=== PATIENT | female | born 1940 | race African-American/Black ===

== ENCOUNTER 2021-01-25 11:52 | Outpatient (REF) | payer MEDICARE, SELFPAY ==
[2021-01-25 13:17] LABS: MANUAL DIFF FLAG NO
[2021-01-25 13:24] LABS: Basophils Absolute Auto 0.1 X10*3/uL (0.0-0.2); Basophils Percent Auto 0.6 % (0-2); Eosinophils Absolute Auto 0.1 X10*3/uL (0.0-0.4); Hematocrit 32.8 % (37-47); Hemoglobin 10.3 g/dl (12.0-16.0); Imm Gran Abs Auto 0.06 X10*3/uL (0.00-0.03); Imm Gran Pct Auto 0.7 % (0.0-0.4); Lymphocytes Absolute Auto 1.1 X10*3/uL (1.2-4.9); Lymphocytes Percent Auto 13.2 % (20-40); Mean Corpuscular HGB Conc 31.4 g/dl (31.0-35.0); Mean Corpuscular Hemoglobin 28.4 pg (27.0-33.0); Mean Corpuscular Volume 90.4 fL (80-98); Mean Platelet Volume 9.7 fL (9.4-12.3); Monocytes Absolute Auto 0.7 X10*3/uL (0.1-1.2); Monocytes Percent Auto 8.2 % (2-11); Neutrophils Absolute Auto 6.1 X10*3/uL (2.0-8.3); Neutrophils Percent Auto 76.3 % (45-73); Platelet Count 825 X10*3/uL (160-400); Red Blood Count 3.63 X10*6/uL (4.20-5.50)
[2021-01-25 13:54] LABS: Alanine Aminotransferase 16 U/L (0-31); Albumin Level 3.8 g/dL (3.5-5.0); Alkaline Phosphatase 189 U/L (39-117); Anion Gap 14 (12-20); Aspartate Amino Transferase 30 U/L (5-31); Bilirubin Total 1.3 mg/dL (0.0-1.0); Blood Urea Nitrogen 16 mg/dL (9-16); Calcium 9.8 mg/dL (8.4-10.2); Carbon Dioxide 29 mmol/L (22-29); Chloride 104 mmol/L (96-108); Cholesterol 186 mg/dL; Estimated Glomerular Filt Rate > 60; Glucose Fasting 117 mg/dL (60-99); HDL Cholesterol 57 mg/dL; LDL Cholesterol Calculated 111 mg/dl; Potassium 4.6 mmol/L (3.3-5.1); Sodium 142 mmol/L (135-145); Total Protein 6.6 g/dL (6.5-8.0); Triglycerides 90 mg/dL
[2021-01-25 14:16] LABS: Thyroid Stimulating Hormone 0.58 uIU/mL (0.32-4.0)
== END 2021-01-25 11:53 | disposition home or self-care (01) ==
LOC: HO.LAB 11:52
PROVIDERS: PCP Internal Medicine; Visit Provider Internal Medicine
DX: Z00.00 Encounter for general adult medical examination without abnormal findings (principal); E11.9 Type 2 diabetes mellitus without complications; E03.9 Hypothyroidism, unspecified
CPT/HCPCS: 36415; 80053; 80061; 84443; 85025

== ENCOUNTER 2021-02-13 10:48 | Inpatient (IN) | payer MEDICARE, SELFPAY ==
[2021-02-13] VITALS (7 sets, daily range): BP systolic 124–162; BP diastolic 58–84; PULSE 75–95; RESP 12–16; TEMP 36.2–36.7; O2SAT 98–100; BMI 20.8
--- NOTE | ~2021-02-13 | US_ITS ---
EXAMINATION: US VENOUS ULTRASOUND WITH DOPPLER LOWER EXTREMITY, LEFT CLINICAL INFORMATION: Left leg swelling COMPARISON: None TECHNIQUE: Ultrasound of the deep veins is performed from the hip to the calf with compression sonography and color and pulse Doppler assessment. Spectral analysis with color-flow imaging is performed. FINDINGS: There is thrombus seen in the left common femoral vein. The left superficial femoral, popliteal and posterior tibial and peroneal veins are patent. The visualized left greater saphenous vein is patent. The visualized left external iliac vein is patent. There is no Collier's cyst. US/US venous duplex LE LT IMPRESSION: Left common femoral vein DVT.
--- NOTE | ~2021-02-13 | CT_ITS ---
EXAMINATION: CT ABDOMEN AND PELVIS WITHOUT CONTRAST CLINICAL INFORMATION: Hydronephrosis. Follow-up COMPARISON: Renal ultrasound 02/15/2021, CT abdomen and pelvis noncontrast 02/13/2021. TECHNIQUE: Multidetector volumetric imaging was performed from the superior aspect of the liver through the pubic symphysis. Sagittal and coronal reformatted images were obtained on the technologist's workstation. This CT examination was performed using dose optimization techniques as appropriate, variously including the following: *Automated exposure control *Adjustment of mA and/or kV according to patient size (this includes techniques or standardized protocols for targeted exams where dose is matched to indication/reason for exam; i.e. extremities or head) *Use of iterative reconstruction technique DLP: 490 mGy-cm FINDINGS: LUNG BASES: Subsegmental atelectasis left posterior base. LIVER, GALLBLADDER, AND BILIARY TREE: Homogeneous and smooth in contour. No intrahepatic ductal dilatation. Prior cholecystectomy. Common duct unremarkable. PANCREAS: Atrophic, otherwise unremarkable. SPLEEN: Unremarkable. ADRENAL GLANDS: Mild symmetric fullness, stable. KIDNEYS AND URETERS: The bilateral hydronephrosis is resolved status post bladder decompression with Arias. There is mild residual fullness of the collecting systems. No perinephric stranding or urinary tract calculi. Again, there is a cyst mid to lower pole right kidney measuring approximately 6.5 cm. BLADDER: Decompressed, indwelling Arias catheter. GASTROINTESTINAL TRACT: No bowel obstruction or focal inflammatory changes. There is large amount of stool in the rectum, 7.4 cm in diameter. No paracolic stranding. No ascites or fluid collection. ABDOMINAL WALL: Borderline fat-containing inguinal hernias. LYMPH NODES: No interval lymphadenopathy. VASCULAR: Atherosclerotic calcifications coronary arteries and abdominal aorta and iliac arteries. PELVIC VISCERA: Unremarkable. OSSEOUS STRUCTURES: No acute bony abnormality. CT/CT abdomen pelvis wo con IMPRESSION: 1. Resolution bilateral hydronephrosis status post bladder decompression with Arias. Mild residual fullness collecting systems. No perinephric stranding or urinary tract calculi. 2. Rectal fecal impaction, 7.4 cm. No proximal obstruction or inflammatory changes.
--- NOTE | ~2021-02-13 | CT_ITS ---
EXAM: CT scan of the chest, abdomen, and pelvis. INDICATION: Altered mental status. Falls. COMPARISON: Abdominal ultrasound December 23, 2018 TECHNIQUE: Multidetector helical imaging of the chest, abdomen, and pelvis was obtained from the thoracic inlet through the pubic symphysis . Coronal and sagittal reformatted images that were obtained were also reviewed. DLP: 903 mGy-cm FINDINGS: CHEST: Central airways are patent. Lungs are well aerated. Mild emphysematous changes are noted. Biapical architectural distortion. No lobar consolidation. No pleural effusion or pneumothorax. No suspicious pulmonary nodules. The heart is normal in size. Coronary artery calcifications are present. No pericardial effusion. No gross mediastinal lymphadenopathy. Nonaneurysmal thoracic aorta. Suspected 1.7 cm left thyroid nodule. ABDOMEN/PELVIS: The liver is normal in size. The gallbladder is surgically absent. The pancreas is unremarkable. The spleen is mildly atrophic. Hypertrophied adrenal glands, left more prominent than right. Moderate bilateral hydroureteronephrosis. No obstructing calculi identified. 7 cm right renal cyst. Normal caliber loops of small and large bowel. Colonic diverticulosis without CT evidence to suggest active diverticulitis. Prominent stool burden within the rectal vault. The bladder is distended. There is diffuse bladder wall thickening. Uterus is either atrophic or surgically absent. No gross free pelvic fluid. No inguinal lymphadenopathy. OSSEOUS STRUCTURES Diffuse osteopenia. Moderate diffuse degenerative changes of the spine. Suspected T7 hemangioma. Several old/subacute rib fractures are noted bilaterally. No definitive acute rib fracture identified. CT/CT abdomen pelvis wo con IMPRESSION: 1. Mild emphysema. 2. Suspected 1.7 cm left thyroid nodule. 3. Moderate bilateral hydroureteronephrosis. No obstructing calculi noted. There is also diffuse bladder wall thickening. Clinical correlation recommended. 4. Colonic diverticulosis. 5. Prominent stool burden within the rectal vault. 6. Diffuse osteopenia with degenerative changes of the spine. Old and subacute rib fractures noted. This CT examination was performed using dose optimization techniques as appropriate, variously including the following: *Automated exposure control *Adjustment of mA and/or kV according to patient size (this includes techniques or standardized protocols for targeted exams where dose is matched to indication/reason for exam; i.e. extremities or head) *Use of iterative reconstruction technique
--- NOTE | ~2021-02-13 | US_ITS ---
EXAMINATION: US RETROPERITONEAL LIMITED (RENAL ONLY) CLINICAL INFORMATION: Hydronephrosis. COMPARISON: CT abdomen and pelvis 02/15/2021, 02/13/2021. Ultrasound abdomen complete 12/23/2018. TECHNIQUE: Real-time imaging of the kidneys. [employer] Machine Tender notes technically challenging exam with patient limitations. Study tailored to patient capabilities. FINDINGS: RIGHT KIDNEY: 11.2 x 3.9 x 4.4 cm (SAG x AP x TRV). The kidney is normal in size, contour, and echogenicity. Renal cortical thickness is normal. No renal calculi or hydronephrosis. There is a chronic simple cyst upper pole measuring 6.3 x 6.2 x 5.7 cm. Prior measurements 6.1 x 5.8 x 5.1 cm on ultrasound 12/23/2018. LEFT KIDNEY: 9.5 x 5.7 x 4.7 cm (SAG x AP x TRV). The kidney is normal in size, contour, and echogenicity. Renal cortical thickness is normal. No focal parenchymal lesions. No hydronephrosis. There is a specular echo medial upper to midpole without shadowing or twinkling artifact to suggest nonobstructing calculus. US/US renal BI IMPRESSION: 1. No hydronephrosis. 2. Chronic simple cyst upper pole right kidney 6.3 x 5.7 cm.
--- NOTE | ~2021-02-13 | CT_ITS ---
EXAM: Noncontrast CT scan of the head and cervical spine. INDICATION: Altered mental status. Fall. COMPARISON: None TECHNIQUE: Axial slices were obtained from skull base to vertex and displayed. This was followed by helical, multislice, multidetector axial images from the occiput to the upper thorax. Coronal and sagittal reformats of the cervical spine in addition to coronal reformats of the head were obtained at the technologist workstation. DLP: 1577 mGy-cm FINDINGS: HEAD: There is no evidence of acute intracranial hemorrhage or territorial infarction. No abnormal mass effect or midline shift is appreciated. Goode-white differentiation is well preserved. No extra-axial fluid collections. The ventricular system and cortical sulci are prominent, consistent with volume loss. Mild cerebellar volume loss is also appreciated. There are areas of low density in the periventricular and subcortical white matter, most consistent with sequelae of microvascular ischemic change. The osseous structures and soft tissues are normal. There is mild to moderate calcifications of the cavernous internal carotid arteries. Mild mucosal thickening of the sphenoid sinus. Other visualized paranasal sinuses are well aerated. SPINE: Cervical spine is visualized in its entirety. Alignment is within normal limits. Vertebral body heights are maintained. Disc spaces demonstrate mild to moderate narrowing at C3/4, C4/5 and C5/6. There is diffuse mild to moderate facet hypertrophy bilaterally. No prevertebral soft tissue swelling. Visualized lung apices demonstrate biapical scarring. Enlarged multinodular thyroid gland. CT/CT cervical spine wo con IMPRESSION: 1. No acute intracranial pathology. 2. No fractures or dislocations of the cervical spine. This CT examination was performed using dose optimization techniques as appropriate, variously including the following: *Automated exposure control *Adjustment of mA and/or kV according to patient size (this includes techniques or standardized protocols for targeted exams where dose is matched to indication/reason for exam; i.e. extremities or head) *Use of iterative reconstruction technique
--- NOTE | 2021-02-13 10:56 | ED.AMS ---
HPI - Altered Mental Status General Chief Complaint: Altered Mental Status Stated Complaint: ams Time Seen by Provider: 02/13/21 10:56 Source: patient Mode of arrival: ambulatory Limitations: altered mental status History of Present Illness HPI narrative: 80 yo female with hx of HTN, dementia dx 2017, anemia, hypothyroidism off medications for over a month has had frequent falls at home, decline since december, lives alone but family spending more time at her place, needs assistance with all ADLs, minimal talking, minimal walking complaint: confusion and decreased responsiveness Onset (ago): month(s) (2) Timing confirmed by: spouse Severity: severe Consistency of symptoms: getting Worse Context: history of similar presentation Associated symptoms: loss of appetite, malaise, weakness and other (frequent falls) Related Data Home Medications Medication Instructions Recorded Confirmed alendronate 70 mg tablet 70 mg PO QWEEK 01/18/21 02/13/21 azathioprine 50 mg tablet 25 mg PO BID 01/18/21 02/13/21 lisinopril 20 mg tablet 20 mg PO DAILY 01/18/21 02/13/21 ferrous sulfate 325 mg PO DAILY 02/13/21 02/13/21 furosemide 40 mg PO DAILY 02/13/21 02/13/21 Allergies Allergy/AdvReac Type Severity Reaction Status Date / Time Penicillins Allergy hives Verified 01/18/21 11:30 Review of Systems Review of Systems: ROS unable to be obtained due to altered mental status PMFSH Past Medical History Attestation statement: The following information was validated with the patient. Medical History (Updated 02/13/21 @ 14:25 by Chong Norman MD) Bilateral hydronephrosis Cognitive decline Dementia HTN (hypertension) Hypothyroidism Surgical History (Updated 02/13/21 @ 14:25 by Chong Norman MD) H/O: hysterectomy S/P cholecystectomy Social History Social History (Updated 02/13/21 @ 14:25 by Chong Norman MD) Alcohol intake: unknown Smoking Status: Former smoker Advance Directives: No Advance Directives Information Provided: No Physical Exam Vital Signs: Vital Signs: Last Vital Signs Temp 97.6 F 02/13/21 11:00 Pulse 83 02/13/21 13:11 Resp 14 02/13/21 13:11 BP 124/67 02/13/21 13:11 Pulse Ox 99 02/13/21 13:11 Body Mass Index 20.8 Appearance: Alert. follows commands at times, flat affect, withdrawn. No acute distress. Eyes: Pupils equal, round and reactive to light. ENT: Pharynx dry MM Neck: Normal inspection. Neck supple. CVS: Normal heart rate and rhythm. Pulses normal. Respiratory: No respiratory distress. Breath sounds normal. Abdomen: Soft and nontender. lower abdominal scar Skin: Skin warm and dry. pale skin color. poor skin turgor. areas of old and new ecchymosis, abrasions to knees Extremities: pos Left lower extremity edema 1+ pitting. No calf ttp Neuro: Oriented to self. No motor deficit. No sensory deficit. withdrawn, diffusely weak flat affect, calm Course Course Course Narrative: possible infection suspected given wbc count and bladder wall thickening empiric ceftriaxone ordered 204pm give DVT and EVA will start on low dose heparin gtt, plts coags and H/H stable, will admit for further care and workup family no longer at bedside attempting to reach listed daughter Nafisa - message left daughter unsure of CODE status at this time, will discuss with family. MDM - Altered Mental Status MDM Narrative Medical decision making narrative: 80 yo female from home dx with dementia worsening symptoms over the past two months not on medications due to new PCP - requiring assistance with all ADLs, lives alone but family has been staying, frequent falls will need labs, cultures, UA, CT imaging of head/cervical spine, chest/abdomen for mass and trauma, as well as DVT study for LLE, dispo per results and findings, may need CM input as well Lab Data Result diagrams: 02/13/21 11:55 02/13/21 11:55 Labs: Lab Results 02/13/21 02/13/21 02/13/21 Range/Units 11:54 11:55 11:55 WBC 15.1 H (4.8-10.8) X10*3/uL RBC 4.14 L (4.20-5.50) X10*6/uL Hgb 10.8 L (12.0-16.0) g/dl Hct 36.1 L (37-47) % MCV 87.2 (80-98) fL MCH 26.1 L (27.0-33.0) pg MCHC 29.9 L (31.0-35.0) g/dl RDW 14.2 (11.0-16.0) % Plt Count 437 H D (160-400) X10*3/uL MPV 9.8 (9.4-12.3) fL Immature Gran % (Auto) 1.3 H (0.0-0.4) % Neut % (Auto) 86.7 H (45-73) % Lymph % (Auto) 6.1 L (20-40) % [place] % (Auto) 5.7 (2-11) % Eos % (Auto) 0.1 (0-4) % Baso % (Auto) 0.1 (0-2) % Lymph # (Auto) 0.9 L (1.2-4.9) X10*3/uL [place] # (Auto) 0.9 (0.1-1.2) X10*3/uL Eos # (Auto) 0.0 (0.0-0.4) X10*3/uL Baso # (Auto) 0.0 (0.0-0.2) X10*3/uL Abs Immat Gran (auto) 0.19 H (0.00-0.03) X10*3/uL Absolute Neuts (auto) 13.1 H (2.0-8.3) X10*3/uL Absolute Nucleated RBC 0.000 (0.0-0.012) X10*3/uL Nucleated RBC % (auto) 0.0 (0.0-0.2) /100WBC PT (10.8-13.0) SEC INR (0.9-1.1) APTT (24.1-38.0) SEC Sodium 147 H (135-145) mmol/L Potassium 4.4 (3.3-5.1) mmol/L Chloride 107 (96-108) mmol/L Carbon Dioxide 28 (22-29) mmol/L Anion Gap 16 (12-20) BUN 46 H D (9-16) mg/dL Creatinine 1.77 H (0.5-1.4) mg/dL Estim Creat Clear Calc 25.6 Estimated GFR 28 Random Glucose 153 H (60-115) mg/dL Lactic Acid (0.5-2.0) mmol/L Calcium 9.6 (8.4-10.2) mg/dL Magnesium 2.9 H (1.6-2.6) mg/dL Total Bilirubin 0.7 (0.0-1.0) mg/dL Direct Bilirubin 0.3 (0.0-0.5) mg/dL AST 38 H (5-31) U/L ALT 24 (0-31) U/L Alkaline Phosphatase 147 H D (39-117) U/L Total Creatine Kinase 37 (26-140) U/L Troponin I High Sens (<3.5-17.0) ng/L Total Protein 7.2 (6.5-8.0) g/dL Albumin 3.7 (3.5-5.0) g/dL Lipase 20 (8-78) U/L TSH 0.44 (0.32-4.0) uIU/mL Urine Color Urine Appearance Urine pH Ur Specific [place] Urine Protein Urine Glucose (UA) Urine Ketones Urine Blood Urine Nitrite Ur Leukocyte Esterase Urine RBC (0) /HPF Urine WBC (0-4) /HPF Ur Squamous Epith Cells /LPF Amorphous Sediment /LPF Urine Bacteria /LPF COVID-19 (BRIEN) Negative (Negative) COVID-19 Clin Com See Note 02/13/21 02/13/21 02/13/21 Range/Units 11:55 11:55 11:56 WBC (4.8-10.8) X10*3/uL RBC (4.20-5.50) X10*6/uL Hgb (12.0-16.0) g/dl Hct (37-47) % MCV (80-98) fL MCH (27.0-33.0) pg MCHC (31.0-35.0) g/dl RDW (11.0-16.0) % Plt Count (160-400) X10*3/uL MPV (9.4-12.3) fL Immature Gran % (Auto) (0.0-0.4) % Neut % (Auto) (45-73) % Lymph % (Auto) (20-40) % [place] % (Auto) (2-11) % Eos % (Auto) (0-4) % Baso % (Auto) (0-2) % Lymph # (Auto) (1.2-4.9) X10*3/uL [place] # (Auto) (0.1-1.2) X10*3/uL Eos # (Auto) (0.0-0.4) X10*3/uL Baso # (Auto) (0.0-0.2) X10*3/uL Abs Immat Gran (auto) (0.00-0.03) X10*3/uL Absolute Neuts (auto) (2.0-8.3) X10*3/uL Absolute Nucleated RBC (0.0-0.012) X10*3/uL Nucleated RBC % (auto) (0.0-0.2) /100WBC PT 12.8 (10.8-13.0) SEC INR 1.1 (0.9-1.1) APTT 31.9 (24.1-38.0) SEC Sodium (135-145) mmol/L Potassium (3.3-5.1) mmol/L Chloride (96-108) mmol/L Carbon Dioxide (22-29) mmol/L Anion Gap (12-20) BUN (9-16) mg/dL Creatinine (0.5-1.4) mg/dL Estim Creat Clear Calc Estimated GFR Random Glucose (60-115) mg/dL Lactic Acid 1.6 (0.5-2.0) mmol/L Calcium (8.4-10.2) mg/dL Magnesium (1.6-2.6) mg/dL Total Bilirubin (0.0-1.0) mg/dL Direct Bilirubin (0.0-0.5) mg/dL AST (5-31) U/L ALT (0-31) U/L Alkaline Phosphatase (39-117) U/L Total Creatine Kinase (26-140) U/L Troponin I High Sens 54.7 H (<3.5-17.0) ng/L Total Protein (6.5-8.0) g/dL Albumin (3.5-5.0) g/dL Lipase (8-78) U/L TSH (0.32-4.0) uIU/mL Urine Color Urine Appearance Urine pH Ur Specific [place] Urine Protein Urine Glucose (UA) Urine Ketones Urine Blood Urine Nitrite Ur Leukocyte Esterase Urine RBC (0) /HPF Urine WBC (0-4) /HPF Ur Squamous Epith Cells /LPF Amorphous Sediment /LPF Urine Bacteria /LPF COVID-19 (BRIEN) (Negative) COVID-19 Clin Com 02/13/21 02/13/21 Range/Units 12:43 12:43 WBC (4.8-10.8) X10*3/uL RBC (4.20-5.50) X10*6/uL Hgb (12.0-16.0) g/dl Hct (37-47) % MCV (80-98) fL MCH (27.0-33.0) pg MCHC (31.0-35.0) g/dl RDW (11.0-16.0) % Plt Count (160-400) X10*3/uL MPV (9.4-12.3) fL Immature Gran % (Auto) (0.0-0.4) % Neut % (Auto) (45-73) % Lymph % (Auto) (20-40) % [place] % (Auto) (2-11) % Eos % (Auto) (0-4) % Baso % (Auto) (0-2) % Lymph # (Auto) (1.2-4.9) X10*3/uL [place] # (Auto) (0.1-1.2) X10*3/uL Eos # (Auto) (0.0-0.4) X10*3/uL Baso # (Auto) (0.0-0.2) X10*3/uL Abs Immat Gran (auto) (0.00-0.03) X10*3/uL Absolute Neuts (auto) (2.0-8.3) X10*3/uL Absolute Nucleated RBC (0.0-0.012) X10*3/uL Nucleated RBC % (auto) (0.0-0.2) /100WBC PT (10.8-13.0) SEC INR (0.9-1.1) APTT (24.1-38.0) SEC Sodium (135-145) mmol/L Potassium (3.3-5.1) mmol/L Chloride (96-108) mmol/L Carbon Dioxide (22-29) mmol/L Anion Gap (12-20) BUN (9-16) mg/dL Creatinine (0.5-1.4) mg/dL Estim Creat Clear Calc Estimated GFR Random Glucose (60-115) mg/dL Lactic Acid (0.5-2.0) mmol/L Calcium (8.4-10.2) mg/dL Magnesium (1.6-2.6) mg/dL Total Bilirubin (0.0-1.0) mg/dL Direct Bilirubin (0.0-0.5) mg/dL AST (5-31) U/L ALT (0-31) U/L Alkaline Phosphatase (39-117) U/L Total Creatine Kinase (26-140) U/L Troponin I High Sens (<3.5-17.0) ng/L Total Protein (6.5-8.0) g/dL Albumin (3.5-5.0) g/dL Lipase (8-78) U/L TSH (0.32-4.0) uIU/mL Urine Color Cancelled YELLOW Urine Appearance Cancelled CLEAR Urine pH Cancelled 5.5 Ur Specific [place] Cancelled 1.020 Urine Protein Cancelled NEG Urine Glucose (UA) Cancelled NEG Urine Ketones Cancelled NEG Urine Blood Cancelled TRACE Urine Nitrite Cancelled NEG Ur Leukocyte Esterase Cancelled NEG Urine RBC 0-2 (0) /HPF Urine WBC 1-4 (0-4) /HPF Ur Squamous Epith Cells TRACE /LPF Amorphous Sediment 1+ /LPF Urine Bacteria NONE /LPF COVID-19 (BRIEN) (Negative) COVID-19 Clin Com ECG Data ECG #1: Attestation: I personally reviewed and interpreted this ECG as follows: ECG interpretation date: 02/13/21 ECG interpretation time: 11:51 Interpretation: Rate: 88 Rhythm: NSR [place]: normal Normal P waves. Normal LEANN. Normal QRS complex. poor R wave progression ST T wave : nonspecific, no ANGELINA, artifact noted qTC: normal prior studies: no acute ischemia The study has been interpreted contemporaneously by me. . Discharge Plan Discharge Clinical Impression: EVA (acute kidney injury), Weakness Dementia Qualifiers: Dementia type: unspecified type Dementia behavioral disturbance: without behavioral disturbance Qualified Code(s): F03.90 - Unspecified dementia without behavioral disturbance Constipation Qualifiers: Constipation type: other constipation type Qualified Code(s): K59.09 - Other constipation DVT (deep venous thrombosis) Qualifiers: DVT location: lower extremity Affected thrombotic vein of extremity: femoral Chronicity: acute Laterality: left Qualified Code(s): I82.412 - Acute embolism and thrombosis of left femoral vein Patient Disposition: Admitted As Inpatient
--- NOTE | 2021-02-13 11:06 | ECG_ITS ---
Test Reason : AMS Blood Pressure : / mmHG Vent. Rate : 088 BPM Atrial Rate : 088 BPM P-R Int : 146 ms QRS Dur : 102 ms QT Int : 358 ms P-R-T Axes : 082 021 064 degrees QTc Int : 433 ms Normal sinus rhythm Anterior infarct (cited on or before 13-FEB-2021) Abnormal ECG When compared with ECG of 28-JAN-2004 13:02, T wave inversion now evident in Lateral leads Referred By: Michelle Whyte Electronically Signed By:DILIP JACKSON MD
[2021-02-13 12:02] LABS: MANUAL DIFF FLAG NO
[2021-02-13 12:04] LABS: Basophils Percent Auto 0.1 % (0-2); Eosinophils Percent Auto 0.1 % (0-4); Hematocrit 36.1 % (37-47); Hemoglobin 10.8 g/dl (12.0-16.0); Imm Gran Abs Auto 0.19 X10*3/uL (0.00-0.03); Imm Gran Pct Auto 1.3 % (0.0-0.4); Lymphocytes Absolute Auto 0.9 X10*3/uL (1.2-4.9); Lymphocytes Percent Auto 6.1 % (20-40); Mean Corpuscular HGB Conc 29.9 g/dl (31.0-35.0); Mean Corpuscular Hemoglobin 26.1 pg (27.0-33.0); Mean Corpuscular Volume 87.2 fL (80-98); Mean Platelet Volume 9.8 fL (9.4-12.3); Monocytes Absolute Auto 0.9 X10*3/uL (0.1-1.2); Monocytes Percent Auto 5.7 % (2-11); Neutrophils Absolute Auto 13.1 X10*3/uL (2.0-8.3); Neutrophils Percent Auto 86.7 % (45-73); Platelet Count 437 X10*3/uL (160-400); Red Blood Count 4.14 X10*6/uL (4.20-5.50); Red Cell Distribution Width 14.2 % (11.0-16.0); White Blood Count 15.1 X10*3/uL (4.8-10.8)
[2021-02-13 12:20] LABS: INTERNATIONAL NORM RATIO 1.1 (0.9-1.1); Partial Thromboplastin Time 31.9 SEC (24.1-38.0); Prothrombin Time 12.8 SEC (10.8-13.0)
[2021-02-13 12:21] LABS: COVID-19 Test Negative (Negative); IDNOW Serial# 9DD0AD1C
[2021-02-13 12:24] LABS: Lactic Acid 1.6 mmol/L (0.5-2.0)
[2021-02-13 12:28] LABS: Alanine Aminotransferase 24 U/L (0-31); Albumin Level 3.7 g/dL (3.5-5.0); Alkaline Phosphatase 147 U/L (39-117); Anion Gap 16 (12-20); Aspartate Amino Transferase 38 U/L (5-31); Bilirubin Direct 0.3 mg/dL (0.0-0.5); Bilirubin Total 0.7 mg/dL (0.0-1.0); Blood Urea Nitrogen 46 mg/dL (9-16); Calcium 9.6 mg/dL (8.4-10.2); Carbon Dioxide 28 mmol/L (22-29); Chloride 107 mmol/L (96-108); Creatinine Clr Calc Pharmacy 25.6; Estimated Glomerular Filt Rate 28; Glucose Random 153 mg/dL (60-115); Lipase 20 U/L (8-78); Magnesium 2.9 mg/dL (1.6-2.6); Potassium 4.4 mmol/L (3.3-5.1); Sodium 147 mmol/L (135-145); Total Protein 7.2 g/dL (6.5-8.0)
[2021-02-13 12:37] LABS: Troponin-I High Sensitivity 54.7 ng/L (<3.5-17.0)
[2021-02-13 12:48] LABS: Thyroid Stimulating Hormone 0.44 uIU/mL (0.32-4.0)
[2021-02-13 12:56] LABS: Glucose Urine UA NEG (NEG); Leukocyte Esterase Urine NEG (NEG); Nitrite Urine NEG (NEG); PH 5.5 (5.0-8.0); Urine Blood TRACE (NEG); Urine Ketones NEG (NEG); Urine Protein NEG (NEG-TRACE)
[2021-02-13 12:59] LABS: Appearance Urine CLEAR; Color Urine YELLOW
[2021-02-13 13:08] LABS: Amorphous Sediment Urine 1+ /LPF; RBC Urine 0-2 /HPF (0); Squamous Epithelial Cell Urine TRACE /LPF
[2021-02-13] MEDS: 0.9 % Sodium Chloride 500 ML IV (13:11)
[2021-02-13] MEDS: cefTRIAXone sodium 1 GM in 0.9 % Sodium Chloride 50 ML IV (14:36)
--- NOTE | 2021-02-13 15:10 | PC.NURSE ---
Hospitalist at bedside Dr Cadet speaking with about admission and plan of care. Photos taken by Dr cadet to be placed in chart
[2021-02-13] MEDS: Heparin Sodium,Porcine 5,000 UNIT/ML VIAL 2600 UNIT IVPUSH (15:21)
[2021-02-13] MEDS: Heparin Sodium,Porcine/1/2NS 25,000 UNIT/250 ML IV.SOLN 7.69 UNIT IVCONT (15:22)
--- NOTE | 2021-02-13 15:25 | PC.NURSE ---
Heparin gtt started per order/protocol. at bedside. No changes since last assessment. VSS
--- NOTE | 2021-02-13 15:30 | P.HPHOSP_ITS ---
History of Present Illness Date of Service: 02/13/21 Chief Complaint: weakness 80F brought in by family for failure to thrive. patient has been declining over several months, but most significantly over the last month. she was previously independent in ADLs, now needs help with walking, toileting, dressing, cannot have meaningful conversations. she has had multiple falls, has been spending more time in bed and in chair. has had decreased appetite and unspecified weight loss. in ED noted to have LLE common femoral vein DVT, EVA, hypernatremia, hydronephrosis with 2L urinary retention. UA was negative but ceftriaxone given empirically for bladder wall thickening, started on IV heparin. Review of Systems Review of Systems: Constitutional: Denies fever, denies Chills Eyes: denies blurry vision ENT: denies sore throat CVS: denies chest pain Respiratory: Denies dyspnea GI: no abdominal pain : denies dysuria MSK: denies neck pain Skin: denies rash Neuro: weakness Psych: denies suicidal ideation Endocrine: denies heat/cold intoleratnce Hematologic: denies easy bleeding Allergy: denies hives [facility] Medical History (Updated 02/13/21 @ 15:41 by Chong Norman MD) Age related osteoporosis Autoimmune hepatitis Bilateral hydronephrosis Cognitive decline COPD (chronic obstructive pulmonary disease) Dementia HTN (hypertension) Hypothyroidism Urinary retention Family History Mother No problems noted. Family history: reviewed and not pertinent Surgical History H/O: hysterectomy S/P cholecystectomy Social History Alcohol intake: unknown Smoking Status: Former smoker Advance Directives: No Advance Directives Information Provided: No Meds Allergies Allergy/AdvReac Type Severity Reaction Status Date / Time Penicillins Allergy hives Verified 01/18/21 11:30 Active Medications: Current Medications Generic Name Dose Route Start Last Admin Trade Name Freq PRN Reason Stop Dose Admin Heparin Sodium (Porcine) 2,600 unit 02/13/21 14:15 Heparin Sodium,Porcine 5,000 Unit/Ml Vial 40 unit/kg (2600 unit) IVPUSH BOLUS PRN 40 unit/kg - Heparin Protocol Heparin Sodium (Porcine) 5,100 unit 02/13/21 14:19 Heparin Sodium,Porcine 5,000 Unit/Ml Vial 80 unit/kg (5100 unit) IVPUSH BOLUS PRN 80 unit/kg - Heparin Protocol Heparin Sodium/Sodium Chloride 25,000 unit in 250 mls @ 0 mls/hr 02/13/21 14:15 02/13/21 15:22 IVCONT 12 units/kg/hr .Q0M MAGY 7.69 mls/hr Administration Protocol Per Protocol Pharmacy Consult 1 each 02/13/21 11:05 Consult Rx Perform Med Rec MISCELLANE ONCE PRN Consult order Home Medications Medication Instructions Recorded Confirmed Last Taken Type alendronate 70 mg tablet 70 mg PO QWEEK 01/18/21 02/13/21 Unknown History azathioprine 50 mg tablet 25 mg PO BID 01/18/21 02/13/21 Unknown History lisinopril 20 mg tablet 20 mg PO DAILY 01/18/21 02/13/21 Unknown History ferrous sulfate 325 mg PO DAILY 02/13/21 02/13/21 Unknown History furosemide 40 mg PO DAILY 02/13/21 02/13/21 Unknown History Physical Exam Vital Signs and Narrative: Vital Signs: Last Vital Signs Temp 97.6 F 02/13/21 11:00 Pulse 86 02/13/21 14:55 Resp 12 02/13/21 14:55 BP 159/68 H 02/13/21 14:55 Pulse Ox 100 02/13/21 14:55 Body Mass Index 20.8 General: minimally verbal, disoriented, no acute distress HEENT: atraumatic Neck: normal to visual inspection CVS: S1, S2, RRR Resp: diminished Chest: non tender GI: soft, non tender, non distended : no CVA tenderness Skin: abrasians, and sacral stage I, see pics Extremities: LLE edema Neuro: motor grossly intact Psych: impaired insight Results Labs CBC and Chem 7: 02/13/21 11:55 02/13/21 11:55 Labs: Laboratory Results - last 24 hr 02/13/21 02/13/21 02/13/21 11:54 11:55 11:55 MCV 87.2 MCH 26.1 L MCHC 29.9 L RDW 14.2 Plt Count 437 H D MPV 9.8 Immature Gran % (Auto) 1.3 H Neut % (Auto) 86.7 H Lymph % (Auto) 6.1 L [place] % (Auto) 5.7 Eos % (Auto) 0.1 Baso % (Auto) 0.1 Lymph # (Auto) 0.9 L [place] # (Auto) 0.9 Eos # (Auto) 0.0 Baso # (Auto) 0.0 Abs Immat Gran (auto) 0.19 H Absolute Neuts (auto) 13.1 H Absolute Nucleated RBC 0.000 Nucleated RBC % (auto) 0.0 PT INR APTT Anion Gap 16 Estim Creat Clear Calc 25.6 Estimated GFR 28 Random Glucose 153 H Lactic Acid Calcium 9.6 Magnesium 2.9 H Total Bilirubin 0.7 Direct Bilirubin 0.3 AST 38 H ALT 24 Alkaline Phosphatase 147 H D Total Creatine Kinase 37 Troponin I High Sens Total Protein 7.2 Albumin 3.7 Lipase 20 TSH 0.44 Urine Color Urine Appearance Urine pH Ur Specific [place] Urine Protein Urine Glucose (UA) Urine Ketones Urine Blood Urine Nitrite Ur Leukocyte Esterase Urine RBC Urine WBC Ur Squamous Epith Cells Amorphous Sediment Urine Bacteria COVID-19 (BRIEN) Negative COVID-19 [employer] Com See Note 02/13/21 02/13/21 02/13/21 11:55 11:55 11:56 MCV MCH MCHC RDW Plt Count MPV Immature Gran % (Auto) Neut % (Auto) Lymph % (Auto) [place] % (Auto) Eos % (Auto) Baso % (Auto) Lymph # (Auto) [place] # (Auto) Eos # (Auto) Baso # (Auto) Abs Immat Gran (auto) Absolute Neuts (auto) Absolute Nucleated RBC Nucleated RBC % (auto) PT 12.8 INR 1.1 APTT 31.9 Anion Gap Estim Creat Clear Calc Estimated GFR Random Glucose Lactic Acid 1.6 Calcium Magnesium Total Bilirubin Direct Bilirubin AST ALT Alkaline Phosphatase Total Creatine Kinase Troponin I High Sens 54.7 H Total Protein Albumin Lipase TSH Urine Color Urine Appearance Urine pH Ur Specific [place] Urine Protein Urine Glucose (UA) Urine Ketones Urine Blood Urine Nitrite Ur Leukocyte Esterase Urine RBC Urine WBC Ur Squamous Epith Cells Amorphous Sediment Urine Bacteria COVID-19 (BRIEN) COVID-[employer] Com 02/13/21 02/13/21 12:43 12:43 MCV MCH MCHC RDW Plt Count MPV Immature Gran % (Auto) Neut % (Auto) Lymph % (Auto) [place] % (Auto) Eos % (Auto) Baso % (Auto) Lymph # (Auto) [place] # (Auto) Eos # (Auto) Baso # (Auto) Abs Immat Gran (auto) Absolute Neuts (auto) Absolute Nucleated RBC Nucleated RBC % (auto) PT INR APTT Anion Gap Estim Creat Clear Calc Estimated GFR Random Glucose Lactic Acid Calcium Magnesium Total Bilirubin Direct Bilirubin AST ALT Alkaline Phosphatase Total Creatine Kinase Troponin I High Sens Total Protein Albumin Lipase TSH Urine Color Cancelled YELLOW Urine Appearance Cancelled CLEAR Urine pH Cancelled 5.5 Ur Specific [place] Cancelled 1.020 Urine Protein Cancelled NEG Urine Glucose (UA) Cancelled NEG Urine Ketones Cancelled NEG Urine Blood Cancelled TRACE Urine Nitrite Cancelled NEG Ur Leukocyte Esterase Cancelled NEG Urine RBC 0-2 Urine WBC 1-4 Ur Squamous Epith Cells TRACE Amorphous Sediment 1+ Urine Bacteria NONE COVID-19 (BRIEN) COVID-19 Clin Com Imaging Radiologist's Impressions: Impressions Venous Duplex 02/13/21 11:05 IMPRESSION: Left common femoral vein DVT. Abdomen/Pelvis CT 02/13/21 11:06 IMPRESSION: 1. Mild emphysema. 2. Suspected 1.7 cm left thyroid nodule. 3. Moderate bilateral hydroureteronephrosis. No obstructing calculi noted. There is also diffuse bladder wall thickening. Clinical correlation recommended. 4. Colonic diverticulosis. 5. Prominent stool burden within the rectal vault. 6. Diffuse osteopenia with degenerative changes of the spine. Old and subacute rib fractures noted. This CT examination was performed using dose optimization techniques as appropriate, variously including the following: *Automated exposure control *Adjustment of mA and/or kV according to patient size (this includes techniques or standardized protocols for targeted exams where dose is matched to indication/reason for exam; i.e. extremities or head) *Use of iterative reconstruction technique Cervical Spine CT 02/13/21 11:06 IMPRESSION: 1. No acute intracranial pathology. 2. No fractures or dislocations of the cervical spine. This CT examination was performed using dose optimization techniques as appropriate, variously including the following: *Automated exposure control *Adjustment of mA and/or kV according to patient size (this includes techniques or standardized protocols for targeted exams where dose is matched to indication/reason for exam; i.e. extremities or head) *Use of iterative reconstruction technique Chest CT 02/13/21 11:06 IMPRESSION: 1. Mild emphysema. 2. Suspected 1.7 cm left thyroid nodule. 3. Moderate bilateral hydroureteronephrosis. No obstructing calculi noted. There is also diffuse bladder wall thickening. Clinical correlation recommended. 4. Colonic diverticulosis. 5. Prominent stool burden within the rectal vault. 6. Diffuse osteopenia with degenerative changes of the spine. Old and subacute rib fractures noted. This CT examination was performed using dose optimization techniques as appropriate, variously including the following: *Automated exposure control *Adjustment of mA and/or kV according to patient size (this includes techniques or standardized protocols for targeted exams where dose is matched to indication/reason for exam; i.e. extremities or head) *Use of iterative reconstruction technique Head CT 02/13/21 11:06 IMPRESSION: 1. No acute intracranial pathology. 2. No fractures or dislocations of the cervical spine. This CT examination was performed using dose optimization techniques as appropriate, variously including the following: *Automated exposure control *Adjustment of mA and/or kV according to patient size (this includes techniques or standardized protocols for targeted exams where dose is matched to indication/reason for exam; i.e. extremities or head) *Use of iterative reconstruction technique Assessment and Plan (1) Metabolic encephalopathy: Status: Acute (2) Hypernatremia: Status: Acute (3) Urinary retention: Status: Acute (4) Bilateral hydronephrosis: Status: Acute (5) Autoimmune hepatitis: Status: Acute (6) COPD (chronic obstructive pulmonary disease): Status: Acute (7) EVA (acute kidney injury): Status: Acute (8) DVT (deep venous thrombosis): Qualifiers: Affected thrombotic vein of extremity: femoral Chronicity: acute DVT location: lower extremity Laterality: left Qualified Code(s): I82.412 - Acute embolism and thrombosis of left femoral vein Status: Acute 80F presented with FTT metabolic encephalopathy hypernatremia and EVA urinary retention james placed, about 2L residual, consult empiric ceftriaxone monitor bmp D5W LLE common femoral vein DVT heparin seems unprovoked, unless due to imobility, question of underlying malignancy, hematology consult COPD stable, not offically diagnosed dementia progressing autoimmune hepatitis azathioprine hypothyroid not on synthroid, tsh 0.44 Osteoporosis hold alendronate Full code - d/w HCP, daughter, Nafisa
[2021-02-13] MEDS: 0.9 % Sodium Chloride Flush 3 ML SYRINGE IVFLUSH (19:52)
[2021-02-13] MEDS: Dextrose 5 % 1,000 ML 100 ML IVCONT (20:13)
--- NOTE | 2021-02-13 23:27 | PC.NURSE ---
P-PTT-HD results not available I phlebotomy contacted stated specimen was obtained,spoke with chemistry also E results are pending
[2021-02-13 23:35] LABS: PTT Heparin Drip 106.6 SEC (53-77.9)
[2021-02-14] MEDS: Dextrose 5 % 1,000 ML 100 ML IVCONT ×2 (06:07→16:08)
--- NOTE | 2021-02-14 06:27 | PC.NURSE ---
PTT-HD RESULTS FROM 2129 DRAW STILL NOT POSTED BY 2300 REPORT, THEREFORE, 3- RN PLACED A CALL TO LAB FOR RESULTS. VACUUM CLEANER REPAIR PERSON STATED WOULD LOOK INTO THE MATTER AND NOTED RESULTS POSTED APPROX 2340. PTT-HD WAS 106.6, AND PER PROTOCOL, DRIP SHUT OFF FOR ONE HOUR AT 0000 AND THEN TO BE REDUCED BY 3/UNITS/KG/HR. RATE PRIOR WAS 12 UNITS/KG/HR WITH A RATE OF 7.69ML/HR. WITH RESTART AFTER ONE HOUR AT 0100, NOW 9 UNITS/KG/HR WHICH IS AT A RATE OF 5.76ML/HR AND COSIGNED BY RN COWORKER WITH WITNESS TO CHANGE. PT WITH NO S/SX ACTIVE BLEEDING AND NEXT PTT-HD SCHEDULED FOR 0700 ON 02-14-21. WILL CONTINUE TO MONITOR
[2021-02-14 06:45] LABS: MANUAL DIFF FLAG NO
[2021-02-14 06:55] LABS: INTERNATIONAL NORM RATIO 1.2 (0.9-1.1); Prothrombin Time 13.7 SEC (10.8-13.0)
[2021-02-14 06:57] LABS: Basophils Percent Auto 0.2 % (0-2); Eosinophils Percent Auto 0.3 % (0-4); Hematocrit 30.2 % (37-47); Hemoglobin 9.3 g/dl (12.0-16.0); Imm Gran Abs Auto 0.12 X10*3/uL (0.00-0.03); Imm Gran Pct Auto 0.9 % (0.0-0.4); Lymphocytes Absolute Auto 1.3 X10*3/uL (1.2-4.9); Lymphocytes Percent Auto 9.9 % (20-40); Mean Corpuscular HGB Conc 30.8 g/dl (31.0-35.0); Mean Corpuscular Hemoglobin 26.5 pg (27.0-33.0); Mean Platelet Volume 9.7 fL (9.4-12.3); Monocytes Absolute Auto 0.9 X10*3/uL (0.1-1.2); Monocytes Percent Auto 7.1 % (2-11); Neutrophils Absolute Auto 10.6 X10*3/uL (2.0-8.3); Neutrophils Percent Auto 81.6 % (45-73); PTT Heparin Drip 74.9 SEC (53-77.9); Platelet Count 396 X10*3/uL (160-400); Red Blood Count 3.51 X10*6/uL (4.20-5.50); Red Cell Distribution Width 14.2 % (11.0-16.0)
[2021-02-14 07:38] VITALS: BP 163/76; PULSE 75; RESP 18; TEMP 36.3; O2SAT 100
[2021-02-14 07:46] LABS: Anion Gap 12 (12-20); Blood Urea Nitrogen 29 mg/dL (9-16); Calcium 8.7 mg/dL (8.4-10.2); Carbon Dioxide 31 mmol/L (22-29); Chloride 106 mmol/L (96-108); Creatinine Clr Calc Pharmacy 45.8; Estimated Glomerular Filt Rate 54; Glucose Random 132 mg/dL (60-115); Potassium 3.7 mmol/L (3.3-5.1); Sodium 145 mmol/L (135-145)
--- NOTE | 2021-02-14 08:50 | PM.UROCN ---
History of Present Illness Consult details Consult date: 02/14/21 Narrative: 80 yr female admit with FTT found to have 2l retention with bilateral hydro and elevated creatinine james catheter placed cr already fallen to 1.0 leave catheter for 4 weeks can be seen as outpatient for voiding trial start low dose alpha sunshine repeat imaging to confirm hydro resolution PMFSH Past Medical History Medical History (Updated 02/13/21 @ 15:41 by Chong Norman MD) Age related osteoporosis Autoimmune hepatitis Bilateral hydronephrosis Cognitive decline COPD (chronic obstructive pulmonary disease) Dementia HTN (hypertension) Hypothyroidism Urinary retention Family History Family History Mother No problems noted. Family history: reviewed and not pertinent Surgical History Surgical History H/O: hysterectomy S/P cholecystectomy Social History Social History Household Members: Other Household Members Other:: daughter Housing: House Do you presently have visiting nurse or other home services: Yes Unable to assess alcohol history related to: Unable to respond and Unknown Alcohol intake: unknown Smoking Status: Former smoker Use of substances other than those prescribed or required for medical reasons: Unknown Advance Directives: No Advance Directives Information Provided: No Do you have thoughts of harming others: None Do you have a plan to hurt others: No Plan Recently lost weight without trying: Unsure Meds Allergies Allergy/AdvReac Type Severity Reaction Status Date / Time Penicillins Allergy hives Verified 01/18/21 11:30 Active Medications: Current Medications Generic Name Dose Route Start Last Admin Trade Name Freq PRN Reason Stop Dose Admin Azathioprine 25 mg 02/13/21 21:00 02/13/21 21:41 Azathioprine 25 Mg Halftab PO 25 mg BID MAGY Administration Heparin Sodium (Porcine) 2,600 unit 02/13/21 14:15 Heparin Sodium,Porcine 5,000 Unit/Ml Vial 40 unit/kg (2600 unit) IVPUSH BOLUS PRN 40 unit/kg - Heparin Protocol Heparin Sodium (Porcine) 5,100 unit 02/13/21 14:19 Heparin Sodium,Porcine 5,000 Unit/Ml Vial 80 unit/kg (5100 unit) IVPUSH BOLUS PRN 80 unit/kg - Heparin Protocol Heparin Sodium/Sodium Chloride 25,000 unit in 250 mls @ 0 mls/hr 02/13/21 14:15 02/14/21 07:25 IVCONT 9 units/kg/hr .Q0M MAGY 5.77 mls/hr Titration Protocol Per Protocol Ceftriaxone Sodium 1 gm/ 50 mls @ 100 mls/hr 02/14/21 14:00 Sodium Chloride IV Q24H MAGY Dextrose 1,000 mls @ 100 mls/hr 02/13/21 19:46 02/14/21 06:07 D5w IVCONT 100 mls/hr .Q10H MAGY Administration Sodium Chloride 3 ml 02/13/21 19:46 02/14/21 00:00 0.9 % Sodium Chloride Flush 3 Ml Syringe IVFLUSH Not Given QSHIFT [facility] Home Medications Medication Instructions Recorded Confirmed Last Taken Type alendronate 70 mg PO QWEEK 02/13/21 02/13/21 Unknown History azathioprine 25 mg PO BID 02/13/21 02/13/21 Unknown History ferrous sulfate 325 mg PO DAILY 02/13/21 02/13/21 Unknown History furosemide 40 mg PO DAILY 02/13/21 02/13/21 Unknown History lisinopril 20 mg PO DAILY 02/13/21 02/13/21 Unknown History Physical Exam Vital Signs: Vital Signs: Last Vital Signs Temp 97.4 F 02/14/21 07:38 Pulse 75 02/14/21 07:38 Resp 18 02/14/21 07:38 BP 163/76 H 02/14/21 07:38 Pulse Ox 100 02/14/21 07:38 Body Mass Index 20.8 Const: General: cooperative, healthy appearing, comfortable and no acute distress Nutritional Appearance: average body habitus Orientation/consciousness: oriented to person, oriented to place and oriented to time Eyes: General: appearance normal, both eyes and all related structures Chest: Chest palpation & inspection: normal inspection of the chest Resp: Effort & Inspection: normal respiratory effort Cardio: Rate: regular rate GI: Inspection: Yes normal to inspection Skin: Hair: normal Neuro: General: oriented to person, oriented to place and oriented to time Extrem: General: Yes normal to inspection Results Labs Result diagrams: 02/14/21 06:35 02/14/21 06:35 Labs: Abnormal lab results 02/13/21 02/13/21 02/13/21 Range/Units 11:55 11:55 11:55 WBC 15.1 H (4.8-10.8) X10*3/uL RBC 4.14 L (4.20-5.50) X10*6/uL Hgb 10.8 L (12.0-16.0) g/dl Hct 36.1 L (37-47) % MCH 26.1 L (27.0-33.0) pg MCHC 29.9 L (31.0-35.0) g/dl Plt Count 437 H D (160-400) X10*3/uL Immature Gran % (Auto) 1.3 H (0.0-0.4) % Neut % (Auto) 86.7 H (45-73) % Lymph % (Auto) 6.1 L (20-40) % Lymph # (Auto) 0.9 L (1.2-4.9) X10*3/uL Abs Immat Gran (auto) 0.19 H (0.00-0.03) X10*3/uL Absolute Neuts (auto) 13.1 H (2.0-8.3) X10*3/uL PT (10.8-13.0) SEC INR (0.9-1.1) PTT (Heparin Protocol) (53-77.9) SEC Sodium 147 H (135-145) mmol/L Carbon Dioxide (22-29) mmol/L BUN 46 H D (9-16) mg/dL Creatinine 1.77 H (0.5-1.4) mg/dL Random Glucose 153 H (60-115) mg/dL Magnesium 2.9 H (1.6-2.6) mg/dL AST 38 H (5-31) U/L Alkaline Phosphatase 147 H D (39-117) U/L Troponin I High Sens 54.7 H (<3.5-17.0) ng/L 02/13/21 02/14/21 02/14/21 Range/Units 21:30 06:35 06:35 WBC 13.0 H (4.8-10.8) X10*3/uL RBC 3.51 L (4.20-5.50) X10*6/uL Hgb 9.3 L (12.0-16.0) g/dl Hct 30.2 L (37-47) % MCH 26.5 L (27.0-33.0) pg MCHC 30.8 L (31.0-35.0) g/dl Plt Count (160-400) X10*3/uL Immature Gran % (Auto) 0.9 H (0.0-0.4) % Neut % (Auto) 81.6 H (45-73) % Lymph % (Auto) 9.9 L (20-40) % Lymph # (Auto) (1.2-4.9) X10*3/uL Abs Immat Gran (auto) 0.12 H (0.00-0.03) X10*3/uL Absolute Neuts (auto) 10.6 H (2.0-8.3) X10*3/uL PT (10.8-13.0) SEC INR (0.9-1.1) PTT (Heparin Protocol) 106.6 H (53-77.9) SEC Sodium (135-145) mmol/L Carbon Dioxide 31 H (22-29) mmol/L BUN 29 H (9-16) mg/dL Creatinine (0.5-1.4) mg/dL Random Glucose 132 H (60-115) mg/dL Magnesium (1.6-2.6) mg/dL AST (5-31) U/L Alkaline Phosphatase (39-117) U/L Troponin I High Sens (<3.5-17.0) ng/L 02/14/21 Range/Units 06:35 WBC (4.8-10.8) X10*3/uL RBC (4.20-5.50) X10*6/uL Hgb (12.0-16.0) g/dl Hct (37-47) % MCH (27.0-33.0) pg MCHC (31.0-35.0) g/dl Plt Count (160-400) X10*3/uL Immature Gran % (Auto) (0.0-0.4) % Neut % (Auto) (45-73) % Lymph % (Auto) (20-40) % Lymph # (Auto) (1.2-4.9) X10*3/uL Abs Immat Gran (auto) (0.00-0.03) X10*3/uL Absolute Neuts (auto) (2.0-8.3) X10*3/uL PT 13.7 H (10.8-13.0) SEC INR 1.2 H (0.9-1.1) PTT (Heparin Protocol) (53-77.9) SEC Sodium (135-145) mmol/L Carbon Dioxide (22-29) mmol/L BUN (9-16) mg/dL Creatinine (0.5-1.4) mg/dL Random Glucose (60-115) mg/dL Magnesium (1.6-2.6) mg/dL AST (5-31) U/L Alkaline Phosphatase (39-117) U/L Troponin I High Sens (<3.5-17.0) ng/L Short CBC 02/13/21 02/14/21 Range/Units 11:55 06:35 WBC 15.1 H 13.0 H (4.8-10.8) X10*3/uL Hgb 10.8 L 9.3 L (12.0-16.0) g/dl Hct 36.1 L 30.2 L (37-47) % Plt Count 437 H D 396 (160-400) X10*3/uL BMP 02/13/21 02/14/21 11:55 06:35 Sodium 147 H 145 Potassium 4.4 3.7 Chloride 107 106 Carbon Dioxide 28 31 H BUN 46 H D 29 H Creatinine 1.77 H 0.99 Calcium 9.6 8.7 D Cardiac Enzymes 02/13/21 Range/Units 11:55 Total Creatine Kinase 37 (26-140) U/L Liver Function 02/13/21 Range/Units 11:55 Total Bilirubin 0.7 (0.0-1.0) mg/dL Direct Bilirubin 0.3 (0.0-0.5) mg/dL AST 38 H (5-31) U/L ALT 24 (0-31) U/L Alkaline Phosphatase 147 H D (39-117) U/L Albumin 3.7 (3.5-5.0) g/dL Urine 02/13/21 02/13/21 Range/Units 12:43 12:43 Urine Color Cancelled YELLOW Urine Appearance Cancelled CLEAR Urine pH Cancelled 5.5 Ur Specific [place] Cancelled 1.020 Urine Protein Cancelled NEG Urine Glucose (UA) Cancelled NEG All other labs normal. Assessment and Plan (1) Urinary retention: Status: Acute (2) Bilateral hydronephrosis: Status: Acute james alpha sunshine repeat imaging voiding triral in office in 4 weeks
--- NOTE | 2021-02-14 09:10 | MHC.CM.PN ---
IMM 02/14/21, EMR REVIEWED, PT ADMITTED W/DVT, EVA, CM ATTEMPTED TO MEET W/PT WHO IS ALERT & ORIENTED TO NAME ONLY, CM CONTACTED HER DAUGHTER MARCO AT 8:47AM ([phone]), PER DAUGHTER PT'S HEALTH AND COGNITION HAVE BEEN DECLINING SINCE January, PT HAS HAD FALLS AND DAUGHTER IS AWARE OF INJURIES, PT HAD ALSO BEEN OFF HER MEDICATION DUE TO CHANGE IN PCP, PT DID HAVE A FIRST VISIT W/PCP ON 01/18/21, PT HAS A WALKER, WHEEL CHAIR, BARS IN BATHROOM, PT CURRENTLY HAS NO HOME SERVICES, () TAKES HER TO [employer], HER DAUGHTER HAS BEEN TAKING CARE OF HER AT HOME SINCE 01/10/21, PRIOR TO THIS DATE PT HAD BEEN INDEPENDENT AT HOME, PER DAUGHTER PT AND FAMILY DO NOT WANT HER IN A SNF AND PREFER HOME SERVICES, DAUGHTER MADE AWARE PT WILL NEED 24HR CARE UPON D/C, DAUGHTER REPORTS SHE AND PT'S GRANDDAUGHTER CAN PROVIDE THIS FOR PT. PCP: [facility] MARCO ESTEFANÍA (DAUGHTER) [phone], , COPY REQUESTED
--- NOTE | 2021-02-14 10:32 | P.CNHO_ITS ---
Subjective - Subjective Chief complaint: want my coffee Patient: new to practice Consult date: 02/14/21 Primary Care Provider: Adam Garcia MD HPI - Consult Narrative Reason for consult: Left lower extremity DVT Narrative: Mariluz Gregory is a 80 year old female with dementia admitted to the hospital for left leg DVT and failure to thrive. Patient is unable to give any history at this time. She is lying comfortably in bed and denies any symptoms whatsoever. She keeps repeating that she has been waiting for her coffee all morning. [facility] Medical History: Medical History (Last Updated 02/13/21 @ 15:41 by Chong Norman MD) Age related osteoporosis Autoimmune hepatitis Bilateral hydronephrosis Cognitive decline COPD (chronic obstructive pulmonary disease) Dementia HTN (hypertension) Hypothyroidism Urinary retention Family History: Family History (Last Reviewed 02/13/21 @ 15:36 by Chong Norman MD) Mother No problems noted. Family history: reviewed and not pertinent Surgical History: Surgical History (Last Reviewed 02/13/21 @ 15:37 by Chong Norman MD) H/O: hysterectomy S/P cholecystectomy Social History: Social History (Last Reviewed 02/13/21 @ 15:37 by Chong Norman MD) Living Situation History: Household Members: Other Household Members Other:: daughter Housing: House Do you presently have visiting nurse or other home services: Yes Alcohol History: Unable to assess alcohol history related to: Unable to respond Unable to assess alcohol history related to: Unknown Alcohol intake: unknown Tobacco History: Smoking Status: Former smoker Substance Use History: Use of substances other than those prescribed or required for medical reasons : Unknown Advance Directives: Advance Directives: No Advance Directives Information Provided: No Homicidal Assessment: Do you have thoughts of harming others: None Do you have a plan to hurt others: No Plan Nutrition Assessment: Recently lost weight without trying: Unsure : No Smoking status: Former smoker Home Medications and Allergies Current Medications: Current Medications Generic Name Dose Route Start Last Admin Trade Name Freq PRN Reason Stop Dose Admin Azathioprine 25 mg 02/13/21 21:00 02/14/21 08:54 Azathioprine 25 Mg Halftab PO 25 mg BID MAGY Administration Doxazosin Mesylate 1 mg 02/14/21 21:00 Doxazosin Mesylate 1 Mg Tablet PO BEDTIME [facility] Protocol Enoxaparin Sodium 60 mg 02/14/21 11:00 Enoxaparin Sodium 60 Mg/0.6 Ml Syringe SUBCUT Q12H [facility] Ceftriaxone Sodium 1 gm/ 50 mls @ 100 mls/hr 02/14/21 14:00 Sodium Chloride IV Q24H MAGY Dextrose 1,000 mls @ 60 mls/hr 02/13/21 19:46 02/14/21 06:07 D5w IVCONT 100 mls/hr .[id number] [facility] Administration Sodium Chloride 3 ml 02/13/21 19:46 02/14/21 08:55 0.9 % Sodium Chloride Flush 3 Ml Syringe IVFLUSH Not Given QSHIFT [facility] Home Medications Medication Instructions Recorded Confirmed Type alendronate 70 mg PO QWEEK 02/13/21 02/13/21 History azathioprine 25 mg PO BID 02/13/21 02/13/21 History ferrous sulfate 325 mg PO DAILY 02/13/21 02/13/21 History furosemide 40 mg PO DAILY 02/13/21 02/13/21 History lisinopril 20 mg PO DAILY 02/13/21 02/13/21 History Allergies Allergy/AdvReac Type Severity Reaction Status Date / Time Penicillins Allergy hives Verified 01/18/21 11:30 Physical Exam Vital signs: Vital Signs Temp 97.4 F 02/14/21 07:38 Pulse 75 02/14/21 07:38 Resp 18 02/14/21 07:38 BP 163/76 H 02/14/21 07:38 Pulse Ox 100 02/14/21 07:38 Intake & Output 02/13/21 02/14/21 02/14/21 18:59 06:59 18:59 Intake Total 550 / 5880.882 0934.878 / 1665.878 35.389 / 35.389 Output Total 700 / 700 Balance 550 / 965.878 415.878 / 965.878 35.389 / 35.389 Urine Output (Average ml/kg/hr) 0.91 0.91 Intake: Intake, Oral Amount 60 / 60 Intake, IV Amount 550 / 3489.954 3756.878 / 1605.878 35.389 / 35.389 0.9 % Sodium Chloride 500 ml @ 500 / 500 500 mls/hr IV .Q1H [facility] Rx#: [id number] cefTRIAXone sodium 1 gm In 0.9 50 / 50 % Sodium Chloride 50 ml @ 100 mls/hr IV ONCE ONE Rx#: [id number] Dextrose 5 % 1,000 ml @ 100 mls 990 / 990 /hr IVCONT .Q10H [facility] Rx#: [id number] Heparin Sodium,Porcine/1/2NS 25 65.878 / 65.878 35.389 / 35.389 ,000 unit In 250 ml @ Per Protocol IVCONT .Q0M [facility] Rx#: [id number] Output: Output, Urine Amount (Catheter) 700 / 700 Straight 700 / 700 Other: Meal Refused No: off unit NPO No Number of Bowel Movements 1 Urine Color Debbie Last Bowel Movement 02/13/21 Stool Incontinent Stool Amount Small Stool Color Brown Stool Consistency Mushy Weight 64.1 kg Weight 64.1 kg - Constitutional Present: no acute distress - Routine HEENT Exam Head: Present: normal inspection Eye: Present: normal appearance - Routine Neck Exam Present: supple. Absent: lymphadenopathy - Routine Respiratory Exam Present: CTAB - Routine Cardiovascular Exam Cardiovascular: Present: S1, S2 - Routine Abdominal Exam Present: soft - Routine Extremities Exam Comments: Left leg swelling, no erythema or tenderness. Hem/Onc Consult Result - Labs CBC & Chem 7: 02/14/21 06:35 02/14/21 06:35 Labs: Short CBC 02/13/21 02/14/21 Range/Units 11:55 06:35 WBC 15.1 H 13.0 H (4.8-10.8) X10*3/uL Hgb 10.8 L 9.3 L (12.0-16.0) g/dl Hct 36.1 L 30.2 L (37-47) % Plt Count 437 H D 396 (160-400) X10*3/uL BMP 02/13/21 02/14/21 11:55 06:35 Sodium 147 H 145 Potassium 4.4 3.7 Chloride 107 106 Carbon Dioxide 28 31 H BUN 46 H D 29 H Creatinine 1.77 H 0.99 Calcium 9.6 8.7 D Cardiac Enzymes 02/13/21 Range/Units 11:55 Total Creatine Kinase 37 (26-140) U/L Liver Function 02/13/21 Range/Units 11:55 Total Bilirubin 0.7 (0.0-1.0) mg/dL Direct Bilirubin 0.3 (0.0-0.5) mg/dL AST 38 H (5-31) U/L ALT 24 (0-31) U/L Alkaline Phosphatase 147 H D (39-117) U/L Albumin 3.7 (3.5-5.0) g/dL Urine 02/13/21 02/13/21 Range/Units 12:43 12:43 Urine Color Cancelled YELLOW Urine Appearance Cancelled CLEAR Urine pH Cancelled 5.5 Ur Specific [place] Cancelled 1.020 Urine Protein Cancelled NEG Urine Glucose (UA) Cancelled NEG Assessment and Plan (1) DVT (deep venous thrombosis) Status: Acute Qualifiers: DVT location: lower extremity Affected thrombotic vein of extremity: femoral Chronicity: acute Laterality: left Qualified Code(s): I82.412 - Acute embolism and thrombosis of left femoral vein 1. This is a 80-year-old woman with advanced dementia, failure to thrive presenting with left lower extremity DVT. She is on Lovenox 1 mg/kg b.i.d.. From her chart review, it appears that she may have been bed-bound, unclear if there was trauma to left leg. This is probably a provoked DVT and 3 months of anticoagulation is recommended. She may be switched to one of the DOAC's as her kidney functions have now normalized. However if she remains bedbound longer duration of anticoagulation may have to be considered. 2. Leukocytosis, normocytic anemia. Leukocytosis is probably reactive or infectious in nature. Submit iron studies, vitamin B12 and folic acid levels. I thank you for this consult.
[2021-02-14 11:14] LABS: Immature Retic Fraction 19.5 % (3.0-15.9); Retic HGB Equivalent 28.5 pg (30.0-35.0); Reticulocyte Percent 1.6 % (0.5-1.8); Reticulocytes Absolute 0.055 X10*6/uL (0.026-0.095)
[2021-02-14 11:22] LABS: Iron 39 mcg/dL (30-160); Percent Iron Saturation 22 % (15-50); Total Iron Binding Capacity 178 mcg/dL (228-428); Unsaturated Iron Binding 139 ug/dL
--- NOTE | 2021-02-14 11:46 | P.CDIC_ITS ---
CDI Concurrent Query Service Date: 02/14/21 Documentation Clarification: Please clarify if you are treating a proba ble/suspected/likely or confirmed: Pressure Injury right buttock Stage 2 Please specify if known Provider Response: Other Other Diagnosis: Pressure Injury right buttock Stage 2 PLEASE DO NOT DELETE/MODIFY EXISTING CONTENT Additional information is needed in order to code to the highest accuracy and appropriate Severity of Illness (SOI). Please clarify the information noted below in your progress notes and discharge summary. Risk Factors/Clinical Indicators/Treatments Nursing assessment - wound assessment notes pt to have a Stage 2 pressure injury rt buttock FTT Air loss bed Foam CDS: Aimee Bartlett CCS, CDIS Contact Number: [phone] Please Review the information above and exercise your independent professional judgment in responding to the query. If you concur, pleas document in the PROGRESS NOTES and DISCHARGE SUMMARY. If you do not agree with the query, please document in the query above. THIS QUERY IS PART OF THE PERMANENT MEDICAL RECORD
--- NOTE | 2021-02-14 12:11 | P.PNIM_ITS ---
Subjective Subjective Date of Service: 02/14/21 Interval History: The patient was seen and evaluated this morning Laying in bed, feels comfortable overall, confused about place and time Denies any fever, chills or shortness of breath No reported other overnight events. Systemic review: No fever, chills or weakness No chest pain, palpitation No shortness of breath or coughing Lower abdominal pain has improved, no nausea or vomiting No urinary symptoms No any rash or wounds Physical Exam Vital Signs: Vital Signs: Last Vital Signs Temp 97.4 F 02/14/21 07:38 Pulse 75 02/14/21 07:38 Resp 18 02/14/21 07:38 BP 163/76 H 02/14/21 07:38 Pulse Ox 100 02/14/21 07:38 Body Mass Index 20.8 Const: Other: Constitutional : Alert, disoriented, not in distress Neck : Normal inspection, Supple Cardiovascular : RRR, S1 S2, no lower extremity edema Respiratory : Fair bilateral air entry, no crackles, wheezes or rhonchi Gastrointestinal: soft, lax, Normal bowel sounds, Non tender Skin : Warm/Dry,Pressure Injury right buttock Stage 2 Neurological : Alert & oriented x3, No focal deficit Objective Data Current Medications Generic Name Dose Route Start Last Admin Trade Name Freq PRN Reason Stop Dose Admin Azathioprine 25 mg 02/13/21 21:00 02/14/21 08:54 Azathioprine 25 Mg Halftab PO 25 mg BID MAGY Administration Doxazosin Mesylate 1 mg 02/14/21 21:00 Doxazosin Mesylate 1 Mg Tablet PO BEDTIME [facility] Protocol Enoxaparin Sodium 60 mg 02/14/21 11:00 Enoxaparin Sodium 60 Mg/0.6 Ml Syringe SUBCUT Q12H MAGY Ceftriaxone Sodium 1 gm/ 50 mls @ 100 mls/hr 02/14/21 14:00 Sodium Chloride IV Q24H MAGY Dextrose 1,000 mls @ 60 mls/hr 02/13/21 19:46 02/14/21 06:07 D5w IVCONT 100 mls/hr .[id number] MAGY Administration Sodium Chloride 3 ml 02/13/21 19:46 02/14/21 08:55 0.9 % Sodium Chloride Flush 3 Ml Syringe IVFLUSH Not Given QSHIFT COUNT [facility]CLUDES [facility] Labs CBC & Chem 7: 02/14/21 06:35 02/14/21 06:35 Assessment and Plan (1) Metabolic encephalopathy: Status: Acute (2) Hypernatremia: Status: Acute (3) Urinary retention: Status: Acute (4) Bilateral hydronephrosis: Status: Acute (5) Autoimmune hepatitis: Status: Acute (6) COPD (chronic obstructive pulmonary disease): Status: Acute (7) EVA (acute kidney injury): Status: Acute (8) DVT (deep venous thrombosis): Status: Acute Assessment and Plan: 80F presented with advanced dementia, COPD, O2 immune hepatitis who presented to the hospital metabolic encephalopathy Secondary to hypernatremia and EVA, urinary retention Creatinine improved back to 1 Sodium improved to 145 james placed Patient on doxazosin Urology consult Continue empiric ceftriaxone monitor bmp Decrease D5W LLE common femoral vein DVT DC heparin Hematology input appreciated, seems to be provoked, 3 months of anticoagulation, will need longer if she remains non ambulatory To start full dose Eliquis Pressure Injury right buttock Stage 2 Local care wound care consult Failure to thrive Seems to be related to advancing dementia and physical deconditioning + to do physical therapy when she is able to participate COPD stable, not offically diagnosed dementia progressing autoimmune hepatitis azathioprine hypothyroid not on synthroid, tsh 0.44 Osteoporosis hold alendronate Full code - d/w HCP, daughter, Nafisa
[2021-02-14] MEDS: cefTRIAXone sodium 1 GM in 0.9 % Sodium Chloride 50 ML IV (13:45)
[2021-02-14] MEDS: Enoxaparin Sodium 60 MG/0.6 ML SYRINGE SUBCUT ×2 (13:45→23:08)
[2021-02-14 13:59] VITALS: BMI 20.8
--- NOTE | 2021-02-14 14:02 | MHC.CLN ---
RE: CONSULT PT WITH INCREASED NUTRITION RISK R/T PRESSURE INJURY RECOMMEND ADDING ENSURE AND KAREEN BID TO INCREASE KCALS SUPPLEMENTS PROVIDE 860KCALS, 45G PROTEIN SEE CLINICAL NUTRITION ASSESSMENT
[2021-02-14 15:06] VITALS: BP 169/69; PULSE 76; RESP 18; TEMP 36.3; O2SAT 100
--- NOTE | 2021-02-14 18:07 | P.CONWO_ITS ---
History of Present Illness Data of Consult Service Date: 02/14/21 Requesting physician: Rosalie Norman Primary Care Provider: Adam Garcia MD HPI Reason for consult: wounds The pt is an 80 jennie old female with multiple medical issues including dementia, had dvt anticoagulated, Has a left heel deep tissue injury, laceration right knee, right elbow sore and right buttock area shear injury stage 2. consult for wound care as she does not move much. Eating better Review of Systems Review of Systems: Yes Unobtainable due to mental status [facility] Medical History Age related osteoporosis Autoimmune hepatitis Bilateral hydronephrosis Cognitive decline COPD (chronic obstructive pulmonary disease) Dementia HTN (hypertension) Hypothyroidism Urinary retention Family History Mother No problems noted. Family history: reviewed and not pertinent Surgical History H/O: hysterectomy S/P cholecystectomy Social History Household Members: Other Household Members Other:: daughter Housing: House Do you presently have visiting nurse or other home services: Yes Unable to assess alcohol history related to: Unable to respond and Unknown Alcohol intake: unknown Smoking Status: Former smoker Use of substances other than those prescribed or required for medical reasons: Unknown Currently Displaying Signs/Symptoms of Drug Intoxication Withdrawal: No Advance Directives: No Advance Directives Information Provided: No Do you have thoughts of harming others: None Do you have a plan to hurt others: No Plan Recently lost weight without trying: Unsure Meds Allergies Allergy/AdvReac Type Severity Reaction Status Date / Time Penicillins Allergy hives Verified 01/18/21 11:30 Active Medications: Current Medications Generic Name Dose Route Start Last Admin Trade Name Freq PRN Reason Stop Dose Admin Apixaban 10 mg 02/15/21 09:00 Apixaban 5 Mg Tablet PO 02/21/21 21:01 BID MAGY Azathioprine 25 mg 02/13/21 21:00 02/14/21 08:54 Azathioprine 25 Mg Halftab PO 25 mg BID MAGY Administration Doxazosin Mesylate 1 mg 02/14/21 21:00 Doxazosin Mesylate 1 Mg Tablet PO BEDTIME [facility] Protocol Enoxaparin Sodium 60 mg 02/14/21 11:00 02/14/21 13:45 Enoxaparin Sodium 60 Mg/0.6 Ml Syringe SUBCUT 02/14/21 23:01 60 mg Q12H [facility] Administration Ceftriaxone Sodium 1 gm/ 50 mls @ 100 mls/hr 02/14/21 14:00 02/14/21 14:27 Sodium Chloride IV Infused Q24H [facility] Infusion Dextrose 1,000 mls @ 60 mls/hr 02/13/21 19:46 02/14/21 16:08 D5w IVCONT 100 mls/hr .[id number] [facility] Administration Sodium Chloride 3 ml 02/13/21 19:46 02/14/21 16:08 0.9 % Sodium Chloride Flush 3 Ml Syringe IVFLUSH Not Given QSHIFT [facility] Home Medications Medication Instructions Recorded Confirmed Last Taken Type alendronate 70 mg PO QWEEK 02/13/21 02/13/21 Unknown History azathioprine 25 mg PO BID 02/13/21 02/13/21 Unknown History ferrous sulfate 325 mg PO DAILY 02/13/21 02/13/21 Unknown History furosemide 40 mg PO DAILY 02/13/21 02/13/21 Unknown History lisinopril 20 mg PO DAILY 02/13/21 02/13/21 Unknown History Physical Exam Vital Signs and Narrative: Vital Signs: Last Vital Signs Temp 97.3 F 02/14/21 15:06 Pulse 76 02/14/21 15:06 Resp 18 02/14/21 15:06 BP 169/69 H 02/14/21 15:06 Pulse Ox 100 02/14/21 15:06 Body Mass Index 20.8 Skin: Other: right buttock cheek with some deep tissue injury and skin and epidermal breakdown a little deeper to maybe barely stage 2 centrally. Applears to be more of a shear injury on right side. right knee with small laceration to skin right heel posterior area with deep tissue injury about a quarter size no skin breakdown at this point. Results Labs CBC and Chem 7: 02/14/21 06:35 02/14/21 06:35 Labs: Laboratory Results - last 24 hr 02/13/21 02/14/21 02/14/21 21:30 06:35 06:35 MCV 86.0 MCH 26.5 L MCHC 30.8 L RDW 14.2 Plt Count 396 MPV 9.7 Immature Gran % (Auto) 0.9 H Neut % (Auto) 81.6 H Lymph % (Auto) 9.9 L [place] % (Auto) 7.1 Eos % (Auto) 0.3 Baso % (Auto) 0.2 Lymph # (Auto) 1.3 [place] # (Auto) 0.9 Eos # (Auto) 0.0 Baso # (Auto) 0.0 Abs Immat Gran (auto) 0.12 H Absolute Neuts (auto) 10.6 H Absolute Nucleated RBC 0.000 Nucleated RBC % (auto) 0.0 Absolute Retic 0.055 Percent Retic 1.6 Immature Retic Fraction 19.5 H Retic Hgb Equivalent 28.5 L PT INR PTT (Heparin Protocol) 106.6 H Anion Gap 12 Estim Creat Clear Calc 45.8 Estimated GFR 54 Random Glucose 132 H Calcium 8.7 D Iron 39 TIBC 178 L % Saturation 22 Unsat Iron Binding 139 02/14/21 06:35 MCV MCH MCHC RDW Plt Count MPV Immature Gran % (Auto) Neut % (Auto) Lymph % (Auto) [place] % (Auto) Eos % (Auto) Baso % (Auto) Lymph # (Auto) [place] # (Auto) Eos # (Auto) Baso # (Auto) Abs Immat Gran (auto) Absolute Neuts (auto) Absolute Nucleated RBC Nucleated RBC % (auto) Absolute Retic Percent Retic Immature Retic Fraction Retic Hgb Equivalent PT 13.7 H INR 1.2 H PTT (Heparin Protocol) 74.9 D Anion Gap Estim Creat Clear Calc Estimated GFR Random Glucose Calcium Iron TIBC % Saturation Unsat Iron Binding Assessment and Plan (1) Pressure injury of buttock, stage 2: Problem details: buttock wound appears to be shear injury and not very deep - barrier cream and foam dressing with encouraging offloading and moving not dragging across bed or chair. PT to help move pt. Status: Acute (2) Pressure injury of deep tissue of right heel: Problem details: foam dressing and offloading to prevent the wound from advancing and incurring any skin breakdown. use offloading boot as tolerated Status: Acute (3) Urinary retention: Status: Acute (4) COPD (chronic obstructive pulmonary disease): Status: Acute (5) Age related osteoporosis: Status: Acute (6) Metabolic encephalopathy: Status: Acute (7) Dementia: Qualifiers: Dementia behavioral disturbance: without behavioral disturbance Dementia type: unspecified type Qualified Code(s): F03.90 - Unspecified dementia without behavioral disturbance Status: Acute (8) EVA (acute kidney injury): Status: Acute (9) DVT (deep venous thrombosis): Qualifiers: Affected thrombotic vein of extremity: femoral Chronicity: acute DVT location: lower extremity Laterality: left Qualified Code(s): I82.412 - Acute embolism and thrombosis of left femoral vein Status: Acute (10) Cognitive decline: Problem details: 40 minutes reviewing chart evaluating patient and documenting Status: Acute
[2021-02-14] MEDS: Bacitracin Oint 14 GM TUBE 1 APPL TOPICAL (21:02)
[2021-02-14] MEDS: Zinc Oxide 20% Ointment 28.35 GM TUBE 1 APPL TOPICAL (21:02)
[2021-02-14 21:03] VITALS: BP 169/69; PULSE 76
[2021-02-14] MEDS: Doxazosin Mesylate 1 MG TABLET PO (21:03)
[2021-02-14 23:18] VITALS: BP 161/73; PULSE 78; RESP 16; TEMP 36.7; O2SAT 100
[2021-02-15] MEDS: Dextrose 5 % 1,000 ML 100 ML IVCONT (02:16)
[2021-02-15 04:05] LABS: Folate 7.3 ng/mL (> or = 4.0); Vitamin B12 851 pg/mL (200-900)
[2021-02-15 06:08] LABS: Hematocrit 29.6 % (37-47); Hemoglobin 9.3 g/dl (12.0-16.0); Mean Corpuscular HGB Conc 31.4 g/dl (31.0-35.0); Mean Corpuscular Hemoglobin 26.6 pg (27.0-33.0); Mean Corpuscular Volume 84.8 fL (80-98); Mean Platelet Volume 9.8 fL (9.4-12.3); Platelet Count 416 X10*3/uL (160-400); Red Blood Count 3.49 X10*6/uL (4.20-5.50); Red Cell Distribution Width 13.8 % (11.0-16.0); White Blood Count 10.4 X10*3/uL (4.8-10.8)
[2021-02-15 06:39] LABS: Alanine Aminotransferase 18 U/L (0-31); Albumin Level 2.9 g/dL (3.5-5.0); Alkaline Phosphatase 116 U/L (39-117); Anion Gap 11 (12-20); Aspartate Amino Transferase 30 U/L (5-31); Bilirubin Direct 0.3 mg/dL (0.0-0.5); Bilirubin Total 0.6 mg/dL (0.0-1.0); Blood Urea Nitrogen 15 mg/dL (9-16); Calcium 8.4 mg/dL (8.4-10.2); Carbon Dioxide 29 mmol/L (22-29); Chloride 100 mmol/L (96-108); Creatinine Clr Calc Pharmacy 61.3; Estimated Glomerular Filt Rate > 60; Glucose Random 127 mg/dL (60-115); Potassium 3.1 mmol/L (3.3-5.1); Sodium 137 mmol/L (135-145); Total Protein 5.4 g/dL (6.5-8.0)
[2021-02-15 07:59] VITALS: BP 146/67; PULSE 102; RESP 18; TEMP 36.6; O2SAT 99
[2021-02-15] MEDS: Apixaban 5 MG TABLET 10 MG PO ×2 (09:50→22:13)
--- NOTE | 2021-02-15 11:38 | W.MHC.F2F ---
Service Date Service Date: 02/15/21 Encounter Date of encounter: 02/15/21 Reasons for Services Reason for care home: wound care and other (Back pressure ulcer: barrier cream and foam dressing with encouraging offloading and moving. For the right heel wound use offloading boot as tolerated) Reason for physical therapy: home safety and mobility and therapeutic exercises Homebound: Leaving the home is medically contraindicated at this time without the asist of a device and/or another person due th the listed conditions above and below. Certification: Based on the above findings, I certify that this patient is confined to the home and needs intermittent care home care, physical therapy and/or speech therapy, or continues to need occupational therapy. The patient is under my care, and I have initiated the establishment of the plan of care. The patient will be followed by a physician who will periodically review the plan of care.
--- NOTE | 2021-02-15 11:39 | P.DS_ITS ---
DS: Providers Provider Date of Service: 02/16/21 Date of admission: 02/13/21 15:26 Primary care physician: Adam Garcia MD Consults: 02/13/21 19:46 Consult to Hematology / Oncology Routine Consulting Provider: Veda Jeff Reason for consultation: ?unprovoked dvt, weight loss, decline Consult to Urology Routine Consulting Provider: Lorenzo Paul Reason for consultation: hydro 02/14/21 12:11 Consult to Wound Care Routine Consulting Provider: Cathleen Weems Reason for consultation: Evaluati theon for Pressure Injury right buttock Stage 2 the DS: Diagnosis Discharge Diagnosis (1) Pressure injury of buttock, stage 2: Status: Acute (2) Pressure injury of deep tissue of right heel: Status: Acute (3) Urinary retention: Status: Acute (4) Metabolic encephalopathy: Status: Acute (5) Dementia: Status: Acute (6) EVA (acute kidney injury): Status: Acute (7) DVT (deep venous thrombosis): Status: Acute (8) Cognitive decline: Status: Acute (9) Hypernatremia: Status: Acute (10) Bilateral hydronephrosis: Status: Acute DS: Medications Discharge Medications Home Medications: Home Medications Medication Instructions Recorded Confirmed alendronate 70 mg PO QWEEK 02/13/21 02/13/21 azathioprine 25 mg PO BID 02/13/21 02/13/21 ferrous sulfate 325 mg PO DAILY 02/13/21 02/13/21 furosemide 40 mg PO DAILY 02/13/21 02/13/21 lisinopril 20 mg PO DAILY 02/13/21 02/13/21 Previous Rx's Medication Instructions Recorded apixaban [Eliquis] 5 mg PO BID 80 Days #160 tab 02/15/21 apixaban [Eliquis] 10 mg PO BID 6 Days #24 tab 02/15/21 doxazosin 1 mg PO BEDTIME 30 Days #30 tab 02/15/21 DS: Summary Hospital Course Hospital Course: Admission note HPI 80F brought in by family for failure to thrive. patient has been declining over several months, but most significantly over the last month. she was previously independent in ADLs, now needs help with walking, toileting, dressing, cannot have meaningful conversations. she has had multiple falls, has been spending more time in bed and in chair. has had decreased appetite and unspecified weight loss. in ED noted to have LLE common femoral vein DVT, EVA, hypernatremia, hydronephrosis with 2L urinary retention. UA was negative but ceftriaxone given empirically for bladder wall thickening, started on IV heparin. Hospital course admitted to the hospital for evaluation of the lethargy and altered mentation. Workup in the emergency was consistent with the acute kidney injury, elevated sodium level and urinary retention. A Arias catheter was placed and the patient was treated with IV fluid of D5 with good response as the sodium level improved back to normal, kidney function returned back to normal baseline as the the retention improved. She was evaluated by Dr. Paul from Urology who recommended to keep the Arias catheter for total of 4 weeks and follow-up with him in the office and Started her on doxazosin to help treating the retention.. A repeated CT scan of the abdomen and pelvis was done showing resolution of the hydronephrosis with reported fecal impaction. She received enema with good response as she moved her bowels. To continue with laxatives at home. Noticed to have left lower extremity swelling which was evaluated by ultrasound showing as DVT in her leg. She was treated with heparin through the IV then changed to oral Eliquis after being evaluated by Dr. Jeff from Hematology who recommended to treat for 3 months as it seems to be a provoked DVT. She recommended if the patient remains inactive after this. To be re-evaluated for possible longer term of treatment. Continue Eliquis 10 mg twice daily for the next 6 days then to start Eliquis 5 mg twice daily to finish total of 3 months. To follow-up with Dr. Jeff from Hematology She was noticed to have a right buttock pressure ulcer which was evaluated by the wound care team. Recommendations: barrier cream and foam dressing with encouraging offloading and moving. She also have right heel wound: foam dressing and offloading to prevent the wound from advancing and incurring any skin breakdown. use offloading boot as tolerated Time Spent with Patient Time attestation: Total time spent providing and/or coordinating discharge services: Discharge coordination time: Greater than 30 minutes Physical Exam Vital Signs: Vital Signs: Last Vital Signs Temp 97.9 F 02/15/21 07:59 Pulse 102 H 02/15/21 07:59 Resp 18 02/15/21 07:59 BP 146/67 H 02/15/21 07:59 Pulse Ox 99 02/15/21 07:59 Body Mass Index 20.8 Const: Other: Constitutional : Alert, disoriented, not in distress Neck : Normal inspection, Supple Cardiovascular : RRR, S1 S2, no lower extremity edema Respiratory : Fair bilateral air entry, no crackles, wheezes or rhonchi Gastrointestinal: soft, lax, Normal bowel sounds, Non tender Skin : Warm/Dry,Pressure Injury right buttock Stage 2 covered with dressing, right heel wound which is covered with dressing, no erythema or drainage noted Neurological : Alert & oriented x3, No focal deficit DS: Data Data Completed and Pending Labs on day of discharge: Laboratory Results - last 24 hr 02/14/21 02/15/21 02/15/21 06:35 05:46 05:46 WBC 10.4 RBC 3.49 L Hgb 9.3 L Hct 29.6 L MCV 84.8 MCH 26.6 L MCHC 31.4 RDW 13.8 Plt Count 416 H MPV 9.8 Absolute Nucleated RBC 0.000 Nucleated RBC % (auto) 0.0 Sodium 137 Potassium 3.1 L Chloride 100 Carbon Dioxide 29 Anion Gap 11 L BUN 15 Creatinine 0.74 Estim Creat Clear Calc 61.3 Estimated GFR > 60 Random Glucose 127 H Calcium 8.4 Total Bilirubin 0.6 Direct Bilirubin 0.3 AST 30 ALT 18 Alkaline Phosphatase 116 D Total Protein 5.4 L D Albumin 2.9 L D Vitamin B12 851 Folate 7.3 Preliminary micro results at discharge 02/13/21 12:11 Blood Culture - Preliminary Blood - Venous No growth after 24 hours. 02/13/21 11:57 Blood Culture - Preliminary Blood - Venous No growth after 24 hours. Abdomen/Pelvis CT 02/13/21 11:06 IMPRESSION: 1. Mild emphysema. 2. Suspected 1.7 cm left thyroid nodule. 3. Moderate bilateral hydroureteronephrosis. No obstructing calculi noted. There is also diffuse bladder wall thickening. Clinical correlation recommended. 4. Colonic diverticulosis. 5. Prominent stool burden within the rectal vault. 6. Diffuse osteopenia with degenerative changes of the spine. Old and subacute rib fractures noted. Discharge Plan Discharge Patient Disposition: Home Health Service Referrals: [facility] [Other] (THEY WILL CALL YOU AND MAKE APPOINTMENT TO MEET WITH YOU AND YOUR MOM TO TELL YOU WHAT SHE MAY BE ELIGEABLE FOR ) [facility] [Outside] (VNA services will start on Friday. They will call you when they are on the way ) Adam Garcia MD [Primary Care Provider] - Discharge Medications: New doxazosin 1 mg Tablet 1 mg PO BEDTIME 30 Days Qty: 30 RF: 0 Eliquis 5 mg Tablet 10 mg PO BID 6 Days Qty: 24 RF: 0 Eliquis 5 mg tablet 5 mg PO BID 80 Days Qty: 160 RF: 0 Continued furosemide 40 mg tablet 40 mg PO DAILY RF: 0 ferrous sulfate 325 mg (65 mg iron) tablet 325 mg PO DAILY RF: 0 lisinopril 20 mg Tablet 20 mg PO DAILY RF: 0 alendronate 70 mg Tablet 70 mg PO QWEEK RF: 0 azathioprine 50 mg Tablet 25 mg PO BID RF: 0 Discharge Orders: Discharge Order (Routine); Ordered 02/16/21 Ordered By: Rosalie Norman Diet: advance to usual diet Activity on Discharge: As tolerated Stand Alone Forms: Patient Portal Discharge page Care Plan Goals: Read below Health Concerns: Read below Plan of Treatment: You were admitted to the hospital of lethargy and altered mentation. Workup in the emergency was consistent with kidney injury, elevated sodium level and urinary retention. A Arias catheter was placed and you were treated with IV fluid with good response as your sodium level improved, kidney function returned back to normal in the retention improved. You were evaluated by Dr. Paul from Urology who recommended to keep the Arias catheter for total of 4 weeks and follow-up with him in the office. Started on doxazosin to help treating the retention. Your left lower extremity was noticed to have a clot confirmed by ultrasound study. Your treated with blood thinners through the IV then changed to oral El iquis. Continue Eliquis 10 mg twice daily for the next 6 days then you start Eliquis 5 mg twice daily to finish total of 3 months. To follow-up with Dr. Jeff from Hematology if the patient remains inactive as you might need a longer course of blood thinners. Assessment: You were noticed to have a right buttock pressure ulcer which was evaluated by the wound care team. Recommendations: barrier cream and foam dressing with encouraging offloading and moving. For the right heel wound use offloading boot as tolerated
--- NOTE | 2021-02-15 12:48 | MHC.CM.PN ---
Addendum entered by Sujatha Tillman 02/15/21 16:26: RENETTA DECLINED M, PENDING [facility] , CLINICALLY ACCEPTED BY [facility] BUT NEEDED TO GO FOR INS URANCE AUTHIORIZATION, 16;00 CALLED TO PATIENTS DAUGHTER AND AND TO [facility] THAT PATIENT WILL BE HELD OVERNIGHT WHILE WAITING FOR INS AUTH , AND PLAN TO DISCHARGE TOMORROW , THIS WAS INFIORMED TO THE HOSPITLASIT AND STAFF NURSE Original Note: NURSE CARE MANAGEMENT NOTE ELECTRONIC MEDICAL RECORD REVIEWED ALONG WITH CASE DISCUSSED WITH STAFF NURSE AND HOSPITALIST, MET WITH PATIENT [facility] CONTACT, ONLY POKE A FEW WORDS PER HOSPITALIST PATIENT WILL NEED 24 HOUR /7 DAY WEEK CARE . I CALLED AND SPOKE WITH HER DAUGHTER AND SHE REPORTED TO ME THAT Patient has started to decline around 01/10/21 and was seen by her pcp around 01/18/21 she is now dependent on care takers for care takers for all adls and mobility/transfers and feeding. 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 SHE REPORTED THAT SHE WILL DO THIS AND IS ACCEPTING OF ALL VNA SERVICES THAT CAN BE OFFERED TO HER MOTHER ,as well as referral to [facility] WE REVIEWED SOME OF THE AGENCIES REFERRAL SENT TO [facility] (DECLINED SEC TO NOT BEING ABLE TO START UNTIL NEXT WEEK) [facility] AND [facility] discharge plan 1 home with daughter janice she and her daughter will provide 24 hrs /7 days week svs. 2,[facility] services requesting they cLL DAUGHTER AND SEE HOW SOON THEY COULD GO OUT FOR ASSESSMENT. 3. VNA- REQUESTING NURSING (WOUND CARE SKINE ASSESSMENT AND CARE , INDWELLING CABALLERO CATH , TEACHING AND CARE OF THIS WELL CHANGING CABALLERO CATHETER Q MONTH MEDICATION RECONCILIATION. HOME PHYSICAL OCCUPATIONAL THERAPY TO SEE WHAT TYPE OF EQUIPMENT PATIENT MAY NEED IN THE HOME AND SPEECH TO ASSESS DIFFERENT FOOD TEXTURES AND TEACH DAUGHTER 4.ACTION BLS FOR TRANSPORT 5. ELIQUIS 30 DAY FREE TRIAL OFFER PLACED IN GREEN DISCHARGE FOLDER,AND TOLD PATIENTS DAUGHTER IT WOULD BE IN THERE AND WHEN SHE PICK IT UP TO [facility] PHARMACIST TO START PRIOR AUTHORIZATION WITH PCP
[2021-02-15] MEDS: cefTRIAXone sodium 1 GM in 0.9 % Sodium Chloride 50 ML IV (14:33)
[2021-02-15] MEDS: 0.9 % Sodium Chloride Flush 3 ML SYRINGE IVFLUSH (14:34)
[2021-02-15 15:28] VITALS: BP 149/64; PULSE 86; RESP 16; TEMP 36.6; O2SAT 100
--- NOTE | 2021-02-15 18:06 | HO.PM.IMPN ---
Subjective Subjective Date of Service: 02/15/21 Interval History: The patient was seen and evaluated this morning Laying in bed, feels comfortable overall Denies any fever, chills or shortness of breath No reported other overnight events. Systemic review: No fever, chills or weakness No chest pain, palpitation No shortness of breath or coughing Lower abdominal pain has improved, no nausea or vomiting No urinary symptoms No any rash or wounds Physical Exam Vital Signs: Vital Signs: Last Vital Signs Temp 98 F 02/15/21 15:28 Pulse 86 02/15/21 15:28 Resp 16 02/15/21 15:28 BP 149/64 H 02/15/21 15:28 Pulse Ox 100 02/15/21 15:28 Body Mass Index 20.8 Const: Other: Constitutional : Alert, disoriented, not in distress Neck : Normal inspection, Supple Cardiovascular : RRR, S1 S2, no lower extremity edema Respiratory : Fair bilateral air entry, no crackles, wheezes or rhonchi Gastrointestinal: soft, lax, Normal bowel sounds, Non tender Skin : Warm/Dry,Pressure Injury right buttock Stage 2 covered with dressing, right heel wound which is covered with dressing, no erythema or drainage noted Neurological : Alert & oriented x3, No focal deficit Objective Data Current Medications Generic Name Dose Route Start Last Admin Trade Name Freq PRN Reason Stop Dose Admin Apixaban 10 mg 02/15/21 09:00 02/15/21 09:50 Apixaban 5 Mg Tablet PO 02/21/21 21:01 10 mg BID MAGY Administration Azathioprine 25 mg 02/13/21 21:00 02/15/21 09:50 Azathioprine 25 Mg Halftab PO 25 mg BID MAGY Administration Doxazosin Mesylate 1 mg 02/14/21 21:00 02/14/21 21:03 Doxazosin Mesylate 1 Mg Tablet PO 1 mg BEDTIME MAGY Administration Protocol Ceftriaxone Sodium 1 gm/ 50 mls @ 100 mls/hr 02/14/21 14:00 02/15/21 15:48 Sodium Chloride IV Infused Q24H MAGY Infusion Sodium Chloride 3 ml 02/13/21 19:46 02/15/21 14:34 0.9 % Sodium Chloride Flush 3 Ml Syringe IVFLUSH 3 ml QSHIFT MAGY Administration Zinc Oxide 1 appl 02/14/21 18:19 04/07/21 21:02 Zinc Oxide 20% Ointment 28.35 Gm Tube TOPICAL 1 appl ONCE PRN Administration skin breakdown buttock daily Protocol Labs CBC & Chem 7: 02/15/21 05:46 02/15/21 05:46 Microbiology Microbiology Results: Microbiology 02/13/21 12:11 Blood - Venous Blood Culture - Preliminary No growth after 48 hours. 02/13/21 11:57 Blood - Venous Blood Culture - Preliminary No growth after 48 hours. Assessment and Plan (1) Pressure injury of buttock, stage 2: Status: Acute (2) Pressure injury of deep tissue of right heel: Status: Acute (3) Urinary retention: Status: Acute (4) Metabolic encephalopathy: Status: Acute (5) Dementia: Status: Acute (6) EVA (acute kidney injury): Status: Acute (7) DVT (deep venous thrombosis): Status: Acute (8) Cognitive decline: Status: Acute (9) Hypernatremia: Status: Acute (10) Bilateral hydronephrosis: Status: Acute Assessment and Plan: 80F presented with advanced dementia, COPD, O2 immune hepatitis who presented to the hospital metabolic encephalopathy Secondary to hypernatremia and EVA, urinary retention Creatinine improved back to 1 Sodium improved to 137 james placed Patient on doxazosin Urology consult to keep james in for 4 weeks Continue empiric ceftriaxone monitor bmp DC D5W LLE common femoral vein DVT DC heparin Hematology input appreciated, seems to be provoked, 3 months of anticoagulation, will need longer if she remains non ambulatory full dose Eliquis Pressure Injury right buttock Stage 2 Local care wound care consult Failure to thrive Seems to be related to advancing dementia and physical deconditioning + to do physical therapy when she is able to participate COPD stable, not offically diagnosed dementia progressing autoimmune hepatitis azathioprine hypothyroid not on synthroid, tsh 0.44 Osteoporosis hold alendronate Full code - d/w HCP, daughter, Nafisa
[2021-02-15] MEDS: Doxazosin Mesylate 1 MG TABLET PO (22:13)
[2021-02-15 23:35] VITALS: BP 154/64; PULSE 80; RESP 19; TEMP 36.4; O2SAT 100
[2021-02-16 07:18] VITALS: BP 128/53; PULSE 76; RESP 16; TEMP 36.4; O2SAT 100
[2021-02-16] MEDS: Apixaban 5 MG TABLET 10 MG PO (09:00)
[2021-02-16] MEDS: 0.9 % Sodium Chloride Flush 3 ML SYRINGE IVFLUSH (09:01)
[2021-02-16] MEDS: Sodium Phosphate,Mono-Dibasic 133 ML ENEMA PR (09:01)
--- NOTE | 2021-02-16 11:13 | MHC.CM.PN ---
Pt cleared to DC home today with 24/7 family care and VNA for SN and PT. No contracted visiting nurse agencies are available to start over the weekend. [facility] is able to start on Friday. ANNIE spoke to pts daughter, Nafisa ([phone]) who will come in today before 1300 hours for teaching around caring for pts james and dressings. Nafisa reports feeling comfortable providing this care over the weekend with a plan for the VNA to start Friday. CM will talk to nurse leave manager to arrange for supplies to be sent home with pt for use until [facility] can order more. Once Nafisa comes in for teachings, BLS transport will be arranged for pt. Pt will DC home today with 24/7 family care, [facility] for SN/PT and a referral to [facility].
--- NOTE | 2021-02-16 12:47 | MHC.CM.PN ---
CM met with pts daughter at bedside. She reports feeling comfortable with managing pts care over the weekend. pts nurse will be doing a teaching prior to DC and provide supplies for pt to take home. Pts daughter is aware the [facility] are starting Friday and a referral has been sent to [facility]. BLS transport has been arranged for 1400 hours
== END 2021-02-16 14:06 | disposition home health service (06) | DRG 300 ==
LOC: HO.ED 14:21 → HO.EDOVER 15:46 → HO.S3 16:38
PROVIDERS: Internal Medicine; Admitting Provider Internal Medicine; Emergency Provider Emergency Medicine; PCP Internal Medicine; Visit Provider Student in an Organized Health Care Education/Training Program
DX: I82.412 Acute embolism and thrombosis of left femoral vein (principal); N13.30 Unspecified hydronephrosis; E87.0 Hyperosmolality and hypernatremia; N17.9 Acute kidney failure, unspecified; F03.90 Unspecified dementia, unspecified severity, without behavioral disturbance, psychotic disturbance, mood disturbance, and anxiety; L89.312 Pressure ulcer of right buttock, stage 2; E03.9 Hypothyroidism, unspecified; R29.6 Repeated falls; J44.9 Chronic obstructive pulmonary disease, unspecified; R62.7 Adult failure to thrive; Z68.20 Body mass index [BMI] 20.0-20.9, adult; L89.616 Pressure-induced deep tissue damage of right heel; K59.09 Other constipation; M81.0 Age-related osteoporosis without current pathological fracture; Z20.822 Contact with and (suspected) exposure to COVID-19; Z79.83 Long term (current) use of bisphosphonates; Z91.81 History of falling; Z79.01 Long term (current) use of anticoagulants; Z79.899 Other long term (current) drug therapy
CPT/HCPCS: 36415; 70450; 71250; 72125; 74176; 76775; 80048; 80076; 81001; 82550; 82607; 82746; 83540; 83605; 83690; 83735; 84443; 84484; 85025; 85027; 85045; 85610; 85730; 87040; 87635; 93005; 93971; 96361; 96365; 96375; 97163; 99284; 99285; J0696; J1650

== ENCOUNTER 2021-03-06 10:01 | Outpatient (REF) | payer MEDICARE, SELFPAY ==
[2021-03-06 10:49] LABS: Basophils Percent Auto 0.3 % (0-2); Eosinophils Percent Auto 0.1 % (0-4); Hematocrit 32.7 % (37-47); Hemoglobin 10.1 g/dl (12.0-16.0); Imm Gran Abs Auto 0.03 X10*3/uL (0.00-0.03); Imm Gran Pct Auto 0.4 % (0.0-0.4); Lymphocytes Absolute Auto 0.6 X10*3/uL (1.2-4.9); Lymphocytes Percent Auto 8.1 % (20-40); MANUAL DIFF FLAG SCAN; Mean Corpuscular HGB Conc 30.9 g/dl (31.0-35.0); Mean Corpuscular Hemoglobin 25.7 pg (27.0-33.0); Mean Corpuscular Volume 83.2 fL (80-98); Mean Platelet Volume 9.6 fL (9.4-12.3); Monocytes Absolute Auto 0.4 X10*3/uL (0.1-1.2); Monocytes Percent Auto 5.8 % (2-11); Neutrophils Absolute Auto 6.4 X10*3/uL (2.0-8.3); Neutrophils Percent Auto 85.3 % (45-73); Platelet Count 563 X10*3/uL (160-400); Red Blood Count 3.93 X10*6/uL (4.20-5.50); SCAN SMEAR FLAG 1; White Blood Count 7.5 X10*3/uL (4.8-10.8)
[2021-03-06 11:09] LABS: Anion Gap 16 (12-20); Blood Urea Nitrogen 12 mg/dL (9-16); Calcium 9.8 mg/dL (8.4-10.2); Carbon Dioxide 28 mmol/L (22-29); Chloride 101 mmol/L (96-108); Estimated Glomerular Filt Rate > 60; Glucose Random 168 mg/dL (60-115); Potassium 3.8 mmol/L (3.3-5.1); Sodium 141 mmol/L (135-145)
[2021-03-06 11:16] LABS: SLIDE REVIEW VERIFIED
== END 2021-03-06 10:02 | disposition home or self-care (01) ==
LOC: HO.LAB 10:01
PROVIDERS: PCP Internal Medicine; Visit Provider Internal Medicine
DX: Z00.00 Encounter for general adult medical examination without abnormal findings (principal); R51.9 Headache, unspecified
CPT/HCPCS: 36415; 80048; 85025

== ENCOUNTER → 2021-03-27 11:15 | Outpatient (BNVA) | payer MEDICARE, SELFPAY | PROVIDERS: PCP Internal Medicine; Visit Provider Urology | DX: R33.9 Retention of urine, unspecified (principal); R62.7 Adult failure to thrive; F03.90 Unspecified dementia, unspecified severity, without behavioral disturbance, psychotic disturbance, mood disturbance, and anxiety | CPT/HCPCS: 99212 ==

== ENCOUNTER 2021-03-27 12:32 | Inpatient (IN) | payer MEDICARE, SELFPAY ==
--- NOTE | ~2021-03-27 | XR_ITS ---
EXAMINATION: XR CHEST CLINICAL INFORMATION: Cough. Weakness. COMPARISON: Previous chest CT February 2021 TECHNIQUE: 2 views of the chest were obtained. FINDINGS: The cardiac and mediastinal contours are normal. The lungs are clear. There is no pleural effusion or pneumothorax. There are degenerative changes of the spine and shoulder joints. There is a small right breast calcification. XR/XR chest 2V IMPRESSION: No evidence for acute disease in the chest.
--- NOTE | ~2021-03-27 | CT_ITS ---
EXAMINATION: CT CHEST WITHOUT CONTRAST CLINICAL INFORMATION: Pneumonia COMPARISON: Chest x-ray 03/27/2021. CT chest 02/13/2021 TECHNIQUE: Multidetector volumetric CT imaging of the chest was done. Axial MIP volume rendering provided. Sagittal and coronal reformatted images were obtained. This CT examination was performed using dose optimization techniques as appropriate, variously including the following: *Automated exposure control *Adjustment of mA and/or kV according to patient size (this includes techniques or standardized protocols for targeted exams where dose is matched to indication/reason for exam; i.e. extremities or head) *Use of iterative reconstruction technique DLP: 97 mGy-cm FINDINGS: LUNGS: Minor dependent atelectasis at both lung bases. Subtle hazy airspace opacities in the left lower lobe. No dense consolidation. No interstitial lung disease. The central bronchial airways are open. MEDIASTINUM: There is no mediastinal mass or significant lymphadenopathy. The heart size is normal. There is no pericardial effusion. There are heavy vascular calcification of coronary arteries. Small volume of calcifications of thoracic aortic arch. There is no aneurysm of aorta. Left lower thyroid larger than the right and heterogeneous. PLEURA: Trace dependent bilateral pleural effusions. AXILLA: No lymphadenopathy. UPPER ABDOMEN: Status post Cholecystectomy.. No focal lesions seen in the visualized portions of liver, spleen, kidneys or the adrenal glands. OSSEOUS STRUCTURES: Multilevel degenerative spondylosis spine. No suspicious osseous lesion. CT/CT chest wo con IMPRESSION: 1. Subtle hazy airspace opacities left lower lobe. No dense consolidation. 2. Trace dependent bilateral pleural effusions.
--- NOTE | ~2021-03-27 | CT_ITS ---
EXAMINATION: CT ABDOMEN AND PELVIS WITHOUT CONTRAST CLINICAL INFORMATION: Vomiting, diarrhea, hypotension. Clinical concern for ischemic colitis COMPARISON: Selected portions of a previous study 02/15/21 TECHNIQUE: Multidetector volumetric imaging was performed from the superior aspect of the liver through the pubic symphysis. Sagittal and coronal reformatted images were obtained on the technologist's workstation. This CT examination was performed using dose optimization techniques as appropriate, variously including the following: *Automated exposure control *Adjustment of mA and/or kV according to patient size (this includes techniques or standardized protocols for targeted exams where dose is matched to indication/reason for exam; i.e. extremities or head) *Use of iterative reconstruction technique DLP: 524 mGy-cm FINDINGS: Digital domestic housekeeper: The upper extremities obscures some of the anatomy. The patient was unable to optimally position the upper extremities. There is gas and fecal residue throughout the colon to level of the rectum. There is no disproportionate small bowel dilation. LUNG BASES: There are some tree-in-bud opacities partially included in the posterior left lower lobe. These are either new or increased when compared to 02/15/21. The attenuation of the aorta and cardiac chambers suggests anemia. There is extensive coronary calcification. There is a trace amount of nonspecific pericardial fluid or thickening. LIVER, GALLBLADDER, AND BILIARY TREE: No suspicious focal liver lesion. There are surgical clips in the expected region of the gallbladder. No significant biliary dilation. PANCREAS: The pancreas is somewhat atrophic. Limited assessment but no large mass. SPLEEN: The spleen is not enlarged. No suspicious abnormality. ADRENAL GLANDS: Mild fullness the left adrenal gland unchanged. KIDNEYS AND URETERS: There is no significant dilation of the urinary collecting system on either side. There is an approximately 6.1 cm exophytic cyst arising from the right kidney. This does not require any further evaluation. BLADDER: There is a balloon catheter decompressing the urinary bladder which likely accounts for intraluminal gas. The bladder wall is thickened but this is of uncertain significance given the fact that the bladder is empty. GASTROINTESTINAL TRACT: There is a fecal bolus distending the rectum with some rectal wall thickening and minor perirectal fat stranding. Gas and fecal residue throughout the colon. There is no definite pneumatosis or pneumoperitoneum. There is no significant small bowel dilation. The stomach is nearly empty. ABDOMINAL WALL: No significant hernia is appreciated. LYMPH NODES: There are no measurably enlarged abdominal or pelvic lymph nodes. There is a trace amount of nonspecific free pelvic fluid. VASCULAR: There is extensive atherosclerotic plaque. There is no abdominal aortic aneurysm. PELVIC VISCERA: The uterus is likely surgically absent. OSSEOUS STRUCTURES: Heterogeneous attenuation of the sacrum. Stress fractures may be present. There are ossifications narrowing the spinal canal at T9/T10. I cannot exclude cord compression. There is ankylosis in the lower thoracic spine. There is an age-indeterminate nondisplaced fracture at the S2/S3 level. CT/CT abdomen pelvis wo con IMPRESSION: No pneumatosis or pneumoperitoneum. No evidence of a high-grade bowel obstruction. Fecal residue distends the rectal vault and there is some rectal wall thickening and minor perirectal fat stranding. Stercoral colitis could be present. Minor amount of nonspecific free pelvic fluid. Partially included mild amount of tree in bud opacity in the left lower lung possibly a small area of pneumonia. Osseous findings as described including S2/S3, T9/T10, and sacrum
[2021-03-27 13:16] VITALS: BP 81/30; PULSE 87; RESP 18; TEMP 35.9; O2SAT 97; BMI 21.4
--- NOTE | 2021-03-27 14:37 | ECG_ITS ---
Test Reason : SEPSIS Blood Pressure : / mmHG Vent. Rate : 078 BPM Atrial Rate : 078 BPM P-R Int : 144 ms QRS Dur : 088 ms QT Int : 404 ms P-R-T Axes : 085 044 077 degrees QTc Int : 460 ms Sinus rhythm with Premature atrial complexes Minimal voltage criteria for LVH, may be normal variant Borderline ECG When compared with ECG of 13-FEB-2021 11:47, Premature atrial complexes are now Present Referred By: Catherine Raman Electronically Signed By:DILIP JACKSON MD
--- NOTE | 2021-03-27 14:39 | ED_ITS ---
HPI - Weakness General Chief complaint: Weakness Stated complaint: DEHYDRATION Time Seen by Provider: 03/27/21 14:30 Source: family Mode of arrival: wheelchair Limitations: altered mental status History of Present Illness HPI Narrative: 80-year-old female with a past medical history dementia, COPD, hypertension, hypothyroidism, urinary retention with chronic Arias, LLE DVT currently on Eliquis here with complaints of poor p.o. intake, vomiting and diarrhea for the last 2-3 days. Per family patient has been generally weak. Afebrile. Seen at Urology for follow-up today referred to the emergency department as she was noted to be hypotensive with blood pressure 80 systolic. No abdominal pain, cough, shortness of breath, chest pain. Related Data Home Medications Medication Instructions Recorded Confirmed azathioprine 25 mg PO BID 02/13/21 03/27/21 Previous Rx's Medication Instructions Recorded apixaban [Eliquis] 5 mg PO BID 80 Days #160 tab 02/15/21 sennosides [senna] 8.6 mg PO BEDTIME #30 cap 02/16/21 ferrous sulfate 325 mg (65 mg 325 mg PO DAILY #90 tab 02/22/21 iron) tablet furosemide 40 mg tablet 40 mg PO DAILY #90 tab 02/22/21 lisinopril 20 mg tablet 20 mg PO DAILY #90 tab 02/22/21 doxazosin 1 mg tablet 1 mg PO BEDTIME 30 Days #30 tab 03/12/21 Allergies Allergy/AdvReac Type Severity Reaction Status Date / Time Penicillins Allergy hives Verified 03/27/21 13:16 Review of Systems Review of Systems: Yes all other systems are reviewed and are negative Constitutional: Constitutional: Reports no additional constitutional complaints, Denies body ache(s), Denies chills, Denies fever(s), Denies headache(s), Reports poor appetite and Reports weakness Eyes: Eyes: Reports no additional eye complaints and Denies change in vision ENT: Reports system reviewed and no additional complaints, except as documented, Denies dizziness, Denies headache(s), Denies nasal congestion, Denies nasal discharge and Denies neck pain Cardiovascular: Cardiovascular: Reports no additional cardiovascular complaints, Denies chest pain, Denies leg edema and Denies dyspnea Respiratory: Respiratory: Reports no additional respiratory complaints, Denies cough and Denies dyspnea Gastrointestinal: Gastrointestinal: Reports no additional gastrointestinal complaints, Denies abdominal pain, Reports diarrhea, Denies nausea and Reports vomiting Genitourinary: Genitourinary: Reports no additional female genitourinary complaints and Denies urinary incontinence Musculoskeletal: Musculoskeletal: Reports no additional musculoskeletal complaints, Denies back pain, Denies arthralgias, Denies joint swelling, Denies neck pain, Denies numbness and Denies tingling Integumentary/Breasts: Skin/Breast: Reports system reviewed and no additional complaints, except as docu and Denies rash Neurologic: Reports system reviewed and no additional complaints, except as documented, Denies Abnormal speech present, Denies dizziness, Denies headache(s), Denies numbness, Denies tingling and Reports weakness PMFSH Past Medical History Attestation statement: The following information was validated with the patient. Source: old records reviewed and nursing notes reviewed Medical History (Updated 03/27/21 @ 21:08 by Catherine Raman NP) Age related osteoporosis Autoimmune hepatitis Bilateral hydronephrosis Cognitive decline COPD (chronic obstructive pulmonary disease) Dementia Dementia HTN (hypertension) Hypothyroidism Urinary retention Weakness Surgical History H/O: hysterectomy S/P cholecystectomy Family History Family History Mother No problems noted. Social History Social History Household Members: Other Household Members Other:: daughter Housing: House Alcohol intake: never Smoking Status: Former smoker Use of substances other than those prescribed or required for medical reasons: No Advance Directives: No Advance Directives Information Provided: No Physical Exam Vital Signs: Vital Signs: Last Vital Signs Temp 97.5 F 03/27/21 16:00 Pulse 88 03/27/21 16:00 Resp 16 03/27/21 16:00 BP 118/49 L 03/27/21 16:00 Pulse Ox 99 03/27/21 16:00 Body Mass Index 21.4 Const: Other: thin appearing General: cooperative Orientation/consciousness: oriented to person Limitations: altered mental status (confused-dementia ) HENMT: Head: Yes normal to inspection Ears: hearing grossly normal bilaterally General nose exam: Normal external nose present Face and sinus: Yes normal facial exam Mouth: Normal oral and palatal mucosa present Throat: Yes posterior oropharynx normal Eyes: General: appearance normal, both eyes and all related structures Pupils: Equal, round and reactive pupils present Neck: Neck: Yes normal visual inspection Chest: Chest palpation & inspection: normal inspection of the chest Resp: Effort & Inspection: normal respiratory effort Auscultation: clear to auscultation bilaterally Cardio: Rate: regular rate Rhythm: regular rhythm Peripheral pulses: Peripheral pulses 2+ throughout GI: Inspection: Yes normal to inspection Palpation (GI): Soft to palpation and nontender Auscultation: normal bowel sounds Rectal Exam - Female: normal sphincter tone and heme positive stool (black ) Back/Spine/Pelvis: Thoracic/Lumbar Spine: thoracic and lumbar spine normal to inspection Skin: General skin exam: no rashes or lesions noted Neuro: General: oriented to person, moves all extremities, normal sensation to monofilament and Unable to assess gait Cranial nerves: Yes Equal, round and reactive pupils present, Yes Normal facial strength present and Yes Midline tongue present Speech: No Abnormal speech present Gait exam (Neuro): Unable to assess gait Extrem: General: Yes normal to inspection, Yes no pedal edema and Yes no calf tenderness Course Course Course Narrative: 80 yo female here with vomiting, diarrhea for 2 days with poor p.o. intake. Noted to be hypotensive at outpatient office and here in the ED with mild hypothermia. No abdominal pain on exam. Patient is alert and oriented to self only which is baseline per family. Will need labs including blood cultures and lactic acid, CXR, EKG, UA, CT A/P, stool studies. NS 30cc/kg bolus ordered. Hypotension from dehydration and not infection. 1699-labs show EVA, hemoglobin slightly down trending, mild leukocytosis. Troponin x 2 delta. Nursing notified me patient had small liquid black bowel movement. Sent for occult stool. CT pending. 1809-UA shows UTI. At this time infection suspected. Antibiotics ordered. Cdiff +. At this time infection is suspected. Antibiotics ordered. 1814-CT c/w with rectal wall thickening and fat stranding consistent with colit is. ?LLL PNA. Add azithromycin for CAP. 1899-Spoke to Dr Gaming who accepted admission. MDM - Weakness MDM Narrative Medical decision making narrative: UTI, pneumonia, ischemic colitis, dehydration ,gastroenteritis Medical Records Attestation: I reviewed the patient's medical records. Lab Data Attestation: I reviewed the patient's lab results. Result diagrams: 03/27/21 15:39 03/27/21 15:39 Labs: Lab Results 03/27/21 03/27/21 03/27/21 Range/Units 15:39 15:39 15:39 WBC 13.1 H (4.8-10.8) X10*3/uL RBC 3.26 L (4.20-5.50) X10*6/uL Hgb 8.4 L (12.0-16.0) g/dl Hct 26.6 L (37-47) % MCV 81.6 (80-98) fL MCH 25.8 L (27.0-33.0) pg MCHC 31.6 (31.0-35.0) g/dl RDW 17.0 H (11.0-16.0) % Plt Count 611 H (160-400) X10*3/uL MPV 9.0 L (9.4-12.3) fL Immature Gran % (Auto) 0.7 H (0.0-0.4) % Neut % (Auto) 84.3 H (45-73) % Lymph % (Auto) 9.9 L (20-40) % [place] % (Auto) 4.4 (2-11) % Eos % (Auto) 0.5 (0-4) % Baso % (Auto) 0.2 (0-2) % Lymph # (Auto) 1.3 (1.2-4.9) X10*3/uL [place] # (Auto) 0.6 (0.1-1.2) X10*3/uL Eos # (Auto) 0.1 (0.0-0.4) X10*3/uL Baso # (Auto) 0.0 (0.0-0.2) X10*3/uL Abs Immat Gran (auto) 0.09 H (0.00-0.03) X10*3/uL Absolute Neuts (auto) 11.1 H (2.0-8.3) X10*3/uL Absolute Nucleated RBC 0.000 (0.0-0.012) X10*3/uL Nucleated RBC % (auto) 0.0 (0.0-0.2) /100WBC PT 19.8 H D (10.8-13.0) SEC INR 1.7 H (0.9-1.1) Sodium 138 (135-145) mmol/L Potassium 3.7 (3.3-5.1) mmol/L Chloride 96 (96-108) mmol/L Carbon Dioxide 28 (22-29) mmol/L Anion Gap 18 (12-20) BUN 41 H D (9-16) mg/dL Creatinine 1.71 H (0.5-1.4) mg/dL Estim Creat Clear Calc 27.2 Estimated GFR 29 Random Glucose 109 D (60-115) mg/dL Lactic Acid (0.5-2.0) mmol/L Calcium 9.6 (8.4-10.2) mg/dL Magnesium 2.0 (1.6-2.6) mg/dL Total Bilirubin 0.8 (0.0-1.0) mg/dL Direct Bilirubin 0.3 (0.0-0.5) mg/dL AST 30 (5-31) U/L ALT 18 (0-31) U/L Alkaline Phosphatase 95 (39-117) U/L Troponin I High Sens (<3.5-17.0) ng/L Total Protein 6.4 L (6.5-8.0) g/dL Albumin 3.6 D (3.5-5.0) g/dL Urine Color Urine Appearance Urine pH (5.0-8.0) Ur Specific [place] (1.005-1.025) Urine Protein (NEG-TRACE) MG/DL Urine Glucose (UA) (NEG) MG/DL Urine Ketones (NEG) MG/DL Urine Blood (NEG) Urine Nitrite (NEG) Ur Leukocyte Esterase (NEG) Urine RBC (0) /HPF Urine WBC (0-4) /HPF Ur Squamous Epith Cells /LPF Urine Bacteria /LPF Stool Occult Blood (NEGATIVE) Stool Leukocytes, Qual (NEGATIVE) C. difficile Toxin A&B (Negative) C. difficile Antigen (Negative) C. difficile Interpret 03/27/21 03/27/21 03/27/21 Range/Units 15:39 15:39 16:37 WBC (4.8-10.8) X10*3/uL RBC (4.20-5.50) X10*6/uL Hgb (12.0-16.0) g/dl Hct (37-47) % MCV (80-98) fL MCH (27.0-33.0) pg MCHC (31.0-35.0) g/dl RDW (11.0-16.0) % Plt Count (160-400) X10*3/uL MPV (9.4-12.3) fL Immature Gran % (Auto) (0.0-0.4) % Neut % (Auto) (45-73) % Lymph % (Auto) (20-40) % [place] % (Auto) (2-11) % Eos % (Auto) (0-4) % Baso % (Auto) (0-2) % Lymph # (Auto) (1.2-4.9) X10*3/uL [place] # (Auto) (0.1-1.2) X10*3/uL Eos # (Auto) (0.0-0.4) X10*3/uL Baso # (Auto) (0.0-0.2) X10*3/uL Abs Immat Gran (auto) (0.00-0.03) X10*3/uL Absolute Neuts (auto) (2.0-8.3) X10*3/uL Absolute Nucleated RBC (0.0-0.012) X10*3/uL Nucleated RBC % (auto) (0.0-0.2) /100WBC PT (10.8-13.0) SEC INR (0.9-1.1) Sodium (135-145) mmol/L Potassium (3.3-5.1) mmol/L Chloride (96-108) mmol/L Carbon Dioxide (22-29) mmol/L Anion Gap (12-20) BUN (9-16) mg/dL Creatinine (0.5-1.4) mg/dL Estim Creat Clear Calc Estimated GFR Random Glucose (60-115) mg/dL Lactic Acid 1.4 (0.5-2.0) mmol/L Calcium (8.4-10.2) mg/dL Magnesium (1.6-2.6) mg/dL Total Bilirubin (0.0-1.0) mg/dL Direct Bilirubin (0.0-0.5) mg/dL AST (5-31) U/L ALT (0-31) U/L Alkaline Phosphatase (39-117) U/L Troponin I High Sens 31.2 H* (<3.5-17.0) ng/L Total Protein (6.5-8.0) g/dL Albumin (3.5-5.0) g/dL Urine Color SCOTT Urine Appearance HAZY Urine pH 5.5 (5.0-8.0) Ur Specific [place] 1.020 (1.005-1.025) Urine Protein TRACE (NEG-TRACE) MG/DL Urine Glucose (UA) NEG (NEG) MG/DL Urine Ketones NEG (NEG) MG/DL Urine Blood TRACE (NEG) Urine Nitrite NEG (NEG) Ur Leukocyte Esterase 3+ H (NEG) Urine RBC 1-4 (0) /HPF Urine WBC 50-75 H (0-4) /HPF Ur Squamous Epith Cells NONE /LPF Urine Bacteria 4+ /LPF Stool Occult Blood (NEGATIVE) Stool Leukocytes, Qual (NEGATIVE) C. difficile Toxin A&B (Negative) C. difficile Antigen (Negative) C. difficile Interpret 03/27/21 03/27/21 03/27/21 Range/Units 16:37 16:37 16:56 WBC (4.8-10.8) X10*3/uL RBC (4.20-5.50) X10*6/uL Hgb (12.0-16.0) g/dl Hct (37-47) % MCV (80-98) fL MCH (27.0-33.0) pg MCHC (31.0-35.0) g/dl RDW (11.0-16.0) % Plt Count (160-400) X10*3/uL MPV (9.4-12.3) fL Immature Gran % (Auto) (0.0-0.4) % Neut % (Auto) (45-73) % Lymph % (Auto) (20-40) % [place] % (Auto) (2-11) % Eos % (Auto) (0-4) % Baso % (Auto) (0-2) % Lymph # (Auto) (1.2-4.9) X10*3/uL [place] # (Auto) (0.1-1.2) X10*3/uL Eos # (Auto) (0.0-0.4) X10*3/uL Baso # (Auto) (0.0-0.2) X10*3/uL Abs Immat Gran (auto) (0.00-0.03) X10*3/uL Absolute Neuts (auto) (2.0-8.3) X10*3/uL Absolute Nucleated RBC (0.0-0.012) X10*3/uL Nucleated RBC % (auto) (0.0-0.2) /100WBC PT (10.8-13.0) SEC INR (0.9-1.1) Sodium (135-145) mmol/L Potassium (3.3-5.1) mmol/L Chloride (96-108) mmol/L Carbon Dioxide (22-29) mmol/L Anion Gap (12-20) BUN (9-16) mg/dL Creatinine (0.5-1.4) mg/dL Estim Creat Clear Calc Estimated GFR Random Glucose (60-115) mg/dL Lactic Acid (0.5-2.0) mmol/L Calcium (8.4-10.2) mg/dL Magnesium (1.6-2.6) mg/dL Total Bilirubin (0.0-1.0) mg/dL Direct Bilirubin (0.0-0.5) mg/dL AST (5-31) U/L ALT (0-31) U/L Alkaline Phosphatase (39-117) U/L Troponin I High Sens (<3.5-17.0) ng/L Total Protein (6.5-8.0) g/dL Albumin (3.5-5.0) g/dL Urine Color Urine Appearance Urine pH (5.0-8.0) Ur Specific [place] (1.005-1.025) Urine Protein (NEG-TRACE) MG/DL Urine Glucose (UA) (NEG) MG/DL Urine Ketones (NEG) MG/DL Urine Blood (NEG) Urine Nitrite (NEG) Ur Leukocyte Esterase (NEG) Urine RBC (0) /HPF Urine WBC (0-4) /HPF Ur Squamous Epith Cells /LPF Urine Bacteria /LPF Stool Occult Blood POSITIVE (NEGATIVE) Stool Leukocytes, Qual NEGATIVE (NEGATIVE) C. difficile Toxin A&B Negative (Negative) C. difficile Antigen Positive A (Negative) C. difficile Interpret PCR to be performed 03/27/21 Range/Units 19:41 WBC (4.8-10.8) X10*3/uL RBC (4.20-5.50) X10*6/uL Hgb (12.0-16.0) g/dl Hct (37-47) % MCV (80-98) fL MCH (27.0-33.0) pg MCHC (31.0-35.0) g/dl RDW (11.0-16.0) % Plt Count (160-400) X10*3/uL MPV (9.4-12.3) fL Immature Gran % (Auto) (0.0-0.4) % Neut % (Auto) (45-73) % Lymph % (Auto) (20-40) % [place] % (Auto) (2-11) % Eos % (Auto) (0-4) % Baso % (Auto) (0-2) % Lymph # (Auto) (1.2-4.9) X10*3/uL [place] # (Auto) (0.1-1.2) X10*3/uL Eos # (Auto) (0.0-0.4) X10*3/uL Baso # (Auto) (0.0-0.2) X10*3/uL Abs Immat Gran (auto) (0.00-0.03) X10*3/uL Absolute Neuts (auto) (2.0-8.3) X10*3/uL Absolute Nucleated RBC (0.0-0.012) X10*3/uL Nucleated RBC % (auto) (0.0-0.2) /100WBC PT (10.8-13.0) SEC INR (0.9-1.1) Sodium (135-145) mmol/L Potassium (3.3-5.1) mmol/L Chloride (96-108) mmol/L Carbon Dioxide (22-29) mmol/L Anion Gap (12-20) BUN (9-16) mg/dL Creatinine (0.5-1.4) mg/dL Estim Creat Clear Calc Estimated GFR Random Glucose (60-115) mg/dL Lactic Acid (0.5-2.0) mmol/L Calcium (8.4-10.2) mg/dL Magnesium (1.6-2.6) mg/dL Total Bilirubin (0.0-1.0) mg/dL Direct Bilirubin (0.0-0.5) mg/dL AST (5-31) U/L ALT (0-31) U/L Alkaline Phosphatase (39-117) U/L Troponin I High Sens 20.8 H* (<3.5-17.0) ng/L Total Protein (6.5-8.0) g/dL Albumin (3.5-5.0) g/dL Urine Color Urine Appearance Urine pH (5.0-8.0) Ur Specific [place] (1.005-1.025) Urine Protein (NEG-TRACE) MG/DL Urine Glucose (UA) (NEG) MG/DL Urine Ketones (NEG) MG/DL Urine Blood (NEG) Urine Nitrite (NEG) Ur Leukocyte Esterase (NEG) Urine RBC (0) /HPF Urine WBC (0-4) /HPF Ur Squamous Epith Cells /LPF Urine Bacteria /LPF Stool Occult Blood (NEGATIVE) Stool Leukocytes, Qual (NEGATIVE) C. difficile Toxin A&B (Negative) C. difficile Antigen (Negative) C. difficile Interpret Imaging Data Chest x-ray: Attestation: I personally reviewed and interpreted this imaging study as follows: Radiologist's impression: EXAMINATION: XR CHEST CLINICAL INFORMATION: Cough. Weakness. COMPARISON: Previous chest CT February 2021 TECHNIQUE: 2 views of the chest were obtained. FINDINGS: The cardiac and mediastinal contours are normal. The lungs are clear. There is no pleural effusion or pneumothorax. There are degenerative changes of the spine and shoulder joints. There is a small right breast calcification. XR/XR chest 2V IMPRESSION: No evidence for acute disease in the chest. CT scan - abdomen: Attestation: I personally reviewed and interpreted this imaging study as follows: Radiologist's impression: IMPRESSION: No pneumatosis or pneumoperitoneum. No evidence of a high-grade bowel obstruction. Fecal residue distends the rectal vault and there is some rectal wall thickening and minor perirectal fat stranding. Stercoral colitis could be present. Minor amount of nonspecific free pelvic fluid. Partially included mild amount of tree in bud opacity in the left lower lung possibly a small area of pneumonia. Osseous findings as described including S2/S3, T9/T10, and sacrum ECG Data Attestation: I personally reviewed and interpreted this ECG as follows: ECG interpretation date: 03/27/21 ECG interpretation time: 14:53 Interpretation: SR with PACS with rate 78, normal pr, normal qrs, WTC 460 Critical Care Time Critical Care Time Critical Care Time: Yes Total Critical Care Time: 30 Attestation: Fluid management for hypotension, discussion with family, discussion with hospitalist for admission Discharge Plan Discharge Clinical Impression: Leukocytosis, Anemia, Heme positive stool, EVA (acute kidney injury), UTI (urinary tract infection), C. difficile colitis, Pneumonia Patient Disposition: Admitted As Inpatient
[2021-03-27] MEDS: 0.9 % Sodium Chloride 1,973.13 ML 1973.13 ML IV (15:07)
[2021-03-27 15:45] VITALS: BP 110/49; PULSE 90
--- NOTE | 2021-03-27 15:46 | PC.NURSE ---
Pt's BP trending up. IVF infusing at this time. Pt denies dizziness/lightheadedness at this time. HR 80s-90
[2021-03-27 15:49] LABS: MANUAL DIFF FLAG NO
[2021-03-27 15:53] LABS: Basophils Percent Auto 0.2 % (0-2); Eosinophils Absolute Auto 0.1 X10*3/uL (0.0-0.4); Eosinophils Percent Auto 0.5 % (0-4); Hematocrit 26.6 % (37-47); Hemoglobin 8.4 g/dl (12.0-16.0); Imm Gran Abs Auto 0.09 X10*3/uL (0.00-0.03); Imm Gran Pct Auto 0.7 % (0.0-0.4); Lymphocytes Absolute Auto 1.3 X10*3/uL (1.2-4.9); Lymphocytes Percent Auto 9.9 % (20-40); Mean Corpuscular HGB Conc 31.6 g/dl (31.0-35.0); Mean Corpuscular Hemoglobin 25.8 pg (27.0-33.0); Mean Corpuscular Volume 81.6 fL (80-98); Monocytes Absolute Auto 0.6 X10*3/uL (0.1-1.2); Monocytes Percent Auto 4.4 % (2-11); Neutrophils Absolute Auto 11.1 X10*3/uL (2.0-8.3); Neutrophils Percent Auto 84.3 % (45-73); Platelet Count 611 X10*3/uL (160-400); Red Blood Count 3.26 X10*6/uL (4.20-5.50); White Blood Count 13.1 X10*3/uL (4.8-10.8)
[2021-03-27 15:57] LABS: INTERNATIONAL NORM RATIO 1.7 (0.9-1.1); Prothrombin Time 19.8 SEC (10.8-13.0)
[2021-03-27 16:00] VITALS: BP 118/49; PULSE 88; RESP 16; TEMP 36.4; O2SAT 99
[2021-03-27 16:14] LABS: Lactic Acid 1.4 mmol/L (0.5-2.0)
[2021-03-27 16:19] LABS: Alanine Aminotransferase 18 U/L (0-31); Albumin Level 3.6 g/dL (3.5-5.0); Alkaline Phosphatase 95 U/L (39-117); Anion Gap 18 (12-20); Aspartate Amino Transferase 30 U/L (5-31); Bilirubin Direct 0.3 mg/dL (0.0-0.5); Bilirubin Total 0.8 mg/dL (0.0-1.0); Blood Urea Nitrogen 41 mg/dL (9-16); Calcium 9.6 mg/dL (8.4-10.2); Carbon Dioxide 28 mmol/L (22-29); Chloride 96 mmol/L (96-108); Creatinine Clr Calc Pharmacy 27.2; Estimated Glomerular Filt Rate 29; Glucose Random 109 mg/dL (60-115); Potassium 3.7 mmol/L (3.3-5.1); Sodium 138 mmol/L (135-145); Total Protein 6.4 g/dL (6.5-8.0)
[2021-03-27 16:41] LABS: Troponin-I High Sensitivity 31.2 ng/L (<3.5-17.0)
[2021-03-27 17:07] LABS: Glucose Urine UA NEG (NEG); Leukocyte Esterase Urine 3+ (NEG); Nitrite Urine NEG (NEG); PH 5.5 (5.0-8.0); UACC Culture Trigger YES; Urine Blood TRACE (NEG); Urine Ketones NEG (NEG); Urine Protein TRACE MG/DL (NEG-TRACE)
[2021-03-27 17:10] LABS: OBS Int Ctl Valid YES; OBS1 POSITIVE (NEGATIVE)
[2021-03-27 17:43] LABS: Appearance Urine HAZY; Color Urine AMBER
[2021-03-27 17:57] LABS: CDIFF Ag Positive (Negative); CDIFF Internal ctrl Dots and bkg OK (V); CDiff Toxin Negative (Negative)
[2021-03-27 18:38] LABS: Bacteria Urine 4+ /LPF; WBC Urine 50-75 /HPF (0-4)
[2021-03-27 18:40] LABS: Leukocytes Stool Qualitative NEGATIVE (NEGATIVE)
[2021-03-27] MEDS: vancomycin HCL 125 MG CAPSULE PO (18:41)
[2021-03-27] MEDS: cefTRIAXone sodium 1 GM in 0.9 % Sodium Chloride 50 ML IV (18:41)
[2021-03-27] MEDS: Azithromycin 500 MG in 0.9 % Sodium Chloride 250 ML 125 MG IV (18:42)
[2021-03-27 20:47] LABS: Troponin-I High Sensitivity 20.8 ng/L (<3.5-17.0)
[2021-03-27 21:18] VITALS: BP 108/53; PULSE 78; RESP 18; O2SAT 98
--- NOTE | 2021-03-27 22:46 | P.HPHOSP_ITS ---
History of Present Illness Date of Service: 03/27/21 Chief Complaint: vomiting, diarrhea, hypotension This is an 80-year-old female with past medical history of dementia, COPD, hypertension, hypothyroidism, urinary retention with chronic Arias, left lower extremity DVT currently on Eliquis, brought in by family due to little oral intake, vomiting, diarrhea for the past 2-3 days. Patient has significant dementia although awake and alert but oriented to self not place time or date. Therefore history is mostly obtained from ED NANCY and chart. It appears the patient was seen at Urology is office for a routine follow-up today and was found to have a systolic blood pressure of 80 therefore sent to the hospital. Patient herself denies any abdominal pain, nausea or vomiting, she appears completely oblivious and unable to really get much history from her. Patient hemodynamically stable with a temperature of 96.6?, heart rate of 87, respiratory rate of 18, blood pressure of 81/30, satting 97% on room air. Received septic fluid of 30 cc/kg with blood pressure improving to 110/49. Lab significant for WBC count of 13.1, hemoglobin of 8.4 which dropped from 10.1 from 03/06 PT of 19.8, INR of 1.7 BUN of 41, creatinine of 1.71 with a baseline of 0.8 in February, troponin of 31.2 that dropped to 20.8, urine that is positive for leukocyte Estrace and WBC, C diff positive, stool occult blood positive. CT of the abdomen shows fecal residue distance the rectal vault and there is some rectal wall thickening and minor perirectal fat stranding concerning for stercoral colitis. Also seen a tree-in-bud opacity in the left lower lobe concerning for pneumonia Patient will be admitted for further management. Past medical history per EMR Review of Systems Review of Systems: Yes all other systems are reviewed and are negative [facility] Medical History Age related osteoporosis Autoimmune hepatitis Bilateral hydronephrosis Cognitive decline COPD (chronic obstructive pulmonary disease) Dementia Dementia HTN (hypertension) Hypothyroidism Urinary retention Weakness Family History Mother No problems noted. Surgical History H/O: hysterectomy S/P cholecystectomy Social History Household Members: Family Household Members Other:: daughter Housing: Unknown / Unable to assess Unable to assess alcohol history related to: Unknown Alcohol intake: never Smoking Status: Smoker, status unknown Use of substances other than those prescribed or required for medical reasons: Unknown Advance Directives: No Advance Directives Information Provided: No Recently lost weight without trying: Unsure Meds Allergies Allergy/AdvReac Type Severity Reaction Status Date / Time Penicillins Allergy hives Verified 03/27/21 13:16 Active Medications: Current Medications Generic Name Dose Route Start Last Admin Trade Name Freq PRN Reason Stop Dose Admin Pharmacy Consult 1 each 03/27/21 17:36 Consult Rx Perform Med Rec MISCELLANE ONCE PRN Consult order Home Medications Medication Instructions Recorded Confirmed Last Taken Type azathioprine 25 mg PO BID 02/13/21 03/27/21 Unknown History Physical Exam Vital Signs and Narrative: Vital Signs: Last Vital Signs Temp 97.5 F 03/27/21 16:00 Pulse 78 03/27/21 21:18 Resp 18 03/27/21 21:18 BP 108/53 L 03/27/21 21:18 Pulse Ox 98 03/27/21 21:18 Body Mass Index 21.4 Const: General: cooperative and no acute distress Orientation/consciousness: patient oriented x3 Eyes: General: appearance normal, both eyes and all related structures Resp: Effort & Inspection: normal respiratory effort and able to speak in complete sentences Cardio: Rate: regular rate Rhythm: regular rhythm GI: Palpation (GI): Soft to palpation Auscultation: normal bowel sounds Skin: General skin exam: no rashes or lesions noted Neuro: General: patient oriented x3 Cognition (Neuro): normal cognition Extrem: General: Yes normal to inspection and Yes no pedal edema Results Labs CBC and Chem 7: 03/27/21 15:39 03/27/21 15:39 Labs: Laboratory Results - last 24 hr 03/27/21 03/27/21 03/27/21 15:39 15:39 15:39 MCV 81.6 MCH 25.8 L MCHC 31.6 RDW 17.0 H Plt Count 611 H MPV 9.0 L Immature Gran % (Auto) 0.7 H Neut % (Auto) 84.3 H Lymph % (Auto) 9.9 L [place] % (Auto) 4.4 Eos % (Auto) 0.5 Baso % (Auto) 0.2 Lymph # (Auto) 1.3 Maverick # (Auto) 0.6 Eos # (Auto) 0.1 Baso # (Auto) 0.0 Abs Immat Gran (auto) 0.09 H Absolute Neuts (auto) 11.1 H Absolute Nucleated RBC 0.000 Nucleated RBC % (auto) 0.0 PT 19.8 H D INR 1.7 H Anion Gap 18 Estim Creat Clear Calc 27.2 Estimated GFR 29 Random Glucose 109 D Lactic Acid Calcium 9.6 Magnesium 2.0 Total Bilirubin 0.8 Direct Bilirubin 0.3 AST 30 ALT 18 Alkaline Phosphatase 95 Troponin I High Sens Total Protein 6.4 L Albumin 3.6 D Urine Color Urine Appearance Urine pH Ur Specific [place] Urine Protein Urine Glucose (UA) Urine Ketones Urine Blood Urine Nitrite Ur Leukocyte Esterase Urine RBC Urine WBC Ur Squamous Epith Cells Urine Bacteria Stool Occult Blood Stool Leukocytes, Qual C. difficile Toxin A&B C. difficile Antigen C. difficile Interpret 03/27/21 03/27/21 03/27/21 15:39 15:39 16:37 MCV MCH MCHC RDW Plt Count MPV Immature Gran % (Auto) Neut % (Auto) Lymph % (Auto) [place] % (Auto) Eos % (Auto) Baso % (Auto) Lymph # (Auto) [place] # (Auto) Eos # (Auto) Baso # (Auto) Abs Immat Gran (auto) Absolute Neuts (auto) Absolute Nucleated RBC Nucleated RBC % (auto) PT INR Anion Gap Estim Creat Clear Calc Estimated GFR Random Glucose Lactic Acid 1.4 Calcium Magnesium Total Bilirubin Direct Bilirubin AST ALT Alkaline Phosphatase Troponin I High Sens 31.2 H* Total Protein Albumin Urine Color SCOTT Urine Appearance HAZY Urine pH 5.5 Ur Specific [place] 1.020 Urine Protein TRACE Urine Glucose (UA) NEG Urine Ketones NEG Urine Blood TRACE Urine Nitrite NEG Ur Leukocyte Esterase 3+ H Urine RBC 1-4 Urine WBC 50-75 H Ur Squamous Epith Cells NONE Urine Bacteria 4+ Stool Occult Blood Stool Leukocytes, Qual C. difficile Toxin A&B C. difficile Antigen C. difficile Interpret 03/27/21 03/27/21 03/27/21 16:37 16:37 16:56 MCV MCH MCHC RDW Plt Count MPV Immature Gran % (Auto) Neut % (Auto) Lymph % (Auto) [place] % (Auto) Eos % (Auto) Baso % (Auto) Lymph # (Auto) [place] # (Auto) Eos # (Auto) Baso # (Auto) Abs Immat Gran (auto) Absolute Neuts (auto) Absolute Nucleated RBC Nucleated RBC % (auto) PT INR Anion Gap Estim Creat Clear Calc Estimated GFR Random Glucose Lactic Acid Calcium Magnesium Total Bilirubin Direct Bilirubin AST ALT Alkaline Phosphatase Troponin I High Sens Total Protein Albumin Urine Color Urine Appearance Urine pH Ur Specific [place] Urine Protein Urine Glucose (UA) Urine Ketones Urine Blood Urine Nitrite Ur Leukocyte Esterase Urine RBC Urine WBC Ur Squamous Epith Cells Urine Bacteria Stool Occult Blood POSITIVE Stool Leukocytes, Qual NEGATIVE C. difficile Toxin A&B Negative C. difficile Antigen Positive A C. difficile Interpret PCR to be performed 03/27/21 19:41 MCV MCH MCHC RDW Plt Count MPV Immature Gran % (Auto) Neut % (Auto) Lymph % (Auto) [place] % (Auto) Eos % (Auto) Baso % (Auto) Lymph # (Auto) [place] # (Auto) Eos # (Auto) Baso # (Auto) Abs Immat Gran (auto) Absolute Neuts (auto) Absolute Nucleated RBC Nucleated RBC % (auto) PT INR Anion Gap Estim Creat Clear Calc Estimated GFR Random Glucose Lactic Acid Calcium Magnesium Total Bilirubin Direct Bilirubin AST ALT Alkaline Phosphatase Troponin I High Sens 20.8 H* Total Protein Albumin Urine Color Urine Appearance Urine pH Ur Specific [place] Urine Protein Urine Glucose (UA) Urine Ketones Urine Blood Urine Nitrite Ur Leukocyte Esterase Urine RBC Urine WBC Ur Squamous Epith Cells Urine Bacteria Stool Occult Blood Stool Leukocytes, Qual C. difficile Toxin A&B C. difficile Antigen C. difficile Interpret Imaging Radiologist's Impressions: Impressions Chest X-Ray 03/27/21 14:37 IMPRESSION: No evidence for acute disease in the chest. Abdomen/Pelvis CT 03/27/21 15:03 IMPRESSION: No pneumatosis or pneumoperitoneum. No evidence of a high-grade bowel obstruction. Fecal residue distends the rectal vault and there is some rectal wall thickening and minor perirectal fat stranding. Stercoral colitis could be present. Minor amount of nonspecific free pelvic fluid. Partially included mild amount of tree in bud opacity in the left lower lung possibly a small area of pneumonia. Osseous findings as described including S2/S3, T9/T10, and sacrum Assessment and Plan (1) Sepsis: Status: Acute (2) Anemia: Status: Acute (3) Heme positive stool: Status: Acute (4) EVA (acute kidney injury): Status: Acute (5) UTI (urinary tract infection): Status: Acute (6) C. difficile colitis: Status: Acute (7) Pneumonia: Status: Acute # severe sepsis - secondary to multiple infections including UTI, C diff, pneumonia - had hypotension which responded to the 30 cc/kg fluid boluses - blood pressure normalized - lactic acid normal - patient started on broad-spectrum antibiotics including ceftriaxone and azithromycin for pneumonia and management of UTI as well as vancomycin p.o. for C diff a Flagyl for colitis - follow cultures # EVA - most likely secondary to dehydration as well as sepsis - started on IV fluids - follow BMP - hold nephrotoxic medications including furosemide and lisinopril # UTI - has chronic Arias - UA positive - IV antibiotics - follow cultures # C diff colitis - positive C diff antigen - given hypotension and leukocytosis will start her on p.o. vancomycin 250 q.6 as well as Flagyl # community-acquired pneumonia - seen on CT of the abdomen - will start IV ceftriaxone and azithromycin - follow cultures # GI bleed and normocytic anemia - has significant drop in hemoglobin from 1 month ago from 10.1-8.4 today - positive stool occult - will consult GI - transfusion threshold hemoglobin less than 7 - hold Eliquis # history of DVT - given GI bleed will hold Eliquis DVT prophylaxis SCD Code status: Spoke to daughter, pt full code
[2021-03-27 23:40] VITALS: BP 104/63; PULSE 84; RESP 16; O2SAT 98
[2021-03-28] VITALS (7 sets, daily range): BP systolic 105–156; BP diastolic 51–72; PULSE 79–137; RESP 16–20; TEMP 36.1–36.5; O2SAT 95–99; BMI 17.4
[2021-03-28 00:09] LABS: COVID-19 Test Negative (Negative)
[2021-03-28] MEDS: 0.9 % Sodium Chloride Flush 3 ML SYRINGE IVFLUSH ×2 (03:29→16:18)
[2021-03-28] MEDS: Lactated Ringers 1,000 ML 100 ML IVCONT (03:29)
[2021-03-28] MEDS: vancomycin HCL 125 MG CAPSULE 250 MG PO ×4 (03:40→20:38)
[2021-03-28] MEDS: Doxazosin Mesylate 1 MG TABLET PO ×2 (03:42→20:38)
--- NOTE | 2021-03-28 06:37 | PC.NURSE ---
Pt noted to have multiple wounds including pressure injuries. Pictures taken and placed in chart. Dr Gaming notified. Wound consult to be placed by MD. Pt placed on airloss bed, triad and foams applied to open areas. Repositioning q2h.
[2021-03-28 08:38] LABS: CDiff Gene PCR NEGATIVE (Negative)
[2021-03-28 10:04] LABS: Hematocrit 25.7 % (37-47); Hemoglobin 8.2 g/dl (12.0-16.0); Mean Corpuscular HGB Conc 31.9 g/dl (31.0-35.0); Mean Corpuscular Volume 81.6 fL (80-98); Mean Platelet Volume 9.3 fL (9.4-12.3); Platelet Count 558 X10*3/uL (160-400); Red Blood Count 3.15 X10*6/uL (4.20-5.50); Red Cell Distribution Width 16.9 % (11.0-16.0); White Blood Count 9.6 X10*3/uL (4.8-10.8)
[2021-03-28 10:39] LABS: Anion Gap 15 (12-20); Blood Urea Nitrogen 26 mg/dL (9-16); Calcium 8.9 mg/dL (8.4-10.2); Carbon Dioxide 26 mmol/L (22-29); Chloride 104 mmol/L (96-108); Creatinine Clr Calc Pharmacy 41.7; Estimated Glomerular Filt Rate 59; Glucose Random 70 mg/dL (60-115); Potassium 3.4 mmol/L (3.3-5.1); Sodium 142 mmol/L (135-145)
[2021-03-28 11:25] LABS: Procalcitonin 1.51 ng/mL
--- NOTE | 2021-03-28 11:37 | P.CDIC_ITS ---
CDI Concurrent Query Service Date: 03/28/21 Documentation Clarification: Please clarify if you are treating a proba ble/suspected/likely or confirmed: Urinary tract infection due to chronic indwelling james catheter (POA) UTI due to other source or undetermined Provider Response: Other Other Diagnosis: Urinary tract infection due to chronic indwelling james catheter (POA) PLEASE DO NOT DELETE/MODIFY EXISTING CONTENT Additional information is needed in order to code to the highest accuracy and appropriate Severity of Illness (SOI). Please clarify the information noted below in your progress notes and discharge summary. Risk Factors/Clinical Indicators/Treatments H&P: Assessment/plan - UTI patient has chronic james catheter IV antibiotics UA positive follow up culture CDS: Aimee Bartlett CCS, CDIS Contact Number: [phone] Please Review the information above and exercise your independent professional judgment in responding to the query. If you concur, pleas document in the PROGRESS NOTES and DISCHARGE SUMMARY. If you do not agree with the query, please document in the query above. THIS QUERY IS PART OF THE PERMANENT MEDICAL RECORD
--- NOTE | 2021-03-28 12:18 | MHC.CLN ---
RE: CONSULT PT IS SEVERELY MALNOURISHED PT WITH MODERATELY DEPLETED SUBCUTANEOUS FAT AND MUSCLE MASS, BMI 17.4 AND POOR PO INTAKE X 3 DAYS DIET RX: NPO RECOMMEND STARTING ENSURE BID AND KAREEN TO PROMOTE WOUND HEALING WHEN DIET TO ADVANCE SUPPLEMENT TO PROVIDE [id number], 45G PROTEIN SEE ALSO CLINICAL NUTRITION ASSESSMENT
--- NOTE | 2021-03-28 14:00 | MHC.CM.PN ---
IMM 03/28/21 Female 88 DX PNA UTI CDIFF Pt has dementia. She lives w her Dtr Nafisa. She is dependent all ADLs. She is able to ambulate short distances on good days with [address] PCP searching old records. The Pts Dtr is looking for the HCP in the Pts home. DP home with services. She may need assist with transportation. Pt has wounds. Dr Iniguez is to assess Pt today. CM will follow.
[2021-03-28] MEDS: metroNIDAZOLE 500 MG TABLET PO (14:03)
--- NOTE | 2021-03-28 15:41 | HO.PM.IMPN ---
Subjective Subjective Date of Service: 03/28/21 Interval History: no fever unable to obtain ROS due to pt's dementia/delirium Physical Exam Vital Signs: Vital Signs: Last Vital Signs Temp 97 F 03/28/21 15:24 Pulse 94 03/28/21 15:24 Resp 18 03/28/21 15:24 BP 117/61 03/28/21 15:24 Pulse Ox 98 03/28/21 15:24 Body Mass Index 17.4 Gen: in no acute distress, malnourished HEENT: sclera anicteric, moist mucus membranes Neck: supple Lungs: clear to auscultation bilaterally Heart: regular rate and rhythm, no murmurs Abd: soft, non-tender, non-distended Ext: no edema Skin: warm/well-perfused Neuro: alert but oriented only to self Psych: impaired insight Objective Data Current Medications Generic Name Dose Route Start Last Admin Trade Name Freq PRN Reason Stop Dose Admin Acetaminophen 650 mg 03/28/21 02:18 Acetaminophen Supp 650 Mg Supp.Rect ND Q6H PRN Pain, Mild (Pain Scale 1-3) Azathioprine 25 mg 03/28/21 02:18 03/28/21 09:14 Azathioprine 25 Mg Halftab PO 25 mg BID MAGY Administration Docusate Sodium 100 mg 03/28/21 02:18 Docusate Sodium 100 Mg Capsule PO DAILY PRN Constipation Doxazosin Mesylate 1 mg 03/28/21 02:18 03/28/21 03:42 Doxazosin Mesylate 1 Mg Tablet PO 1 mg BEDTIME MAGY Administration Protocol Lactated Ringer's 1,000 mls @ 100 mls/hr 03/28/21 02:18 03/28/21 14:29 Lr IVCONT Infused .Q10H MAGY Infusion Ceftriaxone Sodium 1 gm/ 50 mls @ 100 mls/hr 03/28/21 18:00 Sodium Chloride IV Q24H MAGY Azithromycin 500 mg/ Sodium 250 mls @ 125 mls/hr 03/28/21 19:00 Chloride IV Q24H MAGY Metronidazole 500 mg 03/28/21 14:00 03/28/21 14:03 Metronidazole 500 Mg Tablet PO 500 mg Q8H MAGY Administration Ondansetron HCl 4 mg 03/28/21 02:18 Ondansetron Hcl 4 Mg/2 Ml Vial IVPUSH Q8H PRN Nausea and Vomiting Pharmacy Consult 1 each 03/27/21 17:36 Consult Rx Perform Med Rec MISCELLANE ONCE PRN Consult order Sodium Chloride 3 ml 03/28/21 02:18 03/28/21 09:14 0.9 % Sodium Chloride Flush 3 Ml Syringe IVFLUSH Not Given QSHIFT [facility] Vancomycin HCl 250 mg 03/28/21 02:18 03/28/21 14:27 Vancomycin Hcl 125 Mg Capsule PO 250 mg Q6H MAGY Administration Labs CBC & Chem 7: 03/28/21 09:37 03/28/21 09:37 Labs: Laboratory Results - last 24 hr 03/27/21 03/27/21 03/27/21 15:39 15:39 15:39 WBC 13.1 H RBC 3.26 L Hgb 8.4 L Hct 26.6 L MCV 81.6 MCH 25.8 L MCHC 31.6 RDW 17.0 H Plt Count 611 H MPV 9.0 L Immature Gran % (Auto) 0.7 H Neut % (Auto) 84.3 H Lymph % (Auto) 9.9 L [place] % (Auto) 4.4 Eos % (Auto) 0.5 Baso % (Auto) 0.2 Lymph # (Auto) 1.3 [place] # (Auto) 0.6 Eos # (Auto) 0.1 Baso # (Auto) 0.0 Abs Immat Gran (auto) 0.09 H Absolute Neuts (auto) 11.1 H Absolute Nucleated RBC 0.000 Nucleated RBC % (auto) 0.0 PT 19.8 H D INR 1.7 H Sodium 138 Potassium 3.7 Chloride 96 Carbon Dioxide 28 Anion Gap 18 BUN 41 H D Creatinine 1.71 H Estim Creat Clear Calc 27.2 Estimated GFR 29 Random Glucose 109 D Lactic Acid Calcium 9.6 Magnesium 2.0 Total Bilirubin 0.8 Direct Bilirubin 0.3 AST 30 ALT 18 Alkaline Phosphatase 95 Troponin I High Sens Total Protein 6.4 L Albumin 3.6 D Procalcitonin Urine Color Urine Appearance Urine pH Ur Specific Meally Urine Protein Urine Glucose (UA) Urine Ketones Urine Blood Urine Nitrite Ur Leukocyte Esterase Urine RBC Urine WBC Ur Squamous Epith Cells Urine Bacteria Stool Occult Blood Stool Leukocytes, Qual C. difficile Tox B Gene C. difficile Toxin A&B C. difficile Antigen C. difficile Interpret COVID-19 (BRIEN) COVID-19 Clin Com 05/03/27/21 03/27/21 15:39 15:39 16:37 WBC RBC Hgb Hct MCV MCH MCHC RDW Plt Count MPV Immature Gran % (Auto) Neut % (Auto) Lymph % (Auto) [place] % (Auto) Eos % (Auto) Baso % (Auto) Lymph # (Auto) [place] # (Auto) Eos # (Auto) Baso # (Auto) Abs Immat Gran (auto) Absolute Neuts (auto) Absolute Nucleated RBC Nucleated RBC % (auto) PT INR Sodium Potassium Chloride Carbon Dioxide Anion Gap BUN Creatinine Estim Creat Clear Calc Estimated GFR Random Glucose Lactic Acid 1.4 Calcium Magnesium Total Bilirubin Direct Bilirubin AST ALT Alkaline Phosphatase Troponin I High Sens 31.2 H* Total Protein Albumin Procalcitonin Urine Color SCOTT Urine Appearance HAZY Urine pH 5.5 Ur Specific Meally 1.020 Urine Protein TRACE Urine Glucose (UA) NEG Urine Ketones NEG Urine Blood TRACE Urine Nitrite NEG Ur Leukocyte Esterase 3+ H Urine RBC 1-4 Urine WBC 50-75 H Ur Squamous Epith Cells NONE Urine Bacteria 4+ Stool Occult Blood Stool Leukocytes, Qual C. difficile Tox B Gene C. difficile Toxin A&B C. difficile Antigen C. difficile Interpret COVID-19 (BRIEN) COVID-19 [employer] 03/27/21 03/27/21 03/27/21 16:37 16:37 16:56 WBC RBC Hgb Hct MCV MCH MCHC RDW Plt Count MPV Immature Gran % (Auto) Neut % (Auto) Lymph % (Auto) [place] % (Auto) Eos % (Auto) Baso % (Auto) Lymph # (Auto) [place] # (Auto) Eos # (Auto) Baso # (Auto) Abs Immat Gran (auto) Absolute Neuts (auto) Absolute Nucleated RBC Nucleated RBC % (auto) PT INR Sodium Potassium Chloride Carbon Dioxide Anion Gap BUN Creatinine Estim Creat Clear Calc Estimated GFR Random Glucose Lactic Acid Calcium Magnesium Total Bilirubin Direct Bilirubin AST ALT Alkaline Phosphatase Troponin I High Sens Total Protein Albumin Procalcitonin Urine Color Urine Appearance Urine pH Ur Specific Meally Urine Protein Urine Glucose (UA) Urine Ketones Urine Blood Urine Nitrite Ur Leukocyte Esterase Urine RBC Urine WBC Ur Squamous Epith Cells Urine Bacteria Stool Occult Blood POSITIVE Stool Leukocytes, Qual NEGATIVE C. difficile Tox B Gene NEGATIVE C. difficile Toxin A&B Negative C. difficile Antigen Positive A C. difficile Interpret PCR to be performed COVID-19 (BRIEN) COVID-19 [employer] Com 03/27/21 03/27/21 03/28/21 19:41 23:43 09:37 WBC 9.6 RBC 3.15 L Hgb 8.2 L Hct 25.7 L MCV 81.6 MCH 26.0 L MCHC 31.9 RDW 16.9 H Plt Count 558 H MPV 9.3 L Immature Gran % (Auto) Neut % (Auto) Lymph % (Auto) [place] % (Auto) Eos % (Auto) Baso % (Auto) Lymph # (Auto) [place] # (Auto) Eos # (Auto) Baso # (Auto) Abs Immat Gran (auto) Absolute Neuts (auto) Absolute Nucleated RBC 0.000 Nucleated RBC % (auto) 0.0 PT INR Sodium Potassium Chloride Carbon Dioxide Anion Gap BUN Creatinine Estim Creat Clear Calc Estimated GFR Random Glucose Lactic Acid Calcium Magnesium Total Bilirubin Direct Bilirubin AST ALT Alkaline Phosphatase Troponin I High Sens 20.8 H* Total Protein Albumin Procalcitonin Urine Color Urine Appearance Urine pH Ur Specific Meally Urine Protein Urine Glucose (UA) Urine Ketones Urine Blood Urine Nitrite Ur Leukocyte Esterase Urine RBC Urine WBC Ur Squamous Epith Cells Urine Bacteria Stool Occult Blood Stool Leukocytes, Qual C. difficile Tox B Gene C. difficile Toxin A&B C. difficile Antigen C. difficile Interpret COVID-19 (BRIEN) Negative COVID-19 [employer] See Note 03/28/21 03/28/21 09:37 09:37 WBC RBC Hgb Hct MCV MCH MCHC RDW Plt Count MPV Immature Gran % (Auto) Neut % (Auto) Lymph % (Auto) [place] % (Auto) Eos % (Auto) Baso % (Auto) Lymph # (Auto) [place] # (Auto) Eos # (Auto) Baso # (Auto) Abs Immat Gran (auto) Absolute Neuts (auto) Absolute Nucleated RBC Nucleated RBC % (auto) PT INR Sodium 142 Potassium 3.4 Chloride 104 Carbon Dioxide 26 Anion Gap 15 BUN 26 H Creatinine 0.91 Estim Creat Clear Calc 41.7 Estimated GFR 59 Random Glucose 70 D Lactic Acid Calcium 8.9 D Magnesium Total Bilirubin Direct Bilirubin AST ALT Alkaline Phosphatase Troponin I High Sens Total Protein Albumin Procalcitonin 1.51 Urine Color Urine Appearance Urine pH Ur Specific Meally Urine Protein Urine Glucose (UA) Urine Ketones Urine Blood Urine Nitrite Ur Leukocyte Esterase Urine RBC Urine WBC Ur Squamous Epith Cells Urine Bacteria Stool Occult Blood Stool Leukocytes, Qual C. difficile Tox B Gene C. difficile Toxin A&B C. difficile Antigen C. difficile Interpret COVID-19 (BRIEN) COVID-19 Clin Com Microbiology Microbiology Results: Microbiology 03/27/21 Unknown Urine [place] Urine Culture - Preliminary Culture in progress. 03/27/21 16:37 Stool Stool Culture - Preliminary Normal so far. Assessment and Plan (1) Sepsis: Status: Acute Assessment and Plan: hospital d#2 80yo F with dementia, COPD, hypertension, hypothyroidism, urinary retention with chronic Arias, left lower extremity DVT anticoagulated on apixaban sent in from urology clinic due to hypotension, fluid-responsive admitted for sepsis with EVA; possible sources include pneumonia, UTI, or possibly C difficile # sepsis with associated hypotension - fluid-responsive, lactate normalized, treat likely sources of pneumonia (tree-in-bud opacities, elevated PCT) with ceftriaxone/azithromycin, UTI associated with chronic Arias with ceftriaxone, equivocal C difficile colitis (toxin negative, antigen positive, PCR pending) with PO vancomycin. follow BCx + UCx + stool Cx. will check CT chest, pneumococcal + Legionella urinary antigens. # EVA - likely prerenal/septic ATN. resolved with IV hydration and holding furosemide + lisinopril # troponin elevation - likely demand from sepsis # anemia from GI blood loss, FOBT+ - GI consult, hold apixaban # hx DVT - hold apixaban due to GI bleed # moderate protein-calorie malnutrition - will start supplements when taking POs # autoimmune hepatitis - continue azathioprine # multiple wounds (L hip unstageable ulcer, R hip healing ulcer, R knee abrasion, R heel unstageable ulcer, R great toe scab, R buttocks stage II, R coccyx stage II) - wound care consultation # VTE ppx - SCDs, hold apixaban due to GI bleed
[2021-03-28] MEDS: Lactated Ringers 1,000 ML 50 ML IVCONT (16:25)
[2021-03-28] MEDS: cefTRIAXone sodium 1 GM in 0.9 % Sodium Chloride 50 ML IV (18:00)
[2021-03-28] MEDS: Azithromycin 500 MG in 0.9 % Sodium Chloride 250 ML 125 MG IV (18:35)
--- NOTE | 2021-03-28 19:38 | P.CONWO_ITS ---
History of Present Illness Data of Consult Service Date: 03/28/21 Requesting physician: Sunita Gaming Primary Care Provider: Adam Garcia MD [facility] Reason for consult: multiple wounds this is an 80-year-old female that at the Wound Care Service has been asked to evaluate because of the presence of multiple wounds. She is awake but is unable to provide any significant information. Per the record, she has a history of dementia. Information is taken primarily from the record. She was seen by her urologist yesterday for routine follow-up and was noted to be hypotensive. She was brought to the emergency room for further evaluation. She has a recent history of vomiting and diarrhea and was diagnosed with C difficile enterocolitis. She has been admitted for treatment. She has a history of multiple wounds and was evaluated by Dr. Beck on her prior admission in February 2021. at that time, she was noted to have wounds involving the right knee that appeared superficial, probable shear injury to the right buttock and a deep tissue injury to the right heel. Review of Systems Review of Systems: Yes Unobtainable due to mental status PMFSH Medical History Age related osteoporosis Autoimmune hepatitis Bilateral hydronephrosis Cognitive decline COPD (chronic obstructive pulmonary disease) Dementia Dementia HTN (hypertension) Hypothyroidism Urinary retention Weakness Family History Mother No problems noted. Surgical History H/O: hysterectomy S/P cholecystectomy Social History Household Members: Family Household Members Other:: daughter Housing: Unknown / Unable to assess Unable to assess alcohol history related to: Unknown Alcohol intake: never Smoking Status: Smoker, status unknown Use of substances other than those prescribed or required for medical reasons: Unknown Currently Displaying Signs/Symptoms of Drug Intoxication Withdrawal: No Advance Directives: No Advance Directives Information Provided: No Recently lost weight without trying: Unsure service: No Current occupational status: retired Meds Allergies Allergy/AdvReac Type Severity Reaction Status Date / Time Penicillins Allergy hives Verified 03/27/21 13:16 Active Medications: Current Medications Generic Name Dose Route Start Last Admin Trade Name Freq PRN Reason Stop Dose Admin Acetaminophen 650 mg 03/28/21 02:18 Acetaminophen Supp 650 Mg Supp.Rect OR Q6H PRN Pain, Mild (Pain Scale 1-3) Docusate Sodium 100 mg 03/28/21 02:18 Docusate Sodium 100 Mg Capsule PO DAILY PRN Constipation Doxazosin Mesylate 1 mg 03/28/21 02:18 03/28/21 03:42 Doxazosin Mesylate 1 Mg Tablet PO 1 mg BEDTIME MAGY Administration Protocol Lactated Ringer's 1,000 mls @ 50 mls/hr 03/28/21 02:18 03/28/21 16:25 Lr IVCONT 50 mls/hr .Q20H MAGY Administration Ceftriaxone Sodium 1 gm/ 50 mls @ 100 mls/hr 03/28/21 18:00 03/28/21 18:35 Sodium Chloride IV Infused Q24H MAGY Infusion Azithromycin 500 mg/ Sodium 250 mls @ 125 mls/hr 03/28/21 19:00 03/28/21 18:35 Chloride IV 125 mls/hr Q24H MAGY Administration Ondansetron HCl 4 mg 03/28/21 02:18 Ondansetron Hcl 4 Mg/2 Ml Vial IVPUSH Q8H PRN Nausea and Vomiting Pharmacy Consult 1 each 03/27/21 17:36 Consult Rx Perform Med Rec MISCELLANE ONCE PRN Consult order Sodium Chloride 3 ml 03/28/21 02:18 03/28/21 16:18 0.9 % Sodium Chloride Flush 3 Ml Syringe IVFLUSH 3 ml QSHIFT MAGY Administration Vancomycin HCl 250 mg 03/28/21 02:18 03/28/21 14:27 Vancomycin Hcl 125 Mg Capsule PO 250 mg Q6H MAGY Administration Home Medications Medication Instructions Recorded Confirmed Last Taken Type azathioprine 25 mg PO BID 02/13/21 03/27/21 Unknown History Physical Exam Vital Signs and Narrative: Vital Signs: Last Vital Signs Temp 97 F 03/28/21 15:24 Pulse 94 03/28/21 15:24 Resp 18 03/28/21 15:24 BP 117/61 03/28/21 15:24 Pulse Ox 98 03/28/21 15:24 Body Mass Index 17.4 Const: Other: Awake, no apparent distress, uncooperative with examination Skin: Other: right heel -ovoid dry eschar measuring 1.3 cm in greatest dimension without surrounding erythema the left hip - 1.2 x 0.7 cm moist eschar from intact skin at anterior edge, no surrounding erythema buttocks excoriated centrally coccyx -irregular approximately 2.5 cm excoriated area with central slough scabbing present right knee and toes Results Labs CBC and Chem 7: 03/28/21 09:37 03/28/21 09:37 Labs: Laboratory Results - last 24 hr 03/27/21 03/27/21 03/27/21 16:37 19:41 23:43 MCV MCH MCHC RDW Plt Count MPV Absolute Nucleated RBC Nucleated RBC % (auto) Anion Gap Estim Creat Clear Calc Estimated GFR Random Glucose Calcium Troponin I High Sens 20.8 H* Procalcitonin C. difficile Tox B Gene NEGATIVE C. difficile Toxin A&B Negative C. difficile Antigen Positive A C. difficile Interpret PCR to be performed COVID-19 (BRIEN) Negative COVID-19 Clin Com See Note 03/28/21 03/28/21 03/28/21 09:37 09:37 09:37 MCV 81.6 MCH 26.0 L MCHC 31.9 RDW 16.9 H Plt Count 558 H MPV 9.3 L Absolute Nucleated RBC 0.000 Nucleated RBC % (auto) 0.0 Anion Gap 15 Estim Creat Clear Calc 41.7 Estimated GFR 59 Random Glucose 70 D Calcium 8.9 D Troponin I High Sens Procalcitonin 1.51 C. difficile Tox B Gene C. difficile Toxin A&B C. difficile Antigen C. difficile Interpret COVID-19 (BRIEN) COVID-19 Clin Com Imaging Radiologist's Impressions: Impressions Chest CT 03/28/21 17:00 IMPRESSION: 1. Subtle hazy airspace opacities left lower lobe. No dense consolidation. 2. Trace dependent bilateral pleural effusions. Assessment and Plan (1) Pressure injury of left hip, unstageable: Status: Acute moist eschar left hip, . Add collagen Hydrogel, continue Alevyn foam dressings. Reposition q.2 hours.continued separation appears likely, but debridement may be needed. (2) Pressure injury of buttock, stage 2: Status: Acute begin collagen Hydrogel and foam dressings to coccyx area, extra thick protective cream to excoriated areas of buttocks. Frequent repositioning. (3) Pressure injury of deep tissue of right heel: Status: Acute deep tissue injury right heel, area now appears smaller than it did last month, but is consistent with stage IV pressure injury. Betadine paint, foam dressings daily. improved nutrition is noted from time of last hospitalization. Albumin is now in the normal range.
--- NOTE | 2021-03-28 22:54 | CONS_ITS ---
DATE OF SERVICE: 03/28/2021 REASON FOR CONSULTATION: Anemia and Hemoccult-positive stools. HISTORY OF PRESENT ILLNESS: The patient is an 80-year-old woman, well known to me from prior evaluation. She provides no history due to dementia. The history is obtained from the medical record. She was admitted to the hospital yesterday for poor oral intake, vomiting, and diarrhea. She had been seen at her urologist's office for followup and was noted to be hypotensive with a blood pressure of 80 and was sent to the emergency room. She currently denies abdominal pain. She underwent evaluation with laboratory studies, which showed anemia with a hematocrit of 26.6, which was low compared to 32.7 in February. Repeat hematocrit this morning was 25.7. She was noted to have Hemoccult-positive stool, but there was no reported GI bleeding. CT scanning was obtained showing some rectal wall thickening and minor perirectal fat stranding suggestive of stercoral colitis. She had stool specimens obtained, which show a positive Clostridium difficile antigen. PCR is pending. She is currently being treated for possible Clostridium difficile. She last underwent colonoscopy in October of 2016, for screening and a prior history of adenomatous colon polyps. She did have diverticular disease, but no colitis. A small hyperplastic sigmoid colon polyp was removed. PAST MEDICAL HISTORY: 1. Dementia. 2. Hypertension. 3. Hypothyroidism. 4. Autoimmune hepatitis. 5. COPD. 6. Hydronephrosis. 7. Osteoporosis. 8. Urinary retention. CURRENT MEDICATIONS: Her current medication list is reviewed in the chart. ALLERGIES: PENICILLIN. FAMILY HISTORY: This is reviewed in the electronic medical record and is noncontributory. SOCIAL HISTORY: There is no reported substance abuse. REVIEW OF SYSTEMS: Not obtainable. PHYSICAL EXAMINATION: GENERAL: A pleasant female, who is very somnolent, but responds to name and denies abdominal pain. SKIN: Anicteric. HEENT: No scleral icterus. NECK: Without lymphadenopathy or thyromegaly. LUNGS: Clear. HEART: Regular rate and rhythm. S1, S2. No murmur. ABDOMEN: Soft without focal masses or tenderness. Bowel sounds are present. No organomegaly is noted. EXTREMITIES: Without edema. IMPRESSION: Anemia and Hemoccult-positive stools. She does not appear to be actively gastrointestinal bleeding at this time. I agree with treating her for her Clostridium difficile results and monitoring her clinically. Colonoscopy is unlikely to add much to her care at this point, and it seems very unlikely that she would have a colonic malignancy given her prior history of compliance with routine colonoscopy screening. Thanks for asking me to see her. I will follow her in the hospital with you. MD SURINDER Carreon/CELESTE / [phone] MTDElida
[2021-03-29] VITALS (7 sets, daily range): BP systolic 123–142; BP diastolic 54–72; PULSE 75–114; RESP 18–20; TEMP 36.2–36.6; O2SAT 95–100
[2021-03-29] MEDS: vancomycin HCL 125 MG CAPSULE 250 MG PO ×3 (02:13→14:31)
[2021-03-29 06:44] LABS: Hematocrit 24.8 % (37-47); Hemoglobin 7.7 g/dl (12.0-16.0); Mean Corpuscular Hemoglobin 25.9 pg (27.0-33.0); Mean Corpuscular Volume 83.5 fL (80-98); Mean Platelet Volume 9.7 fL (9.4-12.3); Platelet Count 547 X10*3/uL (160-400); Red Blood Count 2.97 X10*6/uL (4.20-5.50); Red Cell Distribution Width 16.9 % (11.0-16.0); White Blood Count 6.9 X10*3/uL (4.8-10.8)
[2021-03-29 06:56] LABS: D Dimer 352 NG/ML
[2021-03-29 07:04] LABS: Anion Gap 14 (12-20); Blood Urea Nitrogen 18 mg/dL (9-16); Calcium 9.2 mg/dL (8.4-10.2); Carbon Dioxide 27 mmol/L (22-29); Chloride 107 mmol/L (96-108); Creatinine Clr Calc Pharmacy 52.1; Estimated Glomerular Filt Rate > 60; Glucose Random 66 mg/dL (60-115); Potassium 3.9 mmol/L (3.3-5.1); Sodium 144 mmol/L (135-145)
--- NOTE | 2021-03-29 12:04 | MHC.SL.SWA ---
Speech Pathologist Impression: Risk of Aspiration Oralpharyngeal Dysphagia Risk of Aspiration Due to: Poor PO Intake Reduced Cognition Dysphasia Diet Status: Upgrade Liquid Consistency and Strategies for Safe Swallow: Liquid Intake Recommendation: Thin Liquid Intake Strategies: Small Sips No Straws Solid Food Consistency: Dietary Recommendations: Pureed (NDD1) Oral Medication Intake: Crushed with Puree Compensatory Strategies and Precautions to be Taken for Safe Swallow: Sitting Upright (90 deg) Small Bites and Sips Rate of Ingestion Change Oral Check Supervision While Eating and Drinking for Safe Swallow: Total Assistance Swallowing Recommended Treatments: Compens. Strategy Educat. Recommendation for Speech: Inpatient Speech Therapy Comment: [employer]CH[employer]IC will continue to follow to monitor tolerance and re-assess potential for upgrade. Rn Security Clinican/Clinical Fellow: No Supervisory Statement: I have reviewed and agree with the student/clinical fellow's documentation: No Speech Language Pathologist: Kayla Emmanuel M.A., CCC-[employer]CH[employer]IC
[2021-03-29] MEDS: Lactated Ringers 1,000 ML 50 ML IVCONT (12:44)
--- NOTE | 2021-03-29 14:40 | P.PNIM_ITS ---
Subjective Subjective Date of Service: 03/29/21 Interval History: much more awake today denies complaints though ROS limited by dementia Physical Exam Vital Signs: Vital Signs: Last Vital Signs Temp 97.5 F 03/29/21 12:00 Pulse 114 H 03/29/21 12:00 Resp 20 03/29/21 12:00 BP 138/63 03/29/21 12:00 Pulse Ox 100 03/29/21 12:00 Body Mass Index 17.4 Gen: in no acute distress, malnourished HEENT: sclera anicteric, moist mucus membranes Neck: supple Lungs: clear to auscultation bilaterally Heart: regular rate and rhythm, no murmurs Abd: soft, non-tender, non-distended Ext: no edema Skin: warm/well-perfused Neuro: alert, oriented x2 Psych: impaired insight Objective Data Current Medications Generic Name Dose Route Start Last Admin Trade Name Freq PRN Reason Stop Dose Admin Acetaminophen 650 mg 03/28/21 02:18 Acetaminophen Supp 650 Mg Supp.Rect RI Q6H PRN Pain, Mild (Pain Scale 1-3) Docusate Sodium 100 mg 03/28/21 02:18 Docusate Sodium 100 Mg Capsule PO DAILY PRN Constipation Doxazosin Mesylate 1 mg 03/28/21 02:18 03/28/21 20:38 Doxazosin Mesylate 1 Mg Tablet PO 1 mg BEDTIME MAGY Administration Protocol Lactated Ringer's 1,000 mls @ 50 mls/hr 03/28/21 02:18 03/29/21 12:44 Lr IVCONT 50 mls/hr .Q20H MAGY Administration Ceftriaxone Sodium 1 gm/ 50 mls @ 100 mls/hr 03/28/21 18:00 03/28/21 18:35 Sodium Chloride IV Infused Q24H MAGY Infusion Azithromycin 500 mg/ Sodium 250 mls @ 125 mls/hr 03/28/21 19:00 03/28/21 20:52 Chloride IV Infused Q24H MAGY Infusion Ondansetron HCl 4 mg 03/28/21 02:18 Ondansetron Hcl 4 Mg/2 Ml Vial IVPUSH Q8H PRN Nausea and Vomiting Pharmacy Consult 1 each 03/27/21 17:36 Consult Rx Perform Med Rec MISCELLANE ONCE PRN Consult order Sodium Chloride 3 ml 03/28/21 02:18 05/20/21 08:17 0.9 % Sodium Chloride Flush 3 Ml Syringe IVFLUSH Not Given QSHIFT MAGY Vancomycin HCl 250 mg 03/28/21 02:18 03/29/21 14:31 Vancomycin Hcl 125 Mg Capsule PO 250 mg Q6H MAGY Administration Labs CBC & Chem 7: 03/29/21 06:00 03/29/21 06:00 Labs: Laboratory Results - last 24 hr 03/29/21 03/29/21 03/29/21 06:00 06:00 06:00 WBC 6.9 RBC 2.97 L Hgb 7.7 L Hct 24.8 L MCV 83.5 MCH 25.9 L MCHC 31.0 RDW 16.9 H Plt Count 547 H MPV 9.7 Absolute Nucleated RBC 0.000 Nucleated RBC % (auto) 0.0 D-Dimer 352 Sodium 144 Potassium 3.9 Chloride 107 Carbon Dioxide 27 Anion Gap 14 BUN 18 H Creatinine 0.73 Estim Creat Clear Calc 52.1 Estimated GFR > 60 Random Glucose 66 Calcium 9.[address] 03/28/21 17:00 IMPRESSION: 1. Subtle hazy airspace opacities left lower lobe. No dense consolidation. 2. Trace dependent bilateral pleural effusions. Microbiology Microbiology Results: Microbiology 03/27/21 Unknown Urine [place] Urine Culture - Preliminary Gram negative jairo 03/27/21 16:37 Stool Stool Culture - Preliminary Normal so far. 03/27/21 15:39 Blood - Venous Blood Culture - Preliminary No growth after 24 hours. 03/27/21 15:39 Blood - Venous Blood Culture - Preliminary No growth after 24 hours. Assessment and Plan (1) Sepsis: Status: Acute Assessment and Plan: hospital d#3 80yo F with dementia, COPD, hypertension, hypothyroidism, urinary retention with chronic Arias, left lower extremity DVT anticoagulated on apixaban sent in from urology clinic due to hypotension, fluid-responsive admitted for sepsis with EVA; possible sources include pneumonia and UTI # sepsis with associated hypotension - fluid-responsive, lactate normalized, treat likely sources of pneumonia (LLL hazy opacity) with ceftriaxone/azithromycin, UTI associated with chronic Arias with ceftriaxone. C diff unlikely (toxin negative, antigen positive, PCR negative). follow BCx, UCx, stool Cx, pneumococcal + Legionella UAgs # EVA - likely prerenal/septic ATN. resolved with IV hydration and holding furosemide + lisinopril # troponin elevation - likely demand from sepsis # anemia from GI blood loss, FOBT+ - GI consulted- no scope for now. will monitor H+H, transfuse if Hb<7. Hold apixaban. # hx DVT - hold apixaban due to GI bleed- consult Hematology as this was a recent DVT (dx 02/13/21) # moderate protein-calorie malnutrition - start Ensure supplements # dementia - seen by ASSOCIATE ACCOUNT DIRECTOR, diet recommended is NDD1 + thin liquids # autoimmune hepatitis - continue azathioprine # multiple wounds (L hip unstageable ulcer, R hip healing ulcer, R knee abrasion, R heel unstageable ulcer, R great toe scab, R buttocks stage II, R coccyx stage II) - wound care consultation done, recommendations are: Right heel- paint eschar with Betadine cover with Alevyn foam dressing daily coccyx area- cleanse wound with saline solution, apply extra thick protective cream to intact skin edges, collagen Hydrogel to ulcer, cover with Alevyn foam dressing left hip ulcer -cleanse with saline solution, apply extra thick protective cream to intact skin edges, collagen Hydrogel to ulcer, cover with Alevyn foam dressing # VTE ppx - SCDs, hold apixaban due to GI bleed
[2021-03-29] MEDS: cefTRIAXone sodium 1 GM in 0.9 % Sodium Chloride 50 ML IV (18:06)
[2021-03-29] MEDS: Azithromycin 500 MG in 0.9 % Sodium Chloride 250 ML 125 MG IV (18:45)
[2021-03-29] MEDS: Doxazosin Mesylate 1 MG TABLET PO (20:19)
[2021-03-29] MEDS: 0.9 % Sodium Chloride Flush 3 ML SYRINGE IVFLUSH (20:20)
--- NOTE | 2021-03-29 22:20 | P.CNID_ITS ---
History of Present Illness Data of Consult Service Date: 03/29/21 Requesting physician: Mane Ball Primary Care Provider: Adam Garcia MD HPI Reason for consult: possible UTIs She presents to hospital with 3 days nausea,vomiting and diarrhea. She has groundglass opacities She has diarrhea,antigen positive Review of Systems Review of Systems: Yes all other systems are reviewed and are negative PMFSH Past Medical History Medical History (Updated 04/13/21 @ 09:26 by Adam Garcia MD) Age related osteoporosis Autoimmune hepatitis Bilateral hydronephrosis Cognitive decline COPD (chronic obstructive pulmonary disease) Dementia Dementia HTN (hypertension) Hypothyroidism Urinary retention Weakness Family History Family History Mother No problems noted. Family history: reviewed and not pertinent Surgical History Surgical History H/O: hysterectomy S/P cholecystectomy Social History Social History (Updated 04/13/21 @ 08:56 by LILIANA Cortez) Household Members: Family Household Members Other:: daughter Housing: Unknown / Unable to assess Unable to assess alcohol history related to: Unknown Alcohol intake: never Patient Tobacco Use Status: Former Tobacco user Tobacco use type: Cigarette Second Hand Smoke Exposure: No service: No Current occupational status: retired Meds Allergies Allergy/AdvReac Type Severity Reaction Status Date / Time Penicillins Allergy hives Verified 04/13/21 08:54 Active Medications: Current Medications Generic Name Dose Route Start Last Admin Trade Name Freq PRN Reason Stop Dose Admin Acetaminophen 650 mg 03/28/21 02:18 Acetaminophen Supp 650 Mg Supp.Rect VT Q6H PRN Pain, Mild (Pain Scale 1-3) Docusate Sodium 100 mg 03/28/21 02:18 Docusate Sodium 100 Mg Capsule PO DAILY PRN Constipation Doxazosin Mesylate 1 mg 03/28/21 02:18 03/29/21 20:19 Doxazosin Mesylate 1 Mg Tablet PO 1 mg BEDTIME MAGY Administration Protocol Lactated Ringer's 1,000 mls @ 50 mls/hr 03/28/21 02:18 03/29/21 12:44 Lr IVCONT 50 mls/hr .Q20H MAGY Administration Ceftriaxone Sodium 1 gm/ 50 mls @ 100 mls/hr 03/28/21 18:00 03/29/21 18:38 Sodium Chloride IV Infused Q24H MAGY Infusion Azithromycin 500 mg/ Sodium 250 mls @ 125 mls/hr 03/28/21 19:00 03/29/21 21:01 Chloride IV Infused Q24H MAGY Infusion Ondansetron HCl 4 mg 03/28/21 02:18 Ondansetron Hcl 4 Mg/2 Ml Vial IVPUSH Q8H PRN Nausea and Vomiting Pharmacy Consult 1 each 03/27/21 17:36 Consult Rx Perform Med Rec MISCELLANE ONCE PRN Consult order Sodium Chloride 3 ml 03/28/21 02:18 03/29/21 20:20 0.9 % Sodium Chloride Flush 3 Ml Syringe IVFLUSH 3 ml QSHIFT [facility] Administration Home Medications Medication Instructions Recorded Confirmed Last Taken Type azathioprine 25 mg PO BID 02/13/21 04/13/21 Unknown History Physical Exam Vital Signs: Vital Signs: Last Vital Signs Temp 97.2 F 03/29/21 19:39 Pulse 80 03/29/21 20:19 Resp 18 03/29/21 19:39 BP 137/54 L 03/29/21 20:19 Pulse Ox 100 03/29/21 19:39 Body Mass Index 17.4 Const: General: cooperative HENMT: Head: Yes normal to inspection Mouth: Normal oral and palatal mucosa present Resp: Effort & Inspection: normal respiratory effort Cardio: Rate: regular rate Rhythm: regular rhythm GI: Palpation (GI): not soft and nontender Skin: General skin exam: no rashes or lesions noted Extrem: General: Yes normal to inspection Results Labs CBC & Chem 7: 04/03/21 05:54 04/03/21 05:54 Labs: Short CBC 03/29/21 Range/Units 06:00 WBC 6.9 (4.8-10.8) X10*3/uL Hgb 7.7 L (12.0-16.0) g/dl Hct 24.8 L (37-47) % Plt Count 547 H (160-400) X10*3/uL BMP 03/29/21 06:00 Sodium 144 Potassium 3.9 Chloride 107 Carbon Dioxide 27 BUN 18 H Creatinine 0.73 Calcium 9.2 Microbiology Microbiology Results: Microbiology 03/27/21 15:39 Blood - Venous Blood Culture - Preliminary No growth after 48 hours. 03/27/21 15:39 Blood - Venous Blood Culture - Preliminary No growth after 48 hours. 03/27/21 Unknown Urine [place] Urine Culture - Preliminary Gram negative jairo 03/27/21 16:37 Stool Stool Culture - Preliminary Normal so far. Assessment and Plan (1) Sepsis: Status: Acute She has Cdiff antigen positive PCR is pending There are no signs of bacterial lobar pneumonia Would stop antibiotics Treat Cdiff if PCR positive (2) Leukocytosis: Status: Acute
[2021-03-30] VITALS (13 sets, daily range): BP systolic 144–174; BP diastolic 61–84; PULSE 68–92; RESP 15–20; TEMP 36.1–37.2; O2SAT 100
[2021-03-30 06:41] LABS: Hematocrit 24.4 % (37-47); Hemoglobin 7.6 g/dl (12.0-16.0); Mean Corpuscular HGB Conc 31.1 g/dl (31.0-35.0); Mean Corpuscular Hemoglobin 25.7 pg (27.0-33.0); Mean Corpuscular Volume 82.4 fL (80-98); Mean Platelet Volume 9.6 fL (9.4-12.3); Platelet Count 530 X10*3/uL (160-400); Red Blood Count 2.96 X10*6/uL (4.20-5.50); Red Cell Distribution Width 17.1 % (11.0-16.0); White Blood Count 5.1 X10*3/uL (4.8-10.8)
[2021-03-30 06:58] LABS: Anion Gap 14 (12-20); Blood Urea Nitrogen 14 mg/dL (9-16); Calcium 9.3 mg/dL (8.4-10.2); Carbon Dioxide 28 mmol/L (22-29); Chloride 107 mmol/L (96-108); Creatinine Clr Calc Pharmacy 56.7; Estimated Glomerular Filt Rate > 60; Glucose Random 65 mg/dL (60-115); Potassium 3.6 mmol/L (3.3-5.1); Sodium 145 mmol/L (135-145)
[2021-03-30 07:12] LABS: Procalcitonin 0.29 ng/mL
[2021-03-30 09:04] LABS: Immature Retic Fraction 16.5 % (3.0-15.9); Retic HGB Equivalent 30.3 pg (30.0-35.0); Reticulocyte Percent 1.3 % (0.5-1.8); Reticulocytes Absolute 0.037 X10*6/uL (0.026-0.095)
[2021-03-30 09:20] LABS: Iron 45 mcg/dL (30-160); Lactate Dehydrogenase 214 U/L (122-220); Percent Iron Saturation 26 % (15-50); Total Iron Binding Capacity 171 mcg/dL (228-428); Unsaturated Iron Binding 126 ug/dL
--- NOTE | 2021-03-30 09:42 | MHC.SL.SWA ---
Speech Pathologist Impression: Risk of Aspiration Oralpharyngeal Dysphagia Risk of Aspiration Due to: Poor PO Intake Reduced Cognition Dysphasia Diet Status: Upgrade Liquid Consistency and Strategies for Safe Swallow: Liquid Intake Recommendation: Thin Liquid Intake Strategies: Small Sips Solid Food Consistency: Dietary Recommendations: Grnd/Mech Altered (NDD2) Oral Medication Intake: Crushed with Puree Compensatory Strategies and Precautions to be Taken for Safe Swallow: Sitting Upright (90 deg) Small Bites and Sips Alternate Liquids/Solids Rate of Ingestion Change Oral Check Supervision While Eating and Drinking for Safe Swallow: Total Assistance Foods to Avoid: tough/dry/sticky foods Swallowing Recommended Treatments: Compens. Strategy Educat. Recommendation for Speech: Inpatient Speech Therapy Comment: Patient has underlying dementia. Encourage self-feeding when possible. However, patient does require assistance with her tray, as she is confused. Recommend 1:1 feed with strategies to promote oral clearance: check oral cavity for residue, small bites, moisten food with sauce/gravy, alternate bite of food with sip of liquid, avoid dry/tough/sticky foods. RETAIL COMMISSION SALES ASSOCIATE will continue to follow to monitor tolerance and re-assess potential for upgrade. Parent Partner Clinican/Clinical Fellow: No Supervisory Statement: I have reviewed and agree with the student/clinical fellow's documentation: No Speech Language Pathologist: Kayla Emmanuel M.A., [facility]-[employer] SALES ASSOCIATE
[2021-03-30 09:58] LABS: Ferritin 398 ng/mL (10-250)
--- NOTE | 2021-03-30 10:11 | P.CNHO_ITS ---
Subjective - Subjective Chief complaint: None Patient: known to practice within the last 3 years Consult date: 03/30/21 Primary Care Provider: Adam Garcia MD HPI - Consult Narrative Reason for consult: Left lower extremity DVT, anemia Narrative: Mariluz Gregory is a 80 year old female with history of dementia and multiple medical problems admitted to [facility] [place] on 03/27/2021 with complaints of vomiting and diarrhea, found to be hypotensive. Workup revealed positivity for C diff and imaging showed rectal wall thickening concerning for colitis. She has been on Eliquis since February 2021 for left lower extremity DVT. Her hemoglobin is down to she was noted to be positive for blood on Hemoccult testing. No complaints of grows hematochezia or melena. Patient is a poor historian because of dementia and is unable to provide any further history. Review of Systems - Constitutional Reports as per HPI - Neurologic Reports no additional neurologic complaints, Denies abnormal speech, Denies dizziness, Denies headache(s), Denies numbness, Denies tingling, Reports we akness PENDING SALE TO [facility] Medical History: Medical History (Last Reviewed 03/29/21 @ 22:22 by Ronel Olivares MD) Age related osteoporosis Autoimmune hepatitis Bilateral hydronephrosis Cognitive decline COPD (chronic obstructive pulmonary disease) Dementia Dementia HTN (hypertension) Hypothyroidism Urinary retention Weakness Family History: Family History (Last Reviewed 03/29/21 @ 22:22 by Ronel Olivares MD) Mother No problems noted. Family history: reviewed and not pertinent Surgical History: Surgical History (Last Reviewed 03/29/21 @ 22:22 by Ronel Olivares MD) H/O: hysterectomy S/P cholecystectomy Social History: Social History (Last Reviewed 03/29/21 @ 22:22 by Ronel Olivares MD) Living Situation History: Household Members: Family Household Members Other:: daughter Housing: Unknown / Unable to asses Do you presently have visiting nurse or other home services: Do you presently have visiting nurse or other home services comment: Unknown Alcohol History: Unable to assess alcohol history related to: Unknown Alcohol intake: never Tobacco History: Smoking Status: Smoker, status unknown Substance Use History: Use of substances other than those prescribed or required for medical reasons : Unknown Currently Displaying Signs/Symptoms of Drug Intoxication Withdrawal: No Advance Directives: Advance Directives: No Advance Directives Information Provided: No Homicidal Assessment: Do you have thoughts of harming others: None Do you have a plan to hurt others: No Plan Nutrition Assessment: Recently lost weight without trying: Unsure Occupation Assessmet: service: No Current occupational status: retired Smoking status: Smoker, status unknown Home Medications and Allergies Current Medications: Current Medications Generic Name Dose Route Start Last Admin Trade Name Freq PRN Reason Stop Dose Admin Acetaminophen 650 mg 03/28/21 02:18 Acetaminophen Supp 650 Mg Supp.Rect IA Q6H PRN Pain, Mild (Pain Scale 1-3) Docusate Sodium 100 mg 03/28/21 02:18 Docusate Sodium 100 Mg Capsule PO DAILY PRN Constipation Doxazosin Mesylate 1 mg 03/28/21 02:18 03/29/21 20:19 Doxazosin Mesylate 1 Mg Tablet PO 1 mg BEDTIME MAGY Administration Protocol Lactated Ringer's 1,000 mls @ 50 mls/hr 03/28/21 02:18 03/30/21 03:53 Lr IVCONT 50 mls/hr .Q20H MAGY Infusion Ondansetron HCl 4 mg 03/28/21 02:18 Ondansetron Hcl 4 Mg/2 Ml Vial IVPUSH Q8H PRN Nausea and Vomiting Pharmacy Consult 1 each 03/27/21 17:36 Consult Rx Perform Med Rec MISCELLANE ONCE PRN Consult order Sodium Chloride 3 ml 03/28/21 02:18 03/30/21 07:59 0.9 % Sodium Chloride Flush 3 Ml Syringe IVFLUSH Not Given QSHIFT COUNTS INCLUDE 234 BEDS AT THE [facility] Home Medications Medication Instructions Recorded Confirmed Type azathioprine 25 mg PO BID 02/13/21 03/27/21 History Allergies Allergy/AdvReac Type Severity Reaction Status Date / Time Penicillins Allergy hives Verified 03/27/21 13:16 Physical Exam Vital signs: Vital Signs Temp 97.0 F 03/30/21 07:53 Pulse 88 03/30/21 07:53 Resp 20 03/30/21 07:53 BP 147/61 H 03/30/21 07:53 Pulse Ox 100 03/30/21 07:53 Intake & Output 03/29/21 03/30/21 03/30/21 18:59 06:59 18:59 Intake Total 1170 / 2393.333 1223.333 / 2393.333 Output Total 200 / 550 350 / 550 100 / 100 Balance 970 / 1843.333 873.333 / 1843.333 -100 / -100 Urine Output (Average ml/kg/hr) 0.54 0.16 Intake: Intake, Oral Amount 120 / 360 240 / 360 Intake, IV Amount 1050 / 2033.333 983.333 / 2033.333 Azithromycin 500 mg In 0.9 % 250 / 250 Sodium Chloride 250 ml @ 125 mls/hr IV Q24H MAGY Rx#: [id number] cefTRIAXone sodium 1 gm In 0.9 50 / 50 % Sodium Chloride 50 ml @ 100 mls/hr IV Q24H MAGY Rx#: [id number] Lactated Ringers 1,000 ml @ 50 1000 / 1733.333 733.333 / 1733.333 mls/hr IVCONT .Q20H MAGY Rx#: [id number] Output: Output, Post Void Residual 200 / 200 Amount Output, Urine Amount (Catheter) 350 / 350 100 / 100 Urethral 350 / 350 100 / 100 Other: Breakfast % Eaten 25% Dinner % Eaten 0% Urine CABALL[place] Urine Color Yellow Yellow Weight 53.7 kg - Constitutional Present: no acute distress, thin, cooperative - Routine HEENT Exam Head: Present: atraumatic, normal inspection Eye: Present: normal appearance, conjunctivae pale - Routine Neck Exam Present: supple. Absent: lymphadenopathy - Routine Respiratory Exam Present: CTAB - Routine Cardiovascular Exam Cardiovascular: Present: S1, S2 - Routine Abdominal Exam Present: soft - Routine Extremities Exam Absent: pedal edema, tenderness Hem/Onc Consult Result - Labs CBC & Chem 7: 03/30/21 05:35 03/30/21 05:35 Labs: Short CBC 03/30/21 Range/Units 05:35 WBC 5.1 (4.8-10.8) X10*3/uL Hgb 7.6 L (12.0-16.0) g/dl Hct 24.4 L (37-47) % Plt Count 530 H (160-400) X10*3/uL BMP 03/30/21 05:35 Sodium 145 Potassium 3.6 Chloride 107 Carbon Dioxide 28 BUN 14 Creatinine 0.67 Calcium 9.3 Assessment and Plan (1) Anemia Status: Chronic 1. This is a 80-year-old woman with dementia who was diagnosed with spontaneous left lower extremity DVT in February 2021 in the setting of failure to thrive and immobility. She has been on Eliquis for the past 6 weeks. She is now presenting with diarrhea/hypotension. She is being treated for C diff colitis. She was found to have heme-positive stool although no gross gastrointestinal bleeding, workup for anemia does not show significant iron deficiency or any hematinic deficiencies. She does not have liver or renal dysfunction. She has had anemia that has been worsening over the years. This is probably acute on chronic anemia related to her recent illnesses and failure to thrive. Underlying bone marrow disorder such as myelodysplastic syndrome is also possibility. She has chronic thrombocytosis which could be reactive or related to myeloproliferative neoplasm. At this time I recommend blood transfusion, 2 units PRBC. Resume Eliquis and monitor carefully for any signs /symptoms of overt bleeding. I do not recommend an IVC filter at this time since it does not obviate need for anticoagulation. I will be happy to see her in the clinic upon discharge. I thank you very much for this consultation.
[2021-03-30] MEDS: Lactated Ringers 1,000 ML 50 ML IVCONT (10:28)
[2021-03-30 10:48] LABS: Vitamin B12 1412 pg/mL (200-900)
--- NOTE | 2021-03-30 12:57 | MHC.CLN ---
F/U PO INTAKE REMAINS POOR DIET RX: M/S GRD-APPROPRIATE SAFETY TRAINER FOLLOWING FOR APPROPRIATE DIET CONSISTENCY RECOMMEND RE-STARTING ENSURE BID AND KAREEN TO PROMOTE WOUND HEALING SUPPLEMENT TO PROVIDE 860KCALS, 45G PROTEIN MONITOR PO INTAKE CLOSELY
--- NOTE | 2021-03-30 15:20 | HO.PM.IMPN ---
Subjective Subjective Date of Service: 03/30/21 Interval History: much more awake no fever no cough no abd pain no diarrhea Physical Exam Vital Signs: Vital Signs: Last Vital Signs Temp 98.8 F 03/30/21 15:11 Pulse 84 03/30/21 15:11 Resp 16 03/30/21 15:11 BP 148/78 H 03/30/21 15:11 Pulse Ox 100 03/30/21 11:42 Body Mass Index 17.4 Gen: in no acute distress, malnourished HEENT: pale conjunctivae, sclera anicteric, moist mucus membranes Neck: supple Lungs: clear to auscultation bilaterally Heart: regular rate and rhythm, no murmurs Abd: soft, non-tender, non-distended Ext: no edema Skin: warm/well-perfused Neuro: alert, oriented x2 Psych: impaired insight Objective Data Current Medications Generic Name Dose Route Start Last Admin Trade Name Freq PRN Reason Stop Dose Admin Acetaminophen 650 mg 03/28/21 02:18 Acetaminophen Supp 650 Mg Supp.Rect MN Q6H PRN Pain, Mild (Pain Scale 1-3) Apixaban 5 mg 03/30/21 21:00 Apixaban 5 Mg Tablet PO BID [facility] Docusate Sodium 100 mg 03/28/21 02:18 Docusate Sodium 100 Mg Capsule PO DAILY PRN Constipation Doxazosin Mesylate 1 mg 03/28/21 02:18 03/29/21 20:19 Doxazosin Mesylate 1 Mg Tablet PO 1 mg BEDTIME [facility] Administration Protocol Ondansetron HCl 4 mg 03/28/21 02:18 Ondansetron Hcl 4 Mg/2 Ml Vial IVPUSH Q8H PRN Nausea and Vomiting Pharmacy Consult 1 each 03/27/21 17:36 Consult Rx Perform Med Rec MISCELLANE ONCE PRN Consult order Sodium Chloride 3 ml 03/28/21 02:18 03/30/21 07:59 0.9 % Sodium Chloride Flush 3 Ml Syringe IVFLUSH Not Given QSHIFT [facility] Labs CBC & Chem 7: 03/30/21 05:35 03/30/21 05:35 Labs: Laboratory Results - last 24 hr 03/30/21 03/30/21 03/30/21 05:35 05:35 05:35 WBC 5.1 RBC 2.96 L Hgb 7.6 L Hct 24.4 L MCV 82.4 MCH 25.7 L MCHC 31.1 RDW 17.1 H Plt Count 530 H MPV 9.6 Absolute Nucleated RBC 0.000 Nucleated RBC % (auto) 0.0 Absolute Retic 0.037 Percent Retic 1.3 Immature Retic Fraction 16.5 H Retic Hgb Equivalent 30.3 Sodium 145 Potassium 3.6 Chloride 107 Carbon Dioxide 28 Anion Gap 14 BUN 14 Creatinine 0.67 Estim Creat Clear Calc 56.7 Estimated GFR > 60 Random Glucose 65 Calcium 9.3 Iron 45 TIBC 171 L % Saturation 26 Unsat Iron Binding 126 Ferritin 398 H Lactate Dehydrogenase 214 Vitamin B12 Folate Procalcitonin 0.29 Blood Type Antibody Screen Crossmatch 03/30/21 03/30/21 05:35 05:35 WBC RBC Hgb Hct MCV MCH MCHC RDW Plt Count MPV Absolute Nucleated RBC Nucleated RBC % (auto) Absolute Retic Percent Retic Immature Retic Fraction Retic Hgb Equivalent Sodium Potassium Chloride Carbon Dioxide Anion Gap BUN Creatinine Estim Creat Clear Calc Estimated GFR Random Glucose Calcium Iron TIBC % Saturation Unsat Iron Binding Ferritin Lactate Dehydrogenase Vitamin B12 1412 H Folate 8.0 Procalcitonin Blood Type A Positive Antibody Screen NEGATIVE Crossmatch See Detail Microbiology Microbiology Results: Microbiology 03/27/21 16:37 Stool Stool Culture - Final 03/27/21 Unknown Urine [place] Urine Culture - Final Escherichia coli Pseudomonas aeruginosa 03/27/21 15:39 Blood - Venous Blood Culture - Preliminary No growth after 48 hours. 03/27/21 15:39 Blood - Venous Blood Culture - Preliminary No growth after 48 hours. Assessment and Plan (1) Sepsis: Status: Acute Assessment and Plan: hospital d#4 80yo F with dementia, COPD, hypertension, hypothyroidism, urinary retention with chronic Arias, left lower extremity DVT anticoagulated on apixaban sent in from urology clinic due to hypotension, fluid-responsive admitted for concern of sepsis, EVA # hypotension - fluid-responsive, lactate normalized, per ID unlikely to have infection- C diff negative (toxin neg, antigen pos, PCR neg), minimal infiltrate on CT chest, UCx 2 different bactereia likely colonizer. seems to be ultimately due to dehydration # EVA - likely prerenal; resolved with IV hydration and holding furosemide + lisinopril # troponin elevation - likely demand from sepsis # anemia from GI blood loss, FOBT+ # recent DVT (dx 02/13/21) - GI consulted- no scope for now. consulted Heme. will transfuse 2u pRBCs [daughter consented]. will resume apixaban cautiously and monitor Hb daily, continue to send FOBT # moderate protein-calorie malnutrition - startedEnsure supplements # dementia - DBAS following, upgrade to NDD2 solids + thin liquids # autoimmune hepatitis - continue azathioprine # multiple wounds (L hip unstageable ulcer, R hip healing ulcer, R knee abrasion, R heel unstageable ulcer, R great toe scab, R buttocks stage II, R coccyx stage II) - wound care consultation done, recommendations are: Right heel- paint eschar with Betadine cover with Alevyn foam dressing daily coccyx area- cleanse wound with saline solution, apply extra thick protective cream to intact skin edges, collagen Hydrogel to ulcer, cover with Alevyn foam dressing left hip ulcer -cleanse with saline solution, apply extra thick protective cream to intact skin edges, collagen Hydrogel to ulcer, cover with Alevyn foam dressing # VTE ppx - apixaban + SCDs # dispo - anticipate home with VNA in next 3-4d
[2021-03-30] MEDS: 0.9 % Sodium Chloride Flush 3 ML SYRINGE IVFLUSH (17:06)
[2021-03-30] MEDS: Doxazosin Mesylate 1 MG TABLET PO (21:08)
[2021-03-30] MEDS: Apixaban 5 MG TABLET PO (21:08)
[2021-03-31] VITALS (8 sets, daily range): BP systolic 123–165; BP diastolic 48–80; PULSE 65–88; RESP 15–18; TEMP 36.1–37.2; O2SAT 96–99
[2021-03-31 07:43] LABS: MANUAL DIFF FLAG NO
[2021-03-31 07:50] LABS: Basophils Percent Auto 0.5 % (0-2); Eosinophils Percent Auto 0.3 % (0-4); Hematocrit 33.5 % (37-47); Imm Gran Abs Auto 0.12 X10*3/uL (0.00-0.03); Imm Gran Pct Auto 1.9 % (0.0-0.4); Lymphocytes Absolute Auto 1.2 X10*3/uL (1.2-4.9); Lymphocytes Percent Auto 19.6 % (20-40); Mean Corpuscular HGB Conc 32.8 g/dl (31.0-35.0); Mean Corpuscular Hemoglobin 28.1 pg (27.0-33.0); Mean Corpuscular Volume 85.7 fL (80-98); Mean Platelet Volume 9.4 fL (9.4-12.3); Monocytes Absolute Auto 0.3 X10*3/uL (0.1-1.2); Monocytes Percent Auto 4.9 % (2-11); Neutrophils Absolute Auto 4.6 X10*3/uL (2.0-8.3); Neutrophils Percent Auto 72.8 % (45-73); Platelet Count 466 X10*3/uL (160-400); Red Blood Count 3.91 X10*6/uL (4.20-5.50); White Blood Count 6.3 X10*3/uL (4.8-10.8)
[2021-03-31] MEDS: 0.9 % Sodium Chloride Flush 3 ML SYRINGE IVFLUSH ×2 (10:37→17:12)
[2021-03-31] MEDS: lisinopriL 20 MG TABLET PO (10:37)
[2021-03-31] MEDS: Furosemide 40 MG TABLET PO (10:40)
[2021-03-31] MEDS: Apixaban 5 MG TABLET PO ×2 (10:40→20:22)
[2021-03-31] MEDS: Ferrous Sulfate 324 MG TABLET.DR PO (10:40)
--- NOTE | 2021-03-31 14:28 | P.PNIM_ITS ---
Subjective Subjective Date of Service: 03/31/21 Interval History: Tolerated transfusion without incident Patient has no complaints although due to dementia, unable to obtain a reliable ROS Physical Exam Vital Signs: Vital Signs: Last Vital Signs Temp 97.6 F 03/31/21 11:45 Pulse 72 03/31/21 11:45 Resp 17 03/31/21 11:45 BP 148/72 H 03/31/21 11:45 Pulse Ox 98 03/31/21 11:45 Body Mass Index 20.0 Gen: in no acute distress, malnourished HEENT: pale conjunctivae, sclera anicteric, moist mucus membranes Neck: supple Lungs: clear to auscultation bilaterally Heart: regular rate and rhythm, no murmurs Abd: soft, non-tender, non-distended Ext: no edema Skin: warm/well-perfused Neuro: alert, oriented x2 Psych: impaired insight Objective Data Current Medications Generic Name Dose Route Start Last Admin Trade Name Freq PRN Reason Stop Dose Admin Acetaminophen 650 mg 03/28/21 02:18 Acetaminophen Supp 650 Mg Supp.Rect PA Q6H PRN Pain, Mild (Pain Scale 1-3) Apixaban 5 mg 03/30/21 21:00 03/31/21 10:40 Apixaban 5 Mg Tablet PO 5 mg BID MAGY Administration Docusate Sodium 100 mg 03/28/21 02:18 Docusate Sodium 100 Mg Capsule PO DAILY PRN Constipation Doxazosin Mesylate 1 mg 03/28/21 02:18 03/30/21 21:08 Doxazosin Mesylate 1 Mg Tablet PO 1 mg BEDTIME MAGY Administration Protocol Ferrous Sulfate 324 mg 03/31/21 09:00 03/31/21 10:40 Ferrous Sulfate 324 Mg Tablet.Dr PO 324 mg DAILY MAGY Administration Furosemide 40 mg 03/31/21 09:00 03/31/21 10:40 Furosemide 40 Mg Tablet PO 40 mg DAILY MAGY Administration Protocol Lisinopril 20 mg 03/31/21 09:00 03/31/21 10:37 Lisinopril 20 Mg Tablet PO 20 mg DAILY MAGY Administration Protocol Ondansetron HCl 4 mg 03/28/21 02:18 Ondansetron Hcl 4 Mg/2 Ml Vial IVPUSH Q8H PRN Nausea and Vomiting Pharmacy Consult 1 each 03/27/21 17:36 Consult Rx Perform Med Rec MISCELLANE ONCE PRN Consult order Sodium Chloride 3 ml 03/28/21 02:18 03/31/21 10:37 0.9 % Sodium Chloride Flush 3 Ml Syringe IVFLUSH 3 ml QSHIFT [facility] Administration Labs CBC & Chem 7: 03/31/21 06:32 03/30/21 05:35 Labs: Laboratory Results - last 24 hr 03/30/21 03/31/21 05:35 06:32 WBC 6.3 RBC 3.91 L D Hgb 11.0 L D Hct 33.5 L D MCV 85.7 MCH 28.1 MCHC 32.8 RDW 17.0 H Plt Count 466 H MPV 9.4 Immature Gran % (Auto) 1.9 H Neut % (Auto) 72.8 Lymph % (Auto) 19.6 L [place] % (Auto) 4.9 Eos % (Auto) 0.3 Baso % (Auto) 0.5 Lymph # (Auto) 1.2 [place] # (Auto) 0.3 Eos # (Auto) 0.0 Baso # (Auto) 0.0 Abs Immat Gran (auto) 0.12 H Absolute Neuts (auto) 4.6 Absolute Nucleated RBC 0.000 Nucleated RBC % (auto) 0.0 Blood Type A Positive Antibody Screen NEGATIVE Crossmatch See Detail Microbiology Microbiology Results: Microbiology 03/27/21 16:37 Stool Stool Culture - Final 03/27/21 Unknown Urine [place] Urine Culture - Final Escherichia coli Pseudomonas aeruginosa 03/27/21 15:39 Blood - Venous Blood Culture - Preliminary No growth after 48 hours. 03/27/21 15:39 Blood - Venous Blood Culture - Preliminary No growth after 48 hours. Assessment and Plan (1) Sepsis: Status: Acute Assessment and Plan: hospital d#5 80yo F with dementia, COPD, hypertension, hypothyroidism, urinary retention with chronic Arias, left lower extremity DVT anticoagulated on apixaban sent in from urology clinic due to hypotension, which was fluid-responsive admitted for concern of sepsis, EVA # hypotension - fluid-responsive, lactate normalized, per ID unlikely to have infection- C diff negative (toxin neg, antigen pos, PCR neg), minimal infiltrate on CT chest, UCx 2 different bacteria species likely colonizers. seems to be ultimately due to dehydration # EVA - likely prerenal and has resolved with IV hydration and holding furosemide + lisinopril; restart these meds and recheck BMP in am # troponin elevation - likely demand from sepsis, no further workup indicated # anemia from GI blood loss, FOBT+ # recent DVT (dx 02/13/21) - GI consulted- no scope for now. consulted Heme. Hb responded appropriately to 2u pRBCs. resumed apixaban 03/30/21 and will monitor Hb and FOBT closely - continue Fe - JUAN pending # HTN - resume lisinopril + furosemide # moderate protein-calorie malnutrition - Ensure supplements # dementia - SUPERVISOR REWORK following, upgraded to NDD2 solids + thin liquids # autoimmune hepatitis - continue azathioprine # multiple wounds (L hip unstageable ulcer, R hip healing ulcer, R knee abrasion, R heel unstageable ulcer, R great toe scab, R buttocks stage II, R coccyx stage II) - wound care consultation done, recommendations are: Right heel- paint eschar with Betadine cover with Alevyn foam dressing daily coccyx area- cleanse wound with saline solution, apply extra thick protective cream to intact skin edges, collagen Hydrogel to ulcer, cover with Alevyn foam dressing left hip ulcer -cleanse with saline solution, apply extra thick protective cream to intact skin edges, collagen Hydrogel to ulcer, cover with Alevyn foam dressing # VTE ppx - apixaban + SCDs # dispo - anticipate home with VNA in next 2-3d
[2021-03-31] MEDS: Doxazosin Mesylate 1 MG TABLET PO (20:22)
[2021-04-01] VITALS (7 sets, daily range): BP systolic 119–158; BP diastolic 65–78; PULSE 72–94; RESP 18; TEMP 36.1–36.5; O2SAT 98–100
[2021-04-01 07:01] LABS: Hematocrit 34.2 % (37-47); Hemoglobin 11.2 g/dl (12.0-16.0); Mean Corpuscular HGB Conc 32.7 g/dl (31.0-35.0); Mean Corpuscular Hemoglobin 27.9 pg (27.0-33.0); Mean Corpuscular Volume 85.3 fL (80-98); Platelet Count 438 X10*3/uL (160-400); Red Blood Count 4.01 X10*6/uL (4.20-5.50); Red Cell Distribution Width 17.3 % (11.0-16.0); White Blood Count 5.6 X10*3/uL (4.8-10.8)
[2021-04-01 07:25] LABS: Anion Gap 15 (12-20); Blood Urea Nitrogen 11 mg/dL (9-16); Carbon Dioxide 29 mmol/L (22-29); Chloride 99 mmol/L (96-108); Estimated Glomerular Filt Rate > 60; Glucose Random 56 mg/dL (60-115); Potassium 3.1 mmol/L (3.3-5.1); Sodium 140 mmol/L (135-145)
[2021-04-01] MEDS: 0.9 % Sodium Chloride Flush 3 ML SYRINGE IVFLUSH (07:41)
[2021-04-01] MEDS: lisinopriL 20 MG TABLET PO (07:44)
[2021-04-01] MEDS: Apixaban 5 MG TABLET PO ×2 (07:44→20:23)
[2021-04-01] MEDS: Ferrous Sulfate 324 MG TABLET.DR PO (07:44)
[2021-04-01 07:57] LABS: Glucose, Whole Blood 62 mg/dL (60-115)
[2021-04-01 07:57] LABS: Glucose, Whole Blood 72 mg/dL (60-115)
[2021-04-01] MEDS: Furosemide 40 MG TABLET PO (07:58)
[2021-04-01 09:01] LABS: Procalcitonin 0.11 ng/mL
[2021-04-01] MEDS: Potassium Chloride/H20 10 MEQ/100 ML PIGGYBACK 100 MEQ IV ×4 (09:01→14:31)
[2021-04-01] MEDS: Dextrose 5 % and 0.45 % NaCl 1,000 ML 100 ML IVCONT ×2 (09:06→18:31)
[2021-04-01 11:47] LABS: Glucose, Whole Blood 146 mg/dL (60-115)
--- NOTE | 2021-04-01 14:17 | P.PNIM_ITS ---
Subjective Subjective Date of Service: 04/01/21 Interval History: hypoglycemic and hypokalemic this am pt denies any complaints, though ROS is unreliable due to dementia Physical Exam Vital Signs: Vital Signs: Last Vital Signs Temp 97.2 F 04/01/21 11:28 Pulse 85 04/01/21 11:28 Resp 18 04/01/21 11:28 BP 149/72 H 04/01/21 11:28 Pulse Ox 99 04/01/21 11:28 Body Mass Index 20.0 Gen: in no acute distress, malnourished HEENT: pale conjunctivae, sclera anicteric, moist mucus membranes Neck: supple Lungs: clear to auscultation bilaterally Heart: regular rate and rhythm, no murmurs Abd: soft, non-tender, non-distended Ext: no edema Skin: warm/well-perfused Neuro: alert, oriented x2 Psych: impaired insight Objective Data Current Medications Generic Name Dose Route Start Last Admin Trade Name Freq PRN Reason Stop Dose Admin Acetaminophen 650 mg 03/28/21 02:18 Acetaminophen Supp 650 Mg Supp.Rect PA Q6H PRN Pain, Mild (Pain Scale 1-3) Apixaban 5 mg 03/30/21 21:00 04/01/21 07:44 Apixaban 5 Mg Tablet PO 5 mg BID MAGY Administration Docusate Sodium 100 mg 03/28/21 02:18 Docusate Sodium 100 Mg Capsule PO DAILY PRN Constipation Doxazosin Mesylate 1 mg 03/28/21 02:18 03/31/21 20:22 Doxazosin Mesylate 1 Mg Tablet PO 1 mg BEDTIME MAGY Administration Protocol Ferrous Sulfate 324 mg 03/31/21 09:00 04/01/21 07:44 Ferrous Sulfate 324 Mg Tablet.Dr PO 324 mg DAILY MAGY Administration Furosemide 40 mg 03/31/21 09:00 04/01/21 07:58 Furosemide 40 Mg Tablet PO 40 mg DAILY MAGY Administration Protocol Dextrose/Sodium Chloride 1,000 mls @ 100 mls/hr 04/01/21 09:00 04/01/21 09:06 D51/2ns IVCONT 100 mls/hr .Q10H MAGY Administration Lisinopril 20 mg 03/31/21 09:00 04/01/21 07:44 Lisinopril 20 Mg Tablet PO 20 mg DAILY MAGY Administration Protocol Ondansetron HCl 4 mg 03/28/21 02:18 Ondansetron Hcl 4 Mg/2 Ml Vial IVPUSH Q8H PRN Nausea and Vomiting Pharmacy Consult 1 each 03/27/21 17:36 Consult Rx Perform Med Rec MISCELLANE ONCE PRN Consult order Sodium Chloride 3 ml 03/28/21 02:18 04/01/21 07:41 0.9 % Sodium Chloride Flush 3 Ml Syringe IVFLUSH 3 ml QSHIFT MAGY Administration Labs CBC & Chem 7: 04/01/21 05:55 04/01/21 05:55 Labs: Laboratory Results - last 24 hr 03/27/21 04/01/21 04/01/21 16:37 05:55 05:55 WBC 5.6 RBC 4.01 L Hgb 11.2 L Hct 34.2 L MCV 85.3 MCH 27.9 MCHC 32.7 RDW 17.3 H Plt Count 438 H MPV 9.0 L Absolute Nucleated RBC 0.000 Nucleated RBC % (auto) 0.0 Sodium Potassium Chloride Carbon Dioxide Anion Gap BUN Creatinine Estim Creat Clear Calc Estimated GFR POC Glucose Random Glucose Calcium Procalcitonin 0.11 O & P Trichrome Stain SEE NOTE 04/01/21 04/01/21 04/01/21 05:55 07:27 07:53 WBC RBC Hgb Hct MCV MCH MCHC RDW Plt Count MPV Absolute Nucleated RBC Nucleated RBC % (auto) Sodium 140 Potassium 3.1 L Chloride 99 Carbon Dioxide 29 Anion Gap 15 BUN 11 Creatinine 0.74 Estim Creat Clear Calc 59.0 Estimated GFR > 60 POC Glucose 62 72 Random Glucose 56 L* Calcium 9.0 Procalcitonin O & P Trichrome Stain 04/01/21 11:43 WBC RBC Hgb Hct MCV MCH MCHC RDW Plt Count MPV Absolute Nucleated RBC Nucleated RBC % (auto) Sodium Potassium Chloride Carbon Dioxide Anion Gap BUN Creatinine Estim Creat Clear Calc Estimated GFR POC Glucose 146 H Random Glucose Calcium Procalcitonin O & P Trichrome Stain Microbiology Microbiology Results: Microbiology 03/27/21 16:37 Stool Stool Culture - Final 03/27/21 Unknown Urine [place] Urine Culture - Final Escherichia coli Pseudomonas aeruginosa 03/27/21 15:39 Blood - Venous Blood Culture - Preliminary No growth after 48 hours. 03/27/21 15:39 Blood - Venous Blood Culture - Preliminary No growth after 48 hours. Assessment and Plan (1) Sepsis: Status: Acute Assessment and Plan: hospital d#6 80yo F with dementia, COPD, hypertension, hypothyroidism, urinary retention with chronic Arias, left lower extremity DVT anticoagulated on apixaban sent in from urology clinic due to hypotension, which was fluid-responsive admitted for concern of sepsis but doubt true infection; EVA # hypoglycemia - will place on maintenance D5 1/2NS and encouarge PO intake # hypokalemia - replete + recheck in AM # hypotension, resolved - fluid-responsive, lactate normalized, per ID unlikely to have infection- C diff negative (toxin neg, antigen pos, PCR neg), minimal infiltrate on CT chest, UCx 2 different bacteria species likely colonizers. seems to be ultimately due to dehydration rather than sepsis # EVA - likely prerenal and has resolved with IV hydration and holding furosemide + lisinopril; restarted these meds and SCr remains normal # troponin elevation - likely demand from sepsis, no further workup indicated # anemia from GI blood loss, FOBT+ # recent DVT (dx 02/13/21) - GI consulted- no scope for now. consulted Heme- recommended transfusion and cautiously restarting apixaban without IVC filter and with close monitoring - Hb responded appropriately to 2u pRBCs. resumed apixaban 03/30/21 and will monitor Hb and FOBT closely - continue Fe replacement - JUAN pending # HTN - resumed lisinopril + furosemide # moderate protein-calorie malnutrition - continue Ensure supplements # dementia - SLAG PRODUCTION WORKER following, upgraded to NDD2 solids + thin liquids # autoimmune hepatitis - continue azathioprine # multiple wounds (L hip unstageable ulcer, R hip healing ulcer, R knee abrasion, R heel unstageable ulcer, R great toe scab, R buttocks stage II, R coccyx stage II) - wound care consultation done and recommends: Right heel- paint eschar with Betadine cover with Alevyn foam dressing daily coccyx area- cleanse wound with saline solution, apply extra thick protective cream to intact skin edges, collagen Hydrogel to ulcer, cover with Alevyn foam dressing left hip ulcer -cleanse with saline solution, apply extra thick protective cream to intact skin edges, collagen Hydrogel to ulcer, cover with Alevyn foam dressi ng # VTE ppx - apixaban + SCDs # dispo - anticipate home with VNA in next 1-2d
[2021-04-01 16:17] LABS: Glucose, Whole Blood 140 mg/dL (60-115)
[2021-04-01] MEDS: Doxazosin Mesylate 1 MG TABLET PO (20:22)
[2021-04-02] VITALS (7 sets, daily range): BP systolic 112–156; BP diastolic 58–81; PULSE 68–76; RESP 16–20; TEMP 36.2–36.8; O2SAT 92–100
[2021-04-02] MEDS: Dextrose 5 % and 0.45 % NaCl 1,000 ML 100 ML IVCONT (04:49)
[2021-04-02 07:28] LABS: Hematocrit 32.9 % (37-47); Hemoglobin 10.9 g/dl (12.0-16.0)
[2021-04-02 08:12] LABS: Anion Gap 11 (12-20); Blood Urea Nitrogen 7 mg/dL (9-16); Calcium 8.7 mg/dL (8.4-10.2); Carbon Dioxide 30 mmol/L (22-29); Chloride 100 mmol/L (96-108); Creatinine Clr Calc Pharmacy 64.3; Estimated Glomerular Filt Rate > 60; Glucose Random 119 mg/dL (60-115); Potassium 3.2 mmol/L (3.3-5.1); Sodium 138 mmol/L (135-145)
[2021-04-02] MEDS: lisinopriL 20 MG TABLET PO (10:05)
[2021-04-02] MEDS: Apixaban 5 MG TABLET PO ×2 (10:05→21:40)
[2021-04-02] MEDS: Potassium Chloride ER 20 MEQ TAB.ER.PRT 40 MEQ PO (10:05)
[2021-04-02] MEDS: Ferrous Sulfate 324 MG TABLET.DR PO (10:05)
[2021-04-02] MEDS: Furosemide 40 MG TABLET PO (10:05)
[2021-04-02] MEDS: 0.9 % Sodium Chloride Flush 3 ML SYRINGE IVFLUSH ×2 (10:06→17:08)
--- NOTE | 2021-04-02 10:31 | MHC.SL.SWA ---
Speech Pathologist Impression: Risk of Aspiration Oralpharyngeal Dysphagia Risk of Aspiration Due to: Poor PO Intake Reduced Cognition Dysphasia Diet Status: No Change Liquid Consistency and Strategies for Safe Swallow: Liquid Intake Recommendation: Thin Liquid Intake Strategies: Small Sips Solid Food Consistency: Dietary Recommendations: Grnd/Mech Altered (NDD2) Oral Medication Intake: Crushed with Puree Compensatory Strategies and Precautions to be Taken for Safe Swallow: Sitting Upright (90 deg) Small Bites and Sips Alternate Liquids/Solids Rate of Ingestion Change Oral Check Supervision While Eating and Drinking for Safe Swallow: Total Assistance Foods to Avoid: tough/dry/sticky foods Swallowing Recommended Treatments: Compens. Strategy Educat. Recommendation for Speech: Inpatient Speech Therapy Comment: Patient has underlying dementia. Encourage self-feeding when possible. However, patient does require assistance with her tray, as she is confused. Recommend 1:1 assistance with strategies to promote oral clearance: check oral cavity for residue, small bites, moisten food with sauce/gravy, alternate bite of food with sip of liquid, avoid dry/tough/sticky foods. Highway Patrol Commander Clinican/Clinical Fellow: No Supervisory Statement: I have reviewed and agree with the student/clinical fellow's documentation: No Speech Language Pathologist: Kayla Emmanuel M.A., CCC-SUPERVISOR INDUSTRIAL [employer]ARMENT
--- NOTE | 2021-04-02 11:42 | MHC.CM.PN ---
Per ROUNDS discussion, Patient is not yet medically cleared for dc today (must tolerate PO). Home with new VNA is the goal and CM will follow for possible need to adjust the dc plan.
--- NOTE | 2021-04-02 11:51 | MHC.CM.PN ---
CORRECTION- MISAEL IS NOT a new referral to [facility]; she is ACTIVE with [facility].
--- NOTE | 2021-04-02 13:05 | MHC.CLN ---
F/U PO INTAKE VARIABLE DIET RX: M/S GRD-APPROPRIATE MACHINIST BENCH FOLLOWING FOR APPROPRIATE DIET CONSISTENCY PT RECEIVING ENSURE BID AND KAREEN TO PROMOTE WOUND HEALING SUPPLEMENT TO PROVIDE 860KCALS, 45G PROTEIN MONITOR PO INTAKE CLOSELY
--- NOTE | 2021-04-02 13:13 | HO.PM.IMPN ---
Subjective Subjective Date of Service: 04/02/21 Interval History: no complaints Cardiovascular Cardiovascular: Reports no additional cardiovascular complaints Gastrointestinal Gastrointestinal: Reports no additional gastrointestinal complaints Physical Exam Vital Signs: Vital Signs: Last Vital Signs Temp 97.2 F 04/02/21 07:44 Pulse 68 04/02/21 12:00 Resp 18 04/02/21 12:00 BP 112/58 L 04/02/21 12:00 Pulse Ox 99 04/02/21 12:00 Body Mass Index 20.0 Gen: in no acute distress, malnourished HEENT: pale conjunctivae, sclera anicteric, moist mucus membranes Neck: supple Lungs: clear to auscultation bilaterally Heart: regular rate and rhythm, no murmurs Abd: soft, non-tender, non-distended Ext: no edema Skin: warm/well-perfused Neuro: alert, oriented x2 Psych: impaired insight Objective Data Current Medications Generic Name Dose Route Start Last Admin Trade Name Freq PRN Reason Stop Dose Admin Acetaminophen 650 mg 03/28/21 02:18 Acetaminophen Supp 650 Mg Supp.Rect [place] Q6H PRN Pain, Mild (Pain Scale 1-3) Apixaban 5 mg 03/30/21 21:00 04/02/21 10:05 Apixaban 5 Mg Tablet PO 5 mg BID MAGY Administration Docusate Sodium 100 mg 03/28/21 02:18 Docusate Sodium 100 Mg Capsule PO DAILY PRN Constipation Doxazosin Mesylate 1 mg 03/28/21 02:18 04/01/21 20:22 Doxazosin Mesylate 1 Mg Tablet PO 1 mg BEDTIME MAGY Administration Protocol Ferrous Sulfate 324 mg 03/31/21 09:00 04/02/21 10:05 Ferrous Sulfate 324 Mg Tablet.Dr PO 324 mg DAILY MAGY Administration Furosemide 40 mg 03/31/21 09:00 04/02/21 10:05 Furosemide 40 Mg Tablet PO 40 mg DAILY MAGY Administration Protocol Lisinopril 20 mg 03/31/21 09:00 04/02/21 10:05 Lisinopril 20 Mg Tablet PO 20 mg DAILY MAGY Administration Protocol Ondansetron HCl 4 mg 03/28/21 02:18 Ondansetron Hcl 4 Mg/2 Ml Vial IVPUSH Q8H PRN Nausea and Vomiting Pharmacy Consult 1 each 03/27/21 17:36 Consult Rx Perform Med Rec MISCELLANE ONCE PRN Consult order Sodium Chloride 3 ml 03/28/21 02:18 04/02/21 10:06 0.9 % Sodium Chloride Flush 3 Ml Syringe IVFLUSH 3 ml QSHIFT MAGY Administration Labs CBC & Chem 7: 04/02/21 06:12 04/02/21 06:12 Microbiology Microbiology Results: Microbiology 03/27/21 15:39 Blood - Venous Blood Culture - Final No growth after 5 days. 03/27/21 15:39 Blood - Venous Blood Culture - Final No growth after 5 days. 03/27/21 16:37 Stool Stool Culture - Final 03/27/21 Unknown Urine [place] Urine Culture - Final Escherichia coli Pseudomonas aeruginosa Assessment and Plan (1) Sepsis: Status: Acute Assessment and Plan: hospital d#7 80yo F with dementia, COPD, hypertension, hypothyroidism, urinary retention with chronic Arias, left lower extremity DVT anticoagulated on apixaban sent in from urology clinic due to hypotension, which was fluid-responsive admitted for concern of sepsis but doubt true infection; EVA hypoglycemia encouarge PO intake will take off D5 and make sure she can maintain without iv hypokalemia - replete + recheck in AM hypotension, resolved - fluid-responsive, lactate normalized, per ID unlikely to have infection- C diff negative (toxin neg, antigen pos, PCR neg), minimal infiltrate on CT chest, UCx 2 different bacteria species likely colonizers. seems to be ultimately due to dehydration rather than sepsis EVA - likely prerenal and has resolved with IV hydration and holding furosemide + lisinopril; restarted these meds and SCr remains normal troponin elevation - likely demand from sepsis, no further workup indicated anemia from GI blood loss, FOBT+ recent DVT (dx 02/13/21) - GI consulted- no scope for now. consulted Heme- recommended transfusion and cautiously restarting apixaban without IVC filter and with close monitoring - Hb responded appropriately to 2u pRBCs. resumed apixaban 03/30/21 and will monitor Hb and FOBT closely - continue Fe replacement - JUAN pending HTN - resumed lisinopril + furosemide moderate protein-calorie malnutrition - continue Ensure supplements dementia - RETAIL PRODUCT ADVISOR following, upgraded to NDD2 solids + thin liquids autoimmune hepatitis - continue azathioprine multiple wounds (L hip unstageable ulcer, R hip healing ulcer, R knee abrasion, R heel unstageable ulcer, R great toe scab, R buttocks stage II, R coccyx stage II) - wound care consultation done and recommends: Right heel- paint eschar with Betadine cover with Alevyn foam dressing daily coccyx area- cleanse wound with saline solution, apply extra thick protective cream to intact skin edges, collagen Hydrogel to ulcer, cover with Alevyn foam dressing left hip ulcer -cleanse with saline solution, apply extra thick protective cream to intact skin edges, collagen Hydrogel to ulcer, cover with Alevyn foam dressing VTE ppx - apixaban + SCDs dispo - anticipate home with VNA if glucose maintains without iv
[2021-04-02 17:16] LABS: Strep Pneumo Ag urine Not Detected (Not Detected)
[2021-04-02] MEDS: Doxazosin Mesylate 1 MG TABLET PO (21:40)
[2021-04-03] VITALS (7 sets, daily range): BP systolic 124–150; BP diastolic 49–80; PULSE 59–77; RESP 18–19; TEMP 36.2–36.6; O2SAT 97–100; BMI 19.2
--- NOTE | 2021-04-03 06:37 | PC.NURSE ---
Pt slept in short naps overnight. She is pleasantly confused. Cooperative. Denies discomfort. Turned and repos q2h. foam dressings on buttocks and hips all intact. Arias drained 500 ml. Taking meds crushed in custard. No difficulty drinking. Vital signs stable. Monitor showed NSR, 70's-80's, occ pac/pvc.
[2021-04-03 06:48] LABS: Hematocrit 34.4 % (37-47); Hemoglobin 11.2 g/dl (12.0-16.0); Mean Corpuscular HGB Conc 32.6 g/dl (31.0-35.0); Mean Corpuscular Hemoglobin 27.7 pg (27.0-33.0); Mean Corpuscular Volume 85.1 fL (80-98); Mean Platelet Volume 9.6 fL (9.4-12.3); Platelet Count 422 X10*3/uL (160-400); Red Blood Count 4.04 X10*6/uL (4.20-5.50); Red Cell Distribution Width 18.1 % (11.0-16.0); White Blood Count 5.8 X10*3/uL (4.8-10.8)
[2021-04-03 07:16] LABS: Anion Gap 12 (12-20); Blood Urea Nitrogen 6 mg/dL (9-16); Calcium 9.3 mg/dL (8.4-10.2); Carbon Dioxide 31 mmol/L (22-29); Chloride 102 mmol/L (96-108); Creatinine Clr Calc Pharmacy 65.3; Estimated Glomerular Filt Rate > 60; Glucose Fasting 84 mg/dL (60-99); Potassium 3.5 mmol/L (3.3-5.1); Sodium 141 mmol/L (135-145)
[2021-04-03] MEDS: lisinopriL 20 MG TABLET PO (10:20)
[2021-04-03] MEDS: Ferrous Sulfate 324 MG TABLET.DR PO (10:20)
[2021-04-03] MEDS: Apixaban 5 MG TABLET PO ×2 (10:20→21:19)
[2021-04-03] MEDS: Furosemide 40 MG TABLET PO (10:21)
[2021-04-03] MEDS: 0.9 % Sodium Chloride Flush 3 ML SYRINGE IVFLUSH ×4 (10:21→21:19)
--- NOTE | 2021-04-03 11:59 | HO.PM.IMPN ---
Subjective Subjective Date of Service: 04/03/21 Interval History: seems tahycardic overnight , seems weak Review of Systems Denies any chest pain or shortness of breath seems to answer few questions Denies any chest pain or shortness of breath Physical Exam Vital Signs: Vital Signs: Last Vital Signs Temp 97.4 F 04/03/21 08:00 Pulse 65 04/03/21 08:00 Resp 19 04/03/21 08:00 BP 150/74 H 04/03/21 08:00 Pulse Ox 99 04/03/21 08:00 Body Mass Index 19.2 physical exam: general:not in acute distress. Cvs: rrr, [id number] , no murmur res: clear to auscultation ,no rhonchii or wheezing abd: no rebound or guarding ,nt, bs present. ext pulses present , no cyanosis neuro: nonfocal. Objective Data Current Medications Generic Name Dose Route Start Last Admin Trade Name Freq PRN Reason Stop Dose Admin Acetaminophen 650 mg 03/28/21 02:18 Acetaminophen Supp 650 Mg Supp.Rect [place] Q6H PRN Pain, Mild (Pain Scale 1-3) Apixaban 5 mg 03/30/21 21:00 04/03/21 10:20 Apixaban 5 Mg Tablet PO 5 mg BID MAGY Administration Docusate Sodium 100 mg 03/28/21 02:18 Docusate Sodium 100 Mg Capsule PO DAILY PRN Constipation Doxazosin Mesylate 1 mg 03/28/21 02:18 04/02/21 21:40 Doxazosin Mesylate 1 Mg Tablet PO 1 mg BEDTIME MAGY Administration Protocol Ferrous Sulfate 324 mg 03/31/21 09:00 04/03/21 10:20 Ferrous Sulfate 324 Mg Tablet.Dr PO 324 mg DAILY MAGY Administration Furosemide 40 mg 03/31/21 09:00 04/03/21 10:21 Furosemide 40 Mg Tablet PO 40 mg DAILY MAGY Administration Protocol Lisinopril 20 mg 03/31/21 09:00 04/03/21 10:20 Lisinopril 20 Mg Tablet PO 20 mg DAILY MAGY Administration Protocol Ondansetron HCl 4 mg 03/28/21 02:18 Ondansetron Hcl 4 Mg/2 Ml Vial IVPUSH Q8H PRN Nausea and Vomiting Pharmacy Consult 1 each 03/27/21 17:36 Consult Rx Perform Med Rec MISCELLANE ONCE PRN Consult order Sodium Chloride 3 ml 03/28/21 02:18 04/03/21 10:21 0.9 % Sodium Chloride Flush 3 Ml Syringe IVFLUSH 3 ml QSHIFT [facility] Administration Labs CBC & Chem 7: 04/03/21 05:54 04/03/21 05:54 Microbiology Microbiology Results: Microbiology 03/27/21 15:39 Blood - Venous Blood Culture - Final No growth after 5 days. 03/27/21 15:39 Blood - Venous Blood Culture - Final No growth after 5 days. 03/27/21 16:37 Stool Stool Culture - Final 03/27/21 Unknown Urine [place] Urine Culture - Final Escherichia coli Pseudomonas aeruginosa Assessment and Plan (1) Anemia: Status: Chronic Assessment and Plan: 80yo F with dementia, COPD, hypertension, hypothyroidism, urinary retention with chronic Arias, left lower extremity DVT anticoagulated on apixaban sent in from urology clinic due to hypotension, which was fluid-responsive admitted for concern of sepsis but doubt true infection; EVA 1.hypoglycemia: fs still flactuating , but asympatoms encouarge PO intake will take off D5 and make sure she can maintain without iv 2. hypokalemia- replete + recheck in AM 3.hypotension, resolved:- fluid-responsive, lactate normalized, per ID unlikely to have infection- C diff negative (toxin neg, antigen pos, PCR neg), minimal infiltrate on CT chest, UCx 2 different bacteria species likely colonizers. seems to be ultimately due to dehydration rather than sepsis 4.EVA- likely prerenal and has resolved with IV hydration and holding furosemide + lisinopril; restarted these meds and SCr remains normal 5. troponin elevation- likely demand from sepsis, no further workup indicated 6.anemia from GI blood loss, FOBT+ recent DVT (dx 02/13/21) - GI consulted- no scope for now. consulted Heme- recommended transfusion and cautiously restarting apixaban without IVC filter and with close monitoring - Hb responded appropriately to 2u pRBCs. resumed apixaban 03/30/21 and will monitor Hb and FOBT closely - continue Fe replacement - JUAN pending 7. HTN- resumed lisinopril + furosemide 8.moderate protein-calorie malnutrition- continue Ensure supplements 9. dementia- [employer] MISSILE DEFENSE CREWMEMBER following, upgraded to NDD2 solids + thin liquids 10.autoimmune hepatitis- continue azathioprine 11. multiple wounds (L hip unstageable ulcer, R hip healing ulcer, R knee abrasion, R heel unstageable ulcer, R great toe scab, R buttocks stage II, R coccyx stage II) - wound care consultation done and recommends: Right heel- paint eschar with Betadine cover with Alevyn foam dressing daily coccyx area- cleanse wound with saline solution, apply extra thick protective cream to intact skin edges, collagen Hydrogel to ulcer, cover with Alevyn foam dressing left hip ulcer -cleanse with saline solution, apply extra thick protective cream to intact skin edges, collagen Hydrogel to ulcer, cover with Alevyn foam dressing VTE ppx - apixaban + SCDs dispo - anticipate home with VNA if glucose maintains without iv
[2021-04-03 12:32] LABS: IgA 204 mg/dL (70-320); IgG 965 mg/dL (600-1540); IgM 69 mg/dL (50-300)
[2021-04-03] MEDS: Doxazosin Mesylate 1 MG TABLET PO (21:19)
[2021-04-04 03:26] VITALS: BP 119/64; PULSE 79; RESP 18; TEMP 36.4; O2SAT 99
[2021-04-04 07:36] VITALS: BP 154/75; PULSE 88; RESP 19; TEMP 36.3; O2SAT 100
[2021-04-04 09:27] VITALS: BP 154/75; PULSE 88
[2021-04-04] MEDS: lisinopriL 20 MG TABLET PO (09:27)
[2021-04-04] MEDS: 0.9 % Sodium Chloride Flush 3 ML SYRINGE IVFLUSH (09:27)
[2021-04-04] MEDS: Ferrous Sulfate 324 MG TABLET.DR PO (09:28)
[2021-04-04] MEDS: Furosemide 40 MG TABLET PO (09:28)
[2021-04-04] MEDS: Apixaban 5 MG TABLET PO (09:28)
[2021-04-04 11:04] VITALS: BP 150/69; PULSE 85; RESP 20; TEMP 36.3; O2SAT 100
[2021-04-04 11:14] LABS: Glucose, Whole Blood 75 mg/dL (60-115)
--- NOTE | 2021-04-04 12:32 | MHC.CLN ---
F/U PO INTAKE REMAINS VARIABLE DIET RX: M/S GRD-APPROPRIATE PT RECEIVING ENSURE BID AND KAREEN TO PROMOTE WOUND HEALING SUPPLEMENT TO PROVIDE 860KCALS (53% EST KCALS NEEDS), 45G PROTEIN (69% EST PROTEIN NEEDS) MONITOR PO INTAKE CLOSELY
--- NOTE | 2021-04-04 12:35 | P.DS_ITS ---
DS: Providers Provider Date of Service: 04/04/21 Date of admission: 03/27/21 21:10 Primary care physician: Adam Garcia MD Consults: 03/28/21 06:12 Consult to Gastroenterology Routine Consulting Provider: Librado Garcia Reason for consultation: GI bleed Has provider been notified: No 03/28/21 06:40 Consult to Wound Care Routine Consulting Provider: [facility] Wound Care Management Reason for consultation: unstageable wounds Has provider been notified: No 03/28/21 08:44 Consult to Infectious Diseases Routine Consulting Provider: Ronel Olivares Reason for consultation: sepsis ?colitis ?UTI? pNA? ?cdiff 03/28/21 10:45 Consult to Wound Care Routine Consulting Provider: [facility] Wound Care Management Reason for consultation: multiple wounds 03/28/21 16:07 Consult to Hematology / Oncology Routine Consulting Provider: [facility] Oncology/Hematology Reason for consultation: provoked DVT diagnosed 02/13/21. Have to hold AC due to anemia +FOBT. ?IVC Has provider been notified: No DS: Diagnosis Discharge Diagnosis (1) Anemia: Status: Chronic (2) EVA (acute kidney injury): Status: Acute (3) Failure to thrive in adult: Status: Acute (4) Hypoglycemia: Status: Acute (5) Dementia: Status: Acute DS: Medications Discharge Medications Home Medications: Home Medications Medication Instructions Recorded Confirmed azathioprine 25 mg PO BID 02/13/21 03/27/21 Previous Rx's Medication Instructions Recorded Eliquis 5 mg PO BID 80 Days #160 tab 02/15/21 senna 8.6 mg PO BEDTIME #30 cap 02/16/21 ferrous sulfate 325 mg (65 mg 325 mg PO DAILY #90 tab 02/22/21 iron) tablet furosemide 40 mg tablet 40 mg PO DAILY #90 tab 02/22/21 lisinopril 20 mg tablet 20 mg PO DAILY #90 tab 02/22/21 doxazosin 1 mg tablet 1 mg PO BEDTIME 30 Days #30 tab 03/12/21 DS: Summary Hospital Course Hospital Course: patient was admitted for hypotension and Eva, she was given fluids and renal function improved to normal. her blood pressure retyrned to normal as well. there was concern for cdif, due to positive antigen, however, toxin and pcr negative, therefore not considered infectious and no recommendation for antibiotics. she also was noted to have bacturia which was felt to be colonizers. course was complicated by hypoglycemia. she required some IV dextrose, but her appetite did improved some, and she was able to maintain her glucose off the drip. she is now back to baseline and will be discharged home. Time Spent with Patient Time attestation: Total time spent providing and/or coordinating discharge services: Discharge coordination time: Greater than 30 minutes Quality: Stroke Does the patient have a stroke diagnosis?: No Physical Exam Vital Signs: Vital Signs: Last Vital Signs Temp 97.3 F 04/04/21 11:04 Pulse 85 04/04/21 11:04 Resp 20 04/04/21 11:04 BP 150/69 H 04/04/21 11:04 Pulse Ox 100 04/04/21 11:04 Body Mass Index 19.2 General: pleasantly confused, minimally verbal, no acute distress Resp: CTA bilateral CVS: S1,S2,RRR GI: soft, non tender, non distended Neuro: motor grossly intact Psych: appropriate affect skin:L multiple wounds DS: Data Data Completed and Pending Labs on day of discharge: Laboratory Results - last 24 hr 04/04/21 11:10 POC Glucose 75 Discharge Plan Discharge Patient Disposition: Home Health Service Discharge Diagnosis: hyupotension, eva Referrals: Adam Garcia MD [Primary Care Provider] - 1 Week Discharge Medications: Continued ferrous sulfate 325 mg (65 mg iron) tablet 325 mg PO DAILY Qty: 90 RF: 1 furosemide 40 mg tablet 40 mg PO DAILY Qty: 90 RF: 1 lisinopril 20 mg tablet 20 mg PO DAILY Qty: 90 RF: 1 doxazosin 1 mg tablet 1 mg PO BEDTIME 30 Days Qty: 30 RF: 0 azathioprine 50 mg Tablet 25 mg PO BID RF: 0 Eliquis 5 mg tablet 5 mg PO BID 80 Days Qty: 160 RF: 0 senna 8.6 mg capsule 8.6 mg PO BEDTIME Qty: 30 RF: 0 Discharge Orders: Discharge Order (Routine); Ordered 04/04/21 Ordered By: Chong Norman Diet: advance to usual diet Activity on Discharge: As tolerated Stand Alone Forms: Patient Portal Discharge page Care Plan Goals: avoid hospitalizations Health Concerns: dementia Plan of Treatment: encouirage po intake Assessment: see above
--- NOTE | 2021-04-04 13:00 | MHC.CM.PN ---
Patient has been medically cleared for dc to home today with [facility]. Patient is active with [facility] and they have been notified of today's dc. CM addressed IMM with Patient at bedside and provided her with the original and placed a copy on the chart.ANNIE spoke with Daughter/Nafisa at [phone], who will be at Patient's home at 4 PM.Patient will dc to home today via [facility] at 4 PM.
[2021-04-04 13:32] LABS: Legionella Ag Urine Not Detected (Not Detected)
[2021-04-04 13:52] LABS: Glucose, Whole Blood 87 mg/dL (60-115)
[2021-04-04 15:23] VITALS: BP 130/63; PULSE 70; RESP 15; TEMP 36.7; O2SAT 100
[2021-04-04 15:56] LABS: Glucose, Whole Blood 77 mg/dL (60-115)
== END 2021-04-04 16:00 | disposition home health service (06) | DRG 698 ==
LOC: HO.ED 21:08 → HO.EDOVER 03-28 00:46 → HO.IMC 03-28 01:19
PROVIDERS: Family Medicine; Nurse Practitioner Family; Admitting Provider Internal Medicine; Emergency Provider Emergency Medicine; PCP Internal Medicine; Visit Provider Internal Medicine
DX: T83.511A Infection and inflammatory reaction due to indwelling urethral catheter, initial encounter (principal); L89.614 Pressure ulcer of right heel, stage 4; A41.9 Sepsis, unspecified organism; J18.9 Pneumonia, unspecified organism; R65.20 Severe sepsis without septic shock; K92.2 Gastrointestinal hemorrhage, unspecified; N17.9 Acute kidney failure, unspecified; E44.0 Moderate protein-calorie malnutrition; Z68.1 Body mass index [BMI] 19.9 or less, adult; N39.0 Urinary tract infection, site not specified; Z96.0 Presence of urogenital implants; K75.4 Autoimmune hepatitis; R33.9 Retention of urine, unspecified; E86.0 Dehydration; E03.9 Hypothyroidism, unspecified; I10 Essential (primary) hypertension; F03.90 Unspecified dementia, unspecified severity, without behavioral disturbance, psychotic disturbance, mood disturbance, and anxiety; L89.220 Pressure ulcer of left hip, unstageable; E87.6 Hypokalemia; I95.9 Hypotension, unspecified; D50.0 Iron deficiency anemia secondary to blood loss (chronic); E16.2 Hypoglycemia, unspecified; L89.312 Pressure ulcer of right buttock, stage 2; L89.152 Pressure ulcer of sacral region, stage 2; Z86.718 Personal history of other venous thrombosis and embolism; Z87.891 Personal history of nicotine dependence; Z88.0 Allergy status to penicillin; Z79.899 Other long term (current) drug therapy
CPT/HCPCS: 36415; 71046; 71250; 74176; 80048; 80076; 81001; 81003; 82272; 82607; 82728; 82746; 82784; 82947; 83540; 83605; 83615; 83735; 84145; 84484; 85014; 85018; 85025; 85027; 85045; 85379; 85610; 86334; 86850; 86900; 86901; 86923; 87040; 87045; 87046; 87086; 87088; 87177; 87186; 87209; 87324; 87449; 87493; 87635; 87899; 89055; 92610; 93005; 96365; 96366; 96368; 99212; 99285; 99291; C1758; J0456; J0696; P9016

== ENCOUNTER 2021-05-09 13:53 | Inpatient (IN) | payer MEDICARE, SELFPAY ==
[2021-05-09] VITALS (9 sets, daily range): BP systolic 99–137; BP diastolic 36–92; PULSE 67–99; RESP 12–20; TEMP 36–36.9; O2SAT 93–100; BMI 23.2
--- NOTE | ~2021-05-09 | XR_ITS ---
EXAMINATION: XR CHEST CLINICAL INFORMATION: Mental status change. History of pneumonia. COMPARISON: Previous chest x-ray March 2021 TECHNIQUE: Frontal view of the chest was obtained. FINDINGS: The cardiac and mediastinal contours are stable. There is left perihilar and lower lobe airspace and bronchial wall thickening in the left lower lobe suggestive of pneumonia. This is new or increased from March 2021 exam. The right lung is clear. There is no pleural effusion. There are degenerative changes of the spine. XR/XR chest 1V IMPRESSION: Left-sided pneumonia.
--- NOTE | ~2021-05-09 | CT_ITS ---
EXAMINATION: CT HEAD WITHOUT CONTRAST CLINICAL INFORMATION: Altered mental status. Confusion. COMPARISON: Previous exam February 2021 TECHNIQUE: Contiguous axial imaging was performed from the skull base to vertex without intravenous administration of contrast. This CT examination was performed using dose optimization techniques as appropriate, variously including the following: *Automated exposure control *Adjustment of mA and/or kV according to patient size (this includes techniques or standardized protocols for targeted exams where dose is matched to indication/reason for exam; i.e. extremities or head) *Use of iterative reconstruction technique DLP: 1063 mGy-cm FINDINGS: Exam is limited due to motion artifact. There is no evidence of an extra-axial collection. There is no evidence of intra-axial or extra-axial hemorrhage. There is age-related prominence of the ventricles and extra-axial CSF spaces. There is a cavum septum pellucidum. There is a mild nonspecific periventricular white matter disease. No mass, mass effect or infarct is seen. No skull fracture is seen. There is mild inflammatory change in the right side of the sphenoid sinus. CT/CT head/brain wo con IMPRESSION: Limited exam due to motion. No acute findings.
--- NOTE | ~2021-05-09 | US_ITS ---
EXAMINATION: US RETROPERITONEAL LIMITED (RENAL ONLY) CLINICAL INFORMATION: Recurrent UTI. COMPARISON: CT abdomen pelvis on 03/27/2021 TECHNIQUE: Real-time imaging of the kidneys. Evaluation of the left kidney is significantly limited. FINDINGS: RIGHT KIDNEY: 10.7 x 4.1 x 5.2 cm (SAG x AP x TRV). There is a 5.1 x 5.7 x 5.4 cm upper pole cyst. The kidney is normal in size, contour, and echogenicity. Renal cortical thickness is normal. No calculi or focal parenchymal lesions. No hydronephrosis. LEFT KIDNEY: 6.3 x 2.7 x 3.0 cm (SAG x AP x TRV). The kidney is normal in size, contour, and echogenicity. Renal cortical thickness is normal. No calculi or focal parenchymal lesions. No hydronephrosis. US/US renal BI IMPRESSION: Right upper pole simple renal cyst. No further follow-up is required. Extremely limited evaluation of the left kidney.
--- NOTE | 2021-05-09 14:31 | ED_ITS ---
HPI - Altered Mental Status General Chief Complaint: General Medical Stated Complaint: AMS Time Seen by Provider: 05/09/21 14:26 Source: EMS Mode of arrival: EMS Limitations: altered mental status History of Present Illness HPI narrative: 80 y/o female with history of dementia, HTN, HLD hypothyroidism, multiple DTI's, chronic Arias, hx PNA, anemia, LLE DVT on Eliquis, failure to thrive who presents to the ER from home via EMS with increased weakness and lethargy. History is limited as patient is only oriented to self. Family at the beside who helps care for her reports she has been less communicative with dec reased PO intake the last 2-3 days. They deny fever, chills, N/V/D, SOB. MD complaint: altered mental status Onset (ago): day(s) (3) Timing confirmed by: family member Severity: moderate Consistency of symptoms: getting Worse Associated symptoms: loss of appetite, malaise and weakness Treatments prior to arrival: IV fluid Related Data Home Medications Medication Instructions Recorded Confirmed azathioprine 25 mg PO BID 02/13/21 05/09/21 acetaminophen 650 mg PO Q4H PRN 05/09/21 05/09/21 alendronate 1 tab PO GRANT 05/09/21 05/09/21 doxazosin 1 mg PO BEDTIME 05/09/21 05/09/21 multivitamin 1 tab PO DAILY 05/09/21 05/09/21 polyethylene glycol 3350 [Gavilax] 17 g PO DAILY PRN 05/09/21 05/09/21 senna 8.6 mg PO BEDTIME PRN 05/09/21 05/09/21 Previous Rx's Medication Instructions Recorded ferrous sulfate 325 mg (65 mg 325 mg PO DAILY #90 tab 02/22/21 iron) tablet furosemide 40 mg tablet 40 mg PO DAILY #90 tab 02/22/21 lisinopril 20 mg tablet 20 mg PO DAILY #90 tab 02/22/21 apixaban 5 mg tablet 5 mg PO BID 80 Days #160 tab 04/13/21 Allergies Allergy/AdvReac Type Severity Reaction Status Date / Time Penicillins Allergy hives Verified 04/13/21 08:54 Review of Systems Review of Systems: Yes Unobtainable due to mental status PMFSH Past Medical History Attestation statement: The following information was validated with the patient. Medical History Age related osteoporosis Autoimmune hepatitis Bilateral hydronephrosis Cognitive decline COPD (chronic obstructive pulmonary disease) Dementia Dementia HTN (hypertension) Hypothyroidism Urinary retention Weakness Surgical History H/O: hysterectomy S/P cholecystectomy Family History Family History Mother No problems noted. Social History Social History (Updated 04/13/21 @ 08:56 by LILIANA Cortez) Household Members: Family Household Members Other:: daughter Housing: Unknown / Unable to assess Unable to assess alcohol history related to: Unknown Alcohol intake: never Patient Tobacco Use Status: Former Tobacco user Tobacco use type: Cigarette Second Hand Smoke Exposure: No Advance Directives: No Advance Directives Information Provided: Yes service: No Current occupational status: retired Physical Exam Vital Signs: Vital Signs: Last Vital Signs Temp 98.2 F 05/09/21 16:00 Pulse 94 05/09/21 16:00 Resp 18 05/09/21 16:00 BP 124/54 L 05/09/21 16:00 Pulse Ox 100 05/09/21 16:00 Body Mass Index 23.2 Appearance: Alert Oriented X1. No acute distress. Frail, elderly female Eyes: Pupils equal, round and reactive to light. ENT: Pharynx normal. Neck: Normal inspection. Neck supple. CVS: Normal heart rate and rhythm. Pulses normal. Respiratory: No respiratory distress. Breath sounds normal. Abdomen: slightly firm lower abdomen with guarding but no tenderness illicited. +BS x4 Skin: Skin warm and dry. Normal skin color. Normal skin turgor. No rashes. Extremities: No lower extremity edema. Thin,frail, multiple pressure wounds in various stages of healing on knees and toes. left hip with pressure wound, meplex in place. LE slightly contracted. Neuro: Oriented X 1. Bilateral hand tremor with spasticity. Course Course Course Narrative: 80 y/o female with history of dementia, multiple DTI's, recently bedbound status per family with rapid decline in her health status over the last few months presents to the ER from home with increased weakness, decreased PO intake, not acting herself per family. Afebrile, hemodynamically stable on arrival. Will get full metabolic workup, cultures and CT head for further investigation. Reevaluation(s) Reevaluation #1: Lab workup showing drop in H/H 8/23.9 from 11.2/34.4 one month ago. She is on Eliquis for DVT. Family denies BRBPR or melena. Stool is dark brown, not black. She is hemodynamically stable without tachycardia or hypotension. No need for emergent transfusion or intervention at this time. Arias exchanged and UA sent. Reevaluation #2: Labs returning with EVA with significant uremia, BUN 104. Likely related to UGIB combined with dehydration which can explain her AMS. Protonix ordered. No active bleeding at this time. CXR showing new left sided pneumonia compared to x-ray 1 month ago. WBC 12.9. No hypoxia or respiratory distress. Will add procalcitonin and given Cefepime/Vanco for HCAP given her recent hospitalization. Will keep NPO. Will TT hospitalist for admission. Consent for blood obtained from daughter Nafisa & as well, signed in the chart. Dr. Bar witnessed. They both agree on code status of DNR/DNI. Dr. Ramirez aware. MDM - Altered Mental Status Lab Data Result diagrams: 05/09/21 14:45 05/09/21 14:45 Labs: Lab Results 05/09/21 05/09/21 05/09/21 Range/Units 14:45 14:45 14:45 WBC 12.9 H (4.8-10.8) X10*3/uL RBC 2.83 L D (4.20-5.50) X10*6/uL Hgb 8.0 L D (12.0-16.0) g/dl Hct 23.9 L D (37-47) % MCV 84.5 (80-98) fL MCH 28.3 (27.0-33.0) pg MCHC 33.5 (31.0-35.0) g/dl RDW 20.1 H (11.0-16.0) % Plt Count 369 (160-400) X10*3/uL MPV 9.6 (9.4-12.3) fL Immature Gran % (Auto) 0.7 H (0.0-0.4) % Neut % (Auto) 89.2 H (45-73) % Lymph % (Auto) 6.4 L (20-40) % [place] % (Auto) 3.4 (2-11) % Eos % (Auto) 0.1 (0-4) % Baso % (Auto) 0.2 (0-2) % Lymph # (Auto) 0.8 L (1.2-4.9) X10*3/uL [place] # (Auto) 0.4 (0.1-1.2) X10*3/uL Eos # (Auto) 0.0 (0.0-0.4) X10*3/uL Baso # (Auto) 0.0 (0.0-0.2) X10*3/uL Abs Immat Gran (auto) 0.09 H (0.00-0.03) X10*3/uL Absolute Neuts (auto) 11.5 H (2.0-8.3) X10*3/uL Absolute Nucleated RBC 0.020 H (0.0-0.012) X10*3/uL Nucleated RBC % (auto) 0.2 (0.0-0.2) /100WBC Sodium 134 L (135-145) mmol/L Potassium 3.3 (3.3-5.1) mmol/L Chloride 99 (96-108) mmol/L Carbon Dioxide 21 L (22-29) mmol/L Anion Gap 17 (12-20) BUN 114 H* D (9-16) mg/dL Creatinine 2.13 H (0.5-1.4) mg/dL Estim Creat Clear Calc 15.1 Estimated GFR 22 Random Glucose 98 (60-115) mg/dL Lactic Acid (0.5-2.0) mmol/L Calcium 9.8 (8.4-10.2) mg/dL Magnesium 2.2 (1.6-2.6) mg/dL Total Bilirubin 0.3 (0.0-1.0) mg/dL Direct Bilirubin 0.2 (0.0-0.5) mg/dL AST 46 H D (5-31) U/L ALT 19 (0-31) U/L Alkaline Phosphatase 76 (39-117) U/L Ammonia (13-55) umol/L Troponin I High Sens 31.4 H* D (<3.5-17.0) ng/L B-Natriuretic Peptide 152 H (<100) pg/mL Total Protein 5.8 L (6.5-8.0) g/dL Albumin 3.1 L (3.5-5.0) g/dL Procalcitonin ng/mL Urine Color Urine Appearance Urine pH (5.0-8.0) Ur Specific [place] (1.005-1.025) Urine Protein (NEG-TRACE) MG/DL Urine Glucose (UA) (NEG) MG/DL Urine Ketones (NEG) MG/DL Urine Blood (NEG) Urine Nitrite (NEG) Ur Leukocyte Esterase (NEG) Urine RBC (0) /HPF Urine WBC (0-4) /HPF Ur Squamous Epith Cells /LPF Amorphous Sediment /LPF Urine Bacteria /LPF Granular Casts /LPF Urine Mucus /LPF Stool Occult Blood (NEGATIVE) COVID-19 (BRIEN) (Negative) COVID-19 Clin Com Crossmatch 05/09/21 05/09/21 05/09/21 Range/Units 14:45 14:45 14:45 WBC (4.8-10.8) X10*3/uL RBC (4.20-5.50) X10*6/uL Hgb (12.0-16.0) g/dl Hct (37-47) % MCV (80-98) fL MCH (27.0-33.0) pg MCHC (31.0-35.0) g/dl RDW (11.0-16.0) % Plt Count (160-400) X10*3/uL MPV (9.4-12.3) fL Immature Gran % (Auto) (0.0-0.4) % Neut % (Auto) (45-73) % Lymph % (Auto) (20-40) % [place] % (Auto) (2-11) % Eos % (Auto) (0-4) % Baso % (Auto) (0-2) % Lymph # (Auto) (1.2-4.9) X10*3/uL [place] # (Auto) (0.1-1.2) X10*3/uL Eos # (Auto) (0.0-0.4) X10*3/uL Baso # (Auto) (0.0-0.2) X10*3/uL Abs Immat Gran (auto) (0.00-0.03) X10*3/uL Absolute Neuts (auto) (2.0-8.3) X10*3/uL Absolute Nucleated RBC (0.0-0.012) X10*3/uL Nucleated RBC % (auto) (0.0-0.2) /100WBC Sodium (135-145) mmol/L Potassium (3.3-5.1) mmol/L Chloride (96-108) mmol/L Carbon Dioxide (22-29) mmol/L Anion Gap (12-20) BUN (9-16) mg/dL Creatinine (0.5-1.4) mg/dL Estim Creat Clear Calc Estimated GFR Random Glucose (60-115) mg/dL Lactic Acid 1.1 (0.5-2.0) mmol/L Calcium (8.4-10.2) mg/dL Magnesium (1.6-2.6) mg/dL Total Bilirubin (0.0-1.0) mg/dL Direct Bilirubin (0.0-0.5) mg/dL AST (5-31) U/L ALT (0-31) U/L Alkaline Phosphatase (39-117) U/L Ammonia 28 (13-55) umol/L Troponin I High Sens (<3.5-17.0) ng/L B-Natriuretic Peptide Cancelled (<100) pg/mL Total Protein (6.5-8.0) g/dL Albumin (3.5-5.0) g/dL Procalcitonin ng/mL Urine Color Urine Appearance Urine pH (5.0-8.0) Ur Specific [place] (1.005-1.025) Urine Protein (NEG-TRACE) MG/DL Urine Glucose (UA) (NEG) MG/DL Urine Ketones (NEG) MG/DL Urine Blood (NEG) Urine Nitrite (NEG) Ur Leukocyte Esterase (NEG) Urine RBC (0) /HPF Urine WBC (0-4) /HPF Ur Squamous Epith Cells /LPF Amorphous Sediment /LPF Urine Bacteria /LPF Granular Casts /LPF Urine Mucus /LPF Stool Occult Blood (NEGATIVE) COVID-19 (BRIEN) (Negative) COVID-19 Clin Com Crossmatch 05/09/21 05/09/2121 Range/Units 14:45 14:45 15:39 WBC (4.8-10.8) X10*3/uL RBC (4.20-5.50) X10*6/uL Hgb (12.0-16.0) g/dl Hct (37-47) % MCV (80-98) fL MCH (27.0-33.0) pg MCHC (31.0-35.0) g/dl RDW (11.0-16.0) % Plt Count (160-400) X10*3/uL MPV (9.4-12.3) fL Immature Gran % (Auto) (0.0-0.4) % Neut % (Auto) (45-73) % Lymph % (Auto) (20-40) % [place] % (Auto) (2-11) % Eos % (Auto) (0-4) % Baso % (Auto) (0-2) % Lymph # (Auto) (1.2-4.9) X10*3/uL [place] # (Auto) (0.1-1.2) X10*3/uL Eos # (Auto) (0.0-0.4) X10*3/uL Baso # (Auto) (0.0-0.2) X10*3/uL Abs Immat Gran (auto) (0.00-0.03) X10*3/uL Absolute Neuts (auto) (2.0-8.3) X10*3/uL Absolute Nucleated RBC (0.0-0.012) X10*3/uL Nucleated RBC % (auto) (0.0-0.2) /100WBC Sodium (135-145) mmol/L Potassium (3.3-5.1) mmol/L Chloride (96-108) mmol/L Carbon Dioxide (22-29) mmol/L Anion Gap (12-20) BUN (9-16) mg/dL Creatinine (0.5-1.4) mg/dL Estim Creat Clear Calc Estimated GFR Random Glucose (60-115) mg/dL Lactic Acid (0.5-2.0) mmol/L Calcium (8.4-10.2) mg/dL Magnesium (1.6-2.6) mg/dL Total Bilirubin (0.0-1.0) mg/dL Direct Bilirubin (0.0-0.5) mg/dL AST (5-31) U/L ALT (0-31) U/L Alkaline Phosphatase (39-117) U/L Ammonia (13-55) umol/L Troponin I High Sens (<3.5-17.0) ng/L B-Natriuretic Peptide (<100) pg/mL Total Protein (6.5-8.0) g/dL Albumin (3.5-5.0) g/dL Procalcitonin 5.68 ng/mL Urine Color Urine Appearance Urine pH (5.0-8.0) Ur Specific [place] (1.005-1.025) Urine Protein (NEG-TRACE) MG/DL Urine Glucose (UA) (NEG) MG/DL Urine Ketones (NEG) MG/DL Urine Blood (NEG) Urine Nitrite (NEG) Ur Leukocyte Esterase (NEG) Urine RBC (0) /HPF Urine WBC (0-4) /HPF Ur Squamous Epith Cells /LPF Amorphous Sediment /LPF Urine Bacteria /LPF Granular Casts /LPF Urine Mucus /LPF Stool Occult Blood (NEGATIVE) COVID-19 (BRIEN) Negative Negative (Negative) COVID-19 Clin Com See Note See Note Crossmatch 05/09/21 05/09/21 05/09/21 Range/Units 16:10 16:10 17:19 WBC (4.8-10.8) X10*3/uL RBC (4.20-5.50) X10*6/uL Hgb (12.0-16.0) g/dl Hct (37-47) % MCV (80-98) fL MCH (27.0-33.0) pg MCHC (31.0-35.0) g/dl RDW (11.0-16.0) % Plt Count (160-400) X10*3/uL MPV (9.4-12.3) fL Immature Gran % (Auto) (0.0-0.4) % Neut % (Auto) (45-73) % Lymph % (Auto) (20-40) % [place] % (Auto) (2-11) % Eos % (Auto) (0-4) % Baso % (Auto) (0-2) % Lymph # (Auto) (1.2-4.9) X10*3/uL [place] # (Auto) (0.1-1.2) X10*3/uL Eos # (Auto) (0.0-0.4) X10*3/uL Baso # (Auto) (0.0-0.2) X10*3/uL Abs Immat Gran (auto) (0.00-0.03) X10*3/uL Absolute Neuts (auto) (2.0-8.3) X10*3/uL Absolute Nucleated RBC (0.0-0.012) X10*3/uL Nucleated RBC % (auto) (0.0-0.2) /100WBC Sodium (135-145) mmol/L Potassium (3.3-5.1) mmol/L Chloride (96-108) mmol/L Carbon Dioxide (22-29) mmol/L Anion Gap (12-20) BUN (9-16) mg/dL Creatinine (0.5-1.4) mg/dL Estim Creat Clear Calc Estimated GFR Random Glucose (60-115) mg/dL Lactic Acid (0.5-2.0) mmol/L Calcium (8.4-10.2) mg/dL Magnesium (1.6-2.6) mg/dL Total Bilirubin (0.0-1.0) mg/dL Direct Bilirubin (0.0-0.5) mg/dL AST (5-31) U/L ALT (0-31) U/L Alkaline Phosphatase (39-117) U/L Ammonia (13-55) umol/L Troponin I High Sens (<3.5-17.0) ng/L B-Natriuretic Peptide (<100) pg/mL Total Protein (6.5-8.0) g/dL Albumin (3.5-5.0) g/dL Procalcitonin ng/mL Urine Color YELLOW Urine Appearance CLEAR Urine pH 6.0 (5.0-8.0) Ur Specific [place] 1.010 (1.005-1.025) Urine Protein NEG (NEG-TRACE) MG/DL Urine Glucose (UA) 100 H (NEG) MG/DL Urine Ketones NEG (NEG) MG/DL Urine Blood 2+ H (NEG) Urine Nitrite NEG (NEG) Ur Leukocyte Esterase 1+ H (NEG) Urine RBC 10-14 H (0) /HPF Urine WBC 1-4 (0-4) /HPF Ur Squamous Epith Cells 1+ /LPF Amorphous Sediment TRACE /LPF Urine Bacteria TRACE /LPF Granular Casts 0-2 /LPF Urine Mucus 2+ /LPF Stool Occult Blood POSITIVE (NEGATIVE) COVID-19 (BRIEN) (Negative) COVID-19 Clin Com Crossmatch See Detail Critical Care Time Critical Care Time Critical Care Time: Yes Total Critical Care Time: 38 Attestation: I have personally provided critical care time exclusive of time spent on separately billable procedures. Time includes review of lab data, radiology results, discussion with consultants, and monitoring for potential decompensation. Intervention performed as documented. Discharge Plan Discharge Clinical Impression: EVA (acute kidney injury), Acute blood loss anemia, Acute metabolic encephalopathy GI (gastrointestinal bleed) Qualifiers: GI bleed type/associated pathology: unspecified gastrointestinal hemorrhage type Qualified Code(s): K92.2 - Gastrointestinal hemorrhage, unspecified Patient Disposition: Admitted As Inpatient
[2021-05-09] MEDS: 0.9 % Sodium Chloride 1,000 ML 999 ML IVCONT (14:42)
--- NOTE | 2021-05-09 14:45 | PHA.MEDREC ---
Pharmacy Consult ? Medication Reconciliation Pharmacy has completed the medication reconciliation. Confirmed with patient's daughter. There are no remarkable issues for provider's attention. Paola Peterson, PharmD
[2021-05-09 14:52] LABS: MANUAL DIFF FLAG NO
[2021-05-09 14:57] LABS: Basophils Percent Auto 0.2 % (0-2); Eosinophils Percent Auto 0.1 % (0-4); Hematocrit 23.9 % (37-47); Imm Gran Abs Auto 0.09 X10*3/uL (0.00-0.03); Imm Gran Pct Auto 0.7 % (0.0-0.4); Lymphocytes Absolute Auto 0.8 X10*3/uL (1.2-4.9); Lymphocytes Percent Auto 6.4 % (20-40); Mean Corpuscular HGB Conc 33.5 g/dl (31.0-35.0); Mean Corpuscular Hemoglobin 28.3 pg (27.0-33.0); Mean Corpuscular Volume 84.5 fL (80-98); Mean Platelet Volume 9.6 fL (9.4-12.3); Monocytes Absolute Auto 0.4 X10*3/uL (0.1-1.2); Monocytes Percent Auto 3.4 % (2-11); NRBC Pct Auto 0.2 /100WBC (0.0-0.2); Neutrophils Absolute Auto 11.5 X10*3/uL (2.0-8.3); Neutrophils Percent Auto 89.2 % (45-73); Platelet Count 369 X10*3/uL (160-400); Red Blood Count 2.83 X10*6/uL (4.20-5.50); Red Cell Distribution Width 20.1 % (11.0-16.0); White Blood Count 12.9 X10*3/uL (4.8-10.8)
[2021-05-09 15:15] LABS: COVID-19 Test Negative (Negative)
[2021-05-09 15:22] LABS: Ammonia 28 umol/L (13-55)
[2021-05-09 15:26] LABS: Lactic Acid 1.1 mmol/L (0.5-2.0)
[2021-05-09 15:42] LABS: B Type Natriuretic Peptide 152 pg/mL (<100); Troponin-I High Sensitivity 31.4 ng/L (<3.5-17.0)
[2021-05-09 16:03] LABS: COVID-19 Test Negative (Negative); IDNOW Serial# 9DD0AD1C
[2021-05-09 16:18] LABS: Alanine Aminotransferase 19 U/L (0-31); Albumin Level 3.1 g/dL (3.5-5.0); Alkaline Phosphatase 76 U/L (39-117); Anion Gap 17 (12-20); Aspartate Amino Transferase 46 U/L (5-31); Bilirubin Direct 0.2 mg/dL (0.0-0.5); Bilirubin Total 0.3 mg/dL (0.0-1.0); Blood Urea Nitrogen 114 mg/dL (9-16); Calcium 9.8 mg/dL (8.4-10.2); Carbon Dioxide 21 mmol/L (22-29); Chloride 99 mmol/L (96-108); Creatinine Clr Calc Pharmacy 15.1; Estimated Glomerular Filt Rate 22; Glucose Random 98 mg/dL (60-115); Magnesium 2.2 mg/dL (1.6-2.6); Potassium 3.3 mmol/L (3.3-5.1); Sodium 134 mmol/L (135-145); Total Protein 5.8 g/dL (6.5-8.0)
[2021-05-09 16:21] LABS: Glucose Urine UA 100 MG/DL (NEG); Leukocyte Esterase Urine 1+ (NEG); Nitrite Urine NEG (NEG); UACC Culture Trigger YES; Urine Blood 2+ (NEG); Urine Ketones NEG (NEG); Urine Protein NEG (NEG-TRACE)
[2021-05-09 16:28] LABS: OBS Int Ctl Valid YES; OBS1 POSITIVE (NEGATIVE)
[2021-05-09 16:30] LABS: Appearance Urine CLEAR; Color Urine YELLOW
[2021-05-09 16:44] LABS: Amorphous Sediment Urine TRACE /LPF; Bacteria Urine TRACE /LPF; Granular Casts Urine 0-2 /LPF; Mucus Urine 2+ /LPF; Squamous Epithelial Cell Urine 1+ /LPF
[2021-05-09] MEDS: cefEPime HCl 2 GM in 0.9 % Sodium Chloride 50 ML IV (16:45)
[2021-05-09] MEDS: vancomycin HCL 750 MG in 0.9 % Sodium Chloride 250 ML 265 MG IV (17:15)
[2021-05-09] MEDS: Pantoprazole Sodium 40 MG/10 ML VIAL IVPUSH (17:28)
[2021-05-09 17:45] LABS: Procalcitonin 5.68 ng/mL
--- NOTE | 2021-05-09 17:56 | PC.NURSE ---
PT BROUGHT TO ED BY EMS, PT CURRENTLY LIVING AT HOME WITH , PT IN NON AMBULATORY, HAS AMS, CONTRACTED. SEVERAL BREAK DOWN AREAS, PHOTOS TAKEN AND PLACED IN CHART, BILATERAL TOES KNEES, LEFT HIP COCCYX AND APPEARANCE OF ONE STARTING MID LEFT BACK. PT WITH CHRONIC CABALLERO WHICH WAS CHANGED ON ARRIVAL TO 16F, PT HAS BEEN CHANGED X3 FOR INCONTINENCE OF BOWELS. PTS WOUND HAVE BEEN CLEANED AND REDRESSED, LABS DRAWN AND MEDS GIVEN ORDERED, BLOOD CULTURES WERE DONE PRIOR TO ABX.
--- NOTE | 2021-05-09 18:12 | PC.NURSE ---
RBC ARE READY, PT CURRENTLY HAS VANCO RUNNING THROUGH IV
--- NOTE | 2021-05-09 19:25 | HP_ITS ---
DATE OF SERVICE: 05/09/2021 CHIEF COMPLAINT: Generalized weakness and altered mental status. HISTORY OF PRESENTING ILLNESS: This is an 80-year-old female patient, who was recently discharged from [facility] on April 04, 2021 after being admitted for hypotension, acute kidney injury, her hospital stay was complicated with episode of hypoglycemia. During the hospitalization, the patient was also noted to have significant anemia with fecal occult blood test was positive. The patient was evaluated by Gastroenterology, but since she had a recent normal colonoscopy and her hematocrit improved with blood transfusion, no further intervention was done. The patient's Eliquis was held for few days and then was restarted once her hematocrit improved. The patient was brought into [facility] on this occasion due to increasing weakness and lethargy as noted by patient's family. The patient is unable to provide any meaningful history with underlying history of dementia. The patient is only oriented to herself. As per family, the patient has decreased p.o. intake in last few days. There has been no fever or chills noted. She did not have any bout of nausea, vomiting, or diarrhea. She has been tolerating all her medications. She was not noted to have shortness of breath, any limb weakness. In the emergency room, the patient underwent extensive workup that showed that she has an acute kidney injury with creatinine of 2.1. Last month, her creatinine was 0.64. BUN is disproportionately elevated at 114. Blood sugars are stable. AST is 46 with a troponin of 31. BNP 152. Her hematocrit has significantly dropped from 34.4 on April 03 to 23.9, hemoglobin is 8, WBC count is 12.9 with a normal platelet count of 369. There is no left shift noted. Her INR is elevated at 1.7. D-dimer is 352. A CAT scan of the head showed no acute abnormality. Chest x-ray showed a possibility of left-sided pneumonia. The left perihilar and lower lobe airspace disease was present in March of 2021; however, it has increased due to significant drop in hematocrit. The patient in the ER is receiving 1 units of packed RBC with concern for hospital-acquired pneumonia. The patient was given vancomycin and IV cefepime. The patient is now being admitted to [facility] with acute blood loss anemia, acute on chronic kidney injury, acute encephalopathy, and possible pneumonia. PAST MEDICAL HISTORY: Significant for: 1. Recent hospitalization from 03/27 through 04/04. During that hospitalization, the patient was diagnosed to have acute blood loss anemia, treated with 2 units of blood transfusion with stabilization of hematocrit. Hypotension and hypoglycemia. 2. She has a history of baseline dementia. 3. Recently diagnosed DVT on February 13, 2021. 4. History of autoimmune hepatitis. 5. History of bilateral hydronephrosis. 6. History of COPD. 7. History of hypertension. 8. Hypothyroidism. 9. History of chronic urinary retention, on indwelling Arias catheter. FAMILY HISTORY: As reviewed from old records. The patient has no history of premature coronary artery disease or colon cancer. SURGICAL HISTORY: 1. The patient is status post hysterectomy. 2. Status post cholecystectomy. SOCIAL HISTORY: The patient lives at home with family. ALLERGIES: THE PATIENT IS ALLERGIC TO PENICILLIN THAT CAUSES HIVES. MEDICATIONS ON ADMISSION: Tylenol 650 q.4 hours as needed, alendronate 1 tablet every Sundays, apixaban 5 mg b.i.d., azathioprine 25 mg b.i.d., doxazosin 1 mg at bedtime, ferrous sulfate 325 mg daily, Lasix 40 mg daily, lisinopril 20 mg daily, multivitamin 1 p.o. daily, MiraLAX 17 g p.o. daily as needed, and senna 8.6 mg p.o. at bedtime as needed. REVIEW OF SYSTEMS: Unable to obtain due to underlying dementia. PHYSICAL EXAMINATION: GENERAL: The patient is resting in bed, does not appear to be in acute distress. She is frail lady. Oral mucosa is moist. She is edentulous. HEENT: Pupils equal, round, and reactive to light and accommodation. NECK: Supple. No elevated JVD. CARDIOVASCULAR: Heart is regular rate and rhythm. RESPIRATORY: Lungs are clear to auscultation. The patient unable to follow directions, so diminished breath sounds noted at bases. ABDOMEN: Soft, nontender. Bowel sounds are audible. SKIN: Warm and dry. She has noted to have abrasions on dorsum of left foot toes. Has a right heel dry scab. She has coccyx wound with dressing in place. She has a pressure wound on left hip. EXTREMITIES: There is no edema noted. Lower extremity slightly contracted. NEURO: She has bilateral hand tremors. Unable to assess neuro examination secondary to underlying dementia. LABORATORY DATA: Showed a WBC of 12.9, hemoglobin 8, hematocrit of 23.9, platelet count of 369. BUN 114, creatinine of 2.13, sodium 134, carbon dioxide 21, lactic acid of 1.1, AST 46. Urinalysis showed 2+ blood, 10 to 14 rbc's, trace bacteria. Imaging studies as mentioned earlier. ASSESSMENT AND PLAN: This is an 80-year-old female patient with underlying history of dementia, history of recent DVT in February of 2021, history of chronic indwelling Arias catheter on Eliquis, presented to [facility] due to worsening weakness, decreased p.o. intake, not acting herself as per family. In the emergency room, the patient has been noted to be in acute renal failure with acute on chronic blood loss anemia, acute encephalopathy, and possible pneumonia. 1. Acute on chronic kidney disease, most likely related to poor p.o. intake with use of Lasix and NOLAN inhibitors. Elevated BUN likely due to GI blood loss. The patient will be treated with IV fluid. We will hold diuretics and NOLAN inhibitors. Arias catheter has been draining, therefore, no evidence of obstruction, will follow renal function closely. 2. Acute on chronic anemia due to acute blood loss. Most likely, the patient has GI bleed related to gastritis with elevated BUN. No active hematochezia, melena, or bright red blood per rectum noted. It seems slow bleed being on Eliquis. We will stop Eliquis since the patient was scheduled to receive Eliquis for 3 months starting February, so she was supposed to ended on May 15. Therefore, we will stop Eliquis, treat the patient with Protonix, hold off on GI consultation. We will give 1 unit of packed RBC, follow hematocrit at a.m., place the patient on iron supplement, and follow clinical course. 3. Acute encephalopathy. Likely due to dehydration, and possible pneumonia. We will check procalcitonin level. If positive, we will treat the patient with antibiotics since the patient is asymptomatic with no coughing, stable oxygenation, no tachypnea. Therefore, hold off on aggressive antibiotic treatment. The patient received 1 dose of cefepime and vancomycin in the emergency room. 4. History of dementia with no behavioral issues. 5. History of autoimmune hepatitis. Continue azathioprine. 6. Deep vein thrombosis prophylaxis. The patient will be placed on compression boots. 7. Code status. The patient is a DNR/DNI as per family. MD MONICA Hancock/CELESTE / [id number] MTDD
[2021-05-10] VITALS (7 sets, daily range): BP systolic 95–156; BP diastolic 49–72; PULSE 69–83; RESP 16–18; TEMP 36–37.1; O2SAT 94–100; BMI 23.2
[2021-05-10] MEDS: 0.9 % Sodium Chloride Flush 3 ML SYRINGE IVFLUSH ×2 (00:17→21:40)
[2021-05-10] MEDS: Lactated Ringers 1,000 ML 100 ML IVCONT ×2 (00:50→11:34)
[2021-05-10] MEDS: cefTRIAXone sodium 1 GM in 0.9 % Sodium Chloride 50 ML IV (06:11)
[2021-05-10 06:53] LABS: MANUAL DIFF FLAG NO
[2021-05-10 07:03] LABS: Basophils Percent Auto 0.2 % (0-2); Eosinophils Percent Auto 0.3 % (0-4); Hematocrit 27.8 % (37-47); Hemoglobin 9.5 g/dl (12.0-16.0); Imm Gran Abs Auto 0.12 X10*3/uL (0.00-0.03); Lymphocytes Absolute Auto 0.9 X10*3/uL (1.2-4.9); Lymphocytes Percent Auto 7.9 % (20-40); Mean Corpuscular HGB Conc 34.2 g/dl (31.0-35.0); Mean Corpuscular Volume 84.8 fL (80-98); Mean Platelet Volume 10.1 fL (9.4-12.3); Monocytes Absolute Auto 0.5 X10*3/uL (0.1-1.2); Monocytes Percent Auto 4.3 % (2-11); NRBC Pct Auto 0.3 /100WBC (0.0-0.2); Neutrophils Absolute Auto 9.9 X10*3/uL (2.0-8.3); Neutrophils Percent Auto 86.3 % (45-73); Platelet Count 378 X10*3/uL (160-400); Red Blood Count 3.28 X10*6/uL (4.20-5.50); Red Cell Distribution Width 18.9 % (11.0-16.0); White Blood Count 11.5 X10*3/uL (4.8-10.8)
[2021-05-10 07:39] LABS: Anion Gap 15 (12-20); Calcium 9.9 mg/dL (8.4-10.2); Carbon Dioxide 26 mmol/L (22-29); Chloride 105 mmol/L (96-108); Creatinine Clr Calc Pharmacy 24.7; Estimated Glomerular Filt Rate 39; Glucose Random 80 mg/dL (60-115); Potassium 3.2 mmol/L (3.3-5.1); Sodium 143 mmol/L (135-145)
[2021-05-10 07:59] LABS: Blood Urea Nitrogen 84 mg/dL (9-16)
[2021-05-10] MEDS: Ferrous Sulfate 324 MG TABLET.DR PO ×2 (09:00→21:33)
--- NOTE | 2021-05-10 13:36 | MHC.CLN ---
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
--- NOTE | 2021-05-10 14:48 | PC.NURSE ---
Skin/Wound assessment completed today. Patient has stage 2 PU to right buttocks, stage 4 to coccyx with undermining at 6 o'clock with a depth of 1.8. Also has a stage 4 to left hip with round the clock undermining the deepest at 2.5 and stage 2 to lower back. A stage 3 to right heel. A strip of silver alginate was cut and tucked in undermining on left hip with tail left out and covered with foam. Triad was used on Coccyx, buttocks, back and heel, all covered with foam. Patient tolerated well. Patient is turned every 2 hours and is on an air loss bed. These wounds were present on admission.
--- NOTE | 2021-05-10 15:13 | MHC.CM.PN ---
PATIENT LIVES ALONE. SHE HAS FAMILY SUPPORT ACTIVE IN HER DAILY LIFE. PATIENT IS ACTIVE WITH [facility] REFERRAL PLACED FOR AGENCY TO FOLLOW. SHE HAS WALKER, WHEEL CHAIR, TUB CHAIR, TRANSFER CHAIR, AND BATHROOM MODIFICATIONS FOR SAFETY. FAMILY DOES NOT WANT A SNF REFERRAL AT THIS TIME (HCP MARCO (IN ROOM) WITH GRAND DAUGHTER AND PATIENT'S SPOUSE/SECONDARY HCP. IVÁN.) IMM 05/10 IN CHART
--- NOTE | 2021-05-10 15:51 | HO.PM.IMPN ---
Subjective Subjective Date of Service: 05/10/21 Interval History: resting comfortably offers no acute complaints cough unable to obtain detailed history due to underlying dementia. ros Unobtainable due to dementia. Physical Exam Vital Signs: Vital Signs: Last Vital Signs Temp 98.2 F 05/10/21 15:47 Pulse 80 05/10/21 15:47 Resp 18 05/10/21 15:47 BP 104/65 05/10/21 15:47 Pulse Ox 98 05/10/21 15:47 Body Mass Index 23.2 Gen: in no acute distress, malnourished Sclera anicteric, moist mucus membranes Neck: supple,no jvd Lungs: clear to auscultation bilaterally Heart: regular rate and rhythm, no murmurs Abd: soft, non-tender, non-distended Ext: no edema Skin: multiple wounds, right heel stage III ulcer, stage III coccyx wound with slough, stage II pressure ulcer to right buttock, stage IV at left hip. Psych: impaired insight Objective Data Current Medications Generic Name Dose Route Start Last Admin Trade Name Freq PRN Reason Stop Dose Admin Acetaminophen 650 mg 05/09/21 17:29 Acetaminophen 325 Mg Tablet PO Q6H PRN Pain, Mild (Pain Scale 1-3) Doxazosin Mesylate 1 mg 05/09/21 21:00 05/09/21 22:03 Doxazosin Mesylate 1 Mg Tablet PO Not Given BEDTIME ON LICENSE OF [facility] Protocol Ferrous Sulfate 324 mg 05/09/21 21:00 05/10/21 09:00 Ferrous Sulfate 324 Mg Tablet. PO 324 mg BID MAGY Administration Lactated Ringer's 1,000 mls @ 100 mls/hr 05/10/21 00:45 05/10/21 11:34 Lr IVCONT 100 mls/hr .Q10H MAGY Administration Ceftriaxone Sodium 1 gm/ 50 mls @ 100 mls/hr 05/10/21 06:00 05/10/21 06:43 Sodium Chloride IV Infused Q24H MAGY Infusion Omeprazole 20 mg 05/10/21 06:30 05/10/21 06:18 Omeprazole 20 Mg Capsule. PO Not Given DAILY@0630 MAGY Ondansetron HCl 4 mg 05/09/21 20:46 Ondansetron Hcl 4 Mg/2 Ml Vial IVPUSH Q8H PRN Nausea and Vomiting Pharmacy Consult 1 each 05/09/21 14:26 Consult Rx Perform Med Rec MISCELLANE ONCE PRN Consult order Polyethylene Glycol 17 gm 05/09/21 20:46 Polyethylene Glycol 3350 17 Gm Powd.Pack PO DAILY PRN Constipation Sodium Chloride 3 ml 05/10/21 00:00 05/10/21 15:13 0.9 % Sodium Chloride Flush 3 Ml Syringe IVFLUSH Not Given QSHIFT ON LICENSE OF [facility] Labs CBC & Chem 7: 05/10/21 06:14 05/10/21 06:14 Labs: Laboratory Results - last 24 hr 05/09/21 05/09/21 05/09/21 14:45 14:45 15:39 WBC RBC Hgb Hct MCV MCH MCHC RDW Plt Count MPV Immature Gran % (Auto) Neut % (Auto) Lymph % (Auto) Mcclain % (Auto) Eos % (Auto) Baso % (Auto) Lymph # (Auto) Mcclain # (Auto) Eos # (Auto) Baso # (Auto) Abs Immat Gran (auto) Absolute Neuts (auto) Absolute Nucleated RBC Nucleated RBC % (auto) Sodium 134 L Potassium 3.3 Chloride 99 Carbon Dioxide 21 L Anion Gap 17 BUN 114 H* D Creatinine 2.13 H Estim Creat Clear Calc 15.1 Estimated GFR 22 Random Glucose 98 Calcium 9.8 Magnesium 2.2 Total Bilirubin 0.3 Direct Bilirubin 0.2 AST 46 H D ALT 19 Alkaline Phosphatase 76 Total Protein 5.8 L Albumin 3.1 L Procalcitonin 5.68 Urine Color Urine Appearance Urine pH Ur Specific [place] Urine Protein Urine Glucose (UA) Urine Ketones Urine Blood Urine Nitrite Ur Leukocyte Esterase Urine RBC Urine WBC Ur Squamous Epith Cells Amorphous Sediment Urine Bacteria Granular Casts Urine Mucus Stool Occult Blood COVID-19 (BRIEN) Negative COVID-19 Clin Com See Note Blood Type Antibody Screen Crossmatch 05/09/21 05/09/21 05/09/21 16:10 16:10 17:19 WBC RBC Hgb Hct MCV MCH MCHC RDW Plt Count MPV Immature Gran % (Auto) Neut % (Auto) Lymph % (Auto) [place]cl[place] % (Auto) Eos % (Auto) Baso % (Auto) Lymph # (Auto) [place]clain # (Auto) Eos # (Auto) Baso # (Auto) Abs Immat Gran (auto) Absolute Neuts (auto) Absolute Nucleated RBC Nucleated RBC % (auto) Sodium Potassium Chloride Carbon Dioxide Anion Gap BUN Creatinine Estim Creat Clear Calc Estimated GFR Random Glucose Calcium Magnesium Total Bilirubin Direct Bilirubin AST ALT Alkaline Phosphatase Total Protein Albumin Procalcitonin Urine Color YELLOW Urine Appearance CLEAR Urine pH 6.0 Ur Specific [place] 1.010 Urine Protein NEG Urine Glucose (UA) 100 H Urine Ketones NEG Urine Blood 2+ H Urine Nitrite NEG Ur Leukocyte Esterase 1+ H Urine RBC 10-14 H Urine WBC 1-4 Ur Squamous Epith Cells 1+ Amorphous Sediment TRACE Urine Bacteria TRACE Granular Casts 0-2 Urine Mucus 2+ Stool Occult Blood POSITIVE COVID-19 (BRIEN) COVID-19 Clin Com Blood Type A Positive Antibody Screen NEGATIVE Crossmatch See Detail 05/10/21 05/10/21 06:14 06:14 WBC 11.5 H RBC 3.28 L Hgb 9.5 L Hct 27.8 L MCV 84.8 MCH 29.0 MCHC 34.2 RDW 18.9 H Plt Count 378 MPV 10.1 Immature Gran % (Auto) 1.0 H Neut % (Auto) 86.3 H Lymph % (Auto) 7.9 L Mcclain % (Auto) 4.3 Eos % (Auto) 0.3 Baso % (Auto) 0.2 Lymph # (Auto) 0.9 L Mcclain # (Auto) 0.5 Eos # (Auto) 0.0 Baso # (Auto) 0.0 Abs Immat Gran (auto) 0.12 H Absolute Neuts (auto) 9.9 H Absolute Nucleated RBC 0.030 H Nucleated RBC % (auto) 0.3 H Sodium 143 Potassium 3.2 L Chloride 105 Carbon Dioxide 26 Anion Gap 15 BUN 84 H* D Creatinine 1.30 Estim Creat Clear Calc 24.7 Estimated GFR 39 Random Glucose 80 Calcium 9.9 Magnesium Total Bilirubin Direct Bilirubin AST ALT Alkaline Phosphatase Total Protein Albumin Procalcitonin Urine Color Urine Appearance Urine pH Ur Specific [place] Urine Protein Urine Glucose (UA) Urine Ketones Urine Blood Urine Nitrite Ur Leukocyte Esterase Urine RBC Urine WBC Ur Squamous Epith Cells Amorphous Sediment Urine Bacteria Granular Casts Urine Mucus Stool Occult Blood COVID-19 (BRIEN) COVID-19 Clin Com Blood Type Antibody Screen Crossmatch Microbiology Microbiology Results: Microbiology 05/09/21 16:11 Urine Culture - Preliminary Urine Catheterized - Arias Catheter Gram negative jairo 05/09/21 14:45 Blood Culture - Preliminary Blood - Venous Quality Stroke Does the patient have a stroke diagnosis?: No VTE Prior VTE?: No VTE Risk Level:: Medical - moderate - high VTE Device Contraindication: N/A - Device Ordered VTE Drug Contraindication: Treatment Not Indicated Assessment and Plan (1) GI (gastrointestinal bleed): Status: Acute (2) Acute blood loss anemia: Status: Acute (3) Dementia: Status: Acute (4) Pressure injury of left hip, unstageable: Status: Acute Assessment and Plan: 80-year-old female patient with underlying history of dementia, history of recent DVT in February of 2021, history of chronic indwelling Arias catheter on Eliquis, presented to [facility] due to worsening weakness, decreased p.o. intake, not acting herself as per family. In the emergency room, the patient has been noted to be in acute renal failure with acute on chronic blood loss anemia, acute encephalopathy, and possible pneumonia. 1. Acute on chronic kidney disease stage III, most likely pre renal related to poor p.o. intake with continued use of Lasix and ISIDRO inhibitors. BUN and creatinine trending down with IV fluid, persistent elevated BUN likely due to GI bleed will continue to hold diuretics and Isidro inhibitors, Arias catheter with clear urine , will DC IV fluid. 2. Acute on chronic anemia due to acute blood loss. No active GI bleed noted, questions slow transit from gastritis home while being on Eliquis Eliquis discontinue since patient was scheduled to receive Eliquis for 3 months starting February, so she was supposed to end on May 15. status post 1 unit of packed RBC hematocrit improved continue Prilosec hold GI consultation since underwent colonoscopy in October of 2016, for screening history of adenomatous colon polyps diverticular disease, but no colitis, less likely to have GI malignancy with serial Normal colonoscopies and with no active bleeding. follow CBC and clinical course. 3. Acute encephalopathy. Likely due to dehydration, anemia, UTI and pneumonia, more awake alert seems to be at baseline continue above treatment. 4. Sepsis due to pneumonia/ decub ulcers/ UTI continue IV ceftriaxone, follow blood cultures / urine culture, obtain ID consultation, follow procalcitonin, WBC trending down, no fever. 4. History of dementia with no behavioral issues. 5. History of autoimmune hepatitis. Continue azathioprine. 6. Deep vein thrombosis prophylaxis. compression boots due to GI bleed and anemia. 7. Code status. DNR/DNI as per family.
[2021-05-11] VITALS (7 sets, daily range): BP systolic 115–140; BP diastolic 53–80; PULSE 74–94; RESP 16–18; TEMP 36–37.1; O2SAT 96–100
[2021-05-11 05:59] LABS: MANUAL DIFF FLAG NO
[2021-05-11] MEDS: cefTRIAXone sodium 1 GM in 0.9 % Sodium Chloride 50 ML IV (06:00)
[2021-05-11 06:08] LABS: Basophils Percent Auto 0.2 % (0-2); Eosinophils Percent Auto 0.2 % (0-4); Hematocrit 28.6 % (37-47); Hemoglobin 9.5 g/dl (12.0-16.0); Imm Gran Abs Auto 0.14 X10*3/uL (0.00-0.03); Imm Gran Pct Auto 1.3 % (0.0-0.4); Lymphocytes Percent Auto 9.5 % (20-40); Mean Corpuscular HGB Conc 33.2 g/dl (31.0-35.0); Mean Corpuscular Hemoglobin 28.8 pg (27.0-33.0); Mean Corpuscular Volume 86.7 fL (80-98); Mean Platelet Volume 10.2 fL (9.4-12.3); Monocytes Absolute Auto 0.7 X10*3/uL (0.1-1.2); Monocytes Percent Auto 6.3 % (2-11); NRBC Pct Auto 0.3 /100WBC (0.0-0.2); Neutrophils Percent Auto 82.5 % (45-73); Platelet Count 362 X10*3/uL (160-400); Red Cell Distribution Width 19.6 % (11.0-16.0); White Blood Count 10.9 X10*3/uL (4.8-10.8)
[2021-05-11] MEDS: 0.9 % Sodium Chloride Flush 3 ML SYRINGE IVFLUSH ×3 (08:36→23:52)
[2021-05-11] MEDS: Ferrous Sulfate 324 MG TABLET.DR PO ×2 (08:36→20:55)
[2021-05-11 09:30] LABS: Anion Gap 15 (12-20); Blood Urea Nitrogen 45 mg/dL (9-16); Calcium 10.1 mg/dL (8.4-10.2); Carbon Dioxide 27 mmol/L (22-29); Chloride 110 mmol/L (96-108); Creatinine Clr Calc Pharmacy 37.4; Estimated Glomerular Filt Rate > 60; Glucose Random 101 mg/dL (60-115); Potassium 2.7 mmol/L (3.3-5.1); Sodium 149 mmol/L (135-145)
--- NOTE | 2021-05-11 12:45 | HO.PM.IMPN ---
Subjective Subjective Date of Service: 05/11/21 Interval History: Patient awake alert tolerating diet, unable to provide any detail history answer questions in 1 word, said no for pain. ROS Unobtainable due to dementia. Physical Exam Vital Signs: Vital Signs: Last Vital Signs Temp 96.8 F 05/11/21 11:31 Pulse 82 05/11/21 11:31 Resp 18 05/11/21 11:31 BP 140/54 H 05/11/21 11:31 Pulse Ox 97 05/11/21 11:31 Body Mass Index 23.2 Gen: no acute distress, malnourished Sclera anicteric, moist mucus membranes Neck: supple,no jvd Lungs: clear to auscultation bilaterally Heart: regular rate and rhythm, no murmurs Abd: soft, non-tender, non-distended Ext: no edema Skin: multiple wounds, right heel stage III ulcer, stage III coccyx wound with slough, stage II pressure ulcer to right buttock, stage IV at left hip. Psych: impaired insight Objective Data Current Medications Generic Name Dose Route Start Last Admin Trade Name Thienq PRN Reason Stop Dose Admin Acetaminophen 650 mg 05/09/21 17:29 Acetaminophen 325 Mg Tablet PO Q6H PRN Pain, Mild (Pain Scale 1-3) Doxazosin Mesylate 1 mg 05/09/21 21:00 05/10/21 21:33 Doxazosin Mesylate 1 Mg Tablet PO Not Given BEDTIME [facility] Protocol Ferrous Sulfate 324 mg 05/09/21 21:00 05/11/21 08:36 Ferrous Sulfate 324 Mg Tablet. PO 324 mg BID [facility] Administration Ceftriaxone Sodium 1 gm/ 50 mls @ 100 mls/hr 05/10/21 06:00 05/11/21 06:41 Sodium Chloride IV Infused Q24H [facility] Infusion Omeprazole 20 mg 05/10/21 06:30 05/11/21 06:01 Omeprazole 20 Mg Capsule. PO Not Given DAILY@0630 [facility] Ondansetron HCl 4 mg 05/09/21 20:46 Ondansetron Hcl 4 Mg/2 Ml Vial IVPUSH Q8H PRN Nausea and Vomiting Pharmacy Consult 1 each 05/09/21 14:26 Consult Rx Perform Med Rec MISCELLANE ONCE PRN Consult order Polyethylene Glycol 17 gm 05/09/21 20:46 Polyethylene Glycol 3350 17 Gm Powd.Pack PO DAILY PRN Constipation Sodium Chloride 3 ml 05/10/21 00:00 05/11/21 08:36 0.9 % Sodium Chloride Flush 3 Ml Syringe IVFLUSH 3 ml QSHIFT [facility] Administration Labs CBC & Chem 7: 05/11/21 05:52 05/11/21 08:47 Labs: Laboratory Results - last 24 hr 05/11/21 05/11/21 05:52 08:47 WBC 10.9 H RBC 3.30 L Hgb 9.5 L Hct 28.6 L MCV 86.7 MCH 28.8 MCHC 33.2 RDW 19.6 H Plt Count 362 MPV 10.2 Immature Gran % (Auto) 1.3 H Neut % (Auto) 82.5 H Lymph % (Auto) 9.5 L Brewster % (Auto) 6.3 Eos % (Auto) 0.2 Baso % (Auto) 0.2 Lymph # (Auto) 1.0 L Brewster # (Auto) 0.7 Eos # (Auto) 0.0 Baso # (Auto) 0.0 Abs Immat Gran (auto) 0.14 H Absolute Neuts (auto) 9.0 H Absolute Nucleated RBC 0.030 H Nucleated RBC % (auto) 0.3 H Sodium 149 H Potassium 2.7 L Chloride 110 H Carbon Dioxide 27 Anion Gap 15 BUN 45 H Creatinine 0.86 Estim Creat Clear Calc 37.4 Estimated GFR > 60 Random Glucose 101 Calcium 10.1 Microbiology Microbiology Results: Microbiology 05/09/21 14:45 Blood Culture - Preliminary Blood - Venous Gram negative jairo 05/09/21 16:11 Urine Culture - Final Urine Catheterized - Arias Catheter Escherichia coli 05/09/21 17:20 Blood Culture - Preliminary Blood - Venous No growth after 24 hours. Quality Stroke Does the patient have a stroke diagnosis?: No VTE Prior VTE?: No VTE Risk Level:: Medical - moderate - high VTE Device Contraindication: N/A - Device Ordered VTE Drug Contraindication: Treatment Not Indicated Assessment and Plan (1) GI (gastrointestinal bleed): Status: Acute (2) EVA (acute kidney injury): Status: Acute (3) Acute blood loss anemia: Status: Acute (4) Acute metabolic encephalopathy: Status: Acute (5) Dementia: Status: Acute (6) Pressure injury of left hip, unstageable: Status: Acute Assessment and Plan: 80-year-old female patient with underlying history of dementia, history of recent DVT in February of 2021, history of chronic indwelling Arias catheter on Eliquis, presented to [facility] due to worsening weakness, decreased p.o. intake, not acting herself as per family. In the emergency room, the patient has been noted to be in acute renal failure with acute on chronic blood loss anemia, acute encephalopathy, and possible pneumonia. 1. Acute on chronic kidney disease stage III, most likely pre renal related to poor p.o. intake with continued use of Lasix and ISIDRO inhibitors. BUN trending down and creatinine Normalized , persistent elevated BUN likely due to GI bleed will continue to hold diuretics and Isidro inhibitors, Arias catheter with clear urine , s/p IV fluid. 2. Hypokalemia likley due to iv fluids/diuretics will replace and for mild hypernatremia push po fluids 2. Acute on chronic anemia due to acute blood loss. No active GI bleed noted, questions slow transit from gastritis home while being on Eliquis Eliquis discontinue since patient was scheduled to receive Eliquis for 3 months starting February, so she was supposed to end on May 15. status post 1 unit of packed RBC hematocrit improved continue Prilosec hold GI consultation since underwent colonoscopy in October of 2016, for screening history of adenomatous colon polyps diverticular disease, but no colitis, less likely to have GI malignancy with serial Normal colonoscopies and with no active bleeding. follow CBC and clinical course. 3. Acute encephalopathy. Likely due to dehydration, anemia, UTI and pneumonia, more awake alert seems to be at baseline continue above treatment. 4. Sepsis due to pneumonia/ UTI less likely from decub ulcer continue IV ceftriaxone day 3, blood cultures / urine culture,growing GM neg rods await ID input elevated procalcitonin, follow procalcitonin level, WBC trending down, no fever. 4. History of dementia with no behavioral issues. 5. History of autoimmune hepatitis. Continue azathioprine. 6. Deep vein thrombosis prophylaxis. compression boots due to GI bleed and anemia. 7. Code status. DNR/DNI as per family.
--- NOTE | 2021-05-11 13:25 | MHC.CLN ---
NUTRITION FOLLOW UP DIET CONSISTENCY CHANGED TO NDD2 PER MD ORDER. CONTINUE ENSURE AND KAREEN SUPPLEMENTS TO PROMOTE WOUND HEALING.
[2021-05-11] MEDS: Potassium Chloride Packet 20 MEQ PACKET 40 MEQ PO (13:38)
[2021-05-11] MEDS: Potassium Chloride/H20 10 MEQ/100 ML PIGGYBACK 100 MEQ IV ×2 (13:39→15:18)
[2021-05-11] MEDS: Acetaminophen 325 MG TABLET 650 MG PO (13:42)
--- NOTE | 2021-05-11 15:30 | MHC.CM.PN ---
NURSE CAMP GUARD NOTE ELECTRONIC MEDICAL RECORD REVIEWED ALONG WITH CASE DICUSSED WITH STAFF NURSE AND ON MULTIPLE DISCIPLINARY ROUNDS PER DOCUMENTATION PATIENT ADMITTING DIAGNOSIS( DEMENTIA RECENT DVT IN FEBRUARY 2021 HAS INDWELLING CABALLERO CATHETER ON EIQUIS WORSENING WEAKNESS DECREASED ORAL INTAKE ,ALTERED MENTAL STATUS PER FAMILY ALSO NEW ACUTE RENAL FAILURE WITH ANEMIA, ACUTE ENCEPHALOPHY) PER HOSPITALSIT PLAN TO MONITOR ALL LABS AND RESPONSE TO MEDICATIONS ,CURRENTLY HOLDING DIURETICS AND NOLAN INHIBITORS IV FLUIDS D/C REPLACING SUPPLEMENTS FOR LOW CALCIUM AND ENCOURAGING GREATER ORAL FL;UID INTAKE SECONDARY TO ELEVATED SODIUM ELIQUIS STOPPED PATIENT WAS ONLY TO BE ON IT FOR 3 MONTHS AND WAS SUPPOSE TO STOP ION 05/15/21 DECUBITUS ULCER ON IV ANTIBIOTICS) BIANKA E MANAGEE TO CNTINUE TO FOLLOW DISCHARGE PLAN LIVES ALONE ACTIVE WITH [facility] FOR NRUSING AND WILL MOST LIKEY NEED TO ADD HOME PHYSICAL THEAPRY HCPIN CHART PCP DR MOON Díaz;[facility] )
--- NOTE | 2021-05-11 15:46 | W.PM.IDCN ---
History of Present Illness Data of Consult Service Date: 05/11/21 Requesting physician: Maritza Ramirez Primary Care Provider: Adam Garcia MD HPI Reason for consult: bacteremia She presents with anorexia and fatigue over last several days No one else is ill She has chronic Arias Urine and blood culture E coli Review of Systems Review of Systems: Yes Unobtainable due to mental status PMFSH Past Medical History Medical History Age related osteoporosis Autoimmune hepatitis Bilateral hydronephrosis Cognitive decline COPD (chronic obstructive pulmonary disease) Dementia Dementia HTN (hypertension) Hypothyroidism Urinary retention Weakness Family History Family History Mother No problems noted. Family history: reviewed and not pertinent Surgical History Surgical History H/O: hysterectomy S/P cholecystectomy Social History Social History (Updated 04/13/21 @ 08:56 by Bonita Villeda [place]) Household Members: Children Household Members Other:: daughter Housing: Unknown / Unable to assess Unable to assess alcohol history related to: Unknown Alcohol intake: never Patient Tobacco Use Status: Former Tobacco user Tobacco use type: Cigarette Second Hand Smoke Exposure: No Use of substances other than those prescribed or required for medical reasons: No Currently Displaying Signs/Symptoms of Drug Intoxication Withdrawal: No Advance Directives: No Advance Directives Information Provided: Yes Do you have thoughts of harming others: None Do you have a plan to hurt others: No Plan Recently lost weight without trying: Unsure Nutrition Risks: Anorexia and Poor intake 0-25% >4 days service: No Current occupational status: retired Meds Allergies Allergy/AdvReac Type Severity Reaction Status Date / Time Penicillins Allergy hives Verified 04/13/21 08:54 Active Medications: Current Medications Generic Name Dose Route Start Last Admin Trade Name Freq PRN Reason Stop Dose Admin Acetaminophen 650 mg 05/09/21 17:29 05/11/21 13:42 Acetaminophen 325 Mg Tablet PO 650 mg Q6H PRN Administration Pain, Mild (Pain Scale 1-3) Doxazosin Mesylate 1 mg 05/09/21 21:00 05/10/21 21:33 Doxazosin Mesylate 1 Mg Tablet PO Not Given BEDTIME [facility] Protocol Ferrous Sulfate 324 mg 05/09/21 21:00 05/11/21 08:36 Ferrous Sulfate 324 Mg Tablet. PO 324 mg BID [facility] Administration Ceftriaxone Sodium 1 gm/ 50 mls @ 100 mls/hr 05/10/21 06:00 05/11/21 06:41 Sodium Chloride IV Infused Q24H [facility] Infusion Omeprazole 20 mg 05/10/21 06:30 05/11/21 06:01 Omeprazole 20 Mg Capsule. PO Not Given DAILY@0630 [facility] Ondansetron HCl 4 mg 05/09/21 20:46 Ondansetron Hcl 4 Mg/2 Ml Vial IVPUSH Q8H PRN Nausea and Vomiting Pharmacy Consult 1 each 05/09/21 14:26 Consult Rx Perform Med Rec MISCELLANE ONCE PRN Consult order Polyethylene Glycol 17 gm 05/09/21 20:46 Polyethylene Glycol 3350 17 Gm Powd.Pack PO DAILY PRN Constipation Sodium Chloride 3 ml 05/10/21 00:00 05/11/21 15:18 0.9 % Sodium Chloride Flush 3 Ml Syringe IVFLUSH 3 ml QSHIFT [facility] Administration Home Medications Medication Instructions Recorded Confirmed Last Taken Type azathioprine 25 mg PO BID 02/13/21 05/09/21 Unknown History acetaminophen 650 mg PO Q4H PRN 05/09/21 05/09/21 Unknown History alendronate 1 tab PO GRANT 05/09/21 05/09/21 05/06/21 History doxazosin 1 mg PO BEDTIME 05/09/21 05/09/21 Unknown History multivitamin 1 tab PO DAILY 05/09/21 05/09/21 05/09/21 History polyethylene glycol 3350 [Gavilax] 17 g PO DAILY PRN 05/09/21 05/09/21 Unknown History senna 8.6 mg PO BEDTIME PRN 05/09/21 05/09/21 05/09/21 History Physical Exam Vital Signs: Vital Signs: Last Vital Signs Temp 98.7 F 05/11/21 15:10 Pulse 91 05/11/21 15:10 Resp 16 05/11/21 15:10 BP 126/56 L 05/11/21 15:10 Pulse Ox 98 05/11/21 15:10 Body Mass Index 23.2 Const: General: cooperative Eyes: General: appearance normal, both eyes and all related structures Resp: Effort & Inspection: normal respiratory effort Cardio: Rate: regular rate Rhythm: regular rhythm GI: Palpation (GI): Soft to palpation and nontender Neuro: General: moves all extremities Results Labs CBC & Chem 7: 05/11/21 05:52 05/11/21 08:47 Labs: Short CBC 05/11/21 Range/Units 05:52 WBC 10.9 H (4.8-10.8) X10*3/uL Hgb 9.5 L (12.0-16.0) g/dl Hct 28.6 L (37-47) % Plt Count 362 (160-400) X10*3/uL BMP 05/11/21 08:47 Sodium 149 H Potassium 2.7 L Chloride 110 H Carbon Dioxide 27 BUN 45 H Creatinine 0.86 Calcium 10.1 Microbiology Microbiology Results: Microbiology 05/09/21 14:45 Blood - Venous Blood Culture - Preliminary Gram negative jairo 05/09/21 16:11 Urine Catheterized - Arias Catheter Urine Culture - Final Escherichia coli 05/09/21 17:20 Blood - Venous Blood Culture - Preliminary No growth after 24 hours. Assessment and Plan (1) Sepsis: Status: Acute Bacteremia with E coli She has chronic Arias ?bladder retention Suggest Ceftriaxone May switch to po when improved total 14 days Would consider renal u/s Urology evaluation
[2021-05-11] MEDS: Doxazosin Mesylate 1 MG TABLET PO (20:55)
[2021-05-12] VITALS (7 sets, daily range): BP systolic 145–163; BP diastolic 63–79; PULSE 81–132; RESP 13–18; TEMP 35.6–36.6; O2SAT 96–100
[2021-05-12] MEDS: cefTRIAXone sodium 1 GM in 0.9 % Sodium Chloride 50 ML IV (06:06)
[2021-05-12 07:31] LABS: Anion Gap 16 (12-20); Blood Urea Nitrogen 32 mg/dL (9-16); Calcium 10.5 mg/dL (8.4-10.2); Carbon Dioxide 26 mmol/L (22-29); Chloride 113 mmol/L (96-108); Creatinine Clr Calc Pharmacy 44.1; Estimated Glomerular Filt Rate > 60; Glucose Random 110 mg/dL (60-115); Sodium 151 mmol/L (135-145)
[2021-05-12] MEDS: Ferrous Sulfate 324 MG TABLET.DR PO ×2 (08:47→21:24)
[2021-05-12] MEDS: Dextrose 5 % 1,000 ML 75 ML IVCONT ×2 (08:51→21:11)
--- NOTE | 2021-05-12 09:58 | HO.PM.IMPN ---
Subjective Subjective Date of Service: 05/12/21 Interval History: Patient awake, alert, not eating much, sodium is up to 151 ROS Unobtainable due to dementia. Physical Exam Vital Signs: Vital Signs: Last Vital Signs Temp 96.7 F L 05/12/21 07:51 Pulse 108 H 05/12/21 07:51 Resp 18 05/12/21 07:51 BP 155/66 H 05/12/21 07:51 Pulse Ox 96 05/12/21 07:51 Body Mass Index 23.2 Objective Data Current Medications Generic Name Dose Route Start Last Admin Trade Name Thienq PRN Reason Stop Dose Admin Acetaminophen 650 mg 05/09/21 17:29 05/11/21 13:42 Acetaminophen 325 Mg Tablet PO 650 mg Q6H PRN Administration Pain, Mild (Pain Scale 1-3) Doxazosin Mesylate 1 mg 05/09/21 21:00 05/11/21 20:55 Doxazosin Mesylate 1 Mg Tablet PO 1 mg BEDTIME [facility] Administration Protocol Ferrous Sulfate 324 mg 05/09/21 21:00 05/12/21 08:47 Ferrous Sulfate 324 Mg Tablet. PO 324 mg BID [facility] Administration Ceftriaxone Sodium 1 gm/ 50 mls @ 100 mls/hr 05/10/21 06:00 05/12/21 06:51 Sodium Chloride IV Infused Q24H [facility] Infusion Dextrose 1,000 mls @ 75 mls/hr 05/12/21 07:45 05/12/21 08:51 D5w IVCONT 75 mls/hr .[id number] [facility] Administration Omeprazole 20 mg 05/10/21 06:30 05/12/21 06:50 Omeprazole 20 Mg Capsule. PO Not Given DAILY@0630 [facility] Ondansetron HCl 4 mg 05/09/21 20:46 Ondansetron Hcl 4 Mg/2 Ml Vial IVPUSH Q8H PRN Nausea and Vomiting Pharmacy Consult 1 each 05/09/21 14:26 Consult Rx Perform Med Rec MISCELLANE ONCE PRN Consult order Polyethylene Glycol 17 gm 05/09/21 20:46 Polyethylene Glycol 3350 17 Gm Powd.Pack PO DAILY PRN Constipation Sodium Chloride 3 ml 05/10/21 00:00 05/12/21 08:47 0.9 % Sodium Chloride Flush 3 Ml Syringe IVFLUSH Not Given QSHIFT [facility] Labs CBC & Chem 7: 05/11/21 05:52 05/12/21 06:05 Labs: Laboratory Results - last 24 hr 05/12/21 06:05 Sodium 151 H Potassium 4.0 D Chloride 113 H Carbon Dioxide 26 Anion Gap 16 BUN 32 H Creatinine 0.73 Estim Creat Clear Calc 44.1 Estimated GFR > 60 Random Glucose 110 Calcium 10.5 H Microbiology Microbiology Results: Microbiology 05/09/21 17:20 Blood Culture - Preliminary Blood - Venous No growth after 48 hours. 05/09/21 14:45 Blood Culture - Final Blood - Venous Escherichia coli 05/09/21 16:11 Urine Culture - Final Urine Catheterized - Arias Catheter Escherichia coli Quality Stroke Does the patient have a stroke diagnosis?: No VTE Prior VTE?: No VTE Risk Level:: Medical - moderate - high VTE Device Contraindication: N/A - Device Ordered VTE Drug Contraindication: Treatment Not Indicated Assessment and Plan (1) GI (gastrointestinal bleed): Status: Acute (2) EVA (acute kidney injury): Status: Acute (3) Acute blood loss anemia: Status: Acute (4) Acute metabolic encephalopathy: Status: Acute (5) Dementia: Status: Acute (6) Pressure injury of left hip, unstageable: Status: Acute Assessment and Plan: 80-year-old female patient with underlying history of dementia, history of recent DVT in February of 2021, history of chronic indwelling Arias catheter on Eliquis, presented to [facility] due to worsening weakness, decreased p.o. intake, not acting herself as per family. In the emergency room, the patient has been noted to be in acute renal failure with acute on chronic blood loss anemia, acute encephalopathy, and possible pneumonia. 1. Acute on chronic kidney disease stage III--resolved 2. Hypokalemia --likley from insuficient intake, now replaced and corrected, K is 4 2. Acute on chronic anemia due to acute blood loss. No active GI bleed noted, questions slow transit from gastritis home while being on Eliquis Eliquis discontinue since patient was scheduled to receive Eliquis for 3 months starting February, so she was supposed to end on May 15. status post 1 unit of packed RBC hematocrit improved continue Prilosec hold GI consultation since underwent colonoscopy in October of 2016, for screening history of adenomatous colon polyps diverticular disease, but no colitis, less likely to have GI malignancy with serial Normal colonoscopies and with no active bleeding. follow CBC and clinical course. 3. Acute encephalopathy. Likely due to dehydration, anemia, UTI and pneumonia, and hyernatremia, more awake alert seems to be at baseline continue above treatment. 4. Sepsis due to pneumonia/ UTI less likely from decub ulcer continue IV ceftriaxone day 4, blood cultures / urine culture,growing E. colit, ID recommend 14 days, Ceftin at discharge. Renal US 5. HypERnatremia d/t dehydration, poor water intake--start D5 and repeat later. 5. History of dementia with no behavioral issues. 6. History of autoimmune hepatitis. Continue azathioprine. 6. Deep vein thrombosis prophylaxis. compression boots due to GI bleed and anemia. 8. moderate protein calorie malnutrition-- add Ensure 7. Code status. DNR/DNI as per family.
[2021-05-12] MEDS: Doxazosin Mesylate 1 MG TABLET PO (21:24)
[2021-05-13 03:21] VITALS: BP 143/62; PULSE 96; RESP 18; TEMP 36.4; O2SAT 100
[2021-05-13] MEDS: cefTRIAXone sodium 1 GM in 0.9 % Sodium Chloride 50 ML IV (05:41)
[2021-05-13] MEDS: Omeprazole 20 MG CAPSULE.DR PO (06:06)
[2021-05-13 08:00] VITALS: BP 133/54; PULSE 80; RESP 18; TEMP 36; O2SAT 98
[2021-05-13] MEDS: Ferrous Sulfate 324 MG TABLET.DR PO ×2 (08:40→20:43)
[2021-05-13 08:41] LABS: Anion Gap 12 (12-20); Blood Urea Nitrogen 20 mg/dL (9-16); Calcium 9.7 mg/dL (8.4-10.2); Carbon Dioxide 28 mmol/L (22-29); Chloride 110 mmol/L (96-108); Creatinine Clr Calc Pharmacy 48.8; Estimated Glomerular Filt Rate > 60; Glucose Random 111 mg/dL (60-115); Potassium 3.5 mmol/L (3.3-5.1); Sodium 146 mmol/L (135-145)
--- NOTE | 2021-05-13 09:08 | HO.PM.IMPN ---
Subjective Subjective Date of Service: 05/14/21 Interval History: Patient awake, alert, not eating much, sodium is down to 146, looks frail ROS : unalbe as not communicating much. Physical Exam Vital Signs: Vital Signs: Last Vital Signs Temp 96.8 F 05/13/21 08:00 Pulse 80 05/13/21 08:00 Resp 18 05/13/21 08:00 BP 133/54 L 05/13/21 08:00 Pulse Ox 98 05/13/21 08:00 Body Mass Index 23.2 Const: Other: Gen: no acute distress, malnourished Sclera anicteric, moist mucus membranes Neck: supple,no jvd Lungs: clear to auscultation bilaterally Heart: regular rate and rhythm, no murmurs Abd: soft, non-tender, non-distended Ext: no edema Skin: multiple wounds, right heel stage III ulcer, stage III coccyx wound with slough, stage II pressure ulcer to right buttock, stage IV at left hip. Psych: impaired insight Objective Data Current Medications Generic Name Dose Route Start Last Admin Trade Name Freq PRN Reason Stop Dose Admin Acetaminophen 650 mg 05/09/21 17:29 05/11/21 13:42 Acetaminophen 325 Mg Tablet PO 650 mg Q6H PRN Administration Pain, Mild (Pain Scale 1-3) Doxazosin Mesylate 1 mg 05/09/21 21:00 05/12/21 21:24 Doxazosin Mesylate 1 Mg Tablet PO 1 mg BEDTIME [facility] Administration Protocol Ferrous Sulfate 324 mg 05/09/21 21:00 05/13/21 08:40 Ferrous Sulfate 324 Mg Tablet. PO 324 mg BID [facility] Administration Ceftriaxone Sodium 1 gm/ 50 mls @ 100 mls/hr 05/10/21 06:00 05/13/21 06:20 Sodium Chloride IV Infused Q24H [facility] Infusion Dextrose 1,000 mls @ 75 mls/hr 05/12/21 07:45 05/13/21 06:20 D5w IVCONT 75 mls/hr .[id number] [facility] Infusion Omeprazole 20 mg 05/10/21 06:30 05/13/21 06:06 Omeprazole 20 Mg Capsule. PO 20 mg DAILY@0630 [facility] Administration Ondansetron HCl 4 mg 05/09/21 20:46 Ondansetron Hcl 4 Mg/2 Ml Vial IVPUSH Q8H PRN Nausea and Vomiting Pharmacy Consult 1 each 05/09/21 14:26 Consult Rx Perform Med Rec MISCELLANE ONCE PRN Consult order Polyethylene Glycol 17 gm 05/09/21 20:46 Polyethylene Glycol 3350 17 Gm Powd.Pack PO DAILY PRN Constipation Sodium Chloride 3 ml 05/10/21 00:00 05/13/21 08:41 0.9 % Sodium Chloride Flush 3 Ml Syringe IVFLUSH Not Given QSHIFT [facility] Labs CBC & Chem 7: 05/11/21 05:52 05/14/21 06:12 Labs: Laboratory Results - last 24 hr 05/13/21 07:49 Sodium 146 H Potassium 3.5 Chloride 110 H Carbon Dioxide 28 Anion Gap 12 BUN 20 H Creatinine 0.66 Estim Creat Clear Calc 48.8 Estimated GFR > 60 Random Glucose 111 Calcium 9.7 D Microbiology Microbiology Results: Microbiology 05/09/21 17:20 Blood Culture - Preliminary Blood - Venous No growth after 48 hours. 05/09/21 14:45 Blood Culture - Final Blood - Venous Escherichia coli Quality Stroke Does the patient have a stroke diagnosis?: No VTE Prior VTE?: No VTE Risk Level:: Medical - moderate - high VTE Device Contraindication: N/A - Device Ordered VTE Drug Contraindication: Treatment Not Indicated Assessment and Plan (1) GI (gastrointestinal bleed): Status: Acute (2) EVA (acute kidney injury): Status: Acute (3) Acute blood loss anemia: Status: Acute (4) Acute metabolic encephalopathy: Status: Acute (5) Dementia: Status: Acute (6) Pressure injury of left hip, unstageable: Status: Acute Assessment and Plan: 80-year-old female patient with underlying history of dementia, history of recent DVT in February of 2021, history of chronic indwelling Arias catheter on [facility], presented to [facility] due to worsening weakness, decreased p.o. intake, not acting herself as per family. In the emergency room, the patient has been noted to be in acute renal failure with acute on chronic blood loss anemia, acute encephalopathy, and possible pneumonia. 1. Acute on chronic kidney disease stage III--resolved 2. Hypokalemia --likley from insuficient intake, now replaced and corrected, K is 3.5 2. Acute on chronic anemia due to acute blood loss. No active GI bleed noted, questions slow transit from gastritis home while being on Eliquis Eliquis discontinue since patient was scheduled to receive Eliquis for 3 months starting February, so she was supposed to end on May 15. status post 1 unit of packed RBC hematocrit improved continue Prilosec hold GI consultation since underwent colonoscopy in October of 2016, for screening history of adenomatous colon polyps diverticular disease, but no colitis, less likely to have GI malignancy with serial Normal colonoscopies and with no active bleeding. follow CBC and clinical course. 3. Acute encephalopathy. Likely due to dehydration, anemia, UTI and pneumonia, and hyernatremia, more awake alert seems to be at baseline continue above treatment. 4. Sepsis due to pneumonia/ UTI less likely from decub ulcer continue IV ceftriaxone day 4, blood cultures / urine culture,growing E. colit, ID recommend 14 days, Ceftin at discharge. Renal US 5. HypERnatremia d/t dehydration, poor water intake--Better today, 146. Continue D5, encourage oral water 5. History of dementia with no behavioral issues. 6. History of autoimmune hepatitis. Continue azathioprine. 6. Deep vein thrombosis prophylaxis. compression boots due to GI bleed and anemia. 8. moderate protein calorie malnutrition-- add Ensure PTeval tomorrow 7. Code status. DNR/DNI as per family.
[2021-05-13] MEDS: Dextrose 5 % 1,000 ML 75 ML IVCONT ×2 (10:24→22:52)
[2021-05-13 11:48] VITALS: BP 147/58; PULSE 88; RESP 18; TEMP 36; O2SAT 99
[2021-05-13 15:28] VITALS: BP 160/72; PULSE 83; RESP 15; TEMP 36.8; O2SAT 98
[2021-05-13 19:01] VITALS: BP 159/67; PULSE 81; RESP 16; TEMP 36.1; O2SAT 100
[2021-05-13 20:43] VITALS: BP 150/67; PULSE 81
[2021-05-13] MEDS: Doxazosin Mesylate 1 MG TABLET PO (20:43)
[2021-05-14] VITALS: BP 148/68; PULSE 70; RESP 15; TEMP 36.6; O2SAT 98
[2021-05-14 03:43] VITALS: BP 149/65; PULSE 77; TEMP 36.6; O2SAT 97
[2021-05-14] MEDS: cefTRIAXone sodium 1 GM in 0.9 % Sodium Chloride 50 ML IV (05:39)
[2021-05-14 07:11] LABS: Anion Gap 11 (12-20); Blood Urea Nitrogen 17 mg/dL (9-16); Calcium 9.1 mg/dL (8.4-10.2); Carbon Dioxide 24 mmol/L (22-29); Chloride 107 mmol/L (96-108); Creatinine Clr Calc Pharmacy 53.6; Estimated Glomerular Filt Rate > 60; Glucose Random 96 mg/dL (60-115); Potassium 3.3 mmol/L (3.3-5.1); Sodium 139 mmol/L (135-145)
[2021-05-14 07:32] VITALS: BP 140/58; PULSE 107; RESP 18; TEMP 36.1; O2SAT 100
[2021-05-14] MEDS: Ferrous Sulfate 324 MG TABLET.DR PO (08:34)
[2021-05-14 09:18] VITALS: BP 140/58; PULSE 107; O2SAT 100
--- NOTE | 2021-05-14 10:55 | MHC.CM.PN ---
DAUGHTER MARCO ([phone]) WILL BE ABLE TO BE AT HOME FOR 1500 TODAY. [facility] TO TRANSPORT HOME. KATHIE DUNCAN MADE AWARE OF TODAY'S RETURN TO HOME AND NEED FOR RESUMPTION OF SERVICES. RN AWARE OF PLAN. IMM 05/13 IN CHART.
[2021-05-14 11:50] VITALS: BP 135/51; PULSE 79; RESP 18; TEMP 36.1; O2SAT 100
--- NOTE | 2021-05-14 13:47 | PM.DS ---
DS: Providers Provider Date of Service: 05/14/21 Date of admission: 05/09/21 20:38 Primary care physician: Adam Garcia MD Consults: 05/11/21 07:51 Consult to Infectious Diseases Routine Consulting Provider: Ronel Olivares Reason for consultation: bacteremia Has provider been notified: No DS: Diagnosis Discharge Diagnosis (1) GI (gastrointestinal bleed): Status: Acute (2) EVA (acute kidney injury): Status: Acute (3) Acute blood loss anemia: Status: Acute (4) Acute metabolic encephalopathy: Status: Acute (5) Dementia: Status: Acute (6) Pressure injury of left hip, unstageable: Status: Acute DS: Medications Discharge Medications Home Medications: Home Medications Medication Instructions Recorded Confirmed azathioprine 25 mg PO BID 02/13/21 05/09/21 acetaminophen 650 mg PO Q4H PRN 05/09/21 05/09/21 alendronate 1 tab PO GRANT 05/09/21 05/09/21 doxazosin 1 mg PO BEDTIME 05/09/21 05/09/21 multivitamin 1 tab PO DAILY 05/09/21 05/09/21 polyethylene glycol 3350 [Gavilax] 17 g PO DAILY PRN 05/09/21 05/09/21 senna 8.6 mg PO BEDTIME PRN 05/09/21 05/09/21 Previous Rx's Medication Instructions Recorded ferrous sulfate 325 mg (65 mg 325 mg PO DAILY #90 tab 02/22/21 iron) tablet furosemide 40 mg tablet 40 mg PO DAILY #90 tab 02/22/21 lisinopril 20 mg tablet 20 mg PO DAILY #90 tab 02/22/21 apixaban 5 mg tablet 5 mg PO BID 80 Days #160 tab 04/13/21 DS: Summary Hospital Course Hospital Course: This is an 80-year-old female patient, who was recently discharged from [facility] on April 04, 2021 after being admitted for hypotension, acute kidney injury, her hospital stay was complicated with episode of hypoglycemia. During the hospitalization, the patient was also noted to have significant anemia with fecal occult blood test was positive. The patient was evaluated by Gastroenterology, but since she had a recent normal colonoscopy and her hematocrit improved with blood transfusion, no further intervention was done. The patient's Eliquis was held for few days and then was restarted once her hematocrit improved. The patient was brought into [facility] on this occasion due to increasing weakness and lethargy as noted by patient's family. The patient is unable to provide any meaningful history with underlying history of dementia. The patient is only oriented to herself. As per family, the patient has decreased p.o. intake in last few days. There has been no fever or chills noted. She did not have any bout of nausea, vomiting, or diarrhea. She has been tolerating all her medications. She was not noted to have shortness of breath, any limb weakness. In the emergency room, the patient underwent extensive workup that showed that she has an acute kidney injury with creatinine of 2.1. Last month, her creatinine was 0.64. BUN is disproportionately elevated at 114. Blood sugars are stable. AST is 46 with a troponin of 31. BNP 152. Her hematocrit has significantly dropped from 34.4 on April 03 to 23.9, hemoglobin is 8, WBC count is 12.9 with a normal platelet count of 369. There is no left shift noted. Her INR is elevated at 1.7. D-dimer is 352. A CAT scan of the head showed no acute abnormality. Chest x-ray showed a possibility of left-sided pneumonia. The left perihilar and lower lobe airspace disease was present in March of 2021; however, it has increased due to significant drop in hematocrit. The patient in the ER is receiving 1 units of packed RBC with concern for hospital-acquired pneumonia. The patient was given vancomycin and IV cefepime. The patient is now being admitted to [facility] with acute blood loss anemia, acute on chronic kidney injury, acute encephalopathy, and possible pneumonia. PAST MEDICAL HISTORY: Significant for: 1. Recent hospitalization from 03/27 through 04/04. During that hospitalization, the patient was diagnosed to have acute blood loss anemia, treated with 2 units of blood transfusion with stabilization of hematocrit. Hypotension and hypoglycemia. 2. She has a history of baseline dementia. 3. Recently diagnosed DVT on February 13, 2021. 4. History of autoimmune hepatitis. 5. History of bilateral hydronephrosis. 6. History of COPD. 7. History of hypertension. 8. Hypothyroidism. 9. History of chronic urinary retention, on indwelling Arias Hospital course: 80-year-old female patient with underlying history of dementia, history of recent DVT in February of 2021, history of chronic indwelling Arias catheter on Eliquis, presented to [facility] due to worsening weakness, decreased p.o. intake, not acting herself as per family. In the emergency room, the patient has been noted to be in acute renal failure with acute on chronic blood loss anemia, acute encephalopathy, and possible pneumonia. 1. Acute on chronic kidney disease stage III- this was due to pre renal azotemia and treated with IVF and this has resolved. Creatinine presently is is 0.6. 2. Hypokalemia --likley from insuficient intake, now replaced and corrected, K is 3.3 2. Acute on chronic anemia due to acute blood loss. No active GI bleed noted, questions slow transit from gastritis home while being on Eliquis. Eliquis discontinue since patient was scheduled to receive Eliquis for 3 months starting February, so she was supposed to end on May 15. status post 1 unit of packed RBC hematocrit improved continue Prilosec hold GI consultation since underwent colonoscopy in October of 2016, for screening history of adenomatous colon polyps diverticular disease, but no colitis, less likely to have GI malignancy with serial Normal colonoscopies and with no active bleeding. follow CBC and clinical course. 3. Acute encephalopathy. Likely due to dehydration, anemia, UTI and pneumonia, and hyernatremia, more awake alert seems to be at baseline after addressing the mentioned issues 4. Sepsis due to pneumonia/ UTI less likely from decub ulcer continue IV ceftriaxone day 5, blood cultures / urine culture,growing E. colit, ID recommend 14 days, Ceftin at discharge. Renal US showed no abscess or obstruction, she has been seen by URology in the past and can see Dr. Paul on outpatient basis 5. HypERnatremia d/t dehydration, poor water intake, treated with IVF and encouragement for oral water, sodium level has gone from 151 to no2 139 which is normal. 6. History of dementia with no behavioral issues. 7. History of autoimmune hepatitis. Continue azathioprine. 6. Deep vein thrombosis prophylaxis. compression boots due to GI bleed and anemia. 8. moderate protein calorie malnutrition-- given ensure and this can continue on outpatient basis 9. Pressure ulcers of Hip, Coccyx and heel--all present on admission, treated with frequent turning, and other wound teatment by nursing 10. HTN--Lisinopril and Lasix because, dehydration and renal failure. BP is within normal without these meds, and their use should be reconsider on outpatient PT/OT saw and family wants to take her home, they understand she needs full care. Time Spent with Patient Time attestation: Total time spent providing and/or coordinating discharge services: Discharge coordination time: Greater than 30 minutes Quality: Stroke Does the patient have a stroke diagnosis?: No Physical Exam Vital Signs: Vital Signs: Last Vital Signs Temp 96.9 F 05/14/21 11:50 Pulse 79 05/14/21 11:50 Resp 18 05/14/21 11:50 BP 135/51 L 05/14/21 11:50 Pulse Ox 100 05/14/21 11:50 Body Mass Index 23.2 Const: Other: Gen: no acute distress, malnourished Sclera anicteric, moist mucus membranes Neck: supple,no jvd Lungs: clear to auscultation bilaterally Heart: regular rate and rhythm, no murmurs Abd: soft, non-tender, non-distended Ext: no edema Skin: multiple wounds, right heel stage III ulcer, stage 3 t coccyx wound with slough, stage II pressure ulcer to right buttock, stage IV at left hip. Psych: impaired insight DS: Data Data Completed and Pending Completed studies during hospitalization [Text1]: Procedures Transfusion of Nonautologous Red Blood Cells into Peripheral Vein, Percutaneous Approach (03/27/21) Labs on day of discharge: Laboratory Results - last 24 hr 05/14/21 06:12 Sodium 139 Potassium 3.3 Chloride 107 Carbon Dioxide 24 Anion Gap 11 L BUN 17 H Creatinine 0.60 Estim Creat Clear Calc 53.6 Estimated GFR > 60 Random Glucose 96 Calcium 9.1 D Preliminary micro results at discharge 05/09/21 17:20 Blood Culture - Preliminary Blood - Venous No growth after 48 hours. Discharge Plan Discharge Anticipated Discharge Date/Time: 05/14/21 14:11 Patient Disposition: Home Health Service Discharge Diagnosis: Sepsis, UTI, metabolic encephalopathy, Hypernatremia Referrals: Adam Garcia MD [Primary Care Provider] - 1 Week Discharge Medications: New cefuroxime axetil 250 mg tablet 250 mg PO BID 10 Days Qty: 20 RF: 0 Continued ferrous sulfate 325 mg (65 mg iron) tablet 325 mg PO DAILY Qty: 90 RF: 1 azathioprine 50 mg Tablet 25 mg PO BID RF: 0 doxazosin 1 mg tablet 1 mg PO BEDTIME RF: 0 multivitamin Tablet 1 tab PO DAILY RF: 0 acetaminophen 325 mg Tablet 650 mg PO Q4H PRN (Reason: Pain) RF: 0 alendronate 70 mg tablet 1 tab PO GRANT RF: 0 polyethylene glycol 3350 [Gavilax] 17 gram/dose powder 17 g PO DAILY PRN (Reason: Constipation) RF: 0 senna 8.6 mg capsule 8.6 mg PO BEDTIME PRN (Reason: Constipation) RF: 0 Discontinued furosemide 40 mg tablet 40 mg PO DAILY Qty: 90 RF: 1 lisinopril 20 mg tablet 20 mg PO DAILY Qty: 90 RF: 1 Eliquis 5 mg tablet 5 mg PO BID 80 Days Qty: 160 RF: 0 Discharge Orders: Discharge Order (Routine); Ordered 05/14/21 Ordered By: Ashwin Aguilera Diet: advance to usual diet Activity on Discharge: As tolerated Stand Alone Forms: Patient Portal Discharge page Care Plan Goals: prevent rehospitalization and recurrent UTI Health Concerns: recurrent UTI, dementia, pressure ulcers, Plan of Treatment: Take Cefuroxime as directed, follow up wit your doctor in a week, follow up with Dr. Paul Urologist Stop taking lasix due dehydration and incraseing sodium level Stop taking Lisinopril due renal failure and blood pressure being within normal Stop taking Eliquis due to anemia, GI bleeding and done with treatment for DVT Do frequent turning to avoid pressure ulcers getting worse. Assessment: see above.
== END 2021-05-14 15:00 | disposition home health service (06) | DRG 689 ==
LOC: HO.ED 16:35 → HO.EDOVER 20:46 → HO.S3 20:46
PROVIDERS: Physician Assistant; Admitting Provider Hospitalist; Emergency Provider Emergency Medicine; PCP Internal Medicine; Visit Provider Internal Medicine
DX: N39.0 Urinary tract infection, site not specified (principal); L89.613 Pressure ulcer of right heel, stage 3; G93.41 Metabolic encephalopathy; J18.9 Pneumonia, unspecified organism; L89.153 Pressure ulcer of sacral region, stage 3; L89.224 Pressure ulcer of left hip, stage 4; D62 Acute posthemorrhagic anemia; N17.9 Acute kidney failure, unspecified; E44.0 Moderate protein-calorie malnutrition; E03.9 Hypothyroidism, unspecified; K75.4 Autoimmune hepatitis; F03.90 Unspecified dementia, unspecified severity, without behavioral disturbance, psychotic disturbance, mood disturbance, and anxiety; E78.5 Hyperlipidemia, unspecified; N18.30 Chronic kidney disease, stage 3 unspecified; I12.9 Hypertensive chronic kidney disease with stage 1 through stage 4 chronic kidney disease, or unspecified chronic kidney disease; L89.312 Pressure ulcer of right buttock, stage 2; Z68.23 Body mass index [BMI] 23.0-23.9, adult; E86.0 Dehydration; Z20.822 Contact with and (suspected) exposure to COVID-19; Z87.891 Personal history of nicotine dependence; Z88.0 Allergy status to penicillin; Z79.899 Other long term (current) drug therapy; Z66 Do not resuscitate
CPT/HCPCS: 36415; 70450; 71045; 76775; 80048; 80076; 81001; 81003; 82140; 82272; 83605; 83735; 83880; 84145; 84484; 85025; 86850; 86900; 86901; 86923; 87040; 87077; 87086; 87088; 87186; 87205; 87635; 97163; 97166; 99285; J0692; J0696; J3370; P9016

== ENCOUNTER 2021-05-17 12:41 | Outpatient (RCR) | payer MEDICARE, SELFPAY | END 2021-08-08 14:00 | disposition home or self-care (01) | LOC: HO.WCC 12:41 | PROVIDERS: PCP Internal Medicine; Visit Provider Surgery | DX: L89.154 Pressure ulcer of sacral region, stage 4 (principal); L89.223 Pressure ulcer of left hip, stage 3; L89.224 Pressure ulcer of left hip, stage 4; Z79.01 Long term (current) use of anticoagulants; Z79.899 Other long term (current) drug therapy; F03.91 Unspecified dementia, unspecified severity, with behavioral disturbance | CPT/HCPCS: 11042; 11043; 11044; 11045; 11046; 11047; 97605; 97606; 97607; 99214 ==

== ENCOUNTER 2021-08-06 11:33 | Inpatient (IN) | payer MEDICARE, SELFPAY ==
[2021-08-06] VITALS (8 sets, daily range): BP systolic 70–102; BP diastolic 40–50; PULSE 109–140; RESP 12–25; TEMP 36–37.1; O2SAT 83–94; BMI 17.2
--- NOTE | ~2021-08-06 | XR_ITS ---
EXAMINATION: XR CHEST CLINICAL INFORMATION: Fever. COMPARISON: Chest 05/09/2021 TECHNIQUE: Frontal view of the chest was obtained. FINDINGS: The lungs are well-expanded with residual patchy opacity left midlung. There is a small 6 mm new nodule right lower lobe heart size and pulmonary vascularity is normal. There is moderate spondylosis XR/XR chest 1V IMPRESSION: Improved left midlung pneumonia from 05/09/2021 but some residual changes likely scarring or atelectasis. No acute pneumonic process seen. There is a new 6 mm nodule right lower lobe. Consider CT chest.
--- NOTE | ~2021-08-06 | CT_ITS ---
EXAMINATION: CT HEAD WITHOUT CONTRAST CLINICAL INFORMATION: Acute mental status change COMPARISON: Previous head CT most recent April 2021 TECHNIQUE: Contiguous axial imaging was performed from the skull base to vertex without intravenous administration of contrast. This CT examination was performed using dose optimization techniques as appropriate, variously including the following: *Automated exposure control *Adjustment of mA and/or kV according to patient size (this includes techniques or standardized protocols for targeted exams where dose is matched to indication/reason for exam; i.e. extremities or head) *Use of iterative reconstruction technique DLP: 656 mGy-cm FINDINGS: There is no evidence of an extra-axial collection. There is no evidence of intra-axial or extra-axial hemorrhage. The ventricles and extra-axial CSF spaces are prominent suggestive of mild generalized atrophy. There is nonspecific periventricular white matter disease. No mass, or infarct is seen. Review at bone windows is normal. There are mild inflammatory changes seen in the sphenoid and right maxillary sinuses. Mastoid air cells and middle ears are clear. CT/CT head/brain wo con IMPRESSION: No acute findings. Mild generalized atrophy and nonspecific periventricular white matter disease. Mild sphenoid and right maxillary sinus disease.
--- NOTE | ~2021-08-06 | CT_ITS ---
EXAMINATION: CT ABDOMEN AND PELVIS WITH CONTRAST CLINICAL INFORMATION: Sacral ulcer. Evaluate for osteomyelitis. COMPARISON: Previous CT of the abdomen and pelvis March 2020 TECHNIQUE: Multidetector volumetric images were obtained from the superior aspect of the liver through the pubic symphysis following administration 85 mL of Omnipaque 350 intravenous contrast. Sagittal and coronal reformatted images were obtained on the technologist's workstation. Oral contrast: Yes This CT examination was performed using dose optimization techniques as appropriate, variously including the following: *Automated exposure control *Adjustment of mA and/or kV according to patient size (this includes techniques or standardized protocols for targeted exams where dose is matched to indication/reason for exam; i.e. extremities or head) *Use of iterative reconstruction technique DLP: 645 mGy-cm FINDINGS: LUNG BASES: The heart is enlarged. There is coronary artery calcification. There is a small left pleural effusion. LIVER, GALLBLADDER, AND BILIARY TREE: The liver is low in attenuation suggestive of fatty infiltration. The gallbladder is been removed. No focal liver lesion or biliary duct dilatation. PANCREAS: Unremarkable. SPLEEN: Unremarkable. ADRENAL GLANDS: Unremarkable. KIDNEYS AND URETERS: There is a large cyst exophytic to the lateral lower pole of the right kidney measuring 4 x 6.6 cm. The kidneys are otherwise unremarkable. BLADDER: There is a Arias catheter in the bladder. There is a small amount of residual fluid seen in the bladder. There is a small amount of air in the bladder probably related to Arias catheter placement. GASTROINTESTINAL TRACT: There is evidence of constipation and severe fecal impaction. There is a rectal tube. ABDOMINAL WALL: No significant hernia is appreciated. LYMPH NODES: Normal. VASCULAR: There is evidence of atherosclerotic disease. No aneurysm is seen. PELVIC VISCERA: Unremarkable. OSSEOUS STRUCTURES: There is a soft tissue defect over the coccyx. This extends to the bone. There are new fractures of the coccyx and bone loss suggestive of osteomyelitis and pathologic fractures. There is a displaced subcapital left femoral neck fracture. This is new in the interval from March 2021 exam. There are bilateral sacral fractures. This does not appear appreciably changed from March 2021 exam. There is new air and fluid seen in the soft tissues of the left gluteal muscles questionable for abscess. This measures 1 x 5 x 8 cm in AP transverse and longitudinal dimension. This is continuous with a small fluid collection with and small amount of air in the left sciatic notch. This area measures approximately 2 x 3 cm axial image 79 series 7. There is also abnormal air seen in the soft tissues posterior to the hip joint. This is incompletely imaged/not completely included in the [id number]. There is mild lumbar scoliosis and generative changes of the spine. There are old bilateral lower rib fractures that appear unchanged. CT/CT abdomen pelvis w con IMPRESSION: Large soft tissue defect over the coccyx that extends to the bone and new comminuted coccyx fractures. CT appearance is suggestive of osteomyelitis and pathologic fractures. Displaced subcapital left femoral neck fracture. New fluid collections in the left gluteal muscles and small amount of air questionable for abscesses. This is continuous with a new small fluid collection in the left sciatic notch. There is also abnormal air seen in the soft tissues posterior to the left hip joint. This is not completely included in the [id number]. Severe constipation and fecal impaction. Arias catheter in the bladder. Small amount of air in the bladder question related to a Arias catheter placement. Differential would include infection. Right renal cyst.
--- NOTE | 2021-08-06 11:51 | ECG_ITS ---
Test Reason : FAILURE TO THRIVE Blood Pressure : / mmHG Vent. Rate : 118 BPM Atrial Rate : 118 BPM P-R Int : 184 ms QRS Dur : 088 ms QT Int : 310 ms P-R-T Axes : 077 031 071 degrees QTc Int : 434 ms Sinus tachycardia with Premature atrial complexes Low voltage QRS Nonspecific ST abnormality Abnormal ECG When compared with ECG of 27-MAR-2021 14:53, Vent. rate has increased BY [address] now depressed in Lateral leads Referred By: Michelle Whyte Electronically Signed By:ELROY MARIA
--- NOTE | 2021-08-06 11:53 | ED.AMS ---
HPI - Altered Mental Status General Chief Complaint: Altered Mental Status Stated Complaint: UNRESPONSIVE,DISCOLORED URINE,FROM HOME PER FAMILY Time Seen by Provider: 08/06/21 11:50 Source: EMS and old records reviewed Mode of arrival: EMS Limitations: altered mental status History of Present Illness MD complaint: altered mental status Onset (ago): day(s) (found this AM like this by family) Timing confirmed by: family member Severity: severe Consistency of symptoms: getting Worse Context: other (hx of E. Coli bacteremia chronic indwelling james) Associated symptoms: denies other symptoms Treatments prior to arrival: oxygen Related Data Home Medications Medication Instructions Recorded Confirmed azathioprine 50 mg tablet 25 mg PO BID 02/13/21 08/06/21 multivitamin 1 tab PO DAILY 05/09/21 05/09/21 polyethylene glycol 3350 17 17 g PO DAILY PRN 05/09/21 05/09/21 gram/dose oral powder (Gavilax) sennosides 8.6 mg capsule (senna) 8.6 mg PO BEDTIME PRN 05/09/21 05/09/21 doxazosin 1 mg tablet 1 tab PO BEDTIME 08/06/21 08/06/21 lisinopril 20 mg tablet 1 tab PO DAILY 08/06/21 08/06/21 Previous Rx's Medication Instructions Recorded hospital bed #1 ea 05/16/21 ferrous sulfate 325 mg (65 mg 325 mg PO DAILY #90 tab 06/15/21 iron) tablet meloxicam 15 mg tablet 15 mg PO DAILY #14 tab 07/27/21 Allergies Allergy/AdvReac Type Severity Reaction Status Date / Time Penicillins Allergy hives Verified 05/21/21 13:47 Review of Systems Review of Systems: ROS unable to be obtained due to altered mental status FORMERLY [facility], [facility] Past Medical History Source: old records reviewed Medical History Age related osteoporosis Autoimmune hepatitis Bilateral hydronephrosis Cognitive decline COPD (chronic obstructive pulmonary disease) Dementia Dementia HTN (hypertension) Hypothyroidism Pressure injury of left hip, unstageable Urinary retention Weakness Surgical History H/O: hysterectomy S/P cholecystectomy Family History Family History (Updated 05/21/21 @ 13:52 by Bonita C Ronal, RMA) Mother No problems noted. Social History Social History Household Members: Children Household Members Other:: daughter Housing: Apartment Unable to assess alcohol history related to: Unknown Alcohol intake: unknown Patient Tobacco Use Status: Former Tobacco user Tobacco use type: Cigarette e-Cigarette/Vaping Use: Never Used Second Hand Smoke Exposure: No Use of substances other than those prescribed or required for medical reasons: Unable to respond Advance Directives: No Advance Directives Information Provided: No service: No Current occupational status: retired Physical Exam Vital Signs: Vital Signs: Last Vital Signs Temp 96.8 F 08/06/21 15:09 Pulse 130 H 08/06/21 15:09 Resp 24 H 08/06/21 15:09 BP 99/46 L 08/06/21 15:09 Pulse Ox 92 08/06/21 15:09 Body Mass Index 17.2 Appearance: Altered, obtunded, moderate distress frail cachectic Eyes: Pupils equal, round and reactive to light. ENT: Pharynx very dry MM Neck: Normal inspection. Neck supple. CVS: tachcyardic heart rate and rhythm. Pulses normal. Respiratory: No respiratory distress. Breath sounds decreased Abdomen: Soft and nontender. dark urine in james bag Skin: Skin warm and dry. poor skin turgor Extremities: No lower extremity edema. 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 Coli bacteremia responded to ceftriaxone, DVT , pneumonia - here with [facility] EMS believes seen last night at this time she is febrile, tachycardic, will obtain labs, cultures, CT scan of head for ICH, CXR, IVF, tylenol empiric ceftriaxone given her prior S - likely admit. Waiting for family to arrive but EMS notes that family mentioned DNR/DNI. Lab Data Result diagrams: 08/06/21 12:09 08/06/21 12:09 Labs: Lab Results 08/06/21 08/06/21 08/06/21 Range/Units 12:09 12:09 12:09 WBC 38.0 H* (4.8-10.8) X10*3/uL RBC 2.95 L (4.20-5.50) X10*6/uL Hgb 7.6 L (12.0-16.0) g/dl Hct 21.9 L D (37-47) % MCV 74.2 L (80-98) fL MCH 25.8 L (27.0-33.0) pg MCHC 34.7 (31.0-35.0) g/dl RDW 20.7 H (11.0-16.0) % Plt Count 393 (160-400) X10*3/uL MPV 10.1 (9.4-12.3) fL Immature Gran % (Auto) Cancelled Neut % (Auto) Cancelled Lymph % (Auto) Cancelled [place] % (Auto) Cancelled Eos % (Auto) Cancelled Baso % (Auto) Cancelled Lymph # (Auto) Cancelled [place] # (Auto) Cancelled Eos # (Auto) Cancelled Baso # (Auto) Cancelled Abs Immat Gran (auto) Cancelled Absolute Neuts (auto) Cancelled Absolute Nucleated RBC 0.220 H (0.0-0.012) X10*3/uL Nucleated RBC % (auto) 0.6 H (0.0-0.2) /100WBC Neutrophils % (Manual) 84 H (45-73) % Band Neutrophils % 16 H (3-5) % Abs Neuts (Manual) 38.0 H (2.2-7.9) X10*3/uL Nucleated RBCs 1 H (0-0) /100WBC Dohle Bodies PRESENT Platelet Estimate NORMAL (NORMAL) Plt Morphology Comment NORMAL RBC Morphology NOTED Hypochromasia 2+ (15-30) /OIF Microcytosis 1+ (5-14) /OIF Macrocytosis 1+ (5-14) /OIF Target Cells 1+ (5-14) /OIF Schistocytes 1+ (0-2) /OIF VBG pH (7.32-7.43) VBG pCO2 mmHg VBG pO2 mmHg VBG HCO3 (22-26) mmol/L VBG O2 Saturation % VBG Base Excess mmol/L Sodium 142 (135-145) mmol/L Potassium 4.2 D (3.3-5.1) mmol/L Chloride 105 (96-108) mmol/L Carbon Dioxide 22 (22-29) mmol/L Anion Gap 19 (12-20) BUN 76 H D (9-16) mg/dL Creatinine 1.33 (0.5-1.4) mg/dL Estim Creat Clear Calc TNP Estimated GFR 38 Random Glucose 95 (60-115) mg/dL Lactic Acid 2.6 H* (0.5-2.0) mmol/L Lactic Acid Fup @ 2Hr (0.5-2.0) mmol/L Calcium 10.6 H D (8.4-10.2) mg/dL Magnesium 2.5 (1.6-2.6) mg/dL Total Bilirubin 1.2 H (0.0-1.0) mg/dL Direct Bilirubin 0.7 H (0.0-0.5) mg/dL AST 46 H (5-31) U/L ALT 18 (0-31) U/L Alkaline Phosphatase 215 H D (39-117) U/L Troponin I High Sens (<3.5-17.0) ng/L Total Protein 5.1 L (6.5-8.0) g/dL Albumin 2.5 L (3.5-5.0) g/dL Lipase 5 L (8-78) U/L Urine Color Urine Appearance Urine pH (5.0-8.0) Ur Specific [place] (1.005-1.025) Urine Protein (NEG-TRACE) MG/DL Urine Glucose (UA) (NEG) MG/DL Urine Ketones (NEG) MG/DL Urine Blood (NEG) Urine Nitrite (NEG) Ur Leukocyte Esterase (NEG) Urine RBC (0) /HPF Urine WBC (0-4) /HPF Ur Squamous Epith Cells /LPF Urine Bacteria /LPF COVID-19 (BRIEN) (Negative) COVID-19 Clin Com 08/06/21 08/06/21 08/06/21 Range/Units 12:09 12:09 12:12 WBC (4.8-10.8) X10*3/uL RBC (4.20-5.50) X10*6/uL Hgb (12.0-16.0) g/dl Hct (37-47) % MCV (80-98) fL MCH (27.0-33.0) pg MCHC (31.0-35.0) g/dl RDW (11.0-16.0) % Plt Count (160-400) X10*3/uL MPV (9.4-12.3) fL Immature Gran % (Auto) Neut % (Auto) Lymph % (Auto) [place] % (Auto) Eos % (Auto) Baso % (Auto) Lymph # (Auto) [place] # (Auto) Eos # (Auto) Baso # (Auto) Abs Immat Gran (auto) Absolute Neuts (auto) Absolute Nucleated RBC (0.0-0.012) X10*3/uL Nucleated RBC % (auto) (0.0-0.2) /100WBC Neutrophils % (Manual) (45-73) % Band Neutrophils % (3-5) % Abs Neuts (Manual) (2.2-7.9) X10*3/uL Nucleated RBCs (0-0) /100WBC Dohle Bodies Platelet Estimate (NORMAL) Plt Morphology Comment RBC Morphology Hypochromasia /OIF Microcytosis /OIF Macrocytosis /OIF Target Cells /OIF Schistocytes /OIF VBG pH 7.49 H (7.32-7.43) VBG pCO2 32 mmHg VBG pO2 122 mmHg VBG HCO3 24 (22-26) mmol/L VBG O2 Saturation 96.0 % VBG Base Excess 1.7 mmol/L Sodium (135-145) mmol/L Potassium (3.3-5.1) mmol/L Chloride (96-108) mmol/L Carbon Dioxide (22-29) mmol/L Anion Gap (12-20) BUN (9-16) mg/dL Creatinine (0.5-1.4) mg/dL Estim Creat Clear Calc Estimated GFR Random Glucose (60-115) mg/dL Lactic Acid (0.5-2.0) mmol/L Lactic Acid Fup @ 2Hr (0.5-2.0) mmol/L Calcium (8.4-10.2) mg/dL Magnesium (1.6-2.6) mg/dL Total Bilirubin (0.0-1.0) mg/dL Direct Bilirubin (0.0-0.5) mg/dL AST (5-31) U/L ALT (0-31) U/L Alkaline Phosphatase (39-117) U/L Troponin I High Sens 33.2 H* (<3.5-17.0) ng/L Total Protein (6.5-8.0) g/dL Albumin (3.5-5.0) g/dL Lipase (8-78) U/L Urine Color Urine Appearance Urine pH (5.0-8.0) Ur Specific [place] (1.005-1.025) Urine Protein (NEG-TRACE) MG/DL Urine Glucose (UA) (NEG) MG/DL Urine Ketones (NEG) MG/DL Urine Blood (NEG) Urine Nitrite (NEG) Ur Leukocyte Esterase (NEG) Urine RBC (0) /HPF Urine WBC (0-4) /HPF Ur Squamous Epith Cells /LPF Urine Bacteria /LPF COVID-19 (BRIEN) Negative (Negative) COVID-19 Clin Com See Note 08/06/21 08/06/21 Range/Units 13:18 14:51 WBC (4.8-10.8) X10*3/uL RBC (4.20-5.50) X10*6/uL Hgb (12.0-16.0) g/dl Hct (37-47) % MCV (80-98) fL MCH (27.0-33.0) pg MCHC (31.0-35.0) g/dl RDW (11.0-16.0) % Plt Count (160-400) X10*3/uL MPV (9.4-12.3) fL Immature Gran % (Auto) Neut % (Auto) Lymph % (Auto) [place] % (Auto) Eos % (Auto) Baso % (Auto) Lymph # (Auto) [place] # (Auto) Eos # (Auto) Baso # (Auto) Abs Immat Gran (auto) Absolute Neuts (auto) Absolute Nucleated RBC (0.0-0.012) X10*3/uL Nucleated RBC % (auto) (0.0-0.2) /100WBC Neutrophils % (Manual) (45-73) % Band Neutrophils % (3-5) % Abs Neuts (Manual) (2.2-7.9) X10*3/uL Nucleated RBCs (0-0) /100WBC Dohle Bodies Platelet Estimate (NORMAL) Plt Morphology Comment RBC Morphology Hypochromasia /OIF Microcytosis /OIF Macrocytosis /OIF Target Cells /OIF Schistocytes /OIF VBG pH (7.32-7.43) VBG pCO2 mmHg VBG pO2 mmHg VBG HCO3 (22-26) mmol/L VBG O2 Saturation % VBG Base Excess mmol/L Sodium (135-145) mmol/L Potassium (3.3-5.1) mmol/L Chloride (96-108) mmol/L Carbon Dioxide (22-29) mmol/L Anion Gap (12-20) BUN (9-16) mg/dL Creatinine (0.5-1.4) mg/dL Estim Creat Clear Calc Estimated GFR Random Glucose (60-115) mg/dL Lactic Acid (0.5-2.0) mmol/L Lactic Acid Fup @ 2Hr 1.9 (0.5-2.0) mmol/L Calcium (8.4-10.2) mg/dL Magnesium (1.6-2.6) mg/dL Total Bilirubin (0.0-1.0) mg/dL Direct Bilirubin (0.0-0.5) mg/dL AST (5-31) U/L ALT (0-31) U/L Alkaline Phosphatase (39-117) U/L Troponin I High Sens (<3.5-17.0) ng/L Total Protein (6.5-8.0) g/dL Albumin (3.5-5.0) g/dL Lipase (8-78) U/L Urine Color DK YELLOW Urine Appearance CLOUDY Urine pH 8.5 H (5.0-8.0) Ur Specific [place] 1.010 (1.005-1.025) Urine Protein 3+ H (NEG-TRACE) MG/DL Urine Glucose (UA) NEG (NEG) MG/DL Urine Ketones 5 (NEG) MG/DL Urine Blood 2+ H (NEG) Urine Nitrite NEG (NEG) Ur Leukocyte Esterase 3+ H (NEG) Urine RBC 5-9 H (0) /HPF Urine WBC 15-29 H (0-4) /HPF Ur Squamous Epith Cells 1+ /LPF Urine Bacteria 4+ /LPF COVID-19 (BRIEN) (Negative) COVID-19 Clin Com ECG Data ECG #1: Attestation: I personally reviewed and interpreted this ECG as follows: ECG interpretation date: 08/06/21 ECG interpretation time: 12:38 Interpretation: Rate: 118 Rhythm: sinus tachycardia [place]: normal Normal P waves. Normal LEANN. Normal QRS complex. ST T wave : no ANGELINA, nonspecific qTC: normal prior studies: no sig ischemia The study has been interpreted contemporaneously by me. . Critical Care Time Critical Care Time Critical Care Time: Yes Total Critical Care Time: 60 Attestation: 3L of IVF< multiple discussions with family, treatmetn of hypoxia I attest to this time spent taking care of the patient Discharge Plan Discharge Clinical Impression: Acidosis, lactic Leukocytosis Qualifiers: Leukocytosis type: unspecified Qualified Code(s): D72.829 - Elevated white blood cell count, unspecified Anemia Qualifiers: Anemia type: unspecified type Qualified Code(s): D64.9 - Anemia, unspecified Femoral fracture Qualifiers: Encounter type: initial encounter Femur location: neck, unspecified portion Fracture type: closed Laterality: left Qualified Code(s): S72.002A - Fracture of unspecified part of neck of left femur, initial encounter for closed fracture Open sacral fracture Qualifiers: Encounter type: initial encounter Zone of sacrum fracture: unspecified portion of sacrum Qualified Code(s): S32.10XB - Unspecified fracture of sacrum, initial encounter for open fracture Osteomyelitis Qualifiers: Osteomyelitis type: unspecified type Osteomyelitis location: unspecified site Qualified Code(s): M86.9 - Osteomyelitis, unspecified Patient Disposition: Admitted As Inpatient
[2021-08-06 12:13] LABS: Hematocrit 21.9 % (37-47); Hemoglobin 7.6 g/dl (12.0-16.0); Mean Corpuscular HGB Conc 34.7 g/dl (31.0-35.0); Mean Corpuscular Hemoglobin 25.8 pg (27.0-33.0); Mean Corpuscular Volume 74.2 fL (80-98); Mean Platelet Volume 10.1 fL (9.4-12.3); NRBC Pct Auto 0.6 /100WBC (0.0-0.2); Platelet Count 393 X10*3/uL (160-400); Red Blood Count 2.95 X10*6/uL (4.20-5.50); Red Cell Distribution Width 20.7 % (11.0-16.0)
[2021-08-06 12:14] LABS: WBC ABN SCTR FOR CBC 1
[2021-08-06 12:16] LABS: VBG Base Excess 1.7 mmol/L; VBG HCO3 24 mmol/L (22-26); VBG pCO2 32 mmHg; VBG pH 7.49 (7.32-7.43); VBG pO2 122 mmHg
[2021-08-06 12:17] LABS: Venous Blood Gas Refer to POC result
[2021-08-06] MEDS: Acetaminophen Supp 650 MG SUPP.RECT PR (12:36)
[2021-08-06 12:37] LABS: COVID-19 Test Negative (Negative); IDNOW Serial# 9DD0AD1C
[2021-08-06 12:39] LABS: Lactic Acid 2.6 mmol/L (0.5-2.0)
[2021-08-06] MEDS: cefTRIAXone sodium 1 GM in 0.9 % Sodium Chloride 50 ML IV (12:40)
[2021-08-06 12:41] LABS: Alanine Aminotransferase 18 U/L (0-31); Albumin Level 2.5 g/dL (3.5-5.0); Alkaline Phosphatase 215 U/L (39-117); Anion Gap 19 (12-20); Aspartate Amino Transferase 46 U/L (5-31); Bilirubin Direct 0.7 mg/dL (0.0-0.5); Bilirubin Total 1.2 mg/dL (0.0-1.0); Blood Urea Nitrogen 76 mg/dL (9-16); Calcium 10.6 mg/dL (8.4-10.2); Carbon Dioxide 22 mmol/L (22-29); Chloride 105 mmol/L (96-108); Estimated Glomerular Filt Rate 38; Glucose Random 95 mg/dL (60-115); Lipase 5 U/L (8-78); Magnesium 2.5 mg/dL (1.6-2.6); Potassium 4.2 mmol/L (3.3-5.1); Sodium 142 mmol/L (135-145); Total Protein 5.1 g/dL (6.5-8.0)
[2021-08-06] MEDS: 0.9 % Sodium Chloride 1,000 ML 999 ML IVCONT ×2 (12:41→14:39)
[2021-08-06] MEDS: ondansetron HCL 4 MG/2 ML VIAL IVPUSH (12:41)
[2021-08-06 12:42] LABS: Troponin-I High Sensitivity 33.2 ng/L (<3.5-17.0)
[2021-08-06] MEDS: 0.9 % Sodium Chloride 1,000 ML 999 ML IV (12:47)
[2021-08-06 12:55] LABS: Band Neutrophils Percent 16 % (3-5); Neutrophils Percent Manual 84 % (45-73); Nucleated Red Blood Cells 1 /100WBC (0-0)
[2021-08-06 12:56] LABS: RBC Morphology NOTED; Target Cells 1+ (5-14) /OIF
[2021-08-06 12:57] LABS: Hypochromasia 2+ (15-30) /OIF; Macrocytosis 1+ (5-14) /OIF
[2021-08-06 12:58] LABS: Dohle Bodies PRESENT; Microcytosis 1+ (5-14) /OIF
[2021-08-06 12:59] LABS: Schistocytes 1+ (0-2) /OIF
[2021-08-06 13:24] LABS: Platelet Estimate NORMAL (NORMAL); Platelet Morphology Comment NORMAL
[2021-08-06 13:29] LABS: Appearance Urine CLOUDY; Color Urine DK YELLOW; Glucose Urine UA NEG (NEG); Leukocyte Esterase Urine 3+ (NEG); Nitrite Urine NEG (NEG); PH 8.5 (5.0-8.0); UACC Culture Trigger YES; Urine Blood 2+ (NEG); Urine Ketones 5 MG/DL (NEG)
[2021-08-06 13:33] LABS: Urine Protein 3+ MG/DL (NEG-TRACE)
[2021-08-06 13:40] LABS: Bacteria Urine 4+ /LPF; Squamous Epithelial Cell Urine 1+ /LPF
[2021-08-06] MEDS: vancomycin HCL 750 MG in 0.9 % Sodium Chloride 250 ML 265 MG IV (13:48)
[2021-08-06 14:11] LABS: Reflex Lactate? Lactic Acid Added
[2021-08-06] MEDS: Pantoprazole Sodium 40 MG/10 ML VIAL IVPUSH (14:38)
[2021-08-06] MEDS: iohexoL 350 MG/ML 100 ML INFUS..BTL 85 ML IV (14:39)
[2021-08-06 15:08] LABS: ~Lactic Acid-LAB USE ONLY 1.9 mmol/L (0.5-2.0)
--- NOTE | 2021-08-06 15:25 | PC.NURSE ---
pt with 3ml urine output since james cath inserted. MD aware. pt switched from nasal cannula to venturi mask d/t mouth breathing and SpO2 at 90%. Venturi mask titrated up to 6L and SpO2 at 92%. aware.
[2021-08-06 15:46] LABS: OBS1 POSITIVE (NEGATIVE)
[2021-08-06 15:47] LABS: OBS Int Ctl Valid YES
--- NOTE | 2021-08-06 16:01 | PHA.MEDREC ---
Pharmacy Consult ? Medication Reconciliation Pharmacy has completed the medication reconciliation.
--- NOTE | 2021-08-06 16:04 | PC.NURSE ---
per MD (after speakign with family), pt to be [employer]. Waiting for pharmacy to bring morphine drip. lights dimmed at this time.
--- NOTE | 2021-08-06 16:13 | P.HPHOSP_ITS ---
History of Present Illness Date of Service: 08/06/21 Chief Complaint: unresponsiveness, discolored urine This is an 81 yo F with multiple medical problems who was brought into the ED by family for unresponsiveness and discolored urine. The patient is seen and examined in the ED. She is currently unresponsive and unable to provide a meaningful history. Per ED documentation, the patient was last seen the evening prior to ED arrival. Upon arrival to the ED -- patient comatose and unresponsive. Her BP was in the 80s to 90s systolic, HR in the 100-130s and RR in the 24. UA was suggestive of UTI. A potential diagnosis of sepsis was made and was treated with the appropriate antibitoics, cultures and IV fluids. Her BP continued to decline and the case was d/w the patients HCP/Daughter who decided upon not purusing aggressive care such as central line placement / vasopressors / ICU level of care and instead opted for TRIAL EXAMINER. A MOLST form was has been completed by the ED Team. I personally called the patients daughter whom confirmed the TRIAL EXAMINER status. She was able to tell me, in her own words what TRIAL EXAMINER entailed - no treatment with any medications other than what will make her mother's passing comfortable. Review of Systems Review of Systems: unable to ROS due to mental status PMFSH Medical History Age related osteoporosis Autoimmune hepatitis Bilateral hydronephrosis Cognitive decline COPD (chronic obstructive pulmonary disease) Dementia Dementia HTN (hypertension) Hypothyroidism Pressure injury of left hip, unstageable Urinary retention Weakness Family History Mother No problems noted. Pertinent family history: . Surgical History H/O: hysterectomy S/P cholecystectomy Social History Household Members: Children Household Members Other:: daughter Housing: Apartment Unable to assess alcohol history related to: Unknown Alcohol intake: unknown Patient Tobacco Use Status: Former Tobacco user Tobacco use type: Cigarette e-Cigarette/Vaping Use: Never Used Second Hand Smoke Exposure: No Use of substances other than those prescribed or required for medical reasons: Unable to respond Advance Directives: No Advance Directives Information Provided: No service: No Current occupational status: retired Meds Allergies Allergy/AdvReac Type Severity Reaction Status Date / Time Penicillins Allergy hives Verified 05/21/21 13:47 Active Medications: Current Medications Morphine Sulfate () 100 mg in 100 mls @ 0 mls/hr IVCONT .Q0M MAGY; Protocol Pharmacy Consult (Consult Rx Perform Med Rec) 1 each MISCELLANE ONCE PRN PRN Reason: Consult order Pharmacy Consult (Consult Rx Vancomycin Dosing) 1 each MISCELLANE DAILY PRN PRN Reason: Consult order Home Medications Medication Instructions Recorded Confirmed Last Taken Type azathioprine 50 mg tablet 25 mg PO BID 02/13/21 08/06/21 Unknown History multivitamin 1 tab PO DAILY 05/09/21 08/06/21 05/09/21 History polyethylene glycol 3350 17 17 g PO DAILY PRN 05/09/21 08/06/21 Unknown History gram/dose oral powder (Gavilax) sennosides 8.6 mg capsule (senna) 8.6 mg PO BEDTIME PRN 05/09/21 08/06/21 05/09/21 History doxazosin 1 mg tablet 1 tab PO BEDTIME 08/06/21 08/06/21 Unknown History Physical Exam Vital Signs and Narrative: Vital Signs: Last Vital Signs Temp 96.8 F 08/06/21 15:09 Pulse 130 H 08/06/21 15:09 Resp 24 H 08/06/21 15:09 BP 99/46 L 08/06/21 15:09 Pulse Ox 92 08/06/21 15:09 Body Mass Index 17.2 Const: Other: Constitutional - unresponsive to verbal stimuli, minimally responsive to painful stimuli; appears chronically ill and cachectic Eyes - no spontaneous eye movement Cardiovascular - Tachycardic in the 130s Respiratory - low shallow breathing with saturation low 90s on venti mask Gastrointestinal - hypoactive bowel sounds - james with cocentrated urine Extremities - +muscle wasting Skin - large -> 6-8 cm in diameter sacral/coccyx ucler which is foul smelling Neurological - unresponsive to verbal stimuli Results Labs CBC and Chem 7: 08/06/21 12:09 08/06/21 12:09 Labs: Laboratory Results - last 24 hr 08/06/21 08/06/21 08/06/21 12:09 12:09 12:09 MCV 74.2 L MCH 25.8 L MCHC 34.7 RDW 20.7 H Plt Count 393 MPV 10.1 Immature Gran % (Auto) Cancelled Neut % (Auto) Cancelled Lymph % (Auto) Cancelled [place] % (Auto) Cancelled Eos % (Auto) Cancelled Baso % (Auto) Cancelled Lymph # (Auto) Cancelled [place] # (Auto) Cancelled Eos # (Auto) Cancelled Baso # (Auto) Cancelled Abs Immat Gran (auto) Cancelled Absolute Neuts (auto) Cancelled Absolute Nucleated RBC 0.220 H Nucleated RBC % (auto) 0.6 H Neutrophils % (Manual) 84 H Band Neutrophils % 16 H Abs Neuts (Manual) 38.0 H Nucleated RBCs 1 H Dohle Bodies PRESENT Platelet Estimate NORMAL Plt Morphology Comment NORMAL RBC Morphology NOTED Hypochromasia 2+ (15-30) Microcytosis 1+ (5-14) Macrocytosis 1+ (5-14) Target Cells 1+ (5-14) Schistocytes 1+ (0-2) VBG pH VBG pCO2 VBG pO2 VBG HCO3 VBG O2 Saturation VBG Base Excess Anion Gap 19 Estim Creat Clear Calc TNP Estimated GFR 38 Random Glucose 95 Lactic Acid 2.6 H* Lactic Acid Fup @ 2Hr Calcium 10.6 H D Magnesium 2.5 Total Bilirubin 1.2 H Direct Bilirubin 0.7 H AST 46 H ALT 18 Alkaline Phosphatase 215 H D Troponin I High Sens Total Protein 5.1 L Albumin 2.5 L Lipase 5 L Urine Color Urine Appearance Urine pH Ur Specific [place] Urine Protein Urine Glucose (UA) Urine Ketones Urine Blood Urine Nitrite Ur Leukocyte Esterase Urine RBC Urine WBC Ur Squamous Epith Cells Urine Bacteria Stool Occult Blood COVID-19 (BRIEN) COVID-19 Clin Com 08/06/21 08/06/21 08/06/21 12:09 12:09 12:12 MCV MCH MCHC RDW Plt Count MPV Immature Gran % (Auto) Neut % (Auto) Lymph % (Auto) [place] % (Auto) Eos % (Auto) Baso % (Auto) Lymph # (Auto) [place] # (Auto) Eos # (Auto) Baso # (Auto) Abs Immat Gran (auto) Absolute Neuts (auto) Absolute Nucleated RBC Nucleated RBC % (auto) Neutrophils % (Manual) Band Neutrophils % Abs Neuts (Manual) Nucleated RBCs Dohle Bodies Platelet Estimate Plt Morphology Comment RBC Morphology Hypochromasia Microcytosis Macrocytosis Target Cells Schistocytes VBG pH 7.49 H VBG pCO2 32 VBG pO2 122 VBG HCO3 24 VBG O2 Saturation 96.0 VBG Base Excess 1.7 Anion Gap Estim Creat Clear Calc Estimated GFR Random Glucose Lactic Acid Lactic Acid Fup @ 2Hr Calcium Magnesium Total Bilirubin Direct Bilirubin AST ALT Alkaline Phosphatase Troponin I High Sens 33.2 H* Total Protein Albumin Lipase Urine Color Urine Appearance Urine pH Ur Specific [place] Urine Protein Urine Glucose (UA) Urine Ketones Urine Blood Urine Nitrite Ur Leukocyte Esterase Urine RBC Urine WBC Ur Squamous Epith Cells Urine Bacteria Stool Occult Blood COVID-19 (BRIEN) Negative COVID-19 [email or web address] Com See Note 08/06/21 08/06/21 08/06/21 13:18 14:51 Unknown MCV MCH MCHC RDW Plt Count MPV Immature Gran % (Auto) Neut % (Auto) Lymph % (Auto) [place] % (Auto) Eos % (Auto) Baso % (Auto) Lymph # (Auto) [place] # (Auto) Eos # (Auto) Baso # (Auto) Abs Immat Gran (auto) Absolute Neuts (auto) Absolute Nucleated RBC Nucleated RBC % (auto) Neutrophils % (Manual) Band Neutrophils % Abs Neuts (Manual) Nucleated RBCs Dohle Bodies Platelet Estimate Plt Morphology Comment RBC Morphology Hypochromasia Microcytosis Macrocytosis Target Cells Schistocytes VBG pH VBG pCO2 VBG pO2 VBG HCO3 VBG O2 Saturation VBG Base Excess Anion Gap Estim Creat Clear Calc Estimated GFR Random Glucose Lactic Acid Lactic Acid Fup @ 2Hr 1.9 Calcium Magnesium Total Bilirubin Direct Bilirubin AST ALT Alkaline Phosphatase Troponin I High Sens Total Protein Albumin Lipase Urine Color DK YELLOW Urine Appearance CLOUDY Urine pH 8.5 H Ur Specific [place] 1.010 Urine Protein 3+ H Urine Glucose (UA) NEG Urine Ketones 5 Urine Blood 2+ H Urine Nitrite NEG Ur Leukocyte Esterase 3+ H Urine RBC 5-9 H Urine WBC 15-29 H Ur Squamous Epith Cells 1+ Urine Bacteria 4+ Stool Occult Blood POSITIVE COVID-19 (BRIEN) COVID-19 Clin Com Imaging Radiologist's Impressions: Impressions Head CT 08/06/21 11:51 IMPRESSION: No acute findings. Mild generalized atrophy and nonspecific periventricular white matter disease. Mild sphenoid and right maxillary sinus disease. Chest X-Ray 08/06/21 11:52 IMPRESSION: Improved left midlung pneumonia from 05/09/2021 but some residual changes likely scarring or atelectasis. No acute pneumonic process seen. There is a new 6 mm nodule right lower lobe. Consider CT chest. Comment: CT abd/pelvis Large soft tissue defect over the coccyx that extends to the bone and new comminuted coccyx fractures. CT appearance is suggestive of osteomyelitis and pathologic fractures. Displaced subcapital left femoral neck fracture. New fluid collections in the left gluteal muscles and small amount of air questionable for abscesses. This is continuous with a new small fluid collection in the left sciatic notch. There is also abnormal air seen in the soft tissues posterior to the left hip joint. This is not completely included in the [id number]. ? Severe constipation and fecal impaction. James catheter in the bladder. Small amount of air in the bladder question related to a James catheter placement. Differential would include infection. Right renal cyst. Assessment and Plan (1) Severe sepsis: Status: Acute This is an 81 yo F with multiple medical problems who presented to the hospital with alternation in mental status. Her presentation and work up in the ED are worrisome for septic shock secondary to UTI vs infected sacral decub with abscess/osteo. She has been made TRIAL EXAMINER and will be admitted for comfort measures only. TRIAL EXAMINER care Morphine gtt ativan PRN for agitation Primary Diagnosis 1. Comfort care 2. Severe sepsis secondary to UTI vs Infected sacral decub 3. Toxic/Metabolic Encephalopathy 4. Coma 5. L Hip fracture 6. Severe protein calorie malnutrition 7. EVA (SCr Baseline 0.6, now 1.33) Quality Stroke Does the patient have a stroke diagnosis?: No VTE Prior VTE?: No VTE Risk Level:: Medical - moderate - high (TRIAL EXAMINER) VTE Device Contraindication: Treatment Not Indicated VTE Drug Contraindication: Treatment Not Indicated
[2021-08-06] MEDS: Morphine Sulfate/NS 100 MG/100 ML PLAST..BAG IVCONT (19:24)
[2021-08-07] VITALS (13 sets, daily range): BP systolic 99; BP diastolic 47; PULSE 81; RESP 3–12; TEMP 36.3; O2SAT 97
--- NOTE | 2021-08-07 09:22 | P.PNIM_ITS ---
Progress Note: A&P Assessment and Plan: This is an 81 yo F with multiple medical problems who presented to the hospital with alternation in mental status. Her presentation and work up in the ED are worrisome for septic shock secondary to UTI vs infected sacral decub with abscess/osteo. She has been made MANAGER OF SELECTION AND ASSESSMENT and will be admitted for comfort measures only. MANAGER OF SELECTION AND ASSESSMENT care Morphine gtt ativan PRN for agitation Primary Diagnosis 1. Comfort care 2. Severe sepsis secondary to UTI vs Infected sacral decub 3. Toxic/Metabolic Encephalopathy 4. Coma 5. L Hip fracture 6. Severe protein calorie malnutrition 7. EVA (SCr Baseline 0.6, now 1.33) Attending Dr. Snyder <Jacinta Love NP - Last Filed: 08/07/21 09:31> Subjective Subjective Date of Service: 08/07/21 <Jacinta Love NP - Last Filed: 08/07/21 09:31> 08/09/21 <Jabier Snyder MD - Last Filed: 08/09/21 13:58> Review of Systems Follow up MANAGER OF SELECTION AND ASSESSMENT unresponsive, agonal breathing <Jacinta Love NP - Last Filed: 08/07/21 09:31> Physical Exam Vital Signs: Vital Signs: Last Vital Signs Temp 97.3 F 08/07/21 00:00 Pulse 81 08/07/21 00:00 Resp 12 08/07/21 06:00 BP 99/47 L 08/07/21 00:00 Pulse Ox 97 08/07/21 00:00 Body Mass Index 17.2 <Jacinta Love NP - Last Filed: 08/07/21 09:31> Objective Data Current Medications Morphine Sulfate () 100 mg in 100 mls @ 0 mls/hr IVCONT .Q0M MAGY; Protocol Last Admin: 08/06/21 19:24 Dose: 2 mg/hr, 2 mls/hr Documented by: <Jacinta Love NP - Last Filed: 08/07/21 09:31> Labs CBC & Chem 7: : 08/06/21 12:09 08/06/21 12:09 <Jacinta Lvoe NP - Last Filed: 08/07/21 09:31> Labs: Laboratory Results - last 24 hr 08/06/21 08/06/21 08/06/21 12:09 12:09 12:09 MCV 74.2 L MCH 25.8 L MCHC 34.7 RDW 20.7 H Plt Count 393 MPV 10.1 Immature Gran % (Auto) Cancelled Neut % (Auto) Cancelled Lymph % (Auto) Cancelled [place] % (Auto) Cancelled Eos % (Auto) Cancelled Baso % (Auto) Cancelled Lymph # (Auto) Cancelled [place] # (Auto) Cancelled Eos # (Auto) Cancelled Baso # (Auto) Cancelled Abs Immat Gran (auto) Cancelled Absolute Neuts (auto) Cancelled Absolute Nucleated RBC 0.220 H Nucleated RBC % (auto) 0.6 H Neutrophils % (Manual) 84 H Band Neutrophils % 16 H Abs Neuts (Manual) 38.0 H Nucleated RBCs 1 H Dohle Bodies PRESENT Platelet Estimate NORMAL Plt Morphology Comment NORMAL RBC Morphology NOTED Hypochromasia 2+ (15-30) Microcytosis 1+ (5-14) Macrocytosis 1+ (5-14) Target Cells 1+ (5-14) Schistocytes 1+ (0-2) Smear Path Review SEE NOTE VBG pH VBG pCO2 VBG pO2 VBG HCO3 VBG O2 Saturation VBG Base Excess Anion Gap 19 Estim Creat Clear Calc TNP Estimated GFR 38 Random Glucose 95 Lactic Acid 2.6 H* Lactic Acid Fup @ 2Hr Calcium 10.6 H D Magnesium 2.5 Total Bilirubin 1.2 H Direct Bilirubin 0.7 H AST 46 H ALT 18 Alkaline Phosphatase 215 H D Troponin I High Sens Total Protein 5.1 L Albumin 2.5 L Lipase 5 L Urine Color Urine Appearance Urine pH Ur Specific [place] Urine Protein Urine Glucose (UA) Urine Ketones Urine Blood Urine Nitrite Ur Leukocyte Esterase Urine RBC Urine WBC Ur Squamous Epith Cells Urine Bacteria Stool Occult Blood COVID-19 (BRIEN) COVID-19 Clin Com Blood Type Antibody Screen 08/06/21 08/06/21 08/06/21 12:09 12:09 12:12 MCV MCH MCHC RDW Plt Count MPV Immature Gran % (Auto) Neut % (Auto) Lymph % (Auto) [place] % (Auto) Eos % (Auto) Baso % (Auto) Lymph # (Auto) [place] # (Auto) Eos # (Auto) Baso # (Auto) Abs Immat Gran (auto) Absolute Neuts (auto) Absolute Nucleated RBC Nucleated RBC % (auto) Neutrophils % (Manual) Band Neutrophils % Abs Neuts (Manual) Nucleated RBCs Dohle Bodies Platelet Estimate Plt Morphology Comment RBC Morphology Hypochromasia Microcytosis Macrocytosis Target Cells Schistocytes Smear Path Review VBG pH 7.49 H VBG pCO2 32 VBG pO2 122 VBG HCO3 24 VBG O2 Saturation 96.0 VBG Base Excess 1.7 Anion Gap Estim Creat Clear Calc Estimated GFR Random Glucose Lactic Acid Lactic Acid Fup @ 2Hr Calcium Magnesium Total Bilirubin Direct Bilirubin AST ALT Alkaline Phosphatase Troponin I High Sens 33.2 H* Total Protein Albumin Lipase Urine Color Urine Appearance Urine pH Ur Specific [place] Urine Protein Urine Glucose (UA) Urine Ketones Urine Blood Urine Nitrite Ur Leukocyte Esterase Urine RBC Urine WBC Ur Squamous Epith Cells Urine Bacteria Stool Occult Blood COVID-19 (BRIEN) Negative COVID-19 Clin Com See Note Blood Type Antibody Screen 08/06/21 08/06/21 08/06/21 13:18 14:51 14:51 MCV MCH MCHC RDW Plt Count MPV Immature Gran % (Auto) Neut % (Auto) Lymph % (Auto) [place] % (Auto) Eos % (Auto) Baso % (Auto) Lymph # (Auto) [place] # (Auto) Eos # (Auto) Baso # (Auto) Abs Immat Gran (auto) Absolute Neuts (auto) Absolute Nucleated RBC Nucleated RBC % (auto) Neutrophils % (Manual) Band Neutrophils % Abs Neuts (Manual) Nucleated RBCs Dohle Bodies Platelet Estimate Plt Morphology Comment RBC Morphology Hypochromasia Microcytosis Macrocytosis Target Cells Schistocytes Smear Path Review VBG pH VBG pCO2 VBG pO2 VBG HCO3 VBG O2 Saturation VBG Base Excess Anion Gap Estim Creat Clear Calc Estimated GFR Random Glucose Lactic Acid Lactic Acid Fup @ 2Hr 1.9 Calcium Magnesium Total Bilirubin Direct Bilirubin AST ALT Alkaline Phosphatase Troponin I High Sens Total Protein Albumin Lipase Urine Color DK YELLOW Urine Appearance CLOUDY Urine pH 8.5 H Ur Specific [place] 1.010 Urine Protein 3+ H Urine Glucose (UA) NEG Urine Ketones 5 Urine Blood 2+ H Urine Nitrite NEG Ur Leukocyte Esterase 3+ H Urine RBC 5-9 H Urine WBC 15-29 H Ur Squamous Epith Cells 1+ Urine Bacteria 4+ Stool Occult Blood COVID-19 (BRIEN) COVID-19 Clin Com Blood Type Cancelled Antibody Screen Cancelled 08/06/21 Unknown MCV MCH MCHC RDW Plt Count MPV Immature Gran % (Auto) Neut % (Auto) Lymph % (Auto) [place] % (Auto) Eos % (Auto) Baso % (Auto) Lymph # (Auto) [place] # (Auto) Eos # (Auto) Baso # (Auto) Abs Immat Gran (auto) Absolute Neuts (auto) Absolute Nucleated RBC Nucleated RBC % (auto) Neutrophils % (Manual) Band Neutrophils % Abs Neuts (Manual) Nucleated RBCs Dohle Bodies Platelet Estimate Plt Morphology Comment RBC Morphology Hypochromasia Microcytosis Macrocytosis Target Cells Schistocytes Smear Path Review VBG pH VBG pCO2 VBG pO2 VBG HCO3 VBG O2 Saturation VBG Base Excess Anion Gap Estim Creat Clear Calc Estimated GFR Random Glucose Lactic Acid Lactic Acid Fup @ 2Hr Calcium Magnesium Total Bilirubin Direct Bilirubin AST ALT Alkaline Phosphatase Troponin I High Sens Total Protein Albumin Lipase Urine Color Urine Appearance Urine pH Ur Specific [place] Urine Protein Urine Glucose (UA) Urine Ketones Urine Blood Urine Nitrite Ur Leukocyte Esterase Urine RBC Urine WBC Ur Squamous Epith Cells Urine Bacteria Stool Occult Blood POSITIVE COVID-19 (BRIEN) COVID-19 Clin Com Blood Type Antibody Screen <Jacinta Love NP - Last Filed: 08/07/21 09:31> Microbiology Microbiology Results: Microbiology 08/06/21 12:09 Blood - Venous Blood Culture - Preliminary Prelim: GNR Gram Stain only <LUZ MARINA Mccollum Last Filed: 08/07/21 09:31> Quality Stroke Does the patient have a stroke diagnosis?: No <LUZ MARINA Mccollum Last Filed: 08/07/21 09:31> VTE Prior VTE?: No <Jacinta Love NP - Last Filed: 08/07/21 09:31> VTE Risk Level:: Medical - moderate - high (MANAGER OF SELECTION AND ASSESSMENT) <LUZ MARINA Mccollum Last Filed: 08/07/21 09:31> VTE Device Contraindication: Treatment Not Indicated <LUZ MARINA Mccollum Last Filed: 08/07/21 09:31> VTE Drug Contraindication: Treatment Not Indicated <LUZ MARINA Mccollum Last Filed: 08/07/21 09:31>
--- NOTE | 2021-08-07 10:14 | MHC.CM.PN ---
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 SHE DOES NOT RESPOND TO VERBAL ATTEMPTS TO CONVERSE PER REVIEW OF CHART, CONVERSATION WAS HAD WITH PATIENT'S DAUGHTER (MARCO) AND PLAN IS FOR PATIENT TO REMAIN TRANSPORTATION ENGINEER, SHE IS EXPECTED TO . IMM 08/07, ALONG WITH CASE MANAGEMENT CONTACT CARD, LEFT BEDSIDE FOR DAUGHTER.
--- NOTE | 2021-08-07 12:12 | MHC.CM.PN ---
PATIENT LIVES WITH HER DAUGHTER/ COLLECTIONS AND ARCHIVES DIRECTOR. SHE RELIES ON A CANE, WALKER, AND A WHEEL CHAIR. [facility] PROVIDES AN RN ONCE/MONTH FOR WELL-BEING CHECK-UPS. DAUGHTER IS TRANSPORTING PATIENT HOME TODAY WITH NO INCREASE IN SERVICES. IMM 08/07 IN CHART.
[2021-08-08] VITALS (10 sets, daily range): RESP 3–14; BMI 17.2
--- NOTE | 2021-08-08 13:58 | P.CDIC_ITS ---
CDI Concurrent Query Documentation Clarification: PHYSICIAN'S DOCUMENTATION REQUEST Date of Query: 08/08/21 1359 Patient Name: Mariluz Gregory Admit Date: 08/06/21 Dear Doctor, A review of the medical record indicates additional documentation may be indicated. Please review below and update the documentation accordingly. Clinical Indicators: Risk Factors/Clinical Indicators/Treatments Per H&P: Infected sacral decubitus Based on the above, could you please provide, in the Progress Notes, further information regarding the ulcer/wound: * If a pressure ulcer, please also include the stage* of the ulcer: * Stage 1 - Skin intact, non-blanchable redness * Stage 2 - Partial thickness loss of dermis, includes intact or open blister * Stage 3 - Full thickness tissue not including bone, tendon, or muscle * Stage 4 - Full thickness tissue loss, including exposed bones, tendon, or muscle * Unstageable - Full thickness tissue loss in which the base of the ulcer is covered by slough (yellow, miller, nicole, green or brown) and/or eschar (miller, brown, or black) in the wound bed. * Suspected deep tissue injury - Purple or maroon localized area of discolored intact skin or blood-filled blister due to damage of underlying soft tissues from pressure and/or shear. The area may be preceded by tissue that is painful, firm, mushy, boggy, warmer, or cooler as compare to adjacent tissue. * Unable to determine *Source: National Pressure Ulcer Advisory Panel (NPUAP) Use of terms such as suspected, likely, concern for, or probable (associated with a specific diagnosis that is being evaluated, monitored, or treated as if it exists) are acceptable and can be coded in the inpatient setting, when documented at the time of discharge. Thank you, Adeola Horton RN Extension: [phone] Please use your independent medical judgment in providing your response. THIS QUERY IS PART OF THE PERMANENT MEDICAL RECORD Provider Response: Other Other Diagnosis: Stage 4 Sacral decub -- present on admission
--- NOTE | 2021-08-08 15:06 | PM.IMPN ---
Progress Note: A&P (1) Severe sepsis: Status: Acute <Jacinta Love NP - Last Filed: 08/08/21 15:09> (2) Open sacral fracture: Status: Acute <Jacinta Love NP - Last Filed: 08/08/21 15:09> (3) EVA (acute kidney injury): Status: Acute <Jacinta Love NP - Last Filed: 08/08/21 15:09> Assessment and Plan: This is an 81 yo F with multiple medical problems who presented to the hospital with alternation in mental status. Her presentation and work up in the ED are worrisome for septic shock secondary to UTI vs infected sacral decub with abscess/osteo. 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 BARREL LATHE OPERATOR INSIDE care Morphine gtt ativan PRN for agitation Primary Diagnosis 1. Comfort care 2. Severe sepsis secondary to UTI vs Infected sacral decub no treatment due to BARREL LATHE OPERATOR INSIDE status 3. Toxic/Metabolic Encephalopathy 4. Coma 5. L Hip fracture 6. Severe protein calorie malnutrition 7. EVA (SCr Baseline 0.6, now 1.33) Attending Dr. Snyder <Jacinta Love NP - Last Filed: 08/08/21 15:09> This is an 81 yo F with multiple medical problems who presented to the hospital with alternation in mental status. Her presentation and work up in the ED are worrisome for septic shock secondary to UTI vs infected sacral decub with abscess/osteo. 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 BARREL LATHE OPERATOR INSIDE care Morphine gtt ativan PRN for agitation Primary Diagnosis 1. Comfort care 2. Severe sepsis secondary to UTI vs Infected sacral decub no treatment due to BARREL LATHE OPERATOR INSIDE status 3. Toxic/Metabolic Encephalopathy 4. Coma 5. L Hip fracture 6. Severe protein calorie malnutrition 7. EVA (SCr Baseline 0.6, now 1.33) 8. 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 Snyder <Jabier Snyder MD - Last Filed: 08/08/21 15:12> Subjective Subjective Date of Service: 08/08/21 <Jacinta Love NP - Last Filed: 08/08/21 15:09> 08/08/21 <Jabier Snyder MD - Last Filed: 08/08/21 15:12> Review of Systems Follow up BARREL LATHE OPERATOR INSIDE Resp rate 4 Morphine drip no agitation unresponsive <Jacinta Love NP - Last Filed: 08/08/21 15:09> Physical Exam Vital Signs: Vital Signs: Last Vital Signs Temp 97.3 F 08/07/21 00:00 Pulse 81 08/07/21 00:00 Resp 4 L 08/08/21 08:00 BP 99/47 L 08/07/21 00:00 Pulse Ox 97 08/07/21 00:00 Body Mass Index 17.2 <Jacinta Love NP - Last Filed: 08/08/21 15:09> BARREL LATHE OPERATOR INSIDE no examination <Jacinta Love NP - Last Filed: 08/08/21 15:09> Objective Data Current Medications Morphine Sulfate () 100 mg in 100 mls @ 0 mls/hr IVCONT .Q0M MAGY; Protocol Last Admin: 08/06/21 19:24 Dose: 2 mg/hr, 2 mls/hr Documented by: <Jacinta Love NP - Last Filed: 08/08/21 15:09> Labs CBC & Chem 7: : 08/06/21 12:09 08/06/21 12:09 <Jacinta Love NP - Last Filed: 08/08/21 15:09> Microbiology Microbiology Results: Microbiology 08/06/21 12:09 Blood - Venous Blood Culture - Preliminary No growth after 48 hours. 08/06/21 00:00 Urine Catheterized - Straight Catheter Urine Culture - Preliminary Gram negative jairo Gram negative jairo#2 08/06/21 12:09 Blood - Venous Blood Culture - Preliminary Gram negative jairo <Jacinta Love NP - Last Filed: 08/08/21 15:09> Quality Stroke Does the patient have a stroke diagnosis?: No <Jacinta Love NP - Last Filed: 08/08/21 15:09> VTE Prior VTE?: No <Jacinta Love NP - Last Filed: 08/08/21 15:09> VTE Risk Level:: Medical - moderate - high (BARREL LATHE OPERATOR INSIDE) <Jacinta Love NP - Last Filed: 08/08/21 15:09> VTE Device Contraindication: Treatment Not Indicated <Jacinta Love NP - Last Filed: 08/08/21 15:09> VTE Drug Contraindication: Treatment Not Indicated <Jacinta Love NP - Last Filed: 08/08/21 15:09>
[2021-08-08] MEDS: Morphine Sulfate/NS 100 MG/100 ML PLAST..BAG IVCONT (15:20)
--- NOTE | 2021-08-08 23:36 | PM.EVENT ---
Event Note Date of Service: 08/08/21 Event Note: Note: At around 11:25 p.m., RN mentioned that patient probably ; I went in examined the patient, patient not responding to verbal stimuli or tactile stimuli, no corneal reflex, pupils are fixed and dilated; Patient pronounced at 11:30 p.m. on 08/08/2021. Spoke to the patient's daughter, updated. Denied organ donation or autopsy. Cause of : Septic shock/UTI/encephalopathy.
--- NOTE | 2021-08-09 13:59 | P.DN_ITS ---
Discharge Sum: Prov Provider Primary care physician: Adam Garcia MD Discharge Sum: Diag PCOD Cause of : Septic shock Contributing Factors (1) UTI (urinary tract infection): (2) Toxic metabolic encephalopathy: (3) Ulcer of sacral region, stage 4: (4) EVA (acute kidney injury): (5) Femoral fracture: (6) Coma: (7) Severe protein-calorie malnutrition: Discharge Sum: Summary Date and Time Date of admission: 08/06/21 16:03 Date of : 08/08/21 Time of : 23:30 Summary Details: HPI: This is an 81 yo F with multiple medical problems who was brought into the ED by family for unresponsiveness and discolored urine. The patient is seen and examined in the ED. She is currently unresponsive and unable to provide a meaningful history. Per ED documentation, the patient was last seen the evening prior to ED arrival. Upon arrival to the ED -- patient comatose and unresponsive. Her BP was in the 80s to 90s systolic, HR in the 100-130s and RR in the 24. UA was suggestive of UTI. A potential diagnosis of sepsis was made and was treated with the appropriate antibiotics, cultures and IV fluids. Her BP continued to decline and the case was d/w the patients HCP/Daughter who decided upon not pursuing aggressive care such as central line placement / vasopressors / ICU level of care and instead opted for OPERATING MANAGER. A MOLST form was has been completed by the ED Team. I personally called the patients daughter whom confirmed the OPERATING MANAGER status. She was able to tell me, in her own words what OPERATING MANAGER entailed - no treatment with any medications other than what will make her mother's passing comfortable. Hospital Course: Patient was started on the usual comfort measures only treatment including IV morphine drip, Ativan p.r.n. for agitation and atropine/scopolamine for secretions. Patient peacefully on 08/08/2021 at 23:30 hours. The night doctor. Additional Data Attending physician: Jacinta Love NP
== END 2021-08-09 01:48 | disposition expired | DRG 951 ==
LOC: HO.ED 15:40 → HO.EDOVER 16:07 → HO.S3 16:14
PROVIDERS: Admitting Provider Family Medicine; Emergency Provider Emergency Medicine; PCP Internal Medicine; Visit Provider Nurse Practitioner Acute Care
DX: Z51.5 Encounter for palliative care (principal); L89.154 Pressure ulcer of sacral region, stage 4; A41.9 Sepsis, unspecified organism; S72.002A Fracture of unspecified part of neck of left femur, initial encounter for closed fracture; S32.10XB Unspecified fracture of sacrum, initial encounter for open fracture; G92 Toxic encephalopathy; E43 Unspecified severe protein-calorie malnutrition; R65.21 Severe sepsis with septic shock; R40.20 Unspecified coma; M86.9 Osteomyelitis, unspecified; N17.9 Acute kidney failure, unspecified; Z68.1 Body mass index [BMI] 19.9 or less, adult; N39.0 Urinary tract infection, site not specified; E03.9 Hypothyroidism, unspecified; F03.90 Unspecified dementia, unspecified severity, without behavioral disturbance, psychotic disturbance, mood disturbance, and anxiety; D72.829 Elevated white blood cell count, unspecified; X58.XXXA Exposure to other specified factors, initial encounter; Y93.9 Activity, unspecified; Y92.009 Unspecified place in unspecified non-institutional (private) residence as the place of occurrence of the external cause; Y99.9 Unspecified external cause status; D64.9 Anemia, unspecified; Z87.891 Personal history of nicotine dependence; Z20.822 Contact with and (suspected) exposure to COVID-19; Z79.1 Long term (current) use of non-steroidal anti-inflammatories (NSAID); Z79.899 Other long term (current) drug therapy
CPT/HCPCS: 36415; 70450; 71045; 74177; 80048; 80076; 81001; 82272; 82803; 83605; 83690; 83735; 84484; 85007; 85027; 87040; 87077; 87086; 87088; 87186; 87205; 87635; 93005; 99285; J0696; J2270; J2405; J3370; Q9967